=== PATIENT | female | born 1960 | race Caucasian/White ===

== ENCOUNTER 2023-05-11 14:44 | Emergency (ER) | payer OTHER, SELFPAY ==
[2023-05-11] VITALS (10 sets, daily range): BP systolic 111–167; BP diastolic 74–123; PULSE 70–99; RESP 7–26; TEMP 36.6; O2SAT 93–100; BMI 29.2
--- NOTE | 2023-05-11 16:07 | PC.NURSE ---
Pt states she was lifitng heavy boxes at work yesterday when the chest pain started. States she thinks pain is from over exertion and muscular not cardiac related but states that pt's family keep bothering her to go get checked out so she came.
--- NOTE | 2023-05-11 16:10 | ECG_ITS ---
The [facility] Test Date: 2023-05-11 Pat Name: KENY YOUNG Department: Room: - Gender: Female Online Facilitator: : 1960 Requested By: RON QUESADA Order Number: [id number] Reading MD: RON QUESADA Measurements Intervals [place] Rate: 93 P: 73 MD: 134 QRS: 88 QRSD: 100 T: 49 QT: 360 QTc: 411 Interpretive Statements 1100 Sinus rhythm 2440 Incomplete right bundle branch block 4068 Nonspecific Twave abnormality 9130 borderline ECG No previous ECG available for comparison Electronically Signed On 05-12-2023 6:33:05 EDT by RON QUESADA
--- NOTE | 2023-05-11 16:10 | ED_ITS ---
HPI - Chest Pain General Chief Complaint: Chest Pain Stated Complaint: CHEST PAIN Time Seen by Provider: 05/11/23 16:10 Source: patient Mode of arrival: walk-in Limitations: no limitations History of Present Illness HPI narrative: Presents to emergency department complaining of chest pain. Patient states he has pectoris major area. Both on the left than the right. The pain started yesterday after she was lifting some heavy boxes at work. Patient states she is here because she wants her family to shut up. She states that her family started asking her a lot of questions about the pain because one of them is a nurse and finally convinced her to come and be evaluated. Patient denies any palpitations, diaphoresis, near syncope, nausea, vomiting, paresthesias, or abdominal pain. She denies any cough, fever, chills. The patient is a smoker. She has a history of high cholesterol. She called her primary care doctor because she wanted to have an EKG done and was told come to the emergency department. Patient denies any history of coronary artery disease. She states she had a stress test many years ago. She denies any history of thrombotic disease. Related Data Allergies Allergy/AdvReac Type Severity Reaction Status Date / Time morphine Allergy Intermediate Verified 05/11/23 15:09 sulfamethoxazole Allergy Intermediate Verified 05/11/23 15:09 [From Bactrim] trimethoprim [From Bactrim] Allergy Intermediate Verified 05/11/23 15:09 Review of Systems ROS Status of ROS 10 or more systems reviewed and unremarkable except as noted in history and below Exam Narrative Exam Narrative: Nurses notes and vital signs reviewed and patient is not hypoxic. General: Nontoxic, Well-appearing and in no apparent distress. Skin: Warm, dry, no pallor noted. No Rash Head: Normocephalic, atraumatic. Neck: Supple, non-tender. Eye: Pupils are equal, round and EOMI. No scleral icterus. Ears, Nose, Mouth, and Throat: TM clear, no posterior oropharynx erythema or nasal mucosal hypertrophy, uvula is mid-line Oral mucosa is moist Cardiovascular: Regular Rate and Rhythm without murmur, gallop or rub. Respiratory: No accessory muscle use or respiratory distress. Lungs are clear to auscultation, no wheezing, rales or rhonchi Chest Wall: no tenderness Back: No midline thoracic or lumbar vertebral tenderness. No CVA tenderness Musculoskeletal: normal ROM, no calf or popliteal tenderness, no lower extremity edema/swelling GI: Abdomen is soft, non-distended. Normal bowel sounds. No masses appreciated. No tenderness to palpation. No rebound, guarding, or rigidity noted. Neurological: A&O x4. No cranial nerve dysfunction observed. No truncal ataxia. Moves all extremities. Sensation intact. Psychiatric: Cooperative and interactive. Normal mood and affect. Constitutional Vital Signs - 24 hr 05/11/23 15:05 05/11/23 15:07 05/11/23 16:04 Temperature 98 F Pulse Rate 99 H Pulse Rate [Monitor] 96 H Respiratory Rate 18 13 Blood Pressure 111/82 H 150/78 H Blood Pressure [Left Arm] 111/82 H Pulse Oximetry 98 100 05/11/23 16:04 05/11/23 16:10 05/11/23 16:10 Temperature Pulse Rate 92 H 90 96 H Pulse Rate [Monitor] Respiratory Rate 21 20 17 Blood Pressure 167/89 H 167/89 H Blood Pressure [Left Arm] Pulse Oximetry 99 97 98 05/11/23 16:30 05/11/23 17:01 05/11/23 17:01 Temperature Pulse Rate 85 96 H Pulse Rate [Monitor] Respiratory Rate 26 H 7 L Blood Pressure 159/123 H 132/81 H Blood Pressure [Left Arm] Pulse Oximetry 97 93 L 05/11/23 17:01 Temperature Pulse Rate 90 Pulse Rate [Monitor] Respiratory Rate 17 Blood Pressure 132/81 H Blood Pressure [Left Arm] Pulse Oximetry Course Vital Signs Vital signs: Vital Signs Temperature 98 F 05/11/23 15:05 Pulse Rate 96 H 05/11/23 15:05 Respiratory Rate 18 05/11/23 15:05 Blood Pressure 111/82 H 05/11/23 15:05 Pulse Oximetry 98 05/11/23 15:05 Temperature 98 F 05/11/23 15:05 Pulse Rate 90 05/11/23 17:01 Respiratory Rate 17 05/11/23 17:01 Blood Pressure 132/81 H 05/11/23 17:01 Pulse Oximetry 93 L 05/11/23 17:01 MDM - Chest Pain MDM Narrative Medical decision making narrative: EKG was done and does not show any acute ischemic changes. The patient wanted to leave against medical advice and decided to get blood work done for the sake of her family. Labs were unremarkable. Advised the patient would be best for her to lift the 2nd troponin and she agreed. 2nd troponin remains negative. All of the findings were discussed with patient. She is constant discharge. Patient is advised to make sure she follows up with Dr. Sumner in the morning to set up a stress test. The patient is aware that although there are no signs of an acute heart attack with have not ruled out coronary disease and she needs further testing. The patient has remained hemodynamically stable. No additional indication for emergent studies at this time. I answered all questions. Discussed discharge instructions including standard anticipatory guidance and what should prompt a return to the emergency department, including if they get worse are not getting better or develops any new or concerning symptoms. I've given them specific time frame in which to follow-up, and who to follow-up with. The patient demonstrates understanding. Patient is nontoxic and stable for discharge with outpatient follow-up. This note was created with the assistance of a speech recognition program. Although the intention is to generate documents that actually reflects the content of the visit, no guarantees can be provided that every mistake has been identified and corrected by editing. Differential Diagnosis Differential diagnosis: Likely pneumothorax, atypical chest pain, st elevation myocardial infarction, costochondritis and chest pain Lab Data Attestation: I reviewed the patient's lab results. Labs: Lab Results 05/11/23 05/11/23 Range/Units 16:08 17:48 WBC 9.9 (4.0-11.0) 10^3/uL RBC 4.71 (4.20-5.40) 10^6/uL Hgb 15.1 (12.0-16.0) g/dL Hct 43.9 (36.0-48.0) % MCV 93.2 (81.0-99.0) fL MCH 32.1 (26.7-34.0) pg MCHC 34.4 (29.9-35.2) g/dL RDW 12.7 (11.0-15.0) % Plt Count 300 (150-450) 10^3/uL MPV 8.6 L (9.5-13.5) fL Neut % (Auto) 70.9 (43.0-75.0) % Lymph % (Auto) 19.1 L (20.5-60.0) % [place] % (Auto) 8.6 (1.7-12.0) % Eos % (Auto) 0.6 L (0.9-7.0) % Baso % (Auto) 0.4 (0.2-2.0) % Neut # (Auto) 7.0 H (1.4-6.5) 10^3/uL Lymph # (Auto) 1.9 (1.2-3.8) 10^3/uL [place] # (Auto) 0.9 H (0.3-0.8) 10^3/uL Eos # (Auto) 0.1 (0.0-0.7) 10^3/uL Baso # (Auto) 0.0 (0.0-0.1) 10^3/uL Abs Immat Gran (auto) 0.04 H (0.00-0.03) 10^3/uL Imm/Tot Granulo (auto) 0.4 (0.0-0.5) % PT 9.9 (9.0-11.6) sec INR 0.93 APTT 26.2 (22.3-36.2) sec Sodium 137 (136-145) mmol/L Potassium 3.7 (3.5-5.1) mmol/L Chloride 102 (98-107) mmol/L Carbon Dioxide 27.0 (21.0-32.0) mmol/L Anion Gap 11.7 BUN 9.0 (7.0-18.0) mg/dL Creatinine 0.79 (0.55-1.02) mg/dL Est GFR ( Amer) >60 (>=60) Est GFR (Non-Af Amer) >60 (>=60) BUN/Creatinine Ratio 11.4 Glucose 100 (74-106) mg/dL Calcium 9.5 (8.5-10.1) mg/dL Total Bilirubin 0.4 (0.2-1.0) mg/dL AST 17 (15-37) U/L ALT 34 (14-59) U/L Alkaline Phosphatase 88 (46-116) U/L Troponin I High Sens 4.6 <4.0 L (4.0-51.3) pg/mL NT-Pro-B Natriuret Pep 123.0 (<=900.0) pg/mL Total Protein 7.7 (6.4-8.2) g/dL Albumin 3.8 (3.4-5.0) g/dL Globulin 3.9 g/dL Albumin/Globulin Ratio 1.0 ECG Data Attestation: I personally reviewed and interpreted this ECG as follows: Smoking Cessation Time spent discussing smoking cessation with patient: 3 to 10 minutes Discharge Plan Discharge Chief Complaint: Chest Pain Clinical Impression: Chest pain Patient Disposition: Home, Self-Care Time of Disposition Decision: 18:24 Condition: Good Mode of Transportation: Private Vehicle Instructions: Chest Pain (ED) Stand Alone Forms: Portal Instructions Referrals: Eliud Case MD [Primary Care Provider] - 1 week
--- NOTE | 2023-05-11 16:10 | XR_ITS ---
The [address] [address] Patient Name: KENY YOUNG MRN: [id number] date: 1960 Sex: F Assigned Patient Location: ER Current Patient Location: Accession/Order Number: [id number] Exam Date: 05/11/2023 16:30 Report Date: 05/11/2023 16:50 At the request of: JOVANI LOGAN Procedure: XR chest 1V EXAMINATION: XR chest 1V 05/11/2023 1:49 PM PDT HISTORY: cp TECHNIQUE: Single frontal view of the chest acquired. COMPARISONS: None. FINDINGS: Lines/tubes/other: None. Heart and mediastinum: The heart and the mediastinum are within normal limits for technique. Bones: No acute osseous abnormality. Lungs: The lungs are clear. There is no evidence of pneumonia or pulmonary edema. Pleura: There is no significant pleural effusion or pneumothorax. Other: None. IMPRESSION: No acute cardiopulmonary abnormality. Electronically authenticated by: LIZZETH MCKINNON Date: 05/11/2023 16:50
[2023-05-11 16:25] LABS: Basophils Percent Auto 0.4 % (0.2-2.0); Eosinophils Absolute Auto 0.1 10^3/uL (0.0-0.7); Eosinophils Percent Auto 0.6 % (0.9-7.0); Hematocrit 43.9 % (36.0-48.0); Hemoglobin 15.1 g/dL (12.0-16.0); Immature Granulocytes Abs Auto 0.04 10^3/uL (0.00-0.03); Immature Granulocytes Pct Auto 0.4 % (0.0-0.5); Lymphocytes Absolute Auto 1.9 10^3/uL (1.2-3.8); Lymphocytes Percent Auto 19.1 % (20.5-60.0); Mean Corpuscular HGB Conc 34.4 g/dL (29.9-35.2); Mean Corpuscular Hemoglobin 32.1 pg (26.7-34.0); Mean Corpuscular Volume 93.2 fL (81.0-99.0); Mean Platelet Volume 8.6 fL (9.5-13.5); Monocytes Absolute Auto 0.9 10^3/uL (0.3-0.8); Monocytes Percent Auto 8.6 % (1.7-12.0); Neutrophils Percent Auto 70.9 % (43.0-75.0); Platelet Count 300 10^3/uL (150-450); Red Blood Count 4.71 10^6/uL (4.20-5.40); Red Cell Distribution Width 12.7 % (11.0-15.0); White Blood Count 9.9 10^3/uL (4.0-11.0)
[2023-05-11 16:43] LABS: INR 0.93; Partial Thromboplastin Time 26.2 sec (22.3-36.2); Prothrombin Time 9.9 sec (9.0-11.6)
[2023-05-11 16:47] LABS: Alanine Aminotransferase 34 U/L (14-59); Albumin Level 3.8 g/dL (3.4-5.0); Alkaline Phosphatase 88 U/L (46-116); Anion Gap 11.7; Aspartate Amino Transferase 17 U/L (15-37); BUN Creatinine Ratio 11.4; Bilirubin Total 0.4 mg/dL (0.2-1.0); Calcium 9.5 mg/dL (8.5-10.1); Chloride 102 mmol/L (98-107); Estimated GFR (African America >60 (>=60); Estimated GFR (Non-African Ame >60 (>=60); Globulin 3.9 g/dL; Glucose 100 mg/dL (74-106); Potassium 3.7 mmol/L (3.5-5.1); Sodium 137 mmol/L (136-145); Total Protein 7.7 g/dL (6.4-8.2); Troponin I High Sensitivity 4.6 pg/mL (4.0-51.3)
[2023-05-11 18:17] LABS: Troponin I High Sensitivity <4.0 pg/mL (4.0-51.3)
== END 2023-05-11 18:35 | disposition home or self-care (01) ==
PROVIDERS: Emergency Provider Emergency Medicine; PCP Family Medicine
DX: R07.9 Chest pain, unspecified (principal); F17.210 Nicotine dependence, cigarettes, uncomplicated
CPT/HCPCS: 36415; 71045; 80053; 83880; 84484; 85025; 85610; 85730; 93005; 99285

== ENCOUNTER 2023-05-21 11:00 | Outpatient (OUT) | payer OTHER, SELFPAY ==
--- NOTE | 2023-05-21 11:08 | CA_ITS ---
Patient: KENY YOUNG Exam Date: 05/21/2023 : 1960 Gender:F Ordering : DR RON QUESADA . Admission #: [id number] Family : Order #: [id number] CLICK HERE TO VIEW EXAM ECHOCARDIOGRAM REPORT PROCEDURE: CA ECHO DOPPLER COMPLETE INDICATIONS: Chest pain, smoker COMPARISON: None. DESCRIPTION: COMPLETE ECHOCARDIOGRAM Real-time transthoracic echocardiography with 2D, M-mode, spectral and color flow Doppler performed. QUALITY: Technical quality was good. LEFT VENTRICLE: Normal chamber size. Normal left ventricular wall thickness. Normal systolic function. LV EF: Normal left ventricular ejection fraction, (>55%). DIASTOLIC: Normal diastolic function. ATRIAL SEPTUM: Visually appears intact. LEFT ATRIUM: Normal chamber size. RIGHT ATRIUM: Normal chamber size. RIGHT VENTRICLE: Normal chamber size. Normal right ventricular systolic function. TRICUSPID VALVE: Normal mobility and thickness. No stenosis with no regurgitation. MITRAL VALVE: Normal mobility and thickness. No evidence of mitral valve stenosis. There is no mitral annular calcification. No mitral regurgitation. AORTIC VALVE: Normal trileaflet appearance. Thickened aortic valve. Normal leaflet mobility. No evidence of aortic valve stenosis. No aortic regurgitation. AORTIC ROOT: Normal diameter and appearance. PULMONIC VALVE: Normal thickness and mobility. No stenosis. No regurgitation. PERICARDIUM: No evidence of pericardial effusion. IVC: Collapses with inspirations. PLEURA: CONCLUSION: 1. Normal ventricular function. LVEF is 55-60%. 2. No significant valvular dysfunction. 3. No pericardial effusion. Adult Echocardiography Procedure Report Left Ventricle LVEDD (3.7 - 5.6 cm): 4.46 cm LVESD (2.2 - 4.0 cm): 2.75 cm LVIVS thickness (0.6 - 1.2 cm): 0.85 cm LVPW thickness (0.5 - 1.0 cm): 0.85 cm e': 0.10 m/s E - e': 6.74 LVOT Max Gradient: 3.81 mm[Hg] LVOT Area (cm2): 0.98 m/s Peak Velocity (LVOT): 0.98 m/s Mean Velocity (LVOT): 0.67 m/s LVOT Diameter 2.14 cm Left Atrium LA Volume Index (2D A2C): 21.62 ml/m2 Left Atrium Systolic Dimension: 3.13 cm Mitral Valve MV E to A Ratio: 1.08 Mitral Valve A-Wave Peak Velocity: 0.60 m/s Mitral Valve E-Wave Peak Velocity: 0.65 m/s Right Ventricle Aorta AO Root Diam: 3.31 cm Ascending Ao Diam: 2.81 cm Aortic Valve AoV Area (Peak Benito): 2.92 cm2, 2.92 cm2 AoV Area (VTI): 3.03 cm2, 3.03 cm2 Peak Velocity(Antegrade Flow): 1.20 m/s Peak Gradient(Antegrade Flow): 5.78 mm[Hg] Mean Velocity(Antegrade Flow): 0.80 m/s Mean Gradient(Antegrade Flow): 2.95 mm[Hg] Velocity Time Integral: 27.26 cm Tricuspid Valve Pulmonic Valve Peak Velocity: 1.16 m/s Peak Gradient: 5.76 mm[Hg], 5.01 mm[Hg] Right Atrium Right Atrium Systolic Pressure: 35.67 ml, 35.67 ml Dictated by: Gaston Menchaca M.D. on 05/22/2023 at 17:56 Approved by: Gaston Menchaca M.D. on 05/22/2023 at 17:59
== END 2023-05-21 11:01 | disposition home or self-care (01) ==
PROVIDERS: PCP Family Medicine; Visit Provider Family Medicine
DX: R07.9 Chest pain, unspecified (principal)
CPT/HCPCS: 93306

== ENCOUNTER 2023-05-25 07:04 | Outpatient (OUT) | payer OTHER, SELFPAY ==
--- NOTE | 2023-05-25 06:45 | NM_ITS ---
Patient: KENY YOUNG Exam Date: 05/25/2023 : 1960 Gender:F Ordering : DR RON QUESADA . Admission #: [id number] Family : Order #: [id number] CLICK HERE TO VIEW EXAM RADIOLOGY REPORT PROCEDURE: NM CANDY PERF SPECT REST STR COMPARISON: None. INDICATIONS: CHEST PAIN TECHNIQUE: Exam Description: Stress/Rest one day protocol gated SPECT Rest Imagin.0 mCi Tc-99m Cardiolite IV on 05/25/2023 Stress Imaging 30.1 mCi Tc-99m Cardiolite IV on 05/25/2023 Exercise Protocol: [place] Heart Rate (bpm): Rest: 68 Max: 137 PMHR: 87 Blood Pressure: Rest: 137/76 Max: 160/82 Exercise Time: Minutes: 7 Seconds: 15 Stage Reached: Stage: 3 Mets 9.2 Symptoms: Rest and peak stress ECG findings were normal and the exercise portion of the study was normal per attending physician Dr. Ley . For more details please see separate cardiac stress test report. FINDINGS: QUALITY OF STUDY: Excellent. PERFUSION DEFECT: None. LOCATION: N/A SIZE: N/A. SEVERITY: N/A. TYPE: N/A. WALL MOTION: Normal. LV SIZE: Normal. 51 mL. TID / TCD: None; 1.0 LVEF: Normal. Calculated EF 79%. SUMMARY: Myocardial perfusion imaging study is NORMAL. CONCLUSION: 1. Normal myocardial perfusion scan 2. Normal exercise test Dictated by: Lanre Omalley MD on 05/25/2023 at 15:29 Approved by: Lanre Omalley MD on 05/25/2023 at 15:32
--- NOTE | 2023-05-25 15:02 | PM.STRESS ---
Stress Test Stress Test Allergies Allergy/AdvReac Type Severity Reaction Status Date / Time morphine Allergy Intermediate Verified 05/11/23 15:09 sulfamethoxazole Allergy Intermediate Verified 05/11/23 15:09 [From Bactrim] trimethoprim [From Bactrim] Allergy Intermediate Verified 05/11/23 15:09 Requesting physician: Eliud Case Procedure: Exercise Cardiolite stress test General Information: Reason for Stress Test: Chest pain Cardiac History and Risk Factors: Smoker. Grandmother had unspecified cardiovascular disease. Resting 12 - Lead Electrocardiogram: Normal sinus rhythm with rate 68. Normal T-waves & ST-segments. Normal axis. Stress Test: Protocol: [place] protocol was followed, with injection of Cardiolite once target heart rate was achieved. Exercise capacity: Good exercise capacity at a total exercise time of 7 minutes 16 seconds, equivalent to 3.4MPH, 14% grade, & 9.2 METs. Blood pressure: Initial: 136/76, Maximum: 160/82, Recovery: 138/78 Rate & rhythm: Patient remained in sinus rhythm during the exercise and recovery portions of the study.? The maximum heart rate was 137, which was 87% of the maximum predicted heart rate 157. ST-segments & T-waves: There were no T-wave changes and no ST-segment changes when compared to the baseline EKG. Patient response/symptoms: There were no symptoms similar to the chief complaint. Interpretation: Normal Lexiscan stress test. Cardiolite interpretation will be reported separately. Clinical correlation required.
== END 2023-05-25 07:05 | disposition home or self-care (01) ==
LOC: NM 07:07
PROVIDERS: PCP Family Medicine; Visit Provider Family Medicine
DX: R07.9 Chest pain, unspecified (principal)
CPT/HCPCS: 78452; 93017; A9500

== ENCOUNTER 2023-10-19 15:55 | Outpatient (OUT) | payer OTHER, SELFPAY ==
[2023-10-19 16:22] LABS: Basophils Percent Auto 0.4 % (0.2-2.0); Eosinophils Absolute Auto 0.1 10^3/uL (0.0-0.7); Eosinophils Percent Auto 0.9 % (0.9-7.0); Hematocrit 41.1 % (36.0-48.0); Hemoglobin 13.7 g/dL (12.0-16.0); Immature Granulocytes Abs Auto 0.02 10^3/uL (0.00-0.03); Immature Granulocytes Pct Auto 0.3 % (0.0-0.5); Lymphocytes Absolute Auto 1.7 10^3/uL (1.2-3.8); Lymphocytes Percent Auto 23.1 % (20.5-60.0); Mean Corpuscular HGB Conc 33.3 g/dL (29.9-35.2); Mean Corpuscular Hemoglobin 31.9 pg (26.7-34.0); Mean Corpuscular Volume 95.6 fL (81.0-99.0); Mean Platelet Volume 8.5 fL (9.5-13.5); Monocytes Absolute Auto 0.7 10^3/uL (0.3-0.8); Monocytes Percent Auto 9.5 % (1.7-12.0); Neutrophils Absolute Auto 4.9 10^3/uL (1.4-6.5); Neutrophils Percent Auto 65.8 % (43.0-75.0); Platelet Count 283 10^3/uL (150-450); White Blood Count 7.4 10^3/uL (4.0-11.0)
[2023-10-19 16:41] LABS: Anion Gap 9.7; BUN Creatinine Ratio 12.9; Carbon Dioxide 29.3 mmol/L (21.0-32.0); Chloride 105 mmol/L (98-107); Estimated GFR (African America >60 (>=60); Estimated GFR (Non-African Ame >60 (>=60); Glucose 96 mg/dL (74-106); Sodium 140 mmol/L (136-145)
== END 2023-10-19 15:56 | disposition home or self-care (01) ==
PROVIDERS: PCP Family Medicine; Visit Provider Nurse Practitioner Acute Care
DX: Z01.818 Encounter for other preprocedural examination (principal); Z01.812 Encounter for preprocedural laboratory examination
CPT/HCPCS: 36415; 80048; 85025

== ENCOUNTER 2023-12-08 11:26 | Outpatient (OUT) | payer OTHER, SELFPAY ==
--- OUTSIDE RECORDS SUMMARY | 2023-12-08 11:31 | XMS_ITS | CCD ---
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 Name Role Phone Ron Case MD Primary Care Provider [phone] CARTER TORRES Referring Unavailable RON CASE Primary Care Unavailable CARTER TORRES Referring Unavailable RON CASE Primary Care Unavailable AJAY PEREIRA Referring Unavailable RON CASE Primary Care Unavailable CARTER TORRES Admitting Unavailable CARTER TORRES Attending Unavailable RON CASE Primary Care Unavailable DR RON CASE Admitting Unavailable SANGITA, DR VELASQUEZ Attending Unavailable DR RON CASE Primary Care Unavailable DR RON CASE Consulting Unavailable JOHN PAUL, DR CARTER Ayala Consulting Unavailable MARJ ABRAHAM Admitting Unavailable MARJ ABRAHAM Attending Unavailable LORETA GRIMALDO Attending Unavailable HENRIETTA RODRIGUEZ Attending Unavailable MARJ BARAHAM Referring Unavailable Allergies Allergy Classification Reported Allergen(s) Allergy Type Date of Onset Reaction(s) Facility (4 sources) Morphine; Translations: [MORPHINE] Drug Allergy 06-21-20 Hives, Palpitations [facility] (1 source) Morphine Drug Allergy [facility] Repository (1 source) Sulfamethoxazole / Trimethoprim; Translations: [SULFAMETHOXAZOLE-TR IMETHOPRIM] Drug Allergy 09-28-20 [facility] Repository Medications Current Medications Medication Drug Class(es) Dates Sig (Normalized) Sig (Original) calcium chloride 0.0014 meq/ml / potassium chloride 0.004 meq/ml / sodium chloride 0.103 meq/ml / sodium lactate 0.028 meq/ml injectable solution (1 source) Start: 06-27-2022 lactated ringers infusion furosemide 20 mg oral tablet (3 sources) Loop Diuretic furosemide (LASI X) 20 MG tablet Take 20 mg by mouth as needed 0 Active ketorolac tromethamine 10 mg oral tablet (1 source) Nonsteroidal Anti-inflammatory Drug, Cyclooxygenase Inhibitor Start: 06-27-2022 End: 07-02-2022 ketorolac (TORADOL) 10 MG tablet Take 1 tablet by mouth in the morning and 1 tablet at noon and 1 tablet before bedtime. Do all this for 5 days. 1 tab by mouth 3 times daily. 15 tablet 0 06/27/2022 07/02/2022 Active pantoprazole 40 mg delayed release oral tablet (1 source) Proton Pump Inhibitor take 1 tablet by mouth once daily as needed pantoprazole (PROTONIX) 40 MG tablet Take 40 mg by mouth daily as needed 0 Active Completed/Discontinued Medications Medication Drug Class(es) Dates Sig (Normalized) Sig (Original) ceFAZolin 2000 mg injection (1 source) Cephalosporin Antibacterial Start: 06-27-2022 End: 06-27-2022 ceFAZolin (ANCEF) 2000 mg in dextrose 3 % 50 mL IVPB (duplex) ibuprofen 800 mg oral tablet (3 sources) Nonsteroidal Anti-inflammatory Drug Start: 04-30-2020 End: 06-27-2022 take 1 tablet by mouth four times daily for pain ibuprofen (ADVIL;MOTRIN) 800 MG tablet take 1 tablet by mouth four times a day if needed for pain 0 04/30/2020 06/27/2022 Discontinued (Stop Taking at Discharge) levoFLOXacin 750 mg oral tablet (3 sources) Quinolone Antimicrobial Start: 08-10-2020 End: 06-27-2022 take 1 tablet by mouth once daily levoFLOXacin (LEVAQUIN) 750 MG tablet take 1 tablet by mouth once daily 0 08/10/2020 06/27/2022 Discontinued (Therapy completed) Problems Problem Classification Problem Date Documented Date Episodic/Chronic Coronary atherosclerosis and other heart disease (4 sources) Atherosclerotic heart disease of [place] coronary artery without angina pectoris; Translations: [Atherosclerotic heart disease of [place] coronary artery with other forms of angina pectoris] Onset: 10-26-2023 Chronic Joint disorders and dislocations; trauma-related (4 sources) Unspecified internal derangement of right knee; Translations: [UNS INTERNAL DERANGEMENT RIGHT KNEE] Onset: 06-05-2022 Chronic Nonspecific chest pain (2 sources) Other chest pain; Translations: [Other chest pain] Onset: 10-08-2023 Episodic Other lower respiratory disease (2 sources) Shortness of breath; Translations: [Shortness of breath] Onset: 10-08-2023 Episodic Results Test Name Value Interpretation Reference Range Facility Office Visiton 11-11-2023 Follow-up visit [id number] Abi Boswell 1960 Provider Department Center 11/11/2023 HENRIETTA FLOREZ [facility] [place] Family History Problem Relation Age of Onset Hypertension Maternal Grandmother Transient ischemic attack Maternal Grandmother Heart attack Maternal Grandfather Heart failure Maternal Grandfather Family Status - Relation Status Age at Maternal Grandmother Maternal Grandfather Level of Service:68436 SD OFFICE/OUTPATIENT ESTABLISHED MOD MDM 30-39 MIN Reason for Visit and Comments: Chest Pain [266424] Coronary Artery Disease [187] [facility] HPon 10-26-2023 HP H&P reviewed. The patient was examined and there are no changes to the H&P. This is a 63-year-old woman with multiple risk factors for coronary artery disease who has been having symptoms of chest pain suggestive of possible unstable angina consisting of 5 pressure in the center of the chest with left upper extremity radiation. She is currently being treated with aspirin, statin beta-chapin and long-acting nitrates. She continues to have recurrence of the symptoms despite medical therapy. In April she was evaluated in the emergency room and her troponins were negative. At that time she underwent an echocardiogram and a stress test that were nonrevealing. Because of continued chest pain on medical therapy, she is brought today for cardiac catheterization with coronary angiography to determine the coronary anatomy and decide on need for intervention. Normal [facility] NURSNOTEon 10-26-2023 NURSNOTE RN educated pt on d/ c instructions. RN encouraged pt to voice any questions or concerns. Pt verbalizes no questions or concerns at this time. Pt was wheeled off of unit with all of belongings. [facility] Orders Onlyon 10-01-2023 Orders Only [id number] Boswell,Bernice Maxine 1960 Provider Department Center 10/01/2023 SCOT BRADLEY [facility] Family History Problem Relation Age of Onset Hypertension Maternal Grandmother Transient ischemic attack Maternal Grandmother Heart attack Maternal Grandfather Heart failure Maternal Grandfather Family Status - Relation Status Age at Maternal Grandmother Maternal Grandfather Normal [facility] HPon 09-28-2023 Cardiovascular Medicine [facility] SUBJECTIVE No chief complaint on file. HPI Abi Boswell is a 63 y.o. female with past medical history of SLE, restless leg syndrome, hyperlipidemia, and GERD, herefor evaluation of chest pain. She has been experiencing sporadic chest pressure/tightness radiating to left arm and back since March, lasting up to 30 minutes at a time. Pain is unpredictable at times occurs on exertion and at times at rest. She has had a stress test and echo which have been unremarkable. She has been prescribed Imdur and Metoprolol, she is uncertain if these are helping. Ntiro tabs seem to relieve her symptoms. She would like to discuss coronary angiography. She is 1/2 ppd, started smoking at age 15. Mother had a mild stroke at an unknown age. Allergies Allergen Reactions Morphine Hives, Other and Palpitations Sulfamethoxazole-Trim ethoprim Itching There is no problem list on file for this patient. Past Medical History: Diagnosis Date Hyperlipidemia Past Surgical History: Procedure Laterality Date BLADDER REPAIR HYSTERECTOMY KNEE SURGERY SHOULDER SURGERY TONSILLECTOMY Family History Problem Relation Name Age of Onset Hypertension Maternal Grandmother Transient ischemic attack Maternal Grandmother Heart attack Maternal Grandfather Heart failure Maternal Grandfather Social History Tobacco Use Smoking status: Every Day Packs/day: 0.50 Types: Cigarettes Smokeless tobacco: Never Substance Use Topics Alcohol use: Not Currently Review of Systems Cardiovascular: Positive for chest pain, dyspnea on exertion and palpitations. Negative for irregular heartbeat, leg swelling, near-syncope, orthopnea, paroxysmal nocturnal dyspnea and syncope. OBJECTIVE Visit Vitals BP 121/69 (BP Location: Right arm, Patient Position: Sitting) Pulse 73 Ht 1.651 m (5' 5 ) Wt 79.4 kg (175 lb) SpO2 96% BMI 29.12 kg/m??? Smoking Status Every Day BSA 1.91 m??? Medications: Current Outpatient Medications: aspirin 81 mg EC tablet, 1 (one) time each day at the same time., Disp: , Rfl: diclofenac (Voltaren) 75 mg EC tablet, 1 (one) time each day at the same time., Disp: , Rfl: furosemide (Lasix) 20 mg tablet, if needed., Disp: , Rfl: HYDROcodone-acetamino phen (Redding) 5-325 mg tablet, take 1 tablet by mouth every 6 hours if needed for 22, Disp: , Rfl: isosorbide mononitrate ER (Imdur) 30 mg 24 hr tablet, Take 30 mg by mouth 2 times daily., Disp: , Rfl: metoprolol tartrate (Lopressor) 25 mg tablet, Take 25 mg by mouth in the morning and at bedtime., Disp: , Rfl: nitroglycerin (Nitrostat) 0.4 mg SL tablet, , Disp: , Rfl: pantoprazole (ProtoNix) 40 mg EC tablet, 1 (one) time each day at the same time., Disp: , Rfl: potassium chloride CR (Klor-Con M10) 10 mEq ER tablet, if needed., Disp: , Rfl: pramipexole (Mirapex) 0.5 mg tablet, Take 0.5 mg by mouth in the morning., Disp: , Rfl: predniSONE (Deltasone) 10 mg tablet, Take 10 mg by mouth if needed., Disp: , Rfl: pregabalin (Lyrica) 25 mg capsule, 1 capsule 1 (one) time each day at the same time., Disp: , Rfl: simvastatin (Zocor) 20 mg tablet, 1 (one) time each day at the same time., Disp: , Rfl: Physical Exam Constitutional: Appearance: Normal appearance. Cardiovascular: Rate and Rhythm: Normal rate and regular rhythm. Pulses: Normal pulses. Heart sounds: Normal heart sounds. No murmur heard. No friction rub. Pulmonary: Effort: Pulmonary effort is normal. No respiratory distress. Breath sounds: Normal breath sounds. No wheezing or rales. Skin: General: Skin is warm and dry. Neurological: General: No focal deficit present. Mental Status: She is alert. Labs: 05/11/2023 WBC 9.9, hemoglobin 15.1, hematocrit 43.9, platelets 300 Sodium 137, potassium 3.7, chloride 102, CO2 27, BUN 9, serum creatinine 0.79, Estimated GFR greater than 60% High sensitive troponin < 4 NT proBNP 123 (less than 900) Testing/Procedures: Stress test: 05/25/2023 Normal myocardial perfusion scan Normal exercise test Echo: 05/21/2023 Normal ventricular function. LVEF is 55 to 60% No valvular dysfunction No pericardial effusion No echocardiogram results found for the past 14 days No echocardiogram results found for the past 12 months No results found for this or any previous visit (from the past 4464 hour(s)). ASSESSMENT/PLAN: Diagnosis Plan 1. Other chest pain ECG 12 lead 2. Tobacco dependence 3. Mixed hyperlipidemia Chest pain -She is experiencing atypical chest pain occurring at various times of the day. I reviewed her workup including a stress test and echo which were normal. I also reviewed labs obtained during an acute ED presentation which included cardiac enzymes that were negative. I advised I will review the case with interventional cardiology for recommendation on angiography vs CCTA. 2. Tobacco dependence -She is not ready to quit but working slowly t (more content not included)... Normal [facility] Office Visiton 09-28-2023 Follow-up visit [id number] Abi Boswell 1960 F Date Provider Department Center 09/28/2023 [id number] GRIMALDO CARD [facility] Family History Problem Relation Age of Onset Hypertension Maternal Grandmother Transient ischemic attack Maternal Grandmother Heart attack Maternal Grandfather Heart failure Maternal Grandfather Family Status - Relation Status Age at Maternal Grandmother Maternal Grandfather Level of Service:07426 SD OFFICE/OUTPATIENT NEW LOW MDM 30-44 MINUTES Normal [facility] [id number] 06-27-2022 SARS-CoV-2 (COVID-19) RNA CAROLINE+probe Ql (Unsp spec) Not detected Normal [facility] Comment on above: Result Comment: Rapid NAAT: The specimen is NEGATIVE for SARS-CoV-2, the novel coronavirus associated with COVID-19. The ID NOW COVID-19 assay is designed to detect the virus that causes COVID-19 in patients with signs and symptoms of infection who are suspected of COVID-19. An individual without symptoms of COVID-19 and who is not shedding SARS-CoV-2 virus would expect to have a negative (not detected) result in this assay. Negative results should be treated as presumptive and, if inconsistent with clinical signs and symptoms or necessary for patient management, should be tested with an alternative molecular assay. Negative results do not preclude SARS-CoV-2 infection and should not be used as the sole basis for patient management decisions. Fact sheet for Healthcare Providers: https://www.fda.gov/media/442998/download Fact sheet for Patients: https://www.fda.gov/media/830079/download Methodology: Isothermal Nucleic Acid Amplification Performed By: #### C OVRB #### [facility] [address] [place] [address] Site Reliability Engineer: Lanre Santana MD Basic Metabolic Panelon 05-31 Anion gap [Moles/Vol] 8 mmol/L Low 9 - 17 mmol/L [facility] Calcium [Mass/Vol] 9.8 mg/dL 8.6 - 10. 4 mg/dL [facility] Chloride [Moles/Vol] 107 mmol/L 98 - 10 7 mmol/L [facility] CO2 [Moles/Vol] 30 mmol/L 20 - 31 mmol/L [facility] Creatinine [Mass/Vol] 0.73 mg/dL 0.5 - 0.9 mg/dL [facility] GFR >60 60 - PI NF mL/min [facility] GFR Non- >60 60 - PINF mL/min [facility] Glucose [Mass/Vol] 97 mg/dL 70 - 99 mg/dL [facility] Interpretation and review of laboratory results Abnormal [facility] Potassium [Moles/Vol] 4.4 mmol/L 3.7 - 5.3 mmol/L [facility] Sodium [Moles/Vol] 145 mmol/L High 135 - 144 mmol/L [facility] Urea nitrogen (BldV) [Mass/Vol] 12 mg/dL 8 - 23 mg/dL [facility] Urea nitrogen/Creatinine (Bld) [Mass ratio] 16 9 - 20 [facility] Basic Metabolic Profon 06-20 (cont.) Normal [facility] Comment on above: Result Comment: Aver age GFR for 60-69 years old: 85 mL/min/1.73sq m Chronic Kidney Disease: <60 mL/min/1.73sq m Kidney failure: <15 mL/min/1.73sq m eGFR calculated using average adult body mass. Additional eGFR calculator available at: http://www.Metaboli/multiple_crcl_2012.htm Performed By: #### C DP, BMP #### [facility] [address] [place], [place] [id number] Site Reliability Engineer: Lanre Santana MD Anion gap [Moles/Vol] 8 mmol/L Low 9-17 [facility] Comment on above: Performed By: #### C DP, BMP #### [address] [place], [place] [id number] Site Reliability Engineer: Lanre Santana MD BUN/CRE Ratio 16 Normal 9-20 [facility] Comment on above: Performed By: #### C DP, BMP #### [address] [place], [place] [id number] Site Reliability Engineer: Lanre Santana MD Calcium [Mass/Vol] 9.8 mg/dL Normal 8.6-10.4 [facility] Comment on above: Performed By: #### C DP, BMP #### [address] [place], [place] [address]83 Site Reliability Engineer: Lanre Santana MD Chloride [Moles/Vol] 107 mmol/L Normal 98-107 [facility] Comment on above: Performed By: #### C DP, BMP #### [facility] [address] [place], [place] [id number] Site Reliability Engineer: Lanre Santana MD CO2 [Moles/Vol] 30 mmol/L Normal 20-31 [facility] Comment on above: Performed By: #### C DP, BMP #### [facility] [address] [place] [address] [place] [place], [place] [id number] Site Reliability Engineer: Lanre Santana MD Creatinine [Mass/Vol] 0.73 mg/dL Normal 0.50-0.90 [facility] Comment on above: Performed By: #### C DP, BMP #### [facility] [address] [place] [address] Site Reliability Engineer: Lanre Santana MD GFR, Amer >60 Normal >[address] [facility] Comment on above: Performed By: #### C DP, BMP #### [facility] [address] [place], [place] [address] Site Reliability Engineer: Lanre Santana MD GFR,non Amer >60 Normal >60 [facility] Comment on above: Performed By: #### C DP, BMP #### [facility] [address] [place], [place] [address] Site Reliability Engineer: Lanre Santana MD Glucose [Mass/Vol] 97 mg/dL Normal 70-99 [facility] Comment on above: Performed By: #### C DP, BMP #### [facility] [address] [place], [place] [address] Site Reliability Engineer: Lanre Santana MD Potassium [Moles/Vol] 4.4 mmol/L Normal 3.7-5.3 [facility] Comment on above: Performed By: #### C DP, BMP #### [facility] [address] [place] [address] [place], [place] [address] Site Reliability Engineer: Lanre Santana MD Sodium [Moles/Vol] 145 mmol/L High 135-144 [facility] Comment on above: Performed By: #### C DP, BMP #### [facility] [address] [place] [address] Site Reliability Engineer: Lanre Santana MD Staging: Normal [facility] Comment on above: Result Comment: Stag e 1: Some kidney damage normal GFR Stage 2: Mild kidney damage GFR 60-89 Stage 3: Moderate kidney damage GFR 30-59 Stage 4: Severe kidney damage GFR 15-29 Stage 5: Severe kidney damage GFR <15 ESRD - chronic treatment by dialysis or transplant Performed By: #### C DP, BMP #### [facility] [address] [place] [address] Site Reliability Engineer: Lanre Santana MD Urea nitrogen [Mass/Vol] 12 mg/dL Normal 8-23 [facility] Comment on above: Performed By: #### C DP, BMP #### [facility] [address] [place] [address] Site Reliability Engineer: Lanre Santana MD CBC with Auto Differentialon 06-20-2022 Absolute Eos # 0.12 [facility] Absolute Immature Granulocyte 0.03 [facility] Absolute Lymph # 1.85 [facility] Absolute [place] # 0.71 [facility] Basophils (Bld) [#/Vol] 0.03 10*3/uL [facility] Basophils/100 WBC (Bld) 0 % 0 - 2 % [facility] Eosinophils/100 WBC (Bld) 1 % 1 - 4 % [facility] Hematocrit (Bld) [Volume fraction] 42.7 % 36.3 - 47.1 % [facility] Hemoglobin (Bld) [Mass/Vol] 14.3 g/dL 11.9 - 15.1 g/dL [facility] Immature granulocytes/100 WBC (Bld) 0 % 0 [facility] Interpretation and review of laboratory results Abnormal [facility] Lymphocytes/100 WBC (Bld) 22 % Low 24 - 43 % [facility] MCH (RBC) [Entitic mass] 32.6 pg 25.2 - 33.5 pg [facility] MCHC (RBC) [Mass/Vol] 33.5 g/dL 28.4 - 34.8 g/dL [facility] MCV (RBC) [Entitic vol] 97.3 fL 82.6 - 102.9 fL [facility] Monocytes/100 WBC (Bld) 9 % 3 - 12 % [facility] NRBC Automated 0.0 0.0 per 100 WBC [facility] Platelet distribution width (Bld) [Ratio] 13.3 % 11.8 - 14.4 % [facility] Platelet mean volume (Bld) [Entitic vol] 8.4 fL 8.1 - 13.5 fL [facility] Platelets (Bld) [#/Vol] 278 10*3/uL [facility] RBC (Bld) [#/Vol] 4.39 10*6/uL 3.95 - 5.1 1 m/uL [facility] Segmented neutrophils/100 WBC (Bld) 68 % High 36 - 65 % [facility] Segs Absolute 5.62 [facility] WBC (Bld) [#/Vol] 8.4 10*3/uL [facility] CBC with Diffon 06-20-2022 Abs. Basophil 0.03 k/uL Normal 0.00-0.20 [facility] Comment on above: Performed By: #### C DP, BMP #### [facility] [address] [place] [address] [place] [address] Site Reliability Engineer: Lanre Santana MD Abs.Imm.Granulocyte 0.03 k/uL Normal 0.00-0.30 [facility] Comment on above: Performed By: #### C DP, BMP #### [address] [address] Site Reliability Engineer: Lanre Santana MD Abs.Neutrophil (Seg) 5.62 k/uL Normal 1.50-8.10 [facility] Comment on above: Performed By: #### C DP, BMP #### [facility] [address] [place] [address] Dr. [place], [id number] Site Reliability Engineer: Lanre Santana MD Basophils/100 WBC (Bld) 0 % Normal 0-2 [facility] Comment on above: Performed By: #### C DP, BMP #### [facility] [address] [place] [address] Dr. [place], [place] [id number] Site Reliability Engineer: Lanre Santana MD Eosinophils (Bld) [#/Vol] 0.12 10*3/uL Normal 0.00-0.44 [facility] Comment on above: Performed By: #### C DP, BMP #### [address] [place], [place] [id number] Site Reliability Engineer: Lanre Santana MD Eosinophils/100 WBC (Bld) 1 % Normal 1-4 [facility] Comment on above: Performed By: #### C DP, BMP #### [address] [place] [id number] Site Reliability Engineer: Lanre Santana MD Erythrocyte distribution width (RBC) [Ratio] 13.3 % Normal 11.8-14.4 [facility] Comment on above: Performed By: #### C DP, BMP #### [address] [place] [id number] Site Reliability Engineer: Lanre Santana MD Hematocrit (Bld) [Volume fraction] 42.7 % Normal 36.3-47.1 [facility] Comment on above: Performed By: #### C DP, BMP #### [address] [place] [id number] Site Reliability Engineer: Lanre Santana MD Hemoglobin (Bld) [Mass/Vol] 14.3 g/dL Normal 11.9-15.1 [facility] Comment on above: Performed By: #### C DP, BMP #### [address] [place], [id number] Site Reliability Engineer: Lanre Santana MD Immature granulocytes/100 WBC (Bld) 0 % Normal 0 [facility] Comment on above: Performed By: #### C DP, BMP #### [address] [place], [place] 148[address]83 Site Reliability Engineer: Lanre Santana MD Lymphocytes (Bld) [#/Vol] 1.85 10*3/uL Normal 1.10-3.70 [facility] Comment on above: Performed By: #### C DP, BMP #### [facility] [address] [place], [place] [id number] Site Reliability Engineer: Lanre Santana MD Lymphocytes/100 WBC (Bld) 22 % Low 24-43 [facility] Comment on above: Performed By: #### C DP, BMP #### [facility] [address] [place], [facility] Site Reliability Engineer: Lanre Santana MD MCH (RBC) [Entitic mass] 32.6 pg Normal 25.2-33.5 [facility] Comment on above: Performed By: #### C DP, BMP #### [address] [place], [facility] Site Reliability Engineer: Lanre Santana MD MCHC (RBC) [Mass/Vol] 33.5 g/dL Normal 28.4-34.8 [facility] Comment on above: Performed By: #### C DP, BMP #### [address] [place], [id number] Site Reliability Engineer: Lanre Santana MD MCV (RBC) [Entitic vol] 97.3 fL Normal 82.6-102.9 [facility] Comment on above: Performed By: #### C DP, BMP #### [address] [place], [place] [address] Site Reliability Engineer: Lanre Santana MD Monocytes (Bld) [#/Vol] 0.71 10*3/uL Normal 0.10-1.20 [facility] Comment on above: Performed By: #### C DP, BMP #### [address] [place] [address] Site Reliability Engineer: Lanre Santana MD Monocytes/100 WBC (Bld) 9 % Normal 3-12 [facility] Comment on above: Performed By: #### C DP, BMP #### [facility] [address] [place], [place] [id number] Site Reliability Engineer: Lanre Santana MD Neutrophil (Seg) 68 % High 36-[address] [facility] Comment on above: Performed By: #### C DP, BMP #### [facility] [address] [place], [place] [id number] Site Reliability Engineer: Lanre Santana MD NRBC Automated 0.0 per 100 WBC Normal 0.0 [facility] Comment on above: Performed By: #### C DP, BMP #### [address] [place], [place] [id number] Site Reliability Engineer: Lanre Santana MD Platelet mean volume (Bld) [Entitic vol] 8.4 fL Normal 8.1-13.5 [facility] Comment on above: Performed By: #### C DP, BMP #### [address] [place], [place] [id number] Site Reliability Engineer: Lanre Santana MD Platelets (Bld) [#/Vol] 278 10*3/uL Normal 138-453 [facility] Comment on above: Performed By: #### C DP, BMP #### [address] [place], [place] [id number] Site Reliability Engineer: Lanre Santana MD RBC (Bld) [#/Vol] 4.39 10*6/uL Normal 3.95-5.11 [facility] Comment on above: Performed By: #### C DP, BMP #### [facility] [address] [place] [address] Dr[address] [place], [place] [id number] Site Reliability Engineer: Lanre Santana MD WBC (Bld) [#/Vol] 8.4 10*3/uL Normal 3.5-11.3 [facility] Comment on above: Performed By: #### C DP, BMP #### [address] [place], [place] [id number] Site Reliability Engineer: Lanre Santana MD EKG 12 LeadOrdered By: César baezad on 06-20-2022 Atrial Rate 65 BPM [employer] Work Phone: P [place] 65 degrees [employer] Work Phone: P-R Interval 134 ms [employer] Work Phone: Q-T Interval 432 ms [employer] Work Phone: QRS Duration 110 ms [employer] Work Phone: QTc Calculation (Bazett) 449 ms [employer] Work Phone: R [place] 72 degrees [employer] Work Phone: T [place] 43 degrees [employer] Work Phone: Ventricular Rate 65 BPM [employer] Work Phone: [employer] Work Phone: EKG 12 Leadon 06-20-2022 Normal sinus rhythm Incomplete right bundle branch block Cannot rule out Inferior infarct , age undetermined Abnormal ECG No previous ECGs available Confirmed by César Blanco MD ([id number]) on 06/20/2022 10:08:[address] [facility] César Blanco MD - 06/20/2022 Normal sinus rhythm Incomplete right bundle branch block Cannot rule out Inferior infarct , age undetermined Abnormal ECG No previous ECGs available Confirmed by César Blanco MD ([id number]) on 06/20/2022 10:08:07 PM [employer] Work Phone: Laboratory - Chemistry and C hemistry - challengeon 06-20-2022 GFR/1.73 sq M.predicted MDRD (S/P/Bld) [Vol rate/Area] [employer] Comment on above: Average GFR for 60-6 9 years old: 85 mL/min/1.73sq m Chronic Kidney Disease: <60 mL/min/1.73sq m Kidney failure: <15 mL/min/1.73sq m eGFR calculated using average adult body mass. Additional eGFR calculator available at: [email or web address] Stage 1: Some kidney damage normal GFR Stage 2: Mild kidney damage GFR 60-89 Stage 3: Moderate kidney damage GFR 30-59 Stage 4: Severe kidney damage GFR 15-29 Stage 5: Severe kidney damage GFR <15 ESRD - chronic treatment by dialysis or transplant MRI KNEE RT WO CONon 022 MRI KNEE RT WO CON EXAMINATION: MRI KNE E RT WO CON HISTORY: Derangement of right knee ; acute right knee pain, difficulty with weightbearing COMPARISON: No relevant comparison available. TECHNIQUE: A complete multi-planar MRI was performed. FINDINGS: MEDIAL COMPARTMENT MEDIAL MENISCUS: Large undersurface tear involving posterior horn and junction. CARTILAGE: No visible defect. BONES: Edema within the marrow of tibial plateau deep to the attachment of the posterior cruciate ligament. MCL AND MEDIAL CAPSULE: Normal medial collateral ligament and medial capsule. LATERAL COMPARTMENT LATERAL MENISCUS: No visible tear or significant degeneration. CARTILAGE: No visible defect. BONES: No marrow pathology, fracture, or significant arthropathy. LCL/POSTEROLAT COMPLEX: Normal lateral collateral ligament, fascicles, lateral capsule and ligaments. ANTERIOR COMPARTMENT PATELLA: No marrow pathology, fracture, or significant arthropathy. CARTILAGE: No visible defect. TENDONS: Normal. EFFUSION: None. No synovitis or loose bodies. ACL: Normal appearing ligament. PCL: Normal appearing ligament. MENISCOFEMORAL: Normal meniscofemoral ligaments. OTHER: Negative. IMPRESSION: 1. Medial meniscus large undersurface tear involving the posterior horn and junction. 2. Edema within tibia deep to the posterior cruciate ligament attachment, possibly bone bruising. No disruption or appreciable stranding of the posterior cruciate ligament. Electronically authenticated by: CARTER COKER Date: 2022-06-06 15:52 Normal [facility] Vital Signs Date Time Vital Sign Value Performing Clinician Nito patiño 06-27-2022 14:30-0400 Diastolic blood pressure 68 mm[Hg] Carter Torres MD Work Phone: [employer] 06-27-2022 14:30-0400 Heart rate 68 /min Carter Torres MD Work Phone: [employer] 06-27-2022 14:30-0400 Respiratory rate 23 /min Carter Torres MD Work Phone: [employer] 06-27-2022 14:30-0400 SaO2% (BldA) [Mass fraction] 94 % Carter Torres MD Work Phone: [employer] 06-27-2022 14:30-0400 Systolic blood pressure 117 mm[Hg] Carter Torres MD Work Phone: [employer] 06-27-2022 14:00-0400 Body temperature 97 [degF] Carter Torres MD Work Phone: [employer] 06-27-2022 11:16-0400 Body height 162.6 cm Carter Torres MD Work Phone: [employer] 06-27-2022 11:16-0400 Body mass index (BMI) [Ratio] 30.04 kg/m2 Carter Torres MD Work Phone: [employer] 06-27-2022 11:16-0400 Body weight 79.38 kg Carter Torres MD Work Phone: [employer] Encounters Encounter Date Encounter Type Care Provider Facility Start: 11-11-2023 End: 11-11-2023 ambulatory [facility]TA [facility] Start: 10-26-2023 End: 10-26-2023 ambulatory [facility] Start: 09-28-2023 End: 09-28-2023 ambulatory [facility] Start: 06-27-2022 End: 06-27-2022 ambulatory [facility] Start: 06-27-2022 End: 06-27-2022 Subsequent hospital visit by physician Carter Torres MD Work Phone: [facility] Start: 06-20-2022 End: 06-21-2022 ambulatory [facility] Start: 06-20-2022 End: 06-20-2022 Subsequent hospital visit by physician Ron Case MD Work Phone: [facility] Start: 06-05-2022 End: 06-06-[address] RON CASE Facility:H1 Procedures Date Procedure Procedure Detail Performing Clinician Start: 06-20-2022 Ecg routine ecg w/le ast 12 lds w/i&r Carter Torres MD Work Phone: Start: 06-20-2022 Basic metabolic pane l calcium total Carter Torres MD Work Phone: Plan of Treatment Date Care Activity Detail Author Start: 07-31-2022 Influenza vaccination Flu vaccine (# 1) [facility] Start: 06-27-2022 End: 06-27-2022 Arthroscopy knee diagnostic w/wo synovial bx spx KNEE ARTHROSCOPY Acute medial meniscus tear of right knee, initial encounter 06/27/2022 1:07 PM T [facility] Start: 2010 Screening for malign ant neoplasm of breast Breast cancer screen [facility] Start: 2010 Shingles vaccine (1 of 2) Shingles vaccine (1 of 2) [facility] Start: 2005 Screening for malign ant neoplasm of colon [facility] Start: 2000 Lipid panel Lipids [facility] Start: 1979 DTaP/Tdap/Td vaccine (1 - Tdap) DTaP/Tdap/Td vaccine (1 - Tdap) [facility] Start: 1978 Hepatitis C screening Hepatitis C sc reen [facility] Start: 1975 HIV screening HIV screen [facility] Start: 1972 Depression Screen Depression Screen [facility] Start: 1966 Pneumococcal 0-64 ye ars Vaccine (1 - PCV) Pneumococcal 0-64 years Vaccine (1 - PCV) [facility] Start: 1960 COVID-19 Vaccine (#1) COVID-19 Vacci ne (#1) [facility] Oxygen therapy [[facility] Data Set] Initiate Oxygen Therapy Protocol Respiratory Care Routine As Needed until discontinued starting 06/27/2022 [employer] Phone: Comment on above: As Needed until disc ontinued starting 06/27/2022 Payers Date Payer Category Payer Unknown [id number] [id number] 1960 Unknown [id number] 1960 Unknown [id number] [id number] 1960 Unknown [id number] [id number] 1960 Unknown [id number] 1959 Unknown [id number] Social History Date Type Detail Facility Start: 06-21-2020 [facility] [employer] Phone: History of tobacco use Cigarette Smoker [facility] [employer] [facility] Phone: Start: 06-21-2020 Cigarettes smoked current (pack per day) - Reported 0.5 [employer] Phone: Start: 06-21-2020 Tobacco use and exposure Smoke less tobacco non-user [employer] Phone: Start: 12-05-2021 End: 06-27-2022 Alcohol intake Lifetime non-drinker (finding) [employer] Phone: Start: 06-21-2020 History SDOH Alcohol Frequency 1 [employer] Phone: Start: 1960 Sex Assigned At Not on file [facility] [employer] [employer] [facility] Phone: Start: 06-17-2022 End: 06-27-2022 Exposure to SARS-CoV-2 (event) Not sure [facility] Work Phone: Progress note 11-11-2023 Note Date & Type Note Facility 11-11-2023 Note Cardiovascular Medic [facility] SUBJECTIVE Chief Complaint Patient presents with Chest Pain Coronary Artery Disease HPI Abi Boswell is a 63 y.o. female with past medical history of SLE, restless leg syndrome, hyperlipidemia, and GERD, herefor evaluation of chest pain. She has been experiencing sporadic chest pressure/tightness radiating to left arm and back since March, lasting up to 30 minutes at a time. Pain is unpredictable at times occurs on exertion and at times at rest. She has had a stress test and echo which have been unremarkable. She has been prescribed Imdur and Metoprolol, she is uncertain if these are helping. Ntiro tabs seem to relieve her symptoms. She would like to discuss coronary angiography. She is 1/2 ppd, started smoking at age 15. Mother had a mild stroke at an unknown age. 11/11/23 Since last seen her chest pain has improved. She has had a couple of occasions where she developed chest pain either stress induced or possibly due to over exertion. She continues to try to quit smoking. She is trying to eat a heart healthy diet. She c/o fatigue. Allergies Allergen Reactions Morphine Hives, Other and Palpitations Sulfamethoxazole-Trimethoprim Itching Patient Active Problem List Diagnosis Other chest pain Shortness of breath Acute sinusitis Coronary artery disease involving igiugig coronary artery of igiugig heart without angina pectoris Past Medical History: Diagnosis Date Hyperlipidemia Lupus (systemic lupus erythematosus) ([facility]) Past Surgical History: Procedure Laterality Date BLADDER REPAIR CARDIAC CATHETERIZATION HYSTERECTOMY KNEE SURGERY SHOULDER SURGERY TONSILLECTOMY Family History Problem Relation Name Age of Onset Hypertension Maternal Grandmother Transient ischemic attack Maternal Grandmother Heart attack Maternal Grandfather Heart failure Maternal Grandfather Social History Tobacco Use Smoking status: Every Day Packs/day: .25 Types: Cigarettes Smokeless tobacco: Never Substance Use Topics Alcohol use: Not Currently ROS Constitutional: Positive for diaphoresis. Cardiovascular: Positive for chest pain (not as often), dyspnea on exertion, leg swelling and palpitations. Respiratory: Positive for cough. Musculoskeletal: Positive for back pain. Neurological: Positive for light-headedness. All other systems reviewed and are negative. OBJECTIVE Visit Vitals BP 108/68 (BP Location: Left arm, Patient Position: Sitting) Pulse 80 Ht 1.651 m (5' 5 ) Wt 80.3 kg (177 lb) SpO2 96% BMI 29.45 kg/m??? OB Status Postmenopausal Smoking Status Every Day BSA 1.92 m??? Medications: Current Outpatient Medications: aspirin 81 mg EC tablet, 1 (one) time each day at the same time., Disp: , Rfl: diclofenac (Voltaren) 75 mg EC tablet, 1 (one) time each day at the same time., Disp: , Rfl: furosemide (Lasix) 20 mg tablet, if needed., Disp: , Rfl: HYDROcodone-acetaminophen (Redding) 5-325 mg tablet, take 1 tablet by mouth every 6 hours if needed for 22, Disp: , Rfl: isosorbide mononitrate ER (Imdur) 60 mg 24 hr tablet, Take 1 tablet (60 mg) by mouth in the morning., Disp: 90 tablet, Rfl: 3 nitroglycerin (Nitrostat) 0.4 mg SL tablet, , Disp: , Rfl: pantoprazole (ProtoNix) 40 mg EC tablet, 1 (one) time each day at the same time., Disp: , Rfl: potassium chloride CR (Klor-Con M10) 10 mEq ER tablet, if needed., Disp: , Rfl: pramipexole (Mirapex) 0.5 mg tablet, Take 0.5 mg by mouth in the morning., Disp: , Rfl: predniSONE (Deltasone) 10 mg tablet, Take 10 mg by mouth if needed., Disp: , Rfl: pregabalin (Lyrica) 25 mg capsule, 1 capsule 1 (one) time each day at the same time., Disp: , Rfl: simvastatin (Zocor) 20 mg tablet, 1 (one) time each day at the same time., Disp: , Rfl: metoprolol succinate XL (Toprol-XL) 25 mg 24 hr tablet, Take 1 tablet (25 mg) by mouth in the morning. Do not crush or chew., Disp: 30 tablet, Rfl: 11 Physical Exam Vitals reviewed. Constitutional: Appearance: Normal appearance. She is normal weight. HENT: Head: Normocephalic and atraumatic. Right Ear: External ear normal. Left Ear: External ear normal. Eyes: Extraocular Movements: Extraocular movements intact. Conjunctiva/sclera: Conjunctivae normal. Pupils: Pupils are equal, round, and reactive to light. Neck: Vascular: No carotid bruit. Cardiovascular: Rate and Rhythm: Normal rate and regular rhythm. Pulses: Normal pulses. Heart sounds: Normal heart sounds. No murmur heard. No friction rub. Pulmonary: Effort: Pulmonary effort is normal. No respiratory distress. Breath sounds: Normal breath sounds. No wheezing or rales. Abdominal: General: Bowel sounds are normal. Palpations: Abdomen is soft. Musculoskeletal: Cervical back: Neck supple. Right lower leg: No edema. Left lower leg: No edema. Skin: General: Skin is warm and dry. Neurological: General: No focal de (more content not included)... [facility] Progress note 11-11-2023 Note Date & Type Note Facility 11-11-2023 Note [facility]. Isosorbide was increased to 60mg daily. Metoprolol is making her very tired. Chest pain isn't as often she says. SOB remains unchanged. Review of Systems Constitutional: Positive for diaphoresis. Cardiovascular: Positive for chest pain (not as often), dyspnea on exertion, leg swelling and palpitations. Respiratory: Positive for cough. Musculoskeletal: Positive for back pain. Neurological: Positive for light-headedness. All other systems reviewed and are negative. 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 Use of blood products discussed with patient who consented to blood products. Additional Equipment Requests [facility] Progress note 09-28-2023 Note Date & Type Note Facility 09-28-[address] [facility] SUBJECTIVE No chief complaint on file. HPI Abi Boswell is a 63 y.o. female with past medical history of SLE, restless leg syndrome, hyperlipidemia, and GERD, herefor evaluation of chest pain. She has been experiencing sporadic chest pressure/tightness radiating to left arm and back since March, lasting up to 30 minutes at a time. Pain is unpredictable at times occurs on exertion and at times at rest. She has had a stress test and echo which have been unremarkable. She has been prescribed Imdur and Metoprolol, she is uncertain if these are helping. Ntiro tabs seem to relieve her symptoms. She would like to discuss coronary angiography. She is 1/2 ppd, started smoking at age 15. Mother had a mild stroke at an unknown age. Allergies Allergen Reactions Morphine Hives, Other and Palpitations Sulfamethoxazole-Trimethoprim Itching There is no problem list on file for this patient. Past Medical History: Diagnosis Date Hyperlipidemia Past Surgical History: Procedure Laterality Date BLADDER REPAIR HYSTERECTOMY KNEE SURGERY SHOULDER SURGERY TONSILLECTOMY Family History Problem Relation Name Age of Onset Hypertension Maternal Grandmother Transient ischemic attack Maternal Grandmother Heart attack Maternal Grandfather Heart failure Maternal Grandfather Social History Tobacco Use Smoking status: Every Day Packs/day: 0.50 Types: Cigarettes Smokeless tobacco: Never Substance Use Topics Alcohol use: Not Currently Review of Systems Cardiovascular: Positive for chest pain, dyspnea on exertion and palpitations. Negative for irregular heartbeat, leg swelling, near-syncope, orthopnea, paroxysmal nocturnal dyspnea and syncope. OBJECTIVE Visit Vitals BP 121/69 (BP Location: Right arm, Patient Position: Sitting) Pulse 73 Ht 1.651 m (5' 5 ) Wt 79.4 kg (175 lb) SpO2 96% BMI 29.12 kg/m??? Smoking Status Every Day BSA 1.91 m??? Medications: Current Outpatient Medications: aspirin 81 mg EC tablet, 1 (one) time each day at the same time., Disp: , Rfl: diclofenac (Voltaren) 75 mg EC tablet, 1 (one) time each day at the same time., Disp: , Rfl: furosemide (Lasix) 20 mg tablet, if needed., Disp: , Rfl: HYDROcodone-acetaminophen (Redding) 5-325 mg tablet, take 1 tablet by mouth every 6 hours if needed for 22, Disp: , Rfl: isosorbide mononitrate ER (Imdur) 30 mg 24 hr tablet, Take 30 mg by mouth 2 times daily., Disp: , Rfl: metoprolol tartrate (Lopressor) 25 mg tablet, Take 25 mg by mouth in the morning and at bedtime., Disp: , Rfl: nitroglycerin (Nitrostat) 0.4 mg SL tablet, , Disp: , Rfl: pantoprazole (ProtoNix) 40 mg EC tablet, 1 (one) time each day at the same time., Disp: , Rfl: potassium chloride CR (Klor-Con M10) 10 mEq ER tablet, if needed., Disp: , Rfl: pramipexole (Mirapex) 0.5 mg tablet, Take 0.5 mg by mouth in the morning., Disp: , Rfl: predniSONE (Deltasone) 10 mg tablet, Take 10 mg by mouth if needed., Disp: , Rfl: pregabalin (Lyrica) 25 mg capsule, 1 capsule 1 (one) time each day at the same time., Disp: , Rfl: simvastatin (Zocor) 20 mg tablet, 1 (one) time each day at the same time., Disp: , Rfl: Physical Exam Constitutional: Appearance: Normal appearance. Cardiovascular: Rate and Rhythm: Normal rate and regular rhythm. Pulses: Normal pulses. Heart sounds: Normal heart sounds. No murmur heard. No friction rub. Pulmonary: Effort: Pulmonary effort is normal. No respiratory distress. Breath sounds: Normal breath sounds. No wheezing or rales. Skin: General: Skin is warm and dry. Neurological: General: No focal deficit present. Mental Status: She is alert. Labs: 05/11/2023 WBC 9.9, hemoglobin 15.1, hematocrit 43.9, platelets 300 Sodium 137, potassium 3.7, chloride 102, CO2 27, BUN 9, serum creatinine 0.79, Estimated GFR greater than 60% High sensitive troponin < 4 NT proBNP 123 (less than 900) Testing/Procedures: Stress test: 05/25/2023 Normal myocardial perfusion scan Normal exercise test Echo: 05/21/2023 Normal ventricular function. LVEF is 55 to 60% No valvular dysfunction No pericardial effusion No echocardiogram results found for the past 14 days No echocardiogram results found for the past 12 months No results found for this or any previous visit (from the past 4464 hour(s)). ASSESSMENT/PLAN: Diagnosis Plan 1. Other chest pain ECG 12 lead 2. Tobacco dependence 3. Mixed hyperlipidemia Chest pain -She is experiencing atypical chest pain occurring at various times of the day. I reviewed her workup including a stress test and echo which were normal. I also reviewed labs obtained during an acute ED presentation which included cardiac enzymes that were negative. I advised I will review the case with interventional cardiology for recommendation on angiography vs CCTA. 2. Tobacco dependence -She is not ready to quit but working slowly t (more content not included)... [facility] Progress note 09-28-2023 Note Date & Type Note Facility 09-28-2023 Note New patient here to establish care. Ref from Dr. Case for chest pain. Says she's been taking too much nitroglycerin lately for the chest pain. Had normal nuclear stress test in April 2023. Smokes 1/2 PPD and trying to cut back. Says chest pain was so bad last week that it woke her up in the middle of the night. Pain does radiate to her back and sometimes down LUE. She says PCP thinks pain may be from her stomach, but she'd prefer to have a heart cath. Sometimes becomes diaphoretic with episodes. Review of Systems Constitutional: Positive for diaphoresis. Cardiovascular: Positive for chest pain, dyspnea on exertion, leg swelling and palpitations. Respiratory: Positive for cough. Musculoskeletal: Positive for back pain. Neurological: Positive for light-headedness. All other systems reviewed and are negative. [facility] History of Present illness Narrative 06-27-2022 Selene Blake RN - 06/27/2022 3:22 PM Lyndsay Blake RN - 06/25/2022 3:12 PM EDT Note Date & Type Note Facility 06-27-2022 History of Present illness Narrative Discharge Criteria Outpatients must meet criteria 1 through 7. Up to restroom, void sufficient amount. Yes 1. Minimum 30 minutes after last dose of sedative medication, minimum 120 minutes after last dose of reversal agent. Yes 2. Systolic BP stable within 20 mmHg for 30 minutes & systolic BP between 90 & 180 or within 10 mmHg of baseline. Yes 3. Pulse between 60 and 100 or within 10 bpm of baseline. Yes 4. Spontaneous respiratory rate >/= 10 per minute. Yes 5. SaO2 >/= 95 or >/= baseline. Yes 6. Able to cough and swallow or return to baseline function. Yes 7. Alert and oriented or return to baseline mental status. Yes 8. Demonstrates controlled, coordinated movements, ambulates with steady gait, or return to baseline activity function. Yes 9. Minimal or no pain or nausea, or at a level tolerable and acceptable to patient. Yes 10. Takes and retains oral fluids as allowed. Yes 11. Procedural / perioperative site stable. Minimal or no bleeding. Yes 12. If GI endoscopy procedure, minimal or no abdominal distention or passing flatus. Yes 13. Written discharge instructions and emergency telephone number provided. Yes 14. Accompanied by a responsible adult. Yes Adult patient discharged from facility without responsible person meets above criteria plus the following: a) remains awake without stimulus for 30 minutes b) oriented appropriate for age c) all vital signs stable d) no significant risk of losing protective reflexes e) able to maintain pre-procedure mobility without assistance f) no nausea or dizziness g) transportation arrangements that do not require patient to operate motor Vehicle. Yes [facility] Preadmission Testing Name: Abi Boswell : 1960 Patient (home) Procedure: Knee Arthroscopy-Right Date of Procedure: 06/27/2022 Surgeon: Carter Torres MD Ht: 5' 4 (162.6 cm) Wt: 175 lb (79.4 kg) Wt method: Stated Allergies: Allergies Allergen Reactions Morphine Hives and Palpitations There were no vitals filed for this visit. No LMP recorded. Patient has had a hysterectomy. Do you take blood thinners? [] Yes [x] No Instructed to stop blood thinners prior to procedure? [] Yes [] No [x] N/A Do you have sleep apnea? [] Yes [x] No Do you have acid reflux ? [x] Yes [] No Do you have hiatal hernia? [] Yes [x] No Do you ever experience motion sickness? [] Yes [x] No Have you had a respiratory infection or sore throat in last 4 weeks before surgery? [] Yes [x] No Do you have poorly controlled asthma or COPD? Difficulty with intubation in past? [] Yes [x] No [] Yes [x] No Do you have a history of angina in the last month or symptomatic arrhythmia? [] Yes [x] No Do you have significant central nervous system disease? [] Yes [x] No Have you had an EKG, labs, or chest xray in last 12 months? If yes provide copies to anesthesia [x] Yes [] No [x] Lab [x] EKG [] CXR Have you had a stress test? [x] Yes [] No When/where:Unsure where, Years ago Was it normal? [x] Yes [] No Do you or your family have a history of Malignant Hyperthermia? [] Yes [x] No Do you smoke? [x] Yes [] No Please refrain from smoking on the day of surgery. Patient instructed on: [x] NPO Status [x] Meds to Take [x] Ride Home [x]No Jewelry/Contact Lenses/Nail Puerto [place]ican [] Prep/Lax/Clear Liquids [] Chlorhexidene DOS Patient Needs [] HCG [] Blood Sugar [] PT/INR [] T&S COVID Vaccinated? [] Yes [x] No PAT Call/Visit Questions Person Interviewed: [facility] Location Verified: Yes Patient reminded to bring pertinent legal medical documents: Yes NPO Status Reinforced: Yes Ride and Caregiver Arranged: Yes Patient instructed on the pre-operative, intra-operative, and post-operative process? Yes Medication instructions reviewed with patient? Yes documented in this encounter [facility] Phone: Hospital Discharge instructions 06-27-2022 Discharge Instructions Note Date & Type Note Facility 06-27-2022 Hospital Discharg e instructions Carter Torres MD - 06/27/2022 1:03 PM EDT Images from the original note were not included. SAME DAY SURGERY INSTRUCTIONS 1. Do not drive or operate hazardous machinery for 24 hours. 2. Do not make important personal or business decisions for 24 hours. 3. Do not drink alcoholic beverages. 4. Do not smoke tobacco products. 5. Eat light foods initially (i.e., Jell-O, soups, etc) and drink plenty of fluids. 6. If your bandages become soaked with a bright red blood, place another dressing pad over your bandages. (Do not remove original bandage.) Call your surgeon for further instructions. A small amount of bright red blood is to be expected. 7. Limit your activities. Do not engage in heavy work until your surgeon gives you permission. 8. Report the following signs or any questions regarding your physical condition to your surgeon immediately: Excessive swelling of, or around, the wound area Redness Temperature of 100 (degrees F) or above Excessive pain 9. Call your surgeon, , for any questions regarding your surgery. 10. Call for an appointment to see your surgeon in 1 weeks. SPECIAL INSTRUCTIONS AND MEDICATIONS 1. Elevate high. 2. Move toes/ankle to improve circulation. 3. Use prescribed pain pill as directed by the doctor. You may use ibuprofen once Toradol is complete after 5 days. Switch to Tylenol when hydrocodone is no longer needed. This should be after several days. 4. Keep your dressing on an dry unless instructed differently by your physician. 5. Use ice as instructed. 6. Remove operative bandages: 06/29. Then, you may shower if wound is clean and dry. 7. Start knee motion 06/28. 8. Use crutches for at least 3 days 9. Weight bearing status: as tolerated 10. Keep incisions dry. To begin the day after surgery 5-6 times a day for 15-20 minutes QUAD SETS 1. Sit on a firm flat surface with your hands behind you for support 2. Bend your uninvolved leg, keeping the involved leg straight. 3. Straighten out the involved leg as much as possible, tightening the muscle on top of your thigh 4. Hold 15 seconds. Relax 5. Repeat for 2-3 minutes. STRAIGHT LEG RAISE 1. Lie on your back with involved knee straight. Bend the other knee and place foot with firm contact with the floor; 2. Tighten your thigh muscle on the involved side and slowly lift your leg. 3. Lift as high as the other bent knee. Now retighten the thigh muscle. Hold for 2-3 seconds. . 4. Lower the leg back to the floor slowly. Completely relax. 5. Re-tighten the thigh and repeat x 10 HEEL SLIDES 1. Lie on your back with your legs out straight and relaxed. 2. Keep your kneecaps pointed toward the ceiling throughout the exercise. 3. Slide one foot toward your buttocks, bending your knee and hip. Do not bend your hip more than 80 degrees. 4. Slowly return to the starting position. LONG ARC QUAD 1. Sit on a sturdy surface high enough that your feet do not touch the floor, 2. Supervisor Of Communications the sides of the surface for support. 3. Raise one foot until your knee is completely straight 4. Slowly return to the starting position and relax. 5. Repeat 20 times ANKLE PUMPS 1. Bend ankles up and down, alternating foot 2. Repeat 25 times Carter Torres M.D. [phone] @ATTPROV@ 06/27/2022 1:01 PM documented in this encounter [facility] [employer] Work Phone: Summary Purpose Family History No Family History Records FoundNo Family History Records FoundNo Family History Records FoundNo Family History Records Found Advance Directives No Advanced Directives Records FoundLatest Code Status on File Code Status Date Activated Date Inactivated Comments Full Code 06/27/2022 11:07 AM Additional Source Comments Care Teams (unrecognized sec tion and content) Centralized Traffic Control Operator Relationship Specialty Start Date End Date Ron Case MD [address] [place] [address] PCP - General Family Medicine 06/21/20 Centralized Traffic Control Operator Relationship Specialty Start Date End Date Ron Csae MD [address] [place] [address] PCP - General Family Medicine 06/21/20 Centralized Traffic Control Operator Relationship Specialty Start Date End Date Ron Case MD [address] [place] [address] PCP - General Family Medicine 06/21/20 INFORMATION SOURCE (unrecogn ized section and content) DATE CREATED AUTHOR 06/22/2022 [facility] DATE CREATED AUTHOR AUTHOR'S ORGANIZ ATION 07/01/2022 Susan Carranza spialejandra DATE CREATED AUTHOR AUTHOR'S ORGANIZ ATION 09/22/2022 [facility] DATE CREATED AUTHOR AUTHOR'S ORGANIZ ATION 11/15/2023 [facility] Reason for Visit (unrecogniz ed section and content) Specialty Diagnoses / Procedures Referred By Herber t Referred To Contact Diagnoses Acute medial meniscus tear of right knee, initial encounter Acute medial meniscus tear of right knee, initial encounter [S83.241A] Procedures SD KNEE SCOPE,DIAGNOSTIC SD ARTHRS KNE SURG W/MENISCECTOMY MED/LAT W/SHVG KNEE ARTHROSCOPY Carter Torres MD [address] [place] [address] [facility] [address] [place] [address] Referral ID Status Reason Start Date Expiration Date Visits Re quested Visits Authorized [id number] 1 1 Ordered Prescriptions (unrec ognized section and content) Prescription Sig Dispensed Refills Start Date End Da te ketorolac (TORADOL) 10 MG tablet Take 1 tablet by mouth in the morning and 1 tablet at noon and 1 tablet before bedtime. Do all this for 5 days. 1 tab by mouth 3 times daily. 15 tablet 0 06/27/2022 07/02/2022 Scheduled Active and Recently Administ ered Medications (unrecognized section and content) Medication Order 06/25/2022 06/26/2022 06/27/2022 ceFAZolin (ANCEF) 2000 mg in dextrose 3 % 50 mL IVPB (duplex) (COMPLETED) 2,000 mg, IntraVENous, TAG MACHINE OPERATOR TO O.R., 1 dose, On Thu06/27/22 at 1130, Antimicrobial Indications: Surgical Prophylaxis, Administer within 1 hour prior to incision. Recommend to repeat in 3-4 hours after initial dose if still intra-op., Pre-op (day of surgery) 1242 (New Bag - Prov ider: Clay Vasquez RN)1312 (Due: Stopped - Provider: Clay Vasquez RN) Continuous Medication Order 06/25/2022 06/26/2022 06/27/2022 lactated ringers infusion IntraVENous, at 125 mL/hr, CONTINUOUS, Starting on Thu06/27/22 at 1130, Pre-op (day of surgery) 1122 (New Bag - Prov ider: Vanessa Hough RN)1309 (NoRateChange - Provider: Kenn Quick APRN - PIPE SMOKING MACHINE OFFBEARER)1351 (Anesthesia Volume Adjustment - Provider: Kenn Quick APRN - THAO) PRN Medication Order 06/25/2022 06/26/2022 06/27/2022 bupivacaine-EPINEPHrine PF (MARCAINE-w/EPINEPHRINE) 0.5% -[id number] injection (CANCELED) PRN, Starting on Thu06/27/22 at 1348, Until Thu06/27/22 at 1356, Intra-op 1348 (Given - Provid er: Carter Torres MD) sodium chloride 0.9 % 3,000 mL with EPINEPHrine (EPINEPHrine HCL) 1 mg (CANCELED) PRN, Starting on Thu06/27/22 at 1336, Intra-op 1336 (Given - Provid er: Carter Torres MD) FOR RECORDS PERTAINING TO PATIENTS WHO ARE OR HAVE BEEN ENROLLED IN A CHEMICAL DEPENDENCY/SUBSTANCEABUSE PROGRAM, SOME INFORMATION MAY BE OMITTED. This clinical summary was aggregated from multiple sources. Caution should be exercised in using it in the provision of clinical care. This summary normalizes information from multiple sources, and as a consequence, information in this document may materially change the coding, format and clinical context of patient data. In addition, data may be omitted in some cases. CLINICAL DECISIONS SHOULD BE BASED ON THE PRIMARY CLINICAL RECORDS. [employer] [facility]. provides no warranty or guarantee of the accuracy or completeness of information in this document.
[2023-12-08 12:07] LABS: Basophils Percent Auto 0.6 % (0.2-2.0); Eosinophils Absolute Auto 0.1 10^3/uL (0.0-0.7); Eosinophils Percent Auto 2.4 % (0.9-7.0); Hematocrit 43.9 % (36.0-48.0); Hemoglobin 14.5 g/dL (12.0-16.0); Immature Granulocytes Abs Auto 0.01 10^3/uL (0.00-0.03); Immature Granulocytes Pct Auto 0.2 % (0.0-0.5); Lymphocytes Absolute Auto 1.2 10^3/uL (1.2-3.8); Lymphocytes Percent Auto 24.6 % (20.5-60.0); Mean Corpuscular Hemoglobin 31.5 pg (26.7-34.0); Mean Corpuscular Volume 95.2 fL (81.0-99.0); Mean Platelet Volume 8.8 fL (9.5-13.5); Monocytes Absolute Auto 0.5 10^3/uL (0.3-0.8); Monocytes Percent Auto 9.4 % (1.7-12.0); Neutrophils Absolute Auto 3.1 10^3/uL (1.4-6.5); Neutrophils Percent Auto 62.8 % (43.0-75.0); Platelet Count 237 10^3/uL (150-450); Red Blood Count 4.61 10^6/uL (4.20-5.40); Red Cell Distribution Width 12.7 % (11.0-15.0); White Blood Count 4.9 10^3/uL (4.0-11.0)
[2023-12-08 12:22] LABS: Erythrocyte Sedimentation Rate 27 mm/hr (<=30)
[2023-12-08 13:05] LABS: Alanine Aminotransferase 34 U/L (14-59); Albumin Level 3.6 g/dL (3.4-5.0); Alkaline Phosphatase 86 U/L (46-116); Anion Gap 10.9; Aspartate Amino Transferase 20 U/L (15-37); BUN Creatinine Ratio 10.8; Bilirubin Total 0.4 mg/dL (0.2-1.0); Calcium 9.1 mg/dL (8.5-10.1); Carbon Dioxide 28.2 mmol/L (21.0-32.0); Chloride 105 mmol/L (98-107); Cholesterol 191 mg/dL (<=200); Estimated GFR (African America >60 (>=60); Estimated GFR (Non-African Ame >60 (>=60); Globulin 3.6 g/dL; Glucose 90 mg/dL (74-106); Potassium 4.1 mmol/L (3.5-5.1); Sodium 140 mmol/L (136-145); Total Protein 7.2 g/dL (6.4-8.2); Triglycerides 69 mg/dL (<=150); VLDL CHOLESTEROL 13.8 mg/dL
[2023-12-08 13:06] LABS: Chol HDL Ratio 3.2; Free T3 2.37 pg/mL (2.18-3.98); HDL Cholesterol 59 mg/dL (40-60); LDL Cholesterol Calculated 118.2 mg/dL; Thyroid Stimulating Hormone 2.625 uIU/mL (0.358-3.740)
[2023-12-08 13:40] LABS: Estimated Average Glucose 114 mg/dL; Glycohemoglobin A1C 5.6 % (4.5-6.2)
[2023-12-09 12:09] LABS: Anti-DNA (DS) Ab Qn 2 IU/mL (0-9); Antichromatin Antibodies <0.2 AI (0.0-0.9); RNP Antibodies <0.2 AI (0.0-0.9); Rheumatoid Factor (RF) 10.3 IU/mL (<14.0); Sjogren's Anti-SS-A <0.2 AI (0.0-0.9); Sjogren's Anti-SS-B <0.2 AI (0.0-0.9)
== END 2023-12-08 11:27 | disposition home or self-care (01) ==
LOC: LAB 11:29
PROVIDERS: PCP Family Medicine; Visit Provider Family Medicine
DX: M19.90 Unspecified osteoarthritis, unspecified site (principal); L93.0 Discoid lupus erythematosus; E78.5 Hyperlipidemia, unspecified; R73.09 Other abnormal glucose; D64.9 Anemia, unspecified; E55.9 Vitamin D deficiency, unspecified
CPT/HCPCS: 36415; 80053; 80061; 82306; 83036; 83540; 84436; 84443; 84481; 85025; 85652; 86038; 86160; 86225; 86235

== ENCOUNTER 2024-02-29 15:11 | Outpatient (OUT) | payer OTHER, SELFPAY ==
--- NOTE | 2024-02-29 15:17 | US_ITS ---
[facility] [place] [id number] Patient Name: KENY YOUNG MRN: [id number] date: 1960 Sex: F Assigned Patient Location: Current Patient Location: Accession/Order Number: [id number] Exam Date: 02/29/2024 15:45 Report Date: 03/01/2024 06:25 At the request of: RON QUESADA Procedure: US venous doppler LE RT EXAMINATION: US venous doppler LE RT HISTORY: right leg pain M79.604 COMPARISON: No relevant comparison available. FINDINGS: REGION: Right lower extremity THROMBI: None. COMPRESSIBILITY: Normal compressibility. FLOW: Normal waveform and antegrade flow between 5 and 20 cm/s. OTHER: None. US/US venous doppler LE RT IMPRESSION: 1. No deep vein thrombus within the right lower extremity. Electronically authenticated by: FRED COKER Date: 03/01/2024 06:25
--- OUTSIDE RECORDS SUMMARY | 2024-02-29 15:33 | XMS_ITS | CCD ---
Author Organization [facility] Care Team Providers Care Operations Support Analyst Name Role Phone Ron Case MD Primary Care Provider [phone] CARTER TORRES Referring Unavailable RON CASE Primary [...] Attending Unavailable HENRIETTA RODRIGUEZ Attending Unavailable MARJ ABRAHAM Referring Unavailable Allergies Allergy Classification Reported Allergen(s) Allergy Type Date of Onset Reaction(s) Facility (4 sources) Morphine; Translations: [MORPHINE] Drug Allergy 06-21-20 Hives, Palpitations [facility] (1 source) Morphine Drug Allergy [facility]ository (1 source) Sulfamethoxazole / Trimethoprim; Translations: [SULFAMETHOXAZOLE-TR IMETHOPRIM] Drug Allergy 09-28-20 [facility] Repository Medications Current Medications Medication Drug Class(es) [...] disease (4 sources) Atherosclerotic heart disease of [place] coronary artery without angina pectoris; Translations: [Atherosclerotic heart disease of [place] coronary artery with other forms of angina [...] Test Name Value Interpretation Reference Range Facility 36on 12-25-2023 36 Please let her know her labs showed her kidney function, liver function, blood counts and thyroid function were normal. Her LDL or bad cholesterol was elevated at 118. With patients with known heart disease, we recommend lowering the LDL to <70 to help reduce risk of worsening disease and help reduce risk of stroke, [place], etc. Recommend we switch her simvastatin to atrovastatin 40mg daily. Follow-up lipid panel and LFTs in 3 months. Also, her vit D was low, follow-up with Dr. Case on this. Thanks! [facility] Telephoneon 12-25-2023 Telephone [id number] Abi Boswell 1960 Provider Department Center 12/25/2023 HENRIETTA FLOREZ Chica Raheem Family History Problem Relation Age of Onset Hypertension Maternal Grandmother Transient ischemic attack Maternal Grandmother Heart attack Maternal Grandfather Heart failure Maternal Grandfather Family Status - Relation Status Age at Maternal Grandmother Maternal Grandfather [facility] Office Visiton 11-11-2023 Follow-up visit [id number] Abi Boswell 1960 Provider Department Center 11/11/2023 HENRIETTA FLOREZ [facility] Family History Problem Relation Age of Onset Hypertension Maternal Grandmother Transient ischemic attack Maternal Grandmother Heart attack Maternal Grandfather Heart failure Maternal Grandfather Family Status - Relation Status Age at Maternal Grandmother Maternal Grandfather Level of Service:66483 NM OFFICE/OUTPATIENT ESTABLISHED MOD MDM 30-39 MIN Reason for Visit and Comments: Chest Pain [157398] Coronary Artery Disease [187] [facility] HPon 10-26-2023 HP H&P reviewed. The patient [...] anatomy and decide on need for intervention. [facility] NURSNOTEon 10-26-2023 NURSNOTE RN educated pt on d/ c instructions. RN encouraged pt to voice any questions or concerns. Pt verbalizes no questions or concerns at this time. Pt was wheeled off of unit with all of belongings. [facility] Orders Onlyon 10-01-2023 Orders Only [id number] Abi Boswell 1960 F Date Provider Department Center 10/01/2023 Rafael[facility] Family History Problem Relation Age of Onset Hypertension Maternal Grandmother Transient ischemic attack Maternal Grandmother Heart attack Maternal Grandfather Heart failure Maternal Grandfather Family Status - Relation Status Age at Maternal Grandmother Maternal Grandfather [facility] HPon 09-28-2023 Cardiovascular [facility] SUBJECTIVE No chief complaint on file. [...] if needed., Disp: , Rfl: HYDROcodone-acetamino phen ([place]) 5-325 mg tablet, take 1 tablet by [...] slowly t (more content not included)... Normal [facility] Office Visiton 09-28-2023 Follow-up visit [id number] Abi Boswell 1960 F Date Provider Department Center 09/28/2023 [id number] GRIMALDO [facility] Family History Problem Relation Age of Onset Hypertension Maternal Grandmother Transient ischemic attack Maternal Grandmother Heart attack Maternal Grandfather Heart failure Maternal Grandfather Family Status - Relation Status Age at Maternal Grandmother Maternal Grandfather Level of Service:03678 NM OFFICE/OUTPATIENT NEW LOW MDM 30-44 MINUTES Normal [facility] [id number] 06-27-2022 SARS-CoV-2 (COVID-19) RNA CAROLINE+probe Ql (Unsp spec) Not detected Normal NOTDET [facility] Comment on above: Result Comment: Rapid NAAT: [...] management decisions. Fact sheet for Healthcare Providers: https://www.fda.gov/media/107769/download Fact sheet for Patients: https://www.fda.gov/media/546384/download Methodology: Isothermal Nucleic Acid Amplification Performed By: #### C OVRB #### [facility] [address] [place] [address] [employer] Picture Printer: Lanre Santana MD Basic Metabolic Panelon 05-31 Anion gap [Moles/Vol] 8 mmol/L Low 9 - 17 mmol/L [facility] Calcium [Mass/Vol] 9.8 mg/dL 8.6 - 10. 4 mg/dL [facility] Chloride [Moles/Vol] 107 mmol/L 98 - 10 7 mmol/L [facility] CO2 [Moles/Vol] 30 mmol/L 20 - 31 mmol/L [facility] Creatinine [Mass/Vol] 0.73 mg/dL 0.5 - 0.9 mg/dL [facility] GFR >60 60 - PI NF mL/min [facility] GFR Non- >60 60 - PINF mL/min [facility] Glucose [Mass/Vol] 97 mg/dL 70 - 99 mg/dL [facility] Interpretation and review of laboratory results Abnormal [facility] Potassium [Moles/Vol] 4.4 mmol/L 3.7 - 5.3 mmol/L [facility] Sodium [Moles/Vol] 145 mmol/L High 135 - 144 mmol/L [facility] Urea nitrogen (BldV) [Mass/Vol] 12 mg/dL 8 - 23 mg/dL [facility] Urea nitrogen/Creatinine (Bld) [Mass ratio] 16 - [facility] Basic Metabolic Profon 06-20 (cont.) Normal [facility] Comment on above: Result Comment: Aver age GFR for 60-69 years old: 85 mL/min/1.73sq m Chronic Kidney Disease: <60 mL/min/1.73sq m Kidney failure: <15 mL/min/1.73sq m eGFR calculated using average adult body mass. Additional eGFR calculator available at: http://www.[employer].VantageILM/multiple_crcl_2012.htm Performed By: #### C DP, BMP #### [facility] [address] [place] [address] [place] [address] [employer] Picture Printer: Lanre Santana MD Anion gap [Moles/Vol] 8 mmol/L Low - [facility] Comment on above: Performed By: #### C DP, BMP #### [facility] [address] [place] [address] [employer] Picture Printer: Lanre Santana MD BUN/CRE Ratio 16 Normal 08-19 [facility] Comment on above: Performed By: #### C DP, BMP #### [facility] [address] [place] [address] [employer] Picture Printer: Lanre Santana MD Calcium [Mass/Vol] 9.8 mg/dL Normal 8.6-10.4 [facility] Comment on above: Performed By: #### C DP, BMP #### [facility] [address] [place], [place] [phone] [employer] Picture Printer: Lanre Santana MD Chloride [Moles/Vol] 107 mmol/L Normal 98-107 [facility] Comment on above: Performed By: #### C DP, BMP #### [facility] [address] [place], [place] [phone] [employer] Picture Printer: Lanre Santana MD CO2 [Moles/Vol] 30 mmol/L Normal 20-31 [facility] Comment on above: Performed By: #### C DP, BMP #### [facility] [address] [place], [place] [phone] [employer] Printer: Lanre Santana MD Creatinine [Mass/Vol] 0.73 mg/dL Normal 0.50-0.90 [facility] Comment on above: Performed By: #### C DP, BMP #### [facility] [address] [place], [place] [id number] [employer] Picture Printer: Lanre Santana MD GFR, Amer >60 Normal >60 [facility] Comment on above: Performed By: #### C DP, BMP #### [facility] [address] [place], [place] [phone] [employer] Picture Printer: Lanre Santana MD GFR,non Amer >60 Normal >60 [facility] Comment on above: Performed By: #### C DP, BMP #### [facility] [address] [place], [place] [phone] [employer] Picture Printer: Lanre Santana MD Glucose [Mass/Vol] 97 mg/dL Normal 70-99 [facility] Comment on above: Performed By: #### C DP, BMP #### [facility] [address] [place], [place] [phone] [employer] Picture Printer: Lanre Santana MD Potassium [Moles/Vol] 4.4 mmol/L Normal 3.7-5.3 [facility] Comment on above: Performed By: #### C DP, BMP #### [facility] [address] [place], [place] [phone] [employer] Picture Printer: Lanre Santana MD Sodium [Moles/Vol] 145 mmol/L High 135-144 [facility] Comment on above: Performed By: #### C DP, BMP #### [facility] [address] [place] [address] [employer] Picture Printer: Lanre Santana MD Staging: Normal [facility] Comment on above: Result Comment: Stag e 1: Some kidney damage normal GFR Stage 2: Mild kidney damage GFR 60-89 Stage 3: Moderate kidney damage GFR 30-59 Stage 4: Severe kidney damage GFR 15-29 Stage 5: Severe kidney damage GFR <15 ESRD - chronic treatment by dialysis or transplant Performed By: #### C DP, BMP #### [facility] [address] [place] [address] [place] [address] Motion Picture Printer: Lanre Santana MD Urea nitrogen [Mass/Vol] 12 mg/dL Normal 8-23 [facility] Comment on above: Performed By: #### C DP, BMP #### [facility] [address] [place] [address] [place] [address] Motion Picture Printer: Lanre Santana MD CBC with Auto Differentialon 06-20-2022 Absolute Eos # 0.12 [facility] Absolute Immature Granulocyte 0.03 [facility] Absolute Lymph # 1.85 [facility] Absolute [place] # 0.71 [facility] Basophils (Bld) [#/Vol] 0.03 10*3/uL [facility] Basophils/100 WBC (Bld) 0 % 0 - 2 % [facility] Eosinophils/100 WBC (Bld) 1 % 1 - 4 % [facility] Hematocrit (Bld) [Volume fraction] 42.7 % 36.3 - 47.1 % [facility] Hemoglobin (Bld) [Mass/Vol] 14.3 g/dL 11.9 - 15.1 g/dL [facility] Immature granulocytes/100 WBC (Bld) 0 % 0 [facility] Interpretation and review of laboratory results Abnormal [facility] Lymphocytes/100 WBC (Bld) 22 % Low 24 - 43 % [facility] MCH (RBC) [Entitic mass] 32.6 pg 25.2 - 33.5 pg [facility] MCHC (RBC) [Mass/Vol] 33.5 g/dL 28.4 - 34.8 g/dL [facility] MCV (RBC) [Entitic vol] 97.3 fL 82.6 - 102.9 fL [facility] Monocytes/100 WBC (Bld) 9 % 3 - 12 % [facility] NRBC Automated 0.0 0.0 per 100 WBC [facility] Platelet distribution width (Bld) [Ratio] 13.3 % 11.8 - 14.4 % [facility] Platelet mean volume (Bld) [Entitic vol] 8.4 fL 8.1 - 13.5 fL [facility] Platelets (Bld) [#/Vol] 278 10*3/uL [facility] RBC (Bld) [#/Vol] 4.39 10*6/uL 3.95 - 5.1 1 m/uL [facility] Segmented neutrophils/100 WBC (Bld) 68 % High 36 - 65 % [facility] Segs Absolute 5.62 [facility] WBC (Bld) [#/Vol] 8.4 10*3/uL [facility] CBC with Diffon 06-20-2022 Abs. Basophil 0.03 k/uL Normal 0.00-0.20 [facility] Comment on above: Performed By: #### C DP, BMP #### [facility] [address] [place] [address] Motion Picture Printer: Lanre Santana MD Abs.Imm.Granulocyte 0.03 k/uL Normal 0.00-0.30 [facility] Comment on above: Performed By: #### C DP, BMP #### [facility] [address] [place], [place] [address] Motion Picture Printer: Lanre Santana MD Abs.Neutrophil (Seg) 5.62 k/uL Normal 1.50-8.10 [facility] Comment on above: Performed By: #### C DP, BMP #### [address] [place], [place] [address] Motion Picture Printer: Lanre Santana MD Basophils/100 WBC (Bld) 0 % Normal 0-2 [facility] Comment on above: Performed By: #### C DP, BMP #### [address] [place] [address] Motion Picture Printer: Lanre Santana MD Eosinophils (Bld) [#/Vol] 0.12 10*3/uL Normal 0.00-0.44 [facility] Comment on above: Performed By: #### C DP, BMP #### [address] [place], [place] [address] Motion Picture Printer: Lanre Santana MD Eosinophils/100 WBC (Bld) 1 % Normal 1-4 [facility] Comment on above: Performed By: #### C DP, BMP #### [address] [place], [place] [address] Motion Picture Printer: Lanre Santana MD Erythrocyte distribution width (RBC) [Ratio] 13.3 % Normal 11.8-14.4 [facility] Comment on above: Performed By: #### C DP, BMP #### [address] [place] [address] Motion Picture Printer: Lanre Santana MD Hematocrit (Bld) [Volume fraction] 42.7 % Normal 36.3-47.1 [facility] Comment on above: Performed By: #### C DP, BMP #### [address] [place], [place] [phone] Motion Picture Printer: Lanre Santana MD Hemoglobin (Bld) [Mass/Vol] 14.3 g/dL Normal 11.9-15.1 [facility] Comment on above: Performed By: #### C DP, BMP #### [facility] [address] [place], [place] [phone] Motion Picture Printer: Lanre Santana MD Immature granulocytes/100 WBC (Bld) 0 % Normal 0 [facility] Comment on above: Performed By: #### C DP, BMP #### [facility] [address] [place], [place] [phone] Motion Picture Printer: Lanre Santana MD Lymphocytes (Bld) [#/Vol] 1.85 10*3/uL Normal 1.10-3.70 [facility] Comment on above: Performed By: #### C DP, BMP #### [address] [place], [id number] Motion Picture Printer: Lanre Santana MD Lymphocytes/100 WBC (Bld) 22 % Low 24-43 [facility] Comment on above: Performed By: #### C DP, BMP #### [address] [place] [address] Motion Picture Printer: Lanre Santana MD MCH (RBC) [Entitic mass] 32.6 pg Normal 25.2-33.5 [facility] Comment on above: Performed By: #### C DP, BMP #### [facility] [address] [place], [place] [id number] Motion Picture Printer: Lanre Santana MD MCHC (RBC) [Mass/Vol] 33.5 g/dL Normal 28.4-34.8 [facility] Comment on above: Performed By: #### C DP, BMP #### [facility] [address] [place] [address] Motion Picture Printer: Lanre Santana MD MCV (RBC) [Entitic vol] 97.3 fL Normal 82.6-102.9 [facility] Comment on above: Performed By: #### C DP, BMP #### [facility] [address] [place], [place] [phone] Motion Picture Printer: Lanre Santana MD Monocytes (Bld) [#/Vol] 0.71 10*3/uL Normal 0.10-1.20 [facility] Comment on above: Performed By: #### C DP, BMP #### [facility] [address] [place] [address] Motion Picture Printer: Lanre Santana MD Monocytes/100 WBC (Bld) 9 % Normal 3-12 [facility] Comment on above: Performed By: #### C DP, BMP #### [address] [place] [address] Motion Picture Printer: Lanre Santana MD Neutrophil (Seg) 68 % High 36-65 [facility] Comment on above: Performed By: #### C DP, BMP #### [address] [place], [place] [address] Motion Picture Printer: Lanre Santana MD NRBC Automated 0.0 per 100 WBC Normal 0.0 [facility] Comment on above: Performed By: #### C DP, BMP #### [address] [place], [facility] Motion Picture Printer: Lanre Santana MD Platelet mean volume (Bld) [Entitic vol] 8.4 fL Normal 8.1-13.5 [facility] Comment on above: Performed By: #### C DP, BMP #### [address] [place] [address] Motion Picture Printer: Lanre Santana MD Platelets (Bld) [#/Vol] 278 10*3/uL Normal 138-453 [facility] Comment on above: Performed By: #### C DP, BMP #### [facility] [address] [place] [address] Motion Picture Printer: Lanre Santana MD RBC (d) [#/Vol] 4.39 10*6/uL Normal 3.95-5.11 [facility] Comment on above: Performed By: #### C DP, BMP #### [facility] [address] [place] [address] Motion Picture Printer: Lanre Santana MD WBC (Bld) [#/Vol] 8.4 10*3/uL Normal 3.5-11.3 [facility] Comment on above: Performed By: #### C DP, BMP #### [facility] [address] [place] [address] Motion Picture Printer: Lanre Santana MD EKG 12 LeadOrdered By: César mojica on 06-20-2022 Atrial Rate 65 BPM [employer] Phone: P Holbrook 65 degrees [employer] Phone: P-R Interval 134 ms [employer] Phone: Q-T Interval 432 ms [employer] Phone: QRS Duration 110 ms [employer] Phone: QTc Calculation (Bazett) 449 ms [employer] Phone: R Holbrook 72 degrees [employer] Phone: T Holbrook 43 degrees [employer] Phone: Ventricular Rate 65 BPM [facility] [employer] Phone: [employer] Phone: EKG 12 Leadon 06-20-2022 Normal sinus rhythm Incomplete right bundle branch block Cannot rule out Inferior infarct , age undetermined Abnormal ECG No previous ECGs available Confirmed by César Blanco MD ([id number]) on 06/20/2022 10:08:07 PM [facility] César Blanco MD - 06/20/2022 Normal sinus rhythm Incomplete right bundle branch block Cannot rule out Inferior infarct , age undetermined Abnormal ECG No previous ECGs available Confirmed by César Blanco MD ([id number]) on 06/20/2022 10:08:07 PM [facility] [employer] Work Phone: Laboratory - Chemistry and C hemistry - challengeon 06-20-2022 GFR/1.73 sq M.predicted MDRD (S/P/Bld) [Vol rate/Area] [email or web address] Comment on above: Average GFR for 60-6 9 years old: 85 mL/min/1.73sq m Chronic Kidney Disease: <60 mL/min/1.73sq m Kidney failure: <15 mL/min/1.73sq m eGFR calculated using average adult body mass. Additional eGFR calculator available at: http://www.[employer]/multiple_crcl_2011.htm Stage 1: Some kidney damage normal GFR [...] by: CARTER COKER Date: 2022-06-06 15:52 Normal [facility] Vital Signs Date Time Vital Sign Value Performing Clinician Faci lity 06-27-2022 14:30-0400 Diastolic blood pressure 68 mm[Hg] Cartre Torres MD Work Phone: [employer] 06-27-2022 14:30-0400 Heart rate 68 /min Carter Torres MD Work Phone: [employer] 06-27-2022 14:30-0400 Respiratory rate 23 /min Carter Torres MD Work Phone: [employer] 06-27-2022 14:30-0400 SaO2% (BldA) [Mass fraction] 94 % Carter Torres MD Work Phone: [employer] 06-27-2022 14:30-0400 Systolic blood pressure 117 mm[Hg] Carter Torres MD Work Phone: [employer] 06-27-2022 14:00-0400 Body temperature 97 [degF] Carter Torres MD Work Phone: [employer] 06-27-2022 11:16-0400 Body height 162.6 cm Carter Torres MD Work Phone: [employer] 06-27-2022 11:16-0400 Body mass index (BMI) [Ratio] 30.04 kg/m2 Carter Torres MD Work Phone: [employer] 06-27-2022 11:16-0400 Body weight 79.38 kg Carter Torres MD Work Phone: [facility] Encounters Encounter Date Encounter Type Care Provider Facility Start: 11-11-2023 End: 11-11-2023 ambulatory HENRIETTA RODRIGUEZ [facility] Start: 10-26-2023 End: 10-26-2023 ambulatory MARJ THORNEKYREE [facility] Start: 09-28-2023 End: 09-28-2023 ambulatory LORETA GRIMALDO [facility] Start: 06-27-2022 End: 06-27-2022 [facility]ulatory [facility] Start: 06-27-2022 End: 06-27-2022 Subsequent hospital visit by physician Carter Torres MD Work Phone: [facility] Start: 06-20-2022 End: 06-21-2022 ambulatory [facility] Start: 06-20-2022 End: 06-20-2022 Subsequent hospital visit by physician Ron Case MD Work Phone: [facility] Start: 06-05-2022 End: 06-06-[address] RON CASE Facility:H1 Procedures Date Procedure Procedure Detail Performing Clinician Start: 06-20-2022 Ecg routine ecg w/le ast 12 lds w/i&r Carter Torres MD Work Phone: Start: 06-20-2022 Basic metabolic pane l calcium total Carter Torres MD Work Phone: Plan of Treatment Date Care Activity Detail Author Start: 07-31-2022 Influenza vaccination Flu vaccine (# 1) [facility] Start: 06-27-2022 End: 06-27-2022 Arthroscopy knee diagnostic w/wo synovial bx spx KNEE ARTHROSCOPY Acute medial meniscus tear of right knee, initial encounter 06/27/2022 1:07 PM EDT [facility] Start: 2010 Screening for malign ant neoplasm of breast Breast cancer screen [facility] Start: 2010 Shingles vaccine (1 of 2) Shingles vaccine (1 of 2) [facility] Start: 2005 Screening for malign ant neoplasm of colon [facility] [employer] Start: 2000 Lipid panel Lipids [place] [facility] [employer] [facility] Start: 1979 DTaP/Tdap/Td vaccine (1 - Tdap) DTaP/Tdap/Td vaccine (1 - Tdap) [facility] [employer] [facility] Start: 1978 Hepatitis C screening Hepatitis C sc reen [facility] [employer] [facility] Start: 1975 HIV screening HIV screen [facility] [employer] Start: 1972 Depression Screen Depression Screen [facility] [employer] [facility] Start: 1966 Pneumococcal 0-64 ye ars Vaccine (1 - PCV) Pneumococcal 0-64 years Vaccine (1 - PCV) [facility] [employer] [facility] Start: 1960 COVID-19 Vaccine (#1) COVID-19 Vacci ne (#1) [facility] [employer] [employer] Oxygen therapy [[facility] Data Set] Initiate Oxygen Therapy Protocol Respiratory Care Routine As Needed until discontinued starting 06/27/2022 [facility] [employer] Phone: Comment on above: As Needed until disc ontinued starting 06/27/2022 Payers Date Payer Category Payer Unknown [id number] 2.16.8 [id number] 1960 Unknown [id number] 2.16.8 [id number] 1960 Unknown [id number] 2.16.8 [id number] 1960 Unknown [id number] 2.16.8 [id number] 1960 Unknown [id number] 2.16.84 [id number] 1959 Unknown [id number] 1.2.8 [id number] Social History Date Type Detail Facility Start: 06-21-2020 [facility] [employer] Phone: History of tobacco use Cigarette Smoker B [facility] [employer] Phone: Start: 06-21-2020 Cigarettes smoked current (pack per day) - Reported 0.5 [employer] Phone: Start: 06-21-2020 Tobacco use and exposure Smoke less tobacco non-user [employer] Phone: Start: 12-05-2021 End: 06-27-2022 Alcohol intake Lifetime non-drinker (finding) [employer] Phone: Start: 06-21-2020 History SDOH Alcohol Frequency 1 [employer] Phone: Start: 1960 Sex Assigned At Not on file [facility] [employer] Phone: Start: 06-17-2022 End: 06-27-2022 Exposure to SARS-CoV-2 (event) Not sure [employer] Phone: Progress note 11-11-2023 Note Date & Type Note Facility 11-11-2023 Note Cardiovascular [facility] SUBJECTIVE Chief Complaint Patient presents with Chest [...] breath Acute sinusitis Coronary artery disease involving [place] coronary artery of [place] heart without angina pectoris Past Medical History: Diagnosis Date Hyperlipidemia Lupus (systemic lupus erythematosus) (CMS/HCC) Past Surgical History: Procedure Laterality Date BLADDER [...] tablet, if needed., Disp: , Rfl: HYDROcodone-acetaminophen ([place]) 5-325 mg tablet, take 1 tablet by [...] No focal de (more content not included)... [facility] Progress note 11-11-2023 Note Date & Type Note Facility 11-11-2023 Note Patient here for fol low up heart cath. Isosorbide was increased to 60mg [...] All other systems reviewed and are negative. [facility] Clinical Note 10-26-2023 Note Date & Type Note Facility 10-26-2023 Note Patient: Abi adam Procedure Information Date/Time: 10/26/23 0800 Procedure: Coronary angiography (Left) Location: [facility] CLERICAL METHODS ANALYST 2 BIPLANE / [facility] (Cath) Providers: Marj Abraham MD Clinical information reviewed: Allergies Meds OB Status Physical Exam Airway Mallampati: III TM distance: >3 FB Neck ROM: full Cardiovascular Rhythm: regular Rate: normal Dental Pulmonary Abdominal Anesthesia Plan ASA 3 other Anesthetic plan and risks discussed with patient. Use of blood products discussed with patient who consented to blood products. Additional Equipment Requests [facility] Progress note 09-28-2023 Note Date & Type Note Facility 09-28-2023 Note Cardiovascular [facility] SUBJECTIVE No chief complaint on file. [...] tablet, if needed., Disp: , Rfl: HYDROcodone-acetaminophen ([place]) 5-325 mg tablet, take 1 tablet by [...] working slowly t (more content not included)... [facility] Progress note 09-28-2023 Note Date & Type [...] All other systems reviewed and are negative. [facility] History of Present illness Narrative 06-27-2022 Selene [...] require patient to operate motor Vehicle. Yes [facility] Preadmission Testing Name: Abi Boswell : 1960 [...] Take [x] Ride Home [x]No Jewelry/Contact Lenses/Nail Greenlandic [] Prep/Lax/Clear Liquids [] Chlorhexidene DOS Patient [...] with patient? Yes documented in this encounter [facility] [employer] Work Phone: Hospital Discharge instructions 06-27-2022 Discharge Instructions [...] feet do not touch the floor, 2. Lead Customer Service Representative the sides of the surface for support. 3. Raise one foot until your knee is completely straight 4. Slowly return to the starting position and relax. 5. Repeat 20 times ANKLE PUMPS 1. Bend ankles up and down, alternating foot 2. Repeat 25 times Carter Torres M.D. [phone] @ATTPROV@ 06/27/2022 1:01 PM documented in this encounter [facility] [employer] Phone: Summary Purpose Family History No Family History Records FoundNo Family History Records FoundNo Family History Records FoundNo Family History Records Found Advance Directives No Advanced Directives Records FoundLatest Code Status on File Code Status Date Activated Date Inactivated Comments Full Code 06/27/2022 11:07 AM Additional Source Comments Care Teams (unrecognized sec tion and content) Operations Support Analyst Relationship Specialty Start Date End Date Ron Case MD [address] [place] [address] PCP - General Family Medicine 06/21/20 Operations Support Analyst Relationship Specialty Start Date End Date Ron Case MD [address] [place] [address] PCP - General Family Medicine 06/21/20 Operations Support Analyst Relationship Specialty Start Date End Date Ron Case MD [address] [place] [address] PCP - General Family Medicine 06/21/20 INFORMATION SOURCE (unrecogn ized section and content) DATE CREATED AUTHOR 06/22/2022 [facility] DATE CREATED AUTHOR AUTHOR'S ORGANIZ ATION 07/01/2022 [facility] DATE CREATED AUTHOR AUTHOR'S ORGANIZ ATION 09/22/2022 [facility] DATE CREATED AUTHOR AUTHOR'S ORGANIZ ATION 12/26/2023 [facility] Reason for Visit (unrecogniz ed section and content) Specialty Diagnoses / Procedures Referred By Herber t Referred To Contact Diagnoses Acute medial meniscus tear of right knee, initial encounter Acute medial meniscus tear of right knee, initial encounter [S83.241A] Procedures NM KNEE SCOPE,DIAGNOSTIC NM ARTHRS KNE SURG W/MENISCECTOMY MED/LAT W/SHVG KNEE ARTHROSCOPY Carter Torres MD [address] [place] [address] [facility] [address] [place] [address] Referral ID Status Reason Start Date Expiration Date Visits Re quested Visits Authorized [id number] 1 1 Ordered Prescriptions (unrec ognized section [...] mL IVPB (duplex) (COMPLETED) 2,000 mg, IntraVENous, INSPECTOR CLIP ON SUNGLASSES TO O.R., 1 dose, On Thu06/27/22 at [...] (NoRateChange - Provider: Kenn Quick APRN - HEALTH SCIENCE INSTRUCTOR)[id number] (Anesthesia Volume Adjustment - Provider: Kenn Quick APRN - HEALTH SCIENCE INSTRUCTOR) PRN Medication Order 06/25/2022 06/26/2022 06/27/2022 bupivacaine-EPINEPHrine PF (MARCAINE-w/EPINEPHRINE) 0.5% [id number] injection (CANCELED) PRN, Starting on Thu06/27/22 at [...] BE BASED ON THE PRIMARY CLINICAL RECORDS. [facility]. provides no warranty or guarantee of the accuracy or completeness of information in this document.
== END 2024-02-29 15:12 | disposition home or self-care (01) ==
LOC: US 15:12
PROVIDERS: PCP Family Medicine; Visit Provider Family Medicine
DX: M79.604 Pain in right leg (principal)
CPT/HCPCS: 93971

== ENCOUNTER 2024-03-31 22:07 | Emergency (ER) | payer OTHER, SELFPAY ==
[2024-03-31 22:09] VITALS: BP 177/98; PULSE 124; TEMP 36.6; O2SAT 98
--- NOTE | 2024-03-31 22:18 | XR_ITS ---
The [address] [address] Patient Name: KENY YOUNG MRN: [id number] date: 1960 Sex: F Assigned Patient Location: ER Current Patient Location: ED.MAIN Accession/Order Number: [id number] Exam Date: 03/31/2024 22:30 Report Date: 03/31/2024 22:53 At the request of: DUSTY FLOREZ Procedure: XR tibia fibula RT 2V EXAM: XR tibia fibula RT 2V HISTORY: laceration COMPARISON: None. TECHNIQUE: 3 views right tibia/fibula FINDINGS: Soft tissue deformity of the distal anterior tibia and fibula. No acute fracture or aggressive osseous abnormality. Joint spaces and alignment are preserved. XR/XR tibia fibula RT 2V IMPRESSION: No acute osseous abnormality of the right tibia or fibula. Electronically authenticated by: HUNTER KC Date: 03/31/2024 22:53
--- NOTE | 2024-03-31 22:19 | ED_ITS ---
HPI - Wound/Laceration General Chief Complaint: Wound/Laceration Stated Complaint: Lower Extremity Injury Time Seen by Provider: 03/31/24 22:09 Source: patient Mode of arrival: Wheelchair Limitations: no limitations History of Present Illness HPI narrative: 63-year-old female presents to the emergency department for a laceration to her right lower leg and her left forearm. This was sustained just before coming i nto the emergency department when she hit a metal floor fan with her right leg. She does not know when her last tetanus shot was, more than 10 years. She is currently on prednisone and takes aspirin but no other blood thinners. Related Data Home Medications ?Medication ?Instructions ?Recorded ?Confirmed aspirin 81 mg tablet,delayed mg 03/31/24 release diclofenac sodium 75 mg mg PO 03/31/24 tablet,delayed release hydrocodone 5 mg-acetaminophen 325 tab 03/31/24 mg tablet ibuprofen 800 mg tablet mg 03/31/24 isosorbide mononitrate 30 mg mg PO 03/31/24 tablet,extended release 24 hr isosorbide mononitrate 60 mg mg PO 03/31/24 tablet,extended release 24 hr metoprolol succinate 25 mg mg PO 03/31/24 tablet,extended release 24 hr metoprolol tartrate 25 mg tablet mg 03/31/24 simvastatin 20 mg tablet mg 03/31/24 Previous Rx's ?Medication ?Instructions ?Recorded cephalexin 500 mg capsule 500 mg PO TID 10 days #30 caps 03/31/24 Allergies Allergy/AdvReac Type Severity Reaction Status Date / Time morphine Allergy Intermediate Verified 03/31/24 22:13 sulfamethoxazole Allergy Intermediate Verified 03/31/24 22:13 [From Bactrim] trimethoprim [From Bactrim] Allergy Intermediate Verified 03/31/24 22:13 Review of Systems ROS Narrative A ten point review of systems is negative except as noted above. Exam Narrative Exam Narrative: Nurses note and vital signs reviewed and patient is not hypoxic. General: The patient appears well and in no apparent distress. Patient is resting comfortably on cart. Skin: Warm, dry, no pallor noted. There is no rash noted. Head: Normocephalic, atraumatic Eye: Normal conjunctiva, no drainage Ears, Nose, Mouth, and Throat: oral mucosa is moist. Nares patent. Cardiovascular: Regular Rate and Rhythm Respiratory: Patient is in no distress, no accessory muscle use, lungs are clear to auscultation, no wheezing, rales or rhonchi Back: non-tender, no CVA tenderness bilaterally to percussion. GI: Normal bowel sounds, no tenderness to palpation, no masses appreciated. No rebound, guarding, or rigidity noted. Musculoskeletal: Superficial skin tear present on the left distal forearm on the flexor side. There is a V-shaped laceration on her right lower leg. 1 arm of it is 8 cm and the other is 12 cm. The apex points distally. Neurological: A&O, normal speech Psychiatric: Cooperative Constitutional Vital Signs, click to edit/add: Last Vital Signs Temp 97.9 F 03/31/24 22:09 Pulse 124 H 03/31/24 22:09 Resp 18 03/31/24 22:09 BP 177/98 H 03/31/24 22:09 Pulse Ox 98 03/31/24 22:09 Course Vital Signs Vital signs: Vital Signs Temperature 97.9 F 03/31/24 22:09 Pulse Rate 124 H 03/31/24 22:09 Respiratory Rate 18 03/31/24 22:09 Blood Pressure 177/98 H 03/31/24 22:09 Pulse Oximetry 98 03/31/24 22:09 Temperature 97.9 F 03/31/24 22:09 Pulse Rate 124 H 03/31/24 22:09 Respiratory Rate 18 03/31/24 22:09 Blood Pressure 177/98 H 03/31/24 22:09 Pulse Oximetry 98 03/31/24 22:09 MDM - Wound/Laceration MDM Narrative Medical decision making narrative: I have discussed the significance of this wound with the patient thoroughly. She is placed on prophylactic Keflex and tetanus was updated. She will return here to the emergency department for a wound check and dressing change on Thursday, April 02. She will follow-up in the wound care clinic as well. Differential Diagnosis Differential diagnosis: Likely laceration and avulsion of skin Imaging Data Right tibia: Radiologist's impression: ITS Impressions Tibia/Fibula X-Ray 03/31/24 22:18 IMPRESSION: No acute osseous abnormality of the right tibia or fibula. Electronically authenticated by: HUNTER KC Date: 03/31/2024 22:53 Discharge Plan Discharge Stand Alone Forms: Portal Instructions Chief Complaint: Wound/Laceration Clinical Impression: Laceration Patient Disposition: Home, Self-Care Time of Disposition Decision: 23:51 Condition: Good Mode of Transportation: Private Vehicle Prescriptions / Home Meds: New cephalexin 500 mg capsule 500 mg PO TID 10 Days Qty: 30 0RF No Action ibuprofen 800 mg tablet hydrocodone-acetaminophen 5-325 mg tablet isosorbide mononitrate 30 mg tablet extended release 24 hr PO aspirin 81 mg tablet,delayed release (DR/EC) isosorbide mononitrate 60 mg tablet extended release 24 hr PO simvastatin 20 mg tablet diclofenac sodium 75 mg tablet,delayed release (DR/EC) PO metoprolol succinate 25 mg tablet extended release 24 hr PO metoprolol tartrate 25 mg tablet Print Language: Citizen Of [place] Instructions: Care For Your Stitches (ED), Laceration (ED) Additional Instructions: Follow-up with Dr. Pineda in wound care clinic. [phone] ext [phone] Return to emergency department on Thursday for dressing change and wound check. Referrals: Eliud Case MD [Primary Care Provider] - 1 week Fidel Pineda DPM [Physician] - 1 week Procedures ED Procedure Instructions Procedures Procedures: The following procedure was performed by me. Local infiltration was carried out with 1% lidocaine without epinephrine resulting in good skin anesthesia. The wound was prepped with Betadine x 3 and draped sterilely and explored for foreign bodies and none were found. The distal part of the wound could be close d but the more proximal part of the wound has very thin skin and could not physically be closed because of the concern for skin tearing. A total of 6 distal simple 4-0 sutures were placed resulting in good skin reapproximation. Gelfoam dressing was applied as well as Adaptic and the wound was dressed with compression dressing for hemostasis. She tolerated the procedure well, no complications
--- OUTSIDE RECORDS SUMMARY | 2024-03-31 22:19 | XMS_ITS | CCD ---
Author Organization [facility] Care Team Providers Care Rn Night Name Role Phone Ron Case MD Primary Care Provider [phone] CARTER TORRES Referring Unavailable RON CASE Primary [...] Translations: [MORPHINE] Drug Allergy 06-21-20 Hives, Palpitations [facility] (1 source) Morphine Drug Allergy [facility] Repository (1 source) Sulfamethoxazole / Trimethoprim; Translations: [SULFAMETHOXAZOLE-TR IMETHOPRIM] Drug Allergy 09-28-20 [facility] Repository Medications Current Medications Medication Drug Class(es) [...] disease (4 sources) Atherosclerotic heart disease of [place] coronary artery without angina pectoris; Translations: [Atherosclerotic heart disease of [place] coronary artery with other forms of angina [...] disease and help reduce risk of stroke, NM, etc. Recommend we switch her simvastatin to atrovastatin 40mg daily. Follow-up lipid panel and LFTs in 3 months. Also, her vit D was low, follow-up with Dr. Case on this. Thanks! [facility] Telephoneon 12-25-2023 Telephone [id number] Abi Boswell 1960 Provider Department Center 12/25/2023 HENRIETTA FLOREZ Chica Raheem Family History Problem Relation Age of Onset Hypertension Maternal Grandmother Transient ischemic attack Maternal Grandmother Heart attack Maternal Grandfather Heart failure Maternal Grandfather Family Status - Relation Status Age at Maternal Grandmother Maternal Grandfather [facility] Office Visiton 11-11-2023 Follow-up visit [id number] Abi Boswell 1960 Provider Department Center 11/11/2023 HENRIETTA FLOREZ [facility] Family History Problem Relation Age of Onset Hypertension Maternal Grandmother Transient ischemic attack Maternal Grandmother Heart attack Maternal Grandfather Heart failure Maternal Grandfather Family Status - Relation Status Age at Maternal Grandmother Maternal Grandfather Level of Service:46134 [place] OFFICE/OUTPATIENT ESTABLISHED MOD MDM 30-39 MIN Reason for Visit and Comments: Chest Pain [741681] Coronary Artery Disease [187] [facility] HPon 10-26-2023 HP H&P reviewed. The patient [...] anatomy and decide on need for intervention. [facility] NURSNOTEon 10-26-2023 NURSNOTE RN educated pt on d/ c instructions. RN encouraged pt to voice any questions or concerns. Pt verbalizes no questions or concerns at this time. Pt was wheeled off of unit with all of belongings. [facility] Orders Onlyon 10-01-2023 Orders Only [id number] Abi Boswell 1960 F Date Provider Department Center 10/01/2023 Rafael8-SCOT DAWN [facility] Family History Problem Relation Age of Onset Hypertension Maternal Grandmother Transient ischemic attack Maternal Grandmother Heart attack Maternal Grandfather Heart failure Maternal Grandfather Family Status - Relation Status Age at Maternal Grandmother Maternal Grandfather [facility] HPon 09-28-2023 Cardiovascular Medicine [facility] SUBJECTIVE No chief complaint on file. [...] if needed., Disp: , Rfl: HYDROcodone-acetamino phen (Christine) 5-325 mg tablet, take 1 tablet by [...] slowly t (more content not included)... Normal [facility] Office Visiton 09-28-2023 Follow-up visit [id number] Abi Boswell 1960 F Date Provider Department Center 09/28/2023 [id number] GRIMALDO [facility] Family History Problem Relation Age of Onset Hypertension Maternal Grandmother Transient ischemic attack Maternal Grandmother Heart attack Maternal Grandfather Heart failure Maternal Grandfather Family Status - Relation Status Age at Maternal Grandmother Maternal Grandfather Level of Service:88537 [place] OFFICE/OUTPATIENT NEW LOW MDM 30-44 MINUTES Normal [facility] [id number] 06-27-2022 SARS-CoV-2 (COVID-19) RNA CAROLINE+probe Ql (Unsp spec) Not detected Normal NOTDET [facility] Comment on above: Result Comment: Rapid [...] management decisions. Fact sheet for Healthcare Providers: https://www.fda.gov/media/288314/download Fact sheet for Patients: https://www.fda.gov/media/144860/download Methodology: Isothermal Nucleic Acid Amplification Performed By: #### C OVRB #### [facility] [address] [place] [address] Services: Lanre Santana MD Basic Metabolic Panelon 05-31 Anion gap [Moles/Vol] 8 mmol/L Low 9 - 17 mmol/L [facility] Calcium [Mass/Vol] 9.8 mg/dL 8.6 - 10. 4 mg/dL [facility] Chloride [Moles/Vol] 107 mmol/L 98 - 10 7 mmol/L [facility] CO2 [Moles/Vol] 30 mmol/L 20 - 31 mmol/L [facility] Creatinine [Mass/Vol] 0.73 mg/dL 0.5 - 0.9 mg/dL [facility] GFR >60 60 - PI NF mL/min [facility] GFR Non- >60 60 - PINF mL/min [facility] Glucose [Mass/Vol] 97 mg/dL 70 - 99 mg/dL [facility] Interpretation and review of laboratory results Abnormal [facility] Potassium [Moles/Vol] 4.4 mmol/L 3.7 - 5.3 mmol/L [facility] Sodium [Moles/Vol] 145 mmol/L High 135 - 144 mmol/L [facility] Urea nitrogen (BldV) [Mass/Vol] 12 mg/dL 8 - 23 mg/dL [facility] Urea nitrogen/Creatinine (Bld) [Mass ratio] 16 - [facility] Basic Metabolic Profon 06-20 (cont.) Normal [facility] Comment on above: Result Comment: Aver age GFR for 60-69 years old: 85 mL/min/1.73sq m Chronic Kidney Disease: <60 mL/min/1.73sq m Kidney failure: <15 mL/min/1.73sq m eGFR calculated using average adult body mass. Additional eGFR calculator available at: http://www.inMotionNow.[employer] - [employer]/multiple_crcl_2012.htm Performed By: #### C DP, BMP #### [facility] [address] [place] [address] [place] [address]: Lanre Santana MD Anion gap [Moles/Vol] 8 mmol/L Low - [facility] Comment on above: Performed By: #### C DP, BMP #### [facility] [address] [place] [address] Services: Lanre Santana MD BUN/CRE Ratio 16 Normal 08-19 [facility] Comment on above: Performed By: #### C DP, BMP #### [facility] [address] [place] [address] Services: Lanre Santana MD Calcium [Mass/Vol] 9.8 mg/dL Normal 8.6-10.4 [facility] Comment on above: Performed By: #### C DP, BMP #### [facility] [address] [place], [place] [id number] [address] Services: Lanre Santana MD Chloride [Moles/Vol] 107 mmol/L Normal 98-107 [facility] Comment on above: Performed By: #### C DP, BMP #### [facility] [address] [place], [place] [id number] [address] Court Services: Lanre Santana MD CO2 [Moles/Vol] 30 mmol/L Normal 20-31 [facility] Comment on above: Performed By: #### C DP, BMP #### [facility] [address] [place], [place] [phone] [address] Services: Lanre Santana MD Creatinine [Mass/Vol] 0.73 mg/dL Normal 0.50-0.90 [facility] Comment on above: Performed By: #### C DP, BMP #### [facility] [address] [place], [place] [id number] [address] Services: Lanre Santana MD GFR, Amer >60 Normal >60 [facility] Comment on above: Performed By: #### C DP, BMP #### [facility] [address] [place], [place] [phone] Deputy [address] Court Services: Lanre Santana MD GFR,non Amer >60 Normal >60 [facility] Comment on above: Performed By: #### C DP, BMP #### [facility] [address] [place], [place] [phone] [address] Services: Lanre Santana MD Glucose [Mass/Vol] 97 mg/dL Normal 70-99 [facility] Comment on above: Performed By: #### C DP, BMP #### [facility] [address] [place], [place] [phone] [address] Services: Lanre Santana MD Potassium [Moles/Vol] 4.4 mmol/L Normal 3.7-5.3 [facility] Comment on above: Performed By: #### C DP, BMP #### [facility] [address] [place], [place] [phone] [address] Services: Lanre Santana MD Sodium [Moles/Vol] 145 mmol/L High 135-144 [facility] Comment on above: Performed By: #### C DP, BMP #### [facility] [address] [place] [address] [address] Services: Lanre Santana MD Staging: Normal [facility] Comment on above: Result Comment: Stag e 1: Some kidney damage normal GFR Stage 2: Mild kidney damage GFR 60-89 Stage 3: Moderate kidney damage GFR 30-59 Stage 4: Severe kidney damage GFR 15-29 Stage 5: Severe kidney damage GFR <15 ESRD - chronic treatment by dialysis or transplant Performed By: #### C DP, BMP #### [facility] [address] [place] [address] [place] [address] [address]: Lanre Santana MD Urea nitrogen [Mass/Vol] 12 mg/dL Normal 8-23 [facility] Comment on above: Performed By: #### C DP, BMP #### [facility] [address] [place] [address] [place] [address]: Lanre Santana MD CBC with Auto Differentialon 06-20-2022 Absolute Eos # 0.12 [facility] Absolute Immature Granulocyte 0.03 [facility] Absolute Lymph # 1.85 [facility] Absolute [place] # 0.71 [facility] Basophils (Bld) [#/Vol] 0.03 10*3/uL [facility] Basophils/100 WBC (Bld) 0 % 0 - 2 % [facility] Eosinophils/100 WBC (Bld) 1 % 1 - 4 % [facility] Hematocrit (Bld) [Volume fraction] 42.7 % 36.3 - 47.1 % [facility] Hemoglobin (Bld) [Mass/Vol] 14.3 g/dL 11.9 - 15.1 g/dL [facility] Immature granulocytes/100 WBC (Bld) 0 % 0 [facility] Interpretation and review of laboratory results Abnormal [facility] Lymphocytes/100 WBC (Bld) 22 % Low 24 - 43 % [facility] MCH (RBC) [Entitic mass] 32.6 pg 25.2 - 33.5 pg [facility] MCHC (RBC) [Mass/Vol] 33.5 g/dL 28.4 - 34.8 g/dL [facility] MCV (RBC) [Entitic vol] 97.3 fL 82.6 - 102.9 fL [facility] Monocytes/100 WBC (Bld) 9 % 3 - 12 % [facility] NRBC Automated 0.0 0.0 per 100 WBC [facility] Platelet distribution width (Bld) [Ratio] 13.3 % 11.8 - 14.4 % [facility] Platelet mean volume (Bld) [Entitic vol] 8.4 fL 8.1 - 13.5 fL [facility] Platelets (Bld) [#/Vol] 278 10*3/uL [facility] RBC (Bld) [#/Vol] 4.39 10*6/uL 3.95 - 5.1 1 m/uL [facility] Segmented neutrophils/100 WBC (Bld) 68 % High 36 - 65 % [facility] Segs Absolute 5.62 [facility] WBC (Bld) [#/Vol] 8.4 10*3/uL [facility] CBC with Diffon 06-20-2022 Abs. Basophil 0.03 k/uL Normal 0.00-0.20 [facility] Comment on above: Performed By: #### C DP, BMP #### [facility] [address] [place] [address]: Lanre Santana MD Abs.Imm.Granulocyte 0.03 k/uL Normal 0.00-0.30 [facility] Comment on above: Performed By: #### C DP, BMP #### [facility] [address] [place], [place] [address] [address]: Lanre Santana MD Abs.Neutrophil (Seg) 5.62 k/uL Normal 1.50-8.10 [facility] Comment on above: Performed By: #### C DP, BMP #### [address] [place], [place] [address] [address]: Lanre Santana MD Basophils/100 WBC (Bld) 0 % Normal 0-2 [facility] Comment on above: Performed By: #### C DP, BMP #### [address] [place] [address] [address]: Lanre Santana MD Eosinophils (Bld) [#/Vol] 0.12 10*3/uL Normal 0.00-0.44 [facility] Comment on above: Performed By: #### C DP, BMP #### [address] [place], [place] [address] [address]: Lanre Santana MD Eosinophils/100 WBC (Bld) 1 % Normal 1-4 [facility] Comment on above: Performed By: #### C DP, BMP #### [address] [place], [place] [address] [address]: Lanre Santana MD Erythrocyte distribution width (RBC) [Ratio] 13.3 % Normal 11.8-14.4 [facility] Comment on above: Performed By: #### C DP, BMP #### [address] [place] [address] [address]: Lanre Santana MD Hematocrit (Bld) [Volume fraction] 42.7 % Normal 36.3-47.1 [facility] Comment on above: Performed By: #### C DP, BMP #### [address] [place], [place] [id number] [address] Services: Lanre Santana MD Hemoglobin (Bld) [Mass/Vol] 14.3 g/dL Normal 11.9-15.1 [facility] Comment on above: Performed By: #### C DP, BMP #### [facility] [address] [place], [place] [address] [address] Services: Lanre Santana MD Immature granulocytes/100 WBC (Bld) 0 % Normal 0 [facility] Comment on above: Performed By: #### C DP, BMP #### [facility] [address] [place], [place] [phone] [address] Court Services: Lanre Santana MD Lymphocytes (Bld) [#/Vol] 1.85 10*3/uL Normal 1.10-3.70 [facility] Comment on above: Performed By: #### C DP, BMP #### [address] [place], [facility] [address] Services: Lanre Santana MD Lymphocytes/100 WBC (Bld) 22 % Low 24-43 [facility] Comment on above: Performed By: #### C DP, BMP #### [address] [place] [address] [address]: Lanre Santana MD MCH (RBC) [Entitic mass] 32.6 pg Normal 25.2-33.5 [facility] Comment on above: Performed By: #### C DP, BMP #### [facility] [address] [place], [place] [id number] [address] Services: Lanre Santana MD MCHC (RBC) [Mass/Vol] 33.5 g/dL Normal 28.4-34.8 [facility] Comment on above: Performed By: #### C DP, BMP #### [facility] [address] [place] [address] [address]: Lanre Santana MD MCV (RBC) [Entitic vol] 97.3 fL Normal 82.6-102.9 [facility] Comment on above: Performed By: #### C DP, BMP #### [facility] [address] [place], [place] [id number] [address] Services: Lanre Santana MD Monocytes (Bld) [#/Vol] 0.71 10*3/uL Normal 0.10-1.20 [facility] Comment on above: Performed By: #### C DP, BMP #### [facility] [address] [place] [address] [address]: Lanre Santana MD Monocytes/100 WBC (Bld) 9 % Normal 3-12 [facility] Comment on above: Performed By: #### C DP, BMP #### [address] [place] [address] [address]: Lanre Santana MD Neutrophil (Seg) 68 % High 36-65 [facility] Comment on above: Performed By: #### C DP, BMP #### [address] [place], [place] [address] [address]: Lanre Santana MD NRBC Automated 0.0 per 100 WBC Normal 0.0 [facility] Comment on above: Performed By: #### C DP, BMP #### [address] [place], [facility] [address] Services: Lanre Santana MD Platelet mean volume (Bld) [Entitic vol] 8.4 fL Normal 8.1-13.5 [facility] Comment on above: Performed By: #### C DP, BMP #### [address] [place] [address] [address]: Lanre Santana MD Platelets (Bld) [#/Vol] 278 10*3/uL Normal 138-453 [facility] Comment on above: Performed By: #### C DP, BMP #### [facility] [address] [place] [address] [address]: Lanre Santana MD RBC (d) [#/Vol] 4.39 10*6/uL Normal 3.95-5.11 [facility] Comment on above: Performed By: #### C DP, BMP #### [facility] [address] [place] [address]: Lanre Santana MD WBC (Bld) [#/Vol] 8.4 10*3/uL Normal 3.5-11.3 [facility] Comment on above: Performed By: #### C DP, BMP #### [facility] [address] [place] [address]: Lanre Santana MD EKG 12 LeadOrdered By: César mojica on 06-20-2022 Atrial Rate 65 BPM [employer] Phone: P [place] 65 degrees [employer] Phone: P-R Interval 134 ms [employer] Phone: Q-T Interval 432 ms [employer] Phone: QRS Duration 110 ms [employer] Phone: QTc Calculation (Bazett) 449 ms [employer] Phone: R [place] 72 degrees [employer] Phone: T [place] 43 degrees [employer] Phone: Ventricular Rate 65 BPM [facility] [employer] Phone: [employer] Phone: EKG 12 Leadon 06-20-2022 Normal sinus rhythm Incomplete right bundle branch block Cannot rule out Inferior infarct , age undetermined Abnormal ECG No previous ECGs available Confirmed by César Blanco MD ([id number]) on 06/20/2022 10:08:07 PM [facility] RADIOLOG[facility] César Blanco MD - 06/20/2022 Normal sinus rhythm Incomplete right bundle branch block Cannot rule out Inferior infarct , age undetermined Abnormal ECG No previous ECGs available Confirmed by César Blanco MD ([id number]) on 06/20/2022 10:08:07 PM [facility] [employer] Work Phone: Laboratory - Chemistry and C hemistry - challengeon 06-20-2022 GFR/1.73 sq M.predicted MDRD (S/P/Bld) [Vol rate/Area] [facility] Comment on above: Average GFR for 60-6 9 years old: 85 mL/min/1.73sq m Chronic Kidney Disease: <60 mL/min/1.73sq m Kidney failure: <15 mL/min/1.73sq m eGFR calculated using average adult body mass. Additional eGFR calculator available at: http://www.[employer]/multiple_crcl_2011.htm Stage 1: Some kidney damage normal GFR [...] by: CARTER COKER Date: 2022-06-06 15:52 Normal [facility] Vital Signs Date Time Vital Sign Value Performing Clinician Faci lity 06-27-2022 14:30-0400 Diastolic blood pressure 68 mm[Hg] Carter Torres MD Work Phone: [employer] 06-27-2022 14:30-0400 Heart rate 68 /min Carter Torres MD Work Phone: [employer] 06-27-2022 14:30-0400 Respiratory rate 23 /min Carter Torres MD Work Phone: [employer] 06-27-2022 14:30-0400 SaO2% (BldA) [Mass fraction] 94 % Carter Torres MD Work Phone: [employer] 06-27-2022 14:30-0400 Systolic blood pressure 117 mm[Hg] Carter Torres MD Work Phone: [employer] 06-27-2022 14:00-0400 Body temperature 97 [degF] Carter Torres MD Work Phone: [employer] 06-27-2022 11:16-0400 Body height 162.6 cm Carter Torres MD Work Phone: [employer] 06-27-2022 11:16-0400 Body mass index (BMI) [Ratio] 30.04 kg/m2 Carter Torres MD Work Phone: [employer] 06-27-2022 11:16-0400 Body weight 79.38 kg Carter Torres MD Work Phone: [facility] Encounters Encounter Date Encounter Type Care Provider Facility Start: 11-11-2023 End: 11-11-2023 ambulatory HENRIETTA RODRIGUEZ [facility] Start: 10-26-2023 End: 10-26-2023 ambulatory MARJ THORNEKYREE [facility] Start: 09-28-2023 End: 09-28-2023 ambulatory LORETA GRIMALDO [facility] Start: 06-27-2022 End: 06-27-2022 [facility] Start: 06-27-2022 End: 06-27-2022 Subsequent hospital visit by physician Carter Torres MD Work Phone: [facility] Start: 06-20-2022 End: 06-21-2022 ambulatory [facility] Start: 06-20-2022 End: 06-20-2022 Subsequent [...] 07-31-2022 Influenza vaccination Flu vaccine (# 1) [facility] Start: 06-27-2022 End: 06-27-2022 Arthroscopy knee diagnostic w/wo synovial bx spx KNEE ARTHROSCOPY Acute medial meniscus tear of right knee, initial encounter 06/27/2022 1:07 PM EDT [facility] Start: 2010 Screening for malign ant neoplasm of breast Breast cancer screen [facility] Start: 2010 Shingles vaccine (1 of 2) Shingles vaccine (1 of 2) [facility] Start: 2005 Screening for malign ant neoplasm of colon [facility] [employer] Start: 2000 Lipid panel Lipids [place] Rocio [facility] [employer] Start: 1979 DTaP/Tdap/Td vaccine (1 - Tdap) DTaP/Tdap/Td vaccine (1 - Tdap) [facility] [employer] Start: 1978 Hepatitis C screening Hepatitis C sc reen [facility] [employer] Start: 1975 HIV screening HIV screen [facility] [employer] Start: 1972 Depression Screen Depression Screen [facility] [employer] Start: 1966 Pneumococcal 0-64 ye ars Vaccine (1 - PCV) Pneumococcal 0-64 years Vaccine (1 - PCV) [facility] [employer] Start: 1960 COVID-19 Vaccine (#1) COVID-19 Vacci ne (#1) [facility] [employer] Oxygen therapy [[facility] Data Set] Initiate Oxygen Therapy Protocol Respiratory Care Routine As Needed until discontinued starting 06/27/2022 [facility] [email or web address] Phone: Comment on above: As Needed until disc ontinued starting 06/27/2022 Payers Date Payer Category Payer Unknown [id number] [id number] [id number] 1960 Unknown [id number] 2.16.8 [id number] 1960 Unknown [id number] [id number] [id number] 1960 Unknown [id number] 2.16.8 [id number] 1960 Unknown [id number] [id number] [id number] 1959 Unknown [id number] Social History Date Type Detail Facility Start: 06-21-2020 [facility] [email or web address] Phone: History of tobacco use Cigarette Smoker B [employer] Phone: Start: 06-21-2020 Cigarettes smoked current (pack per day) - Reported 0.5 [employer] Phone: Start: 06-21-2020 Tobacco use and exposure Smoke less tobacco non-user [employer] Phone: Start: 12-05-2021 End: 06-27-2022 Alcohol intake Lifetime non-drinker (finding) [employer] Phone: Start: 06-21-2020 History SDOH Alcohol Frequency 1 [employer] Phone: Start: 1960 Sex Assigned At Not on file B ON [employer] Phone: Start: 06-17-2022 End: 06-27-2022 Exposure to SARS-CoV-2 (event) Not sure [employer] Phone: Progress note 11-11-2023 Note Date & Type Note Facility 11-11-2023 Note Cardiovascular Medic [facility] SUBJECTIVE Chief Complaint Patient presents with [...] breath Acute sinusitis Coronary artery disease involving [place] coronary artery of [place] heart without angina pectoris Past Medical History: [...] tablet, if needed., Disp: , Rfl: HYDROcodone-acetaminophen (Christine) 5-325 mg tablet, take 1 tablet by [...] No focal de (more content not included)... [facility] Progress note 11-11-2023 Note Date & Type [...] All other systems reviewed and are negative. 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 Use of blood products discussed with patient who consented to blood products. Additional Equipment Requests [facility] Progress note 09-28-2023 Note Date & Type Note Facility 09-28-2023 Note Cardiovascular Medic [facility] SUBJECTIVE No chief complaint on [...] tablet, if needed., Disp: , Rfl: HYDROcodone-acetaminophen (Christine) 5-325 mg tablet, take 1 tablet by [...] working slowly t (more content not included)... [facility] Progress note 09-28-2023 Note Date & Type [...] All other systems reviewed and are negative. [facility] History of Present illness Narrative 06-27-2022 Selene [...] require patient to operate motor Vehicle. Yes [facility] Preadmission Testing Name: Abi Boswell : [...] Take [x] Ride Home [x]No Jewelry/Contact Lenses/Nail Frisian [] Prep/Lax/Clear Liquids [] Chlorhexidene DOS Patient [...] patient? Yes documented in this encounter [facility] [employer] Work Phone: Hospital Discharge instructions 06-27-2022 Discharge [...] feet do not touch the floor, 2. Heating And Ventilation Engineer the sides of the surface for support. 3. Raise one foot until your knee is completely straight 4. Slowly return to the starting position and relax. 5. Repeat 20 times ANKLE PUMPS 1. Bend ankles up and down, alternating foot 2. Repeat 25 times Carter Torres M.D. [phone] @ATTPROV@ 06/27/2022 1:01 PM documented in this encounter [facility] [employer] Phone: Summary Purpose Family History No Family History Records FoundNo Family History Records FoundNo Family History Records FoundNo Family History Records Found Advance Directives No Advanced Directives Records FoundLatest Code Status on File Code Status Date Activated Date Inactivated Comments Full Code 06/27/2022 11:07 AM Additional Source Comments Care Teams (unrecognized sec tion and content) Rn Night Relationship Specialty Start Date End Date Ron Case MD [address] [place] [address] PCP - General Family Medicine 06/21/20 Rn Night Relationship Specialty Start Date End Date Ron Case MD [address] [place] [address] PCP - General Family Medicine 06/21/20 Rn Night Relationship Specialty Start Date End Date Ron Case MD [address] [place] [address] PCP - General Family Medicine 06/21/20 INFORMATION SOURCE (unrecogn ized section and content) DATE CREATED AUTHOR [facility]/22/2022 [facility] DATE CREATED AUTHOR AUTHOR'S ORGANIZ ATION 07/01/2022 [facility] DATE CREATED AUTHOR AUTHOR'S ORGANIZ ATION 09/22/2022 [facility] DATE CREATED AUTHOR AUTHOR'S ORGANIZ ATION 12/26/2023 [facility] Reason for Visit (unrecogniz ed section and content) Specialty Diagnoses / Procedures Referred By Herber t Referred To Contact Diagnoses Acute medial meniscus tear of right knee, initial encounter Acute medial meniscus tear of right knee, initial encounter [S83.241A] Procedures IA KNEE SCOPE,DIAGNOSTIC IA ARTHRS KNE SURG W/MENISCECTOMY MED/LAT W/SHVG KNEE ARTHROSCOPY Carter Torres MD [address] [place] [address] [facility] [id number] [place] [address] Referral ID Status Reason Start Date Expiration Date Visits Re quested Visits Authorized [id number] 1 1 Ordered Prescriptions (unrec ognized section [...] mL IVPB (duplex) (COMPLETED) 2,000 mg, IntraVENous, FOOD SERVICE AMBASSADOR TO O.R., 1 dose, On Thu06/27/22 at [...] (NoRateChange - Provider: Kenn Quick APRN - BRANCH CONTROLLER)[id number] (Anesthesia Volume Adjustment - Provider: Kenn Quick APRN - BRANCH CONTROLLER) PRN Medication Order 06/25/2022 06/26/2022 06/27/2022 bupivacaine-EPINEPHrine PF (MARCAINE-w/EPINEPHRINE) 0.5% -[id number] injection (CANCELED) PRN, Starting on Thu06/27/22 at [...] BE BASED ON THE PRIMARY CLINICAL RECORDS. [facility] provides no warranty or guarantee of the accuracy or completeness of information in this document.
--- NOTE | 2024-03-31 22:25 | PC.NURSE ---
Pt presents to ER with a laceration to the distal portion of her right abarca after tripping over a fan while walking to bed The wound is V shaped, one arm measuring 8cm, the other 12cm The wound is approximately 4.5cm in width and goes to the bone Oozing blood at this time Pt also has approximately 3cm laceration/skin tear on the left forearm that she had steri stripped on arrival, new steri strips will be applied Pt is unsure on when her last Tetanus shot was Daughter at bedside
[2024-03-31] MEDS: ADACEL DIPH,PERTUSS(ACELL),TET VAC/PF 0.5 ML ADULT SYRINGE IM (23:55)
[2024-04-01] MEDS: LIDOCAINE HCL 1% 100 MG/10 ML MDV INJ ×3 (00:07→00:08)
[2024-04-01] MEDS: SURGIFOAM GEL SPONGE SIZE 100 1 EACH TOPICAL ×2 (00:08→00:09)
== END 2024-04-01 00:13 | disposition home or self-care (01) ==
PROVIDERS: Emergency Provider Emergency Medicine; PCP Family Medicine
DX: S81.811A Laceration without foreign body, right lower leg, initial encounter (principal); W22.8XXA Striking against or struck by other objects, initial encounter; Z23 Encounter for immunization; Z79.82 Long term (current) use of aspirin; Z79.899 Other long term (current) drug therapy
CPT/HCPCS: 12002; 73590; 90471; 90715; 99285

== ENCOUNTER 2024-04-02 10:31 | Emergency (ER) | payer OTHER, SELFPAY ==
--- OUTSIDE RECORDS SUMMARY | 2024-04-02 10:40 | XMS_ITS | CCD ---
Author Organization [facility] Care Team Providers Care Salon Leader Name Role Phone Ron Case MD Primary Care Provider [phone] CARTER TORRES Referring Unavailable RON CASE Primary [...] Translations: [MORPHINE] Drug Allergy 06-21-20 Hives, Palpitations [facility] (1 source) Morphine Drug Allergy [facility] Repository (1 source) Sulfamethoxazole / Trimethoprim; Translations: [SULFAMETHOXAZOLE-TR IMETHOPRIM] Drug Allergy 09-28-20 [facility] Repository Medications Current Medications Medication Drug [...] disease (4 sources) Atherosclerotic heart disease of [place] coronary artery without angina pectoris; Translations: [Atherosclerotic heart disease of [place] coronary artery with other forms of angina [...] disease and help reduce risk of stroke, [place], etc. Recommend we switch her simvastatin to atrovastatin 40mg daily. Follow-up lipid panel and LFTs in 3 months. Also, her vit D was low, follow-up with Dr. Case on this. Thanks! [facility] Telephoneon 12-25-2023 Telephone [id number] Abi Boswell 1960 Provider Department Center 12/25/2023 HENRIETTA FLOREZ Chica Raheem Family History Problem Relation Age of Onset Hypertension Maternal Grandmother Transient ischemic attack Maternal Grandmother Heart attack Maternal Grandfather Heart failure Maternal Grandfather Family Status - Relation Status Age at Maternal Grandmother Maternal Grandfather [facility] Office Visiton 11-11-2023 Follow-up visit [id number] Abi Boswell 1960 Provider Department Center 11/11/2023 HENRIETTA FLOREZ [facility] Family History Problem Relation Age of Onset Hypertension Maternal Grandmother Transient ischemic attack Maternal Grandmother Heart attack Maternal Grandfather Heart failure Maternal Grandfather Family Status - Relation Status Age at Maternal Grandmother Maternal Grandfather Level of Service:05429 [place] OFFICE/OUTPATIENT ESTABLISHED MOD MDM 30-39 MIN Reason for Visit and Comments: Chest Pain [550854] Coronary Artery Disease [187] [facility] HPon 10-26-2023 HP H&P reviewed. The [...] anatomy and decide on need for intervention. [facility] NURSNOTEon 10-26-2023 NURSNOTE RN educated pt on d/ c instructions. RN encouraged pt to voice any questions or concerns. Pt verbalizes no questions or concerns at this time. Pt was wheeled off of unit with all of belongings. [facility] Orders Onlyon 10-01-2023 Orders Only [id number] Abi Boswell 1960 F Date Provider Department Center 10/01/2023 Rafael8-SCOT DAWN [facility] Family History Problem Relation Age of Onset Hypertension Maternal Grandmother Transient ischemic attack Maternal Grandmother Heart attack Maternal Grandfather Heart failure Maternal Grandfather Family Status - Relation Status Age at Maternal Grandmother Maternal Grandfather [facility] HPon 09-28-2023 Cardiovascular Medicine [facility] SUBJECTIVE No chief complaint on file. [...] if needed., Disp: , Rfl: HYDROcodone-acetamino phen (Roebuck) 5-325 mg tablet, take 1 tablet by [...] slowly t (more content not included)... Normal [facility] Office Visiton 09-28-2023 Follow-up visit [id number] Abi Boswell 1960 F Date Provider Department Center 09/28/2023 [id number] GRIMALDO [facility] Family History Problem Relation Age of Onset Hypertension Maternal Grandmother Transient ischemic attack Maternal Grandmother Heart attack Maternal Grandfather Heart failure Maternal Grandfather Family Status - Relation Status Age at Maternal Grandmother Maternal Grandfather Level of Service:48492 [place] OFFICE/OUTPATIENT NEW LOW MDM 30-44 MINUTES Normal [facility] [id number] 06-27-2022 SARS-CoV-2 (COVID-19) RNA CAROLINE+probe Ql (Unsp spec) Not detected Normal NOTDET [facility] Comment on above: Result Comment: Rapid [...] management decisions. Fact sheet for Healthcare Providers: https://www.fda.gov/media/784559/download Fact sheet for Patients: https://www.fda.gov/media/889663/download Methodology: Isothermal Nucleic Acid Amplification Performed By: #### C OVRB #### [facility] [address] [place] [address] [place]: Lanre Santana MD Basic Metabolic Panelon 05-31 Anion gap [Moles/Vol] 8 mmol/L Low 9 - 17 mmol/L [facility] Calcium [Mass/Vol] 9.8 mg/dL 8.6 - 10. 4 mg/dL [facility] Chloride [Moles/Vol] 107 mmol/L 98 - 10 7 mmol/L [facility] CO2 [Moles/Vol] 30 mmol/L 20 - 31 mmol/L [facility] Creatinine [Mass/Vol] 0.73 mg/dL 0.5 - 0.9 mg/dL [facility] GFR >60 60 - PI NF mL/min [facility] GFR Non- >60 60 - PINF mL/min [facility] Glucose [Mass/Vol] 97 mg/dL 70 - 99 mg/dL [facility] Interpretation and review of laboratory results Abnormal [facility] Potassium [Moles/Vol] 4.4 mmol/L 3.7 - 5.3 mmol/L [facility] Sodium [Moles/Vol] 145 mmol/L High 135 - 144 mmol/L [facility] Urea nitrogen (BldV) [Mass/Vol] 12 mg/dL 8 - 23 mg/dL [facility] Urea nitrogen/Creatinine (Bld) [Mass ratio] 16 - [facility] Basic Metabolic Profon 06-20 (cont.) Normal [facility] Comment on above: Result Comment: Aver age GFR for 60-69 years old: 85 mL/min/1.73sq m Chronic Kidney Disease: <60 mL/min/1.73sq m Kidney failure: <15 mL/min/1.73sq m eGFR calculated using average adult body mass. Additional eGFR calculator available at: http://www.EternoGen.IceRocket/multiple_crcl_2012.htm Performed By: #### C DP, BMP #### [facility] [address] [place] [address] [place] [address] [place]: Lanre Santana MD Anion gap [Moles/Vol] 8 mmol/L Low - [facility] Comment on above: Performed By: #### C DP, BMP #### [facility] [address] [place] [address] [place]: Lanre Santana MD BUN/CRE Ratio 16 Normal 08-19 [facility] Comment on above: Performed By: #### C DP, BMP #### [facility] [address] [place] [address] [place]: Lanre Santana MD Calcium [Mass/Vol] 9.8 mg/dL Normal 8.6-10.4 [facility] Comment on above: Performed By: #### C DP, BMP #### [facility] [address] [place], [place] [id number] [place]: Lanre Santana MD Chloride [Moles/Vol] 107 mmol/L Normal 98-107 [facility] Comment on above: Performed By: #### C DP, BMP #### [facility] [address] [place], [place] [id number] [place]: Lanre Santana MD CO2 [Moles/Vol] 30 mmol/L Normal 20-31 [facility] Comment on above: Performed By: #### C DP, BMP #### [facility] [address] [place], [place] [id number] [place]: Lanre Santana MD Creatinine [Mass/Vol] 0.73 mg/dL Normal 0.50-0.90 [facility] Comment on above: Performed By: #### C DP, BMP #### [facility] [address] [place], [place] [id number] [place]: Lanre Santana MD GFR, Amer >60 Normal >60 [facility] Comment on above: Performed By: #### C DP, BMP #### [facility] [address] [place], [place] [id number] [place]: Lanre Santana MD GFR,non Amer >60 Normal >60 [facility] Comment on above: Performed By: #### C DP, BMP #### [facility] [address] [place], [place] [id number] [place]: Lanre Santana MD Glucose [Mass/Vol] 97 mg/dL Normal 70-99 [facility] Comment on above: Performed By: #### C DP, BMP #### [facility] [address] [place], [place] [id number] [place]: Lanre Santana MD Potassium [Moles/Vol] 4.4 mmol/L Normal 3.7-5.3 [facility] Comment on above: Performed By: #### C DP, BMP #### [facility] [address] [place], [place] [id number] [place]: Lanre Santana MD Sodium [Moles/Vol] 145 mmol/L High 135-144 [facility] Comment on above: Performed By: #### C DP, BMP #### [facility] [address] [place] [address] [place]: Lanre Santana MD Staging: Normal [facility] Comment on above: Result Comment: Stag e 1: Some kidney damage normal GFR Stage 2: Mild kidney damage GFR 60-89 Stage 3: Moderate kidney damage GFR 30-59 Stage 4: Severe kidney damage GFR 15-29 Stage 5: Severe kidney damage GFR <15 ESRD - chronic treatment by dialysis or transplant Performed By: #### C DP, BMP #### [facility] [address] [place] [address] [place] [address] [place]: Lanre Santana MD Urea nitrogen [Mass/Vol] 12 mg/dL Normal 8-23 [facility] Comment on above: Performed By: #### C DP, BMP #### [facility] [address] [place] [address] [place] [address] [place]: Lanre Santana MD CBC with Auto Differentialon 06-20-2022 Absolute Eos # 0.12 [facility] Absolute Immature Granulocyte 0.03 [facility] Absolute Lymph # 1.85 [facility] Absolute Clinch # 0.71 [facility] Basophils (Bld) [#/Vol] 0.03 10*3/uL [facility] Basophils/100 WBC (Bld) 0 % 0 - 2 % [facility] Eosinophils/100 WBC (Bld) 1 % 1 - 4 % [facility] Hematocrit (Bld) [Volume fraction] 42.7 % 36.3 - 47.1 % [facility] Hemoglobin (Bld) [Mass/Vol] 14.3 g/dL 11.9 - 15.1 g/dL [facility] Immature granulocytes/100 WBC (Bld) 0 % 0 [facility] Interpretation and review of laboratory results Abnormal [facility] Lymphocytes/100 WBC (Bld) 22 % Low 24 - 43 % [facility] MCH (RBC) [Entitic mass] 32.6 pg 25.2 - 33.5 pg [facility] MCHC (RBC) [Mass/Vol] 33.5 g/dL 28.4 - 34.8 g/dL [facility] MCV (RBC) [Entitic vol] 97.3 fL 82.6 - 102.9 fL [facility] Monocytes/100 WBC (Bld) 9 % 3 - 12 % [facility] NRBC Automated 0.0 0.0 per 100 WBC [facility] Platelet distribution width (Bld) [Ratio] 13.3 % 11.8 - 14.4 % [facility] Platelet mean volume (Bld) [Entitic vol] 8.4 fL 8.1 - 13.5 fL [facility] Platelets (Bld) [#/Vol] 278 10*3/uL [facility] RBC (Bld) [#/Vol] 4.39 10*6/uL 3.95 - 5.1 1 m/uL [facility] Segmented neutrophils/100 WBC (Bld) 68 % High 36 - 65 % [facility] Segs Absolute 5.62 [facility] WBC (Bld) [#/Vol] 8.4 10*3/uL [facility] CBC with Diffon 06-20-2022 Abs. Basophil 0.03 k/uL Normal 0.00-0.20 [facility] Comment on above: Performed By: #### C DP, BMP #### [facility] [address] [place] [address] [place]: Lanre Santana MD Abs.Imm.Granulocyte 0.03 k/uL Normal 0.00-0.30 [facility] Comment on above: Performed By: #### C DP, BMP #### [facility] [address] [place], [place] [address] [place]: Lanre Santana MD Abs.Neutrophil (Seg) 5.62 k/uL Normal 1.50-8.10 [facility] Comment on above: Performed By: #### C DP, BMP #### [address] [place], [place] [address] [place]: Lanre Santana MD Basophils/100 WBC (Bld) 0 % Normal 0-2 [facility] Comment on above: Performed By: #### C DP, BMP #### [address] [place] [address] [place]: Lanre Santana MD Eosinophils (Bld) [#/Vol] 0.12 10*3/uL Normal 0.00-0.44 [facility] Comment on above: Performed By: #### C DP, BMP #### [address] [place], [place] [address] [place]: Lanre Santana MD Eosinophils/100 WBC (Bld) 1 % Normal 1-4 [facility] Comment on above: Performed By: #### C DP, BMP #### [address] [place], [place] [address] [place]: Lanre Santana MD Erythrocyte distribution width (RBC) [Ratio] 13.3 % Normal 11.8-14.4 [facility] Comment on above: Performed By: #### C DP, BMP #### [address] [place] [address] [place]: Lanre Santana MD Hematocrit (Bld) [Volume fraction] 42.7 % Normal 36.3-47.1 [facility] Comment on above: Performed By: #### C DP, BMP #### [address] [place], [place] [id number] [place]: Lanre Santana MD Hemoglobin (Bld) [Mass/Vol] 14.3 g/dL Normal 11.9-15.1 [facility] Comment on above: Performed By: #### C DP, BMP #### [facility] [address] [place], [place] [id number] [place]: Lanre Santana MD Immature granulocytes/100 WBC (Bld) 0 % Normal 0 [facility] Comment on above: Performed By: #### C DP, BMP #### [facility] [address] [place], [place] [id number] [place]: aLnre Santana MD Lymphocytes (Bld) [#/Vol] 1.85 10*3/uL Normal 1.10-3.70 [facility] Comment on above: Performed By: #### C DP, BMP #### [address] [place], [facility]83 [place]: Lanre Santana MD Lymphocytes/100 WBC (Bld) 22 % Low 24-43 [facility] Comment on above: Performed By: #### C DP, BMP #### [address] [place] [address] [place]: Lanre Santana MD MCH (RBC) [Entitic mass] 32.6 pg Normal 25.2-33.5 [facility] Comment on above: Performed By: #### C DP, BMP #### [facility] [address] [place], [place] [id number] [place]: Lanre Santana MD MCHC (RBC) [Mass/Vol] 33.5 g/dL Normal 28.4-34.8 [facility] Comment on above: Performed By: #### C DP, BMP #### [facility] [address] [place] [address] [place]: Lanre Santana MD MCV (RBC) [Entitic vol] 97.3 fL Normal 82.6-102.9 [facility] Comment on above: Performed By: #### C DP, BMP #### [facility] [address] [place], [place] [address] [place]: Lanre Santana MD Monocytes (Bld) [#/Vol] 0.71 10*3/uL Normal 0.10-1.20 [facility] Comment on above: Performed By: #### C DP, BMP #### [facility] [address] [place] [place] [address] [place]: Lanre Santana MD Monocytes/100 WBC (Bld) 9 % Normal 3-12 [facility] Comment on above: Performed By: #### C DP, BMP #### [address] [place] [address] [place]: Lanre Santana MD Neutrophil (Seg) 68 % High 36-65 [facility] Comment on above: Performed By: #### C DP, BMP #### [address] [place], [place] [address] [place]: Lanre Santana MD NRBC Automated 0.0 per 100 WBC Normal 0.0 [facility] Comment on above: Performed By: #### C DP, BMP #### [address] [place], [facility]83 [place]: Lanre Santana MD Platelet mean volume (Bld) [Entitic vol] 8.4 fL Normal 8.1-13.5 [facility] Comment on above: Performed By: #### C DP, BMP #### [address] [place] [address] [place]: Lanre Santana MD Platelets (Bld) [#/Vol] 278 10*3/uL Normal 138-453 [facility] Comment on above: Performed By: #### C DP, BMP #### [facility] [address] [place] [address] [place]: Lanre Santana MD RBC (d) [#/Vol] 4.39 10*6/uL Normal 3.95-5.11 [facility] Comment on above: Performed By: #### C DP, BMP #### [facility] [address] [place] [address] [place]: Lanre Santana MD WBC (Bld) [#/Vol] 8.4 10*3/uL Normal 3.5-11.3 [facility] Comment on above: Performed By: #### C DP, BMP #### [facility] [address] [place] [address] [place]: Lanre Santana MD EKG 12 LeadOrdered By: César mojica on 06-20-2022 Atrial Rate 65 BPM [employer] Phone: P [place] 65 degrees [employer] Phone: P-R Interval 134 ms [employer] Phone: Q-T Interval 432 ms [employer] Phone: QRS Duration 110 ms [employer] Phone: QTc Calculation (Bazett) 449 ms [employer] Phone: R [place] 72 degrees [employer] Phone: T [place] 43 degrees [employer] Phone: Ventricular Rate 65 BPM [facility] [employer] Phone: [employer] Phone: EKG 12 Leadon 06-20-2022 Normal sinus rhythm Incomplete right bundle branch block Cannot rule out Inferior infarct , age undetermined Abnormal ECG No previous ECGs available Confirmed by César Blanco MD ([id number]) on 06/20/2022 10:08:07 PM [facility] RADIOLOGY César Blanco MD - 06/20/2022 Normal sinus rhythm Incomplete right bundle branch block Cannot rule out Inferior infarct , age undetermined Abnormal ECG No previous ECGs available Confirmed by César Blanco MD ([id number]) on 06/20/2022 10:08:07 PM [facility] [employer] Work Phone: Laboratory - Chemistry and C hemistry - challengeon 06-20-2022 GFR/1.73 sq M.predicted MDRD (S/P/Bld) [Vol rate/Area] [facility] Comment on above: Average GFR for 60-6 9 years old: 85 mL/min/1.73sq m Chronic Kidney Disease: <60 mL/min/1.73sq m Kidney failure: <15 mL/min/1.73sq m eGFR calculated using average adult body mass. Additional eGFR calculator available at: http://www.iexerci.se/multiple_crcl_2011.htm Stage 1: Some kidney damage normal GFR [...] by: CARTER COKER Date: 2022-06-06 15:52 Normal [facility] Vital Signs Date Time Vital Sign Value Performing Clinician Faci lity 06-27-2022 14:30-0400 Diastolic blood pressure 68 mm[Hg] Carter Torres MD Work Phone: [employer] 06-27-2022 14:30-0400 Heart rate 68 /min Carter Torres MD Work Phone: [employer] 06-27-2022 14:30-0400 Respiratory rate 23 /min Carter Torres MD Work Phone: [employer] 06-27-2022 14:30-0400 SaO2% (BldA) [Mass fraction] 94 % Carter Torres MD Work Phone: [employer] 06-27-2022 14:30-0400 Systolic blood pressure 117 mm[Hg] Carter Torres MD Work Phone: [employer] 06-27-2022 14:00-0400 Body temperature 97 [degF] Carter Torres MD Work Phone: [employer] 06-27-2022 11:16-0400 Body height 162.6 cm Carter Torres MD Work Phone: [employer] 06-27-2022 11:16-0400 Body mass index (BMI) [Ratio] 30.04 kg/m2 Carter Torres MD Work Phone: [employer] 06-27-2022 11:16-0400 Body weight 79.38 kg Carter Torres MD Work Phone: [facility] Encounters Encounter Date Encounter Type Care Provider Facility Start: 11-11-2023 End: 11-11-2023 ambulatory HENRIETTA RODRIGUEZ [facility] Start: 10-26-2023 End: 10-26-2023 ambulatory MARJ THORNEKYREE [facility] Start: 09-28-2023 End: 09-28-2023 ambulatory LORETA GRIMALDO [facility] Start: 06-27-2022 End: 06-27-2022 [facility] Start: 06-27-2022 End: 06-27-2022 Subsequent hospital visit by physician Carter Torres MD Work Phone: [facility] Start: 06-20-2022 End: 06-21-2022 ambulatory [facility] Start: 06-20-2022 End: 06-20-2022 Subsequent [...] 07-31-2022 Influenza vaccination Flu vaccine (# 1) [facility] Start: 06-27-2022 End: 06-27-2022 Arthroscopy knee diagnostic w/wo synovial bx spx KNEE ARTHROSCOPY Acute medial meniscus tear of right knee, initial encounter 06/27/2022 1:07 PM EDT [facility] Start: 2010 Screening for malign ant neoplasm of breast Breast cancer screen [facility] Start: 2010 Shingles vaccine (1 of 2) Shingles vaccine (1 of 2) [facility] Start: 2005 Screening for malign ant neoplasm of colon [facility] [employer] Start: 2000 Lipid panel Lipids SPENCER Rocio [facility] [employer] Start: 1979 DTaP/Tdap/Td vaccine (1 - Tdap) DTaP/Tdap/Td vaccine (1 - Tdap) [facility] [employer] Start: 1978 Hepatitis C screening Hepatitis C sc reen [facility] [employer] Start: 1975 HIV screening HIV screen [facility] [employer] Start: 1972 Depression Screen Depression Screen [facility] [employer] Start: 1966 Pneumococcal 0-64 ye ars Vaccine (1 - PCV) Pneumococcal 0-64 years Vaccine (1 - PCV) [facility] [employer] Start: 1960 COVID-19 Vaccine (#1) COVID-19 Vacci ne (#1) [facility] [employer] Oxygen therapy [[facility] Data Set] Initiate Oxygen Therapy Protocol Respiratory Care Routine As Needed until discontinued starting 06/27/2022 [facility] [employer] Phone: Comment on above: As Needed until disc ontinued starting 06/27/2022 Payers Date Payer Category Payer Unknown [id number] [id number] [id number] 1960 Unknown [id number] [id number] [id number] 1960 Unknown [id number] 2.16.8 [id number] 1960 Unknown [id number] 2.16.8 [id number] 1960 Unknown [id number] 2.16.84 [id number] 1959 Unknown [id number] [id number] [id number] Social History Date Type Detail Facility Start: 06-21-2020 [facility] [employer] Phone: History of tobacco use Cigarette Smoker B ON [employer] Phone: Start: 06-21-2020 Cigarettes smoked current (pack per day) - Reported 0.5 [employer] Phone: Start: 06-21-2020 Tobacco use and exposure Smoke less tobacco non-user [employer] Phone: Start: 12-05-2021 End: 06-27-2022 Alcohol intake Lifetime non-drinker (finding) [employer] Phone: Start: 06-21-2020 History SDOH Alcohol Frequency 1 [facility] Phone: Start: 1960 Sex Assigned At Not on file B ON [employer] Phone: Start: 06-17-2022 End: 06-27-2022 Exposure to SARS-CoV-2 (event) Not sure [employer] Phone: Progress note 11-11-2023 Note Date & Type Note Facility 11-11-2023 Note Cardiovascular Medic [facility] SUBJECTIVE Chief Complaint Patient presents [...] breath Acute sinusitis Coronary artery disease involving [place] coronary artery of [place] heart without angina pectoris Past Medical History: [...] tablet, if needed., Disp: , Rfl: HYDROcodone-acetaminophen (Ro[place]uck) 5-325 mg tablet, take 1 tablet by [...] No focal de (more content not included)... [facility] Progress note 11-11-2023 Note Date & [...] All other systems reviewed and are negative. [facility] Clinical Note 10-26-2023 Note Date & Type Note Facility 10-26-2023 Note Patient: Abi adam Procedure Information Date/Time: 10/26/23 0800 Procedure: Coronary angiography (Left) Location: [facility] CNC OPERATOR 2 BIPLANE / [facility] (Cath) Providers: Marj Abraham MD Clinical information reviewed: Allergies Meds OB Status Physical Exam Airway Mallampati: III TM distance: >3 FB Neck ROM: full Cardiovascular Rhythm: regular Rate: normal Dental Pulmonary Abdominal Anesthesia Plan ASA 3 other Anesthetic plan and risks discussed with patient. Use of blood products discussed with patient who consented to blood products. Additional Equipment Requests [facility] Progress note 09-28-2023 Note Date & Type Note Facility 09-28-2023 Note Cardiovascular Medic [facility] SUBJECTIVE No chief complaint on [...] tablet, if needed., Disp: , Rfl: HYDROcodone-acetaminophen (Ro[place]) 5-325 mg tablet, take 1 tablet by [...] working slowly t (more content not included)... [facility] Progress note 09-28-2023 Note Date & [...] All other systems reviewed and are negative. [facility] History of Present illness Narrative 06-27-2022 [...] require patient to operate motor Vehicle. Yes [facility] Preadmission Testing Name: Abi Boswell : [...] Take [x] Ride Home [x]No Jewelry/Contact Lenses/Nail Setswana [] Prep/Lax/Clear Liquids [] Chlorhexidene DOS Patient [...] patient? Yes documented in this encounter [facility] [employer] Work Phone: Hospital Discharge instructions 06-27-2022 Discharge [...] feet do not touch the floor, 2. Physics Technician the sides of the surface for support. 3. Raise one foot until your knee is completely straight 4. Slowly return to the starting position and relax. 5. Repeat 20 times ANKLE PUMPS 1. Bend ankles up and down, alternating foot 2. Repeat 25 times Carter Torres M.D. [phone] @ATTPROV@ 06/27/2022 1:01 PM documented in this encounter [facility] Phone: Summary Purpose Family History No Family History Records FoundNo Family History Records FoundNo Family History Records FoundNo Family History Records Found Advance Directives No Advanced Directives Records FoundLatest Code Status on File Code Status Date Activated Date Inactivated Comments Full Code 06/27/2022 11:07 AM Additional Source Comments Care Teams (unrecognized sec tion and content) Salon Leader Relationship Specialty Start Date End Date Ron Case MD [address] [place] [address] PCP - General Family Medicine 06/21/20 Salon Leader Relationship Specialty Start Date End Date Ron Case MD [address] [place] [address] PCP - General Family Medicine 06/21/20 Salon Leader Relationship Specialty Start Date End Date Ron Case MD [address] [place] [address] PCP - General Family Medicine 06/21/20 INFORMATION SOURCE (unrecogn ized section and content) DATE CREATED AUTHOR 06/22/2022 [facility] DATE CREATED AUTHOR AUTHOR'S ORGANIZ ATION 07/01/2022 [facility] DATE CREATED AUTHOR AUTHOR'S ORGANIZ ATION 09/22/2022 [facility] DATE CREATED AUTHOR AUTHOR'S ORGANIZ ATION 12/26/2023 [facility] Reason for Visit (unrecogniz ed section and content) Specialty Diagnoses / Procedures Referred By Herber t Referred To Contact Diagnoses Acute medial meniscus tear of right knee, initial encounter Acute medial meniscus tear of right knee, initial encounter [S83.241A] Procedures TN KNEE SCOPE,DIAGNOSTIC TN ARTHRS KNE SURG W/MENISCECTOMY MED/LAT W/SHVG KNEE ARTHROSCOPY Carter Torres MD [address] [place] [address] [facility] [address] [place] [address] Referral ID Status Reason Start Date Expiration Date Visits Re quested Visits Authorized [id number] 1 1 Ordered Prescriptions (unrec ognized section [...] mL IVPB (duplex) (COMPLETED) 2,000 mg, IntraVENous, RIGHT OF WAY MAN TO O.R., 1 dose, On Thu06/27/22 at [...] (NoRateChange - Provider: Kenn Quick APRN - BULK LOADER)[id number] (Anesthesia Volume Adjustment - Provider: Kenn Quick APRN - BULK LOADER) PRN Medication Order 06/25/2022 06/26/2022 06/27/2022 bupivacaine-EPINEPHrine PF (MARCAINE-w/EPINEPHRINE) 0.5% -[id number] injection (CANCELED) PRN, Starting on Thu06/27/22 at [...] BE BASED ON THE PRIMARY CLINICAL RECORDS. [facility] provides no warranty or guarantee of the accuracy or completeness of information in this document.
[2024-04-02 10:52] VITALS: BP 123/77; PULSE 68; TEMP 36.7; O2SAT 98; BMI 28.3
--- NOTE | 2024-04-02 11:06 | PC.NURSE ---
Dressing to left lower leg soaked in NS prior to dressing removal. Dressing easily removed after soaked. Wound to left lower leg has sutures in place, skin intact with bruising and blood clots and contusion present.
--- NOTE | 2024-04-02 13:18 | ED.GENADUL1 ---
HPI HPI - General Adult General Chief complaint: Wound/Laceration Stated complaint: DRESSING CHANGE Time Seen by Provider: 04/02/24 10:39 Source: patient Mode of arrival: walk-in Limitations: no limitations History of Present Illness HPI narrative: 63-year-old female to the emergency department for wound dressing change. Patient reports she was told by Dr. Wasserman to return the emergency Department for dressing change before her podiatry visit. She has no concerns at this time. Related Data Home Medications ?Medication ?Instructions ?Recorded ?Confirmed aspirin 81 mg tablet,delayed 81 mg PO DAILY 03/31/24 04/02/24 release diclofenac sodium 75 mg 75 mg PO Q12H 03/31/24 04/02/24 tablet,delayed release hydrocodone 5 mg-acetaminophen 325 1 tab PO Q8H PRN pain 03/31/24 04/02/24 mg tablet ibuprofen 800 mg tablet 800 mg PO Q8H PRN pain 03/31/24 04/02/24 isosorbide mononitrate 30 mg 30 mg PO DAILY 03/31/24 04/02/24 tablet,extended release 24 hr isosorbide mononitrate 60 mg 60 mg PO DAILY 03/31/24 04/02/24 tablet,extended release 24 hr metoprolol succinate 25 mg 25 mg PO DAILY 03/31/24 04/02/24 tablet,extended release 24 hr metoprolol tartrate 25 mg tablet 25 mg PO Q12H 03/31/24 04/02/24 simvastatin 20 mg tablet 20 mg PO DAILY 03/31/24 04/02/24 Previous Rx's ?Medication ?Instructions ?Recorded cephalexin 500 mg capsule 500 mg PO TID 10 days #30 caps 03/31/24 Allergies Allergy/AdvReac Type Severity Reaction Status Date / Time morphine Allergy Intermediate Verified 04/02/24 10:45 sulfamethoxazole Allergy Intermediate Verified 04/02/24 10:45 [From Bactrim] trimethoprim [From Bactrim] Allergy Intermediate Verified 04/02/24 10:45 Opioid HPI Opioid Management Most Recent Opioid Data: Last Pain Scale 5 05/11/23 16:06 Review of Systems ROS Status of ROS 10 or more systems reviewed and unremarkable except as noted in history and below Exam Narrative Exam Narrative: VITALS: I have reviewed the triage vital signs. GENERAL: Well developed, well appearing adult in no acute distress. NEURO: Alert and oriented. Moves all extremities. Face is symmetric and expressive. EYES: PERRL. No scleral icterus or conjunctival injection. No discharge. HENT: Normocephalic, atraumatic. Hearing is grossly intact. Nares grossly patent and without discharge. Mucous membranes moist. RLE: Similar color and temperature to the contralateral extremity. No erythema or warmth. Wound without any evidence of infection. Sutures remain in place. SKIN: Warm and dry. Normal turgor. No rash or lesions appreciated. PSYCH: Mood, affect, and interaction is appropriate to the setting. Constitutional Vital Signs, click to edit/add: Last Vital Signs Temp 98.0 F 04/02/24 10:52 Pulse 68 04/02/24 10:52 Resp 16 04/02/24 10:52 BP 123/77 04/02/24 10:52 Pulse Ox 98 04/02/24 10:52 O2 Del Method Room Air 04/02/24 10:52 Course Vital Signs Vital signs: Vital Signs Temperature 98.0 F 04/02/24 10:52 Pulse Rate 68 04/02/24 10:52 Respiratory Rate 16 04/02/24 10:52 Blood Pressure 123/77 04/02/24 10:52 Pulse Oximetry 98 04/02/24 10:52 Oxygen Delivery Method Room Air 04/02/24 10:52 Temperature 98.0 F 04/02/24 10:52 Pulse Rate 68 04/02/24 10:52 Respiratory Rate 16 04/02/24 10:52 Blood Pressure 123/77 04/02/24 10:52 Pulse Oximetry 98 04/02/24 10:52 Oxygen Delivery Method Room Air 04/02/24 10:52 Medical Decision Making [facility] Narrative Medical decision making narrative: 63-year-old female to the emergency department to complain of Routine wound care the right lower extremity. Vital stable, the patient is afebrile. Wound wrap was replaced by nursing staff. She declined to let me look at it is the wrap was placed. No evidence of surrounding infection. Limb is neurovascularly intacct. She is given to follow. Patient was discharged home. Discharge Plan Discharge Stand Alone Forms: Portal Instructions Chief Complaint: Wound/Laceration Clinical Impression: Visit for wound care Patient Disposition: Home, Self-Care Time of Disposition Decision: 11:45 Condition: Good Mode of Transportation: Private Vehicle Prescriptions / Home Meds: No Action ibuprofen 800 mg tablet 800 mg PO Q8H PRN (Reason: pain) hydrocodone-acetaminophen 5-325 mg tablet 1 tab PO Q8H PRN (Reason: pain) isosorbide mononitrate 30 mg tablet extended release 24 hr 30 mg PO DAILY aspirin 81 mg tablet,delayed release (DR/EC) 81 mg PO DAILY isosorbide mononitrate 60 mg tablet extended release 24 hr 60 mg PO DAILY simvastatin 20 mg tablet 20 mg PO DAILY diclofenac sodium 75 mg tablet,delayed release (DR/EC) 75 mg PO Q12H metoprolol succinate 25 mg tablet extended release 24 hr 25 mg PO DAILY metoprolol tartrate 25 mg tablet 25 mg PO Q12H cephalexin 500 mg capsule 500 mg PO TID 10 Days Qty: 30 0RF Print Language: Maltese Referrals: Eliud Case MD [Primary Care Provider] - 1 week Fidel Pineda DPM [Physician] - 1 week Discharge Date/Time: 04/02/24 12:10
== END 2024-04-02 12:10 | disposition home or self-care (01) ==
PROVIDERS: Emergency Provider Student in an Organized Health Care Education/Training Program; PCP Family Medicine
DX: Z48.00 Encounter for change or removal of nonsurgical wound dressing (principal); Z79.82 Long term (current) use of aspirin; Z79.899 Other long term (current) drug therapy
CPT/HCPCS: 99282

== ENCOUNTER 2024-04-04 14:44 | Outpatient (OUT) | payer OTHER, SELFPAY | END 2024-04-04 14:45 | disposition home or self-care (01) | LOC: WC 14:44 | PROVIDERS: PCP Family Medicine; Visit Provider Physician Assistant | DX: S81.811A Laceration without foreign body, right lower leg, initial encounter (principal) | CPT/HCPCS: G0463 ==

== ENCOUNTER 2024-04-12 12:52 | Outpatient (OUT) | payer OTHER, SELFPAY | END 2024-04-12 12:53 | disposition home or self-care (01) | LOC: WC 12:53 | PROVIDERS: PCP Family Medicine; Visit Provider Podiatrist Foot & Ankle Surgery | DX: S81.811A Laceration without foreign body, right lower leg, initial encounter (principal) | CPT/HCPCS: G0463 ==

== ENCOUNTER 2024-04-14 13:34 | Outpatient (OUT) | payer OTHER, SELFPAY ==
[2024-04-14 14:45] LABS: Anion Gap 11.7; BUN Creatinine Ratio 14.3; Calcium 8.9 mg/dL (8.5-10.1); Carbon Dioxide 27.7 mmol/L (21.0-32.0); Chloride 104 mmol/L (98-107); Estimated GFR (African America >60 (>=60); Estimated GFR (Non-African Ame >60 (>=60); Glucose 111 mg/dL (74-106); Potassium 3.4 mmol/L (3.5-5.1); Sodium 140 mmol/L (136-145)
[2024-04-14 14:56] LABS: INR 0.98; Partial Thromboplastin Time 28.8 sec (22.3-36.2); Prothrombin Time 10.4 sec (9.0-11.6)
[2024-04-14 15:17] LABS: Basophils Percent Auto 0.3 % (0.2-2.0); Eosinophils Absolute Auto 0.1 10^3/uL (0.0-0.7); Eosinophils Percent Auto 0.8 % (0.9-7.0); Hematocrit 36.4 % (36.0-48.0); Hemoglobin 12.1 g/dL (12.0-16.0); Immature Granulocytes Abs Auto 0.09 10^3/uL (0.00-0.03); Immature Granulocytes Pct Auto 0.8 % (0.0-0.5); Lymphocytes Absolute Auto 1.8 10^3/uL (1.2-3.8); Lymphocytes Percent Auto 14.7 % (20.5-60.0); Mean Corpuscular HGB Conc 33.2 g/dL (29.9-35.2); Mean Corpuscular Hemoglobin 31.6 pg (26.7-34.0); Mean Platelet Volume 8.8 fL (9.5-13.5); Monocytes Percent Auto 8.2 % (1.7-12.0); Neutrophils Absolute Auto 8.9 10^3/uL (1.4-6.5); Neutrophils Percent Auto 75.2 % (43.0-75.0); Platelet Count 346 10^3/uL (150-450); Red Blood Count 3.83 10^6/uL (4.20-5.40); Red Cell Distribution Width 13.5 % (11.0-15.0); White Blood Count 11.9 10^3/uL (4.0-11.0)
[2024-04-14 15:26] LABS: SARS-CoV-2 Ag NEGATIVE (NEGATIVE)
== END 2024-04-14 13:35 | disposition home or self-care (01) ==
LOC: PST 13:35
PROVIDERS: PCP Family Medicine; Visit Provider Podiatrist Foot & Ankle Surgery
DX: Z01.812 Encounter for preprocedural laboratory examination (principal); Z20.822 Contact with and (suspected) exposure to COVID-19; S81.811A Laceration without foreign body, right lower leg, initial encounter; S86.921A Laceration of unspecified muscle(s) and tendon(s) at lower leg level, right leg, initial encounter
CPT/HCPCS: 80048; 85025; 85610; 85730; 87811

== ENCOUNTER 2024-04-15 10:08 | Outpatient (OUT) | payer OTHER, SELFPAY ==
--- NOTE | 2024-04-15 10:14 | XR_ITS ---
The [address] [address] Patient Name: KENY YOUNG MRN: [id number] date: 1960 Sex: F Assigned Patient Location: [facility] Current Patient Location: RAD Accession/Order Number: [id number] Exam Date: 04/15/2024 10:20 Report Date: 04/15/2024 12:13 At the request of: SEBAS SALVADOR Procedure: XR chest 2V EXAMINATION: XR chest 2V HISTORY: Chronic Obstructive Pulmonary Disease COMPARISON: 05/11/2023 TECHNIQUE: PA and lateral FINDINGS: LUNGS: The right lung is clear. Lingular infiltrate partially obscuring the left hemidiaphragm VASCULATURE: No increased pulmonary vasculature. PLEURA: No pneumothorax, effusion, or pleural thickening. CARDIAC: No cardiomegaly or cardiac silhouette abnormality. MEDIASTINUM: No visible mass or adenopathy. Aortic atherosclerosis BONES: No fracture or visible bone lesion. OTHER: Call results initiated through operations. XR/XR chest 2V IMPRESSION: Lingular infiltrate, consider pneumonia Electronically authenticated by: KAVYA LEWIS Date: 04/15/2024 12:13
--- OUTSIDE RECORDS SUMMARY | 2024-04-15 10:35 | XMS_ITS | CCD ---
Author Organization [facility] Care Team Providers Care Compensation Adjuster Name Role Phone Ron Case MD Primary Care Provider [phone] CARTER TORRES Referring Unavailable RON CASE Primary [...] Translations: [MORPHINE] Drug Allergy 06-21-20 Hives, Palpitations [facility] (1 source) Morphine Drug Allergy [facility] (1 source) Sulfamethoxazole / Trimethoprim; Translations: [SULFAMETHOXAZOLE-TR IMETHOPRIM] Drug Allergy 09-28-20 [facility] Repository Medications Current Medications Medication Drug [...] disease (4 sources) Atherosclerotic heart disease of [place] coronary artery without angina pectoris; Translations: [Atherosclerotic heart disease of [place] coronary artery with other forms of angina [...] disease and help reduce risk of stroke, HI, etc. Recommend we switch her simvastatin to atrovastatin 40mg daily. Follow-up lipid panel and LFTs in 3 months. Also, her vit D was low, follow-up with Dr. Case on this. Thanks! [facility] Telephoneon 12-25-2023 Telephone [id number] Abi Boswell 1960 Provider Department Center 12/25/2023 HENRIETTA FLOREZ Chica Raheem Family History Problem Relation Age of Onset Hypertension Maternal Grandmother Transient ischemic attack Maternal Grandmother Heart attack Maternal Grandfather Heart failure Maternal Grandfather Family Status - Relation Status Age at Maternal Grandmother Maternal Grandfather [facility] Office Visiton 11-11-2023 Follow-up visit [id number] Abi Boswell 1960 Provider Department Center 11/11/2023 HENRIETTA FLOREZ [facility] Family History Problem Relation Age of Onset Hypertension Maternal Grandmother Transient ischemic attack Maternal Grandmother Heart attack Maternal Grandfather Heart failure Maternal Grandfather Family Status - Relation Status Age at Maternal Grandmother Maternal Grandfather Level of Service:04704 NM OFFICE/OUTPATIENT ESTABLISHED MOD MDM 30-39 MIN Reason for Visit and Comments: Chest Pain [486005] Coronary Artery Disease [187] [facility] HPon 10-26-2023 HP H&P reviewed. [...] anatomy and decide on need for intervention. [facility] NURSNOTEon 10-26-2023 NURSNOTE RN educated pt on d/ c instructions. RN encouraged pt to voice any questions or concerns. Pt verbalizes no questions or concerns at this time. Pt was wheeled off of unit with all of belongings. [facility] Orders Onlyon 10-01-2023 Orders Only [id number] Abi Boswell 1960 F Date Provider Department Center 10/01/2023 [id number]-[id number] DAWN [facility] Family History Problem Relation Age of Onset Hypertension Maternal Grandmother Transient ischemic attack Maternal Grandmother Heart attack Maternal Grandfather Heart failure Maternal Grandfather Family Status - Relation Status Age at Maternal Grandmother Maternal Grandfather [facility] HPon 09-28-2023 Cardiovascular [facility] SUBJECTIVE No chief complaint on file. [...] if needed., Disp: , Rfl: HYDROcodone-acetamino phen (Ida) 5-325 mg tablet, take 1 tablet by [...] slowly t (more content not included)... Normal [facility] Office Visiton 09-28-2023 Follow-up visit [id number] Abi Boswell 1960 F Date Provider Department Center 09/28/2023 [id number] GRIMALDO [facility] Family History Problem Relation Age of Onset Hypertension Maternal Grandmother Transient ischemic attack Maternal Grandmother Heart attack Maternal Grandfather Heart failure Maternal Grandfather Family Status - Relation Status Age at Maternal Grandmother Maternal Grandfather Level of Service:57384 NM OFFICE/OUTPATIENT NEW LOW MDM 30-44 MINUTES Normal [facility] [id number]-[id number] 06-27-2022 SARS-CoV-2 (COVID-19) RNA CAROLINE+probe Ql (Unsp spec) Not detected Normal NOTDET [facility] Comment on above: Result Comment: Rapid NAAT: [...] management decisions. Fact sheet for Healthcare Providers: https://www.fda.gov/media/681802/download Fact sheet for Patients: https://www.fda.gov/media/376470/download Methodology: Isothermal Nucleic Acid Amplification Performed By: #### C OVRB #### [facility] [address] [place] [address] Test Engineering Manager: Lanre Santana MD Basic Metabolic Panelon 05-31 Anion gap [Moles/Vol] 8 mmol/L Low 9 - 17 mmol/L [facility] Calcium [Mass/Vol] 9.8 mg/dL 8.6 - 10. 4 mg/dL [facility] Chloride [Moles/Vol] 107 mmol/L 98 - 10 7 mmol/L [facility] CO2 [Moles/Vol] 30 mmol/L 20 - 31 mmol/L [facility] Creatinine [Mass/Vol] 0.73 mg/dL 0.5 - 0.9 mg/dL [facility] GFR >60 60 - PI NF mL/min [facility] GFR Non- >60 60 - PINF mL/min [facility] Glucose [Mass/Vol] 97 mg/dL 70 - 99 mg/dL [facility] Interpretation and review of laboratory results Abnormal [facility] Potassium [Moles/Vol] 4.4 mmol/L 3.7 - 5.3 mmol/L [facility] Sodium [Moles/Vol] 145 mmol/L High 135 - 144 mmol/L [facility] Urea nitrogen (BldV) [Mass/Vol] 12 mg/dL 8 - 23 mg/dL [facility] Urea nitrogen/Creatinine (Bld) [Mass ratio] 16 - [facility] Basic Metabolic Profon 06-20 (cont.) Normal [facility] Comment on above: Result Comment: Aver age GFR for 60-69 years old: 85 mL/min/1.73sq m Chronic Kidney Disease: <60 mL/min/1.73sq m Kidney failure: <15 mL/min/1.73sq m eGFR calculated using average adult body mass. Additional eGFR calculator available at: http://www.[employer]/multiple_crcl_2012.htm Performed By: #### C DP, BMP #### [facility] [address] [place] [address] [place] [address] Test Engineering Manager: Lanre Santana MD Anion gap [Moles/Vol] 8 mmol/L Low - [facility] Comment on above: Performed By: #### C DP, BMP #### [facility] [address] [place] [address] Test Engineering Manager: Lanre Santana MD BUN/CRE Ratio 16 Normal 08-19 [facility] Comment on above: Performed By: #### C DP, BMP #### [facility] [address] [place] [address] Test Engineering Manager: Lanre Santana MD Calcium [Mass/Vol] 9.8 mg/dL Normal 8.6-10.4 [facility] Comment on above: Performed By: #### C DP, BMP #### [facility] [address] [place], [place] [id number] Test Engineering Manager: Lanre Santana MD Chloride [Moles/Vol] 107 mmol/L Normal 98-107 [facility] Comment on above: Performed By: #### C DP, BMP #### [facility] [address] [place], [place] [address] Test Engineering Manager: Lanre Santana MD CO2 [Moles/Vol] 30 mmol/L Normal 20-31 [facility] Comment on above: Performed By: #### C DP, BMP #### [facility] [address] [place], [place] [id number] Test Engineering Manager: Lanre Santana MD Creatinine [Mass/Vol] 0.73 mg/dL Normal 0.50-0.90 [facility] Comment on above: Performed By: #### C DP, BMP #### [facility] [address] [place], [place] [address] Test Engineering Manager: Lanre Santana MD GFR, Amer >60 Normal >60 [facility] Comment on above: Performed By: #### C DP, BMP #### [facility] [address] [place], [place] [id number] Test Engineering Manager: Lanre Santana MD GFR,non Amer >60 Normal >60 [facility] Comment on above: Performed By: #### C DP, BMP #### [facility] [address] [place], [place] [phone] Test Engineering Manager: Lanre Santana MD Glucose [Mass/Vol] 97 mg/dL Normal 70-99 [facility] Comment on above: Performed By: #### C DP, BMP #### [facility] [address] [place], [place] [id number] Test Engineering Manager: Lanre Santana MD Potassium [Moles/Vol] 4.4 mmol/L Normal 3.7-5.3 [facility] Comment on above: Performed By: #### C DP, BMP #### [facility] [address] [place], [place] [phone] Test Engineering Manager: Lanre Santana MD Sodium [Moles/Vol] 145 mmol/L High 135-144 [facility] Comment on above: Performed By: #### C DP, BMP #### [facility] [address] [place] [address] Test Engineering Manager: Lanre Santana MD Staging: Normal [facility] Comment on above: Result Comment: Stag e 1: Some kidney damage normal GFR Stage 2: Mild kidney damage GFR 60-89 Stage 3: Moderate kidney damage GFR 30-59 Stage 4: Severe kidney damage GFR 15-29 Stage 5: Severe kidney damage GFR <15 ESRD - chronic treatment by dialysis or transplant Performed By: #### C DP, BMP #### [facility] [address] [place] [address] [place] [address] Test Engineering Manager: Lanre Santana MD Urea nitrogen [Mass/Vol] 12 mg/dL Normal 8-23 [facility] Comment on above: Performed By: #### C DP, BMP #### [facility] [address] [place] [address] [place] [address] Test Engineering Manager: Lanre Santana MD CBC with Auto Differentialon 06-20-2022 Absolute Eos # 0.12 [facility] Absolute Immature Granulocyte 0.[address] [facility] Absolute Lymph # 1.85 [facility] Absolute Kerr # 0.71 [facility] Basophils (Bld) [#/Vol] 0.03 10*3/uL [facility] Basophils/100 WBC (Bld) 0 % 0 - 2 % [facility] Eosinophils/100 WBC (Bld) 1 % 1 - 4 % [facility] Hematocrit (Bld) [Volume fraction] 42.7 % 36.3 - 47.1 % [facility] Hemoglobin (Bld) [Mass/Vol] 14.3 g/dL 11.9 - 15.1 g/dL [facility] Immature granulocytes/100 WBC (Bld) 0 % [address] [facility] Interpretation and review of laboratory results Abnormal [facility] Lymphocytes/100 WBC (Bld) 22 % Low 24 - 43 % [facility] MCH (RBC) [Entitic mass] 32.6 pg 25.2 - 33.[address] [facility] MCHC (RBC) [Mass/Vol] 33.5 g/dL 28.4 - 34.8 g/dL [facility] MCV (RBC) [Entitic vol] 97.3 fL 82.6 - 102.[address] [facility] Monocytes/100 WBC (Bld) 9 % 3 - 12 % [facility] NRBC Automated 0.0 0.0 per [address] [facility] Platelet distribution width (Bld) [Ratio] 13.3 % 11.8 - 14.4 % [facility] Platelet mean volume (Bld) [Entitic vol] 8.4 fL 8.1 - 13.[address] [facility] Platelets (Bld) [#/Vol] 278 10*3/uL [facility] RBC (Bld) [#/Vol] 4.39 10*6/uL 3.95 - 5.1 1 m/uL [facility] Segmented neutrophils/100 WBC (Bld) 68 % High 36 - 65 % [facility] Segs Absolute 5.[address] [facility] WBC (Bld) [#/Vol] 8.4 10*3/uL [facility] CBC with Diffon 06-20-2022 Abs. Basophil 0.03 k/uL Normal 0.00-0.20 [facility] Comment on above: Performed By: #### C DP, BMP #### [facility] [address] [place] [address] Test Engineering Manager: Lanre Santana MD Abs.Imm.Granulocyte 0.03 k/uL Normal 0.00-0.30 [facility] Comment on above: Performed By: #### C DP, BMP #### [facility] [address] [place], [place] [address] Test Engineering Manager: Lanre Santana MD Abs.Neutrophil (Seg) 5.62 k/uL Normal 1.50-8.10 [facility] Comment on above: Performed By: #### C DP, BMP #### [address] [place], [place] [address] Test Engineering Manager: Lanre Santana MD Basophils/100 WBC (Bld) 0 % Normal 0-2 [facility] Comment on above: Performed By: #### C DP, BMP #### [address] [place] [address] Test Engineering Manager: Lanre Santana MD Eosinophils (Bld) [#/Vol] 0.12 10*3/uL Normal 0.00-0.44 [facility] Comment on above: Performed By: #### C DP, BMP #### [address] [place], [place] [address] Test Engineering Manager: Lanre Santana MD Eosinophils/100 WBC (Bld) 1 % Normal 1-4 [facility] Comment on above: Performed By: #### C DP, BMP #### [address] [place], [place] [address] Test Engineering Manager: Lanre Santana MD Erythrocyte distribution width (RBC) [Ratio] 13.3 % Normal 11.8-14.4 [facility] Comment on above: Performed By: #### C DP, BMP #### [address] [place] [address] Test Engineering Manager: Lanre Santana MD Hematocrit (Bld) [Volume fraction] 42.7 % Normal 36.3-47.1 [facility] Comment on above: Performed By: #### C DP, BMP #### [address] [place], [place] [phone] Test Engineering Manager: Lanre Santana MD Hemoglobin (Bld) [Mass/Vol] 14.3 g/dL Normal 11.9-15.1 [facility] Comment on above: Performed By: #### C DP, BMP #### [facility] [address] [place], [place] [phone] Test Engineering Manager: Lanre Santana MD Immature granulocytes/100 WBC (Bld) 0 % Normal 0 [facility] Comment on above: Performed By: #### C DP, BMP #### [facility] [address] [place], [place] [address] Test Engineering Manager: Lanre Santana MD Lymphocytes (Bld) [#/Vol] 1.85 10*3/uL Normal 1.10-3.70 [facility] Comment on above: Performed By: #### C DP, BMP #### [address] [place], [facility] Test Engineering Manager: Lanre Santana MD Lymphocytes/100 WBC (Bld) 22 % Low 24-43 [facility] Comment on above: Performed By: #### C DP, BMP #### [address] [place] [address] Test Engineering Manager: Lanre Santana MD MCH (RBC) [Entitic mass] 32.6 pg Normal 25.2-33.5 [facility] Comment on above: Performed By: #### C DP, BMP #### [facility] [address] [place], [place] [address] Test Engineering Manager: Lanre Santana MD MCHC (RBC) [Mass/Vol] 33.5 g/dL Normal 28.4-34.8 [facility] Comment on above: Performed By: #### C DP, BMP #### [facility] [address] [place] [address] Test Engineering Manager: Lanre Santana MD MCV (RBC) [Entitic vol] 97.3 fL Normal 82.6-102.9 [facility] Comment on above: Performed By: #### C DP, BMP #### [facility] [address] [place], [place] [address] Test Engineering Manager: Lanre Santana MD Monocytes (Bld) [#/Vol] 0.71 10*3/uL Normal 0.10-1.20 [facility] Comment on above: Performed By: #### C DP, BMP #### [facility] [address] [address] Test Engineering Manager: Lanre Santana MD Monocytes/100 WBC (Bld) 9 % Normal 3-12 [facility] Comment on above: Performed By: #### C DP, BMP #### [address] [place] [address] Test Engineering Manager: Lanre Snatana MD Neutrophil (Seg) 68 % High 36-65 [facility] Comment on above: Performed By: #### C DP, BMP #### [address] [place], [place] [address] Test Engineering Manager: Lanre Santana MD NRBC Automated 0.0 per 100 WBC Normal 0.0 [facility] Comment on above: Performed By: #### C DP, BMP #### [address] [place], [facility] Test Engineering Manager: Lanre Santana MD Platelet mean volume (Bld) [Entitic vol] 8.4 fL Normal 8.1-13.5 [facility] Comment on above: Performed By: #### C DP, BMP #### [address] [place] [address] Test Engineering Manager: Lanre Santana MD Platelets (Bld) [#/Vol] 278 10*3/uL Normal 138-453 [facility] Comment on above: Performed By: #### C DP, BMP #### [facility] [address] [place] [address] Test Engineering Manager: Lanre Santana MD RBC (d) [#/Vol] 4.39 10*6/uL Normal 3.95-5.11 [facility] Comment on above: Performed By: #### C DP, BMP #### [facility] [address] [place] [address] Test Engineering Manager: Lanre Santana MD WBC (Bld) [#/Vol] 8.4 10*3/uL Normal 3.5-11.3 [facility] Comment on above: Performed By: #### C DP, BMP #### [facility] [address] [place] [address] Test Engineering Manager: Lanre Santana MD EKG 12 LeadOrdered By: César mojica on 06-20-2022 Atrial Rate 65 BPM [employer] Phone: P Thornton 65 degrees Rayn Phone: P-R Interval 134 ms Rayn Phone: Q-T Interval 432 ms Rayn Phone: QRS Duration 110 ms Rayn Phone: QTc Calculation (Bazett) 449 ms Rayn Phone: R Thornton 72 degrees Rayn Phone: T Thornton 43 degrees Rayn Phone: Ventricular Rate 65 BPM BON [employer]edj Phone: Rayn Phone: EKG 12 Leadon 06-20-2022 Normal sinus rhythm Incomplete right bundle branch block Cannot rule out Inferior infarct , age undetermined Abnormal ECG No previous ECGs available Confirmed by César Blanco MD ([id number]) on 06/20/2022 10:08:07 PM [facility] RADIOLOGY César Blanco MD - 06/20/2022 Normal sinus rhythm Incomplete right bundle branch block Cannot rule out Inferior infarct , age undetermined Abnormal ECG No previous ECGs available Confirmed by César Blanco MD ([id number]) on 06/20/2022 10:08:07 PM [facility] [employer] Work Phone: Laboratory - Chemistry and C hemistry - challengeon 06-20-2022 GFR/1.73 sq M.predicted MDRD (S/P/Bld) [Vol rate/Area] [facility] Comment on above: Average GFR for 60-6 9 years old: 85 mL/min/1.73sq m Chronic Kidney Disease: <60 mL/min/1.73sq m Kidney failure: <15 mL/min/1.73sq m eGFR calculated using average adult body mass. Additional eGFR calculator available at: http://www.[employer]./multiple_crcl_2011.htm Stage 1: Some kidney damage normal GFR [...] by: CARTER COKER Date: 2022-06-06 15:52 Normal [facility] Vital Signs Date Time Vital Sign Value Performing Clinician Faci lity 06-27-2022 14:30-0400 Diastolic blood pressure 68 mm[Hg] Carter Torres MD Work Phone: [employer] 06-27-2022 14:30-0400 Heart rate 68 /min Carter Torres MD Work Phone: [employer] 06-27-2022 14:30-0400 Respiratory rate 23 /min aCrter Torres MD Work Phone: [employer] 06-27-2022 14:30-0400 SaO2% (BldA) [Mass fraction] 94 % Carter Torres MD Work Phone: [employer] 06-27-2022 14:30-0400 Systolic blood pressure 117 mm[Hg] Carter Torres MD Work Phone: [employer] 06-27-2022 14:00-0400 Body temperature 97 [degF] Carter Torres MD Work Phone: [employer] 06-27-2022 11:16-0400 Body height 162.6 cm Carter Torres MD Work Phone: [employer] 06-27-2022 11:16-0400 Body mass index (BMI) [Ratio] 30.04 kg/m2 Carter Torres MD Work Phone: [employer] 06-27-2022 11:16-0400 Body weight 79.38 kg Carter Torres MD Work Phone: [facility] Encounters Encounter Date Encounter Type Care Provider Facility Start: 11-11-2023 End: 11-11-2023 ambulatory HENRIETTA RODRIGUEZ [facility] Start: 10-26-2023 End: 10-26-2023 ambulatory MARJ THORNEKYREE [facility] Start: 09-28-2023 End: 09-28-2023 ambulatory LORETA GRIMALDO [facility] Start: 06-27-2022 End: 06-27-2022 ambulatory [facility] Start: 06-27-2022 End: 06-27-2022 Subsequent hospital visit by physician Carter Torres MD Work Phone: [facility] Start: 06-20-2022 End: 06-21-2022 ambulatory [facility]TER [facility] Start: 06-20-2022 End: 06-20-2022 Subsequent [...] 07-31-2022 Influenza vaccination Flu vaccine (# 1) [facility] Start: 06-27-2022 End: 06-27-2022 Arthroscopy knee diagnostic w/wo synovial bx spx KNEE ARTHROSCOPY Acute medial meniscus tear of right knee, initial encounter 06/27/2022 1:07 PM EDT [facility] Start: 2010 Screening for malign ant neoplasm of breast Breast cancer screen [facility] Start: 2010 Shingles vaccine (1 of 2) Shingles vaccine (1 of 2) [facility] Start: 2005 Screening for malign ant neoplasm of colon [facility] [employer] Start: 2000 Lipid panel Lipids [place] [facility] [employer] Start: 1979 DTaP/Tdap/Td vaccine (1 - Tdap) DTaP/Tdap/Td vaccine (1 - Tdap) [facility] [employer] Start: 1978 Hepatitis C screening Hepatitis C sc reen [facility] [employer] Start: 1975 HIV screening HIV screen [facility] [employer] Start: 1972 Depression Screen Depression Screen [facility] [employer] Start: 1966 Pneumococcal 0-64 ye ars Vaccine (1 - PCV) Pneumococcal 0-64 years Vaccine (1 - PCV) [facility] [employer] Start: 1960 COVID-19 Vaccine (#1) COVID-19 Vacci ne (#1) [facility] [employer] Oxygen therapy [[facility] Data Set] Initiate Oxygen Therapy Protocol Respiratory Care Routine As Needed until discontinued starting 06/27/2022 [facility] [employer] Phone: Comment on above: As Needed until disc ontinued starting 06/27/2022 Payers Date Payer Category Payer Unknown [id number] 2.16.8 [id number] 1960 Unknown [id number] 2.16.8 [id number] 1960 Unknown [id number] 2.16.8 [id number] 1960 Unknown [id number] 2.16.8 [id number] 1960 Unknown [id number] 2.16.84 [id number] 1959 Unknown [id number] 1.2.8 [id number] Social History Date Type Detail Facility Start: [facility]21-[facility] [employer] Phone: History of tobacco use Cigarette Smoker B ON [employer] Phone: Start: 06-21-2020 Cigarettes smoked current (pack per day) - Reported 0.5 [employer] Phone: Start: 06-21-2020 Tobacco use and exposure Smoke less tobacco non-user [employer] Phone: Start: 12-05-2021 End: 06-27-2022 Alcohol intake Lifetime non-drinker (finding) [employer] Phone: Start: 06-21-2020 History SDOH Alcohol Frequency 1 [employer] Phone: Start: 1960 Sex Assigned At Not on file B ON [employer] Phone: Start: 06-17-2022 End: 06-27-2022 Exposure to SARS-CoV-2 (event) Not sure [employer] Phone: Progress note 11-11-2023 Note Date & Type Note Facility 11-11-2023 Note Cardiovascular Medic [facility] SUBJECTIVE Chief Complaint Patient presents with [...] breath Acute sinusitis Coronary artery disease involving [place] coronary artery of [place] heart without angina pectoris Past Medical History: [...] tablet, if needed., Disp: , Rfl: HYDROcodone-acetaminophen (Ida) 5-325 mg tablet, take 1 tablet by [...] No focal de (more content not included)... [facility] Progress note 11-11-2023 Note Date & [...] All other systems reviewed and are negative. [facility] Clinical Note 10-26-2023 Note Date & Type Note Facility 10-26-2023 Note Patient: Abi adam Procedure Information Date/Time: 10/26/23 0800 Procedure: Coronary angiography (Left) Location: [facility] [employer] TECHNICIAN 2 BIPLANE / [facility] (Cath) Providers: Marj Abraham MD Clinical information reviewed: Allergies Meds OB Status Physical Exam Airway Mallampati: III TM distance: >3 FB Neck ROM: full Cardiovascular Rhythm: regular Rate: normal Dental Pulmonary Abdominal Anesthesia Plan ASA 3 other Anesthetic plan and risks discussed with patient. Use of blood products discussed with patient who consented to blood products. Additional Equipment Requests [facility] Progress note 09-28-2023 Note Date & Type Note Facility 09-28-2023 Note Cardiovascular Medic [facility] SUBJECTIVE No chief complaint on file. [...] tablet, if needed., Disp: , Rfl: HYDROcodone-acetaminophen (Ida) 5-325 mg tablet, take 1 tablet by [...] working slowly t (more content not included)... [facility] Progress note 09-28-2023 Note Date & [...] All other systems reviewed and are negative. [facility] History of Present illness Narrative 06-27-2022 [...] require patient to operate motor Vehicle. Yes [facility] Preadmission Testing Name: Abi Boswell : 1960 [...] Take [x] Ride Home [x]No Jewelry/Contact Lenses/Nail Vietnamese [] Prep/Lax/Clear Liquids [] Chlorhexidene DOS Patient [...] patient? Yes documented in this encounter [employer] Work Phone: Hospital Discharge instructions 06-27-2022 Discharge [...] feet do not touch the floor, 2. Dairy Machine Operator Farmworker the sides of the surface for support. 3. Raise one foot until your knee is completely straight 4. Slowly return to the starting position and relax. 5. Repeat 20 times ANKLE PUMPS 1. Bend ankles up and down, alternating foot 2. Repeat 25 times Carter Torres M.D. [phone] @ATTPROV@ 06/27/2022 1:01 PM documented in this encounter [employer] Phone: Summary Purpose Family History No Family History Records FoundNo Family History Records FoundNo Family History Records FoundNo Family History Records Found Advance Directives No Advanced Directives Records FoundLatest Code Status on File Code Status Date Activated Date Inactivated Comments Full Code 06/27/2022 11:07 AM Additional Source Comments Care Teams (unrecognized sec tion and content) Compensation Adjuster Relationship Specialty Start Date End Date Ron Case MD [address] [place] [address] PCP - General Family Medicine 06/21/20 Compensation Adjuster Relationship Specialty Start Date End Date Ron Case MD [address] [place] [address] PCP - General Family Medicine 06/21/20 Compensation Adjuster Relationship Specialty Start Date End Date Ron Case MD [address] [place] [address] PCP - General Family Medicine 06/21/20 INFORMATION SOURCE (unrecogn ized section and content) DATE CREATED AUTHOR 06/22/2022 [facility] DATE CREATED AUTHOR AUTHOR'S ORGANIZ ATION 07/01/2022 [facility] DATE CREATED AUTHOR AUTHOR'S ORGANIZ ATION 09/22/2022 [facility] DATE CREATED AUTHOR AUTHOR'S ORGANIZ ATION 12/26/2023 [facility] Reason for Visit (unrecogniz ed section and content) Specialty Diagnoses / Procedures Referred By Herber t Referred To Contact Diagnoses Acute medial meniscus tear of right knee, initial encounter Acute medial meniscus tear of right knee, initial encounter [S83.241A] Procedures NM KNEE SCOPE,DIAGNOSTIC NM ARTHRS KNE SURG W/MENISCECTOMY MED/LAT W/SHVG KNEE ARTHROSCOPY Carter Torres MD [address] [place] [address] [facility] [address] [place] [address] Referral ID Status Reason Start Date Expiration Date Visits Re quested Visits Authorized [id number] 1 1 Ordered Prescriptions (unrec ognized section [...] mL IVPB (duplex) (COMPLETED) 2,000 mg, IntraVENous, CORPORATE TRAVEL COUNSELOR TO O.R., 1 dose, On Thu06/27/22 at [...] (NoRateChange - Provider: Kenn Quick APRN - ECHOCARDIOGRAPH TECHNICIAN)[id number] (Anesthesia Volume Adjustment - Provider: Kenn Quick APRN - ECHOCARDIOGRAPH TECHNICIAN) PRN Medication Order 06/25/2022 06/26/2022 06/27/2022 bupivacaine-EPINEPHrine PF (MARCAINE-w/EPINEPHRINE) 0.5% -[id number] injection (CANCELED) PRN, Starting on Thu06/27/22 at [...] BE BASED ON THE PRIMARY CLINICAL RECORDS. [facility] provides no warranty or guarantee of the accuracy or completeness of information in this document.
== END 2024-04-15 10:09 | disposition home or self-care (01) ==
LOC: RAD 10:08
PROVIDERS: PCP Family Medicine; Visit Provider Podiatrist Foot & Ankle Surgery
DX: Z01.810 Encounter for preprocedural cardiovascular examination (principal); S81.811A Laceration without foreign body, right lower leg, initial encounter; S86.921A Laceration of unspecified muscle(s) and tendon(s) at lower leg level, right leg, initial encounter
CPT/HCPCS: 71046

== ENCOUNTER 2024-04-22 10:30 | Outpatient (OUT) | payer OTHER, SELFPAY | END 2024-04-22 10:31 | disposition home or self-care (01) | LOC: WC 04-27 09:05 | PROVIDERS: PCP Family Medicine; Visit Provider Podiatrist Foot & Ankle Surgery | DX: S81.811A Laceration without foreign body, right lower leg, initial encounter (principal) | CPT/HCPCS: G0463 ==

== ENCOUNTER 2024-04-26 13:22 | Outpatient (OUT) | payer OTHER, SELFPAY ==
--- NOTE | 2024-04-26 13:37 | CT_ITS ---
[address] [address] Patient Name: KENY YOUNG MRN: [id number] date: 1960 Sex: F Assigned Patient Location: CT Current Patient Location: Accession/Order Number: [id number] Exam Date: 04/26/2024 13:32 Report Date: 04/27/2024 06:38 At the request of: RON QUESADA Procedure: CT chest wo con EXAMINATION: CT chest wo con HISTORY: Pneumonia J18.9 ; left pulmonary infiltrates on preoperative chest x-ray COMPARISON: XR chest 04/15/2024 TECHNIQUE: Multi-planar CT images were obtained without and/or with IV contrast as indicated by examination type. Axial, Coronal, and Sagittal images. Dose reduction techniques were achieved by using automated exposure control and/or adjustment of mA and/or kV according to patient size and/or use of iterative reconstruction technique. FINDINGS: LUNGS: Small 12 mm patchy opacity within medial posterior right costophrenic angle. Trace amount of atelectasis or infiltrates within lingula. PLEURA: No mass, effusion, or pneumothorax. VASCULATURE: No abnormality. JOVAN: No mass or adenopathy. MEDIASTINUM: No mass or adenopathy. CARDIAC: No enlargement, pericardial thickening, or significant calcification. Coronary artery calcifications: Absent. AORTA: No aneurysm or dissection. CHEST WALL: No mass or axillary adenopathy. BONES: No bone lesion or fracture. LIMITED ABDOMEN: No suspicious findings Limited images of the upper abdomen. OTHER: Negative. CT/CT chest wo con IMPRESSION: 1. Trace amount of right basilar and lingular infiltrates versus atelectasis. Electronically authenticated by: FRED COKER Date: 04/27/2024 06:38
== END 2024-04-26 13:23 | disposition home or self-care (01) ==
LOC: CT 13:22
PROVIDERS: PCP Family Medicine; Visit Provider Family Medicine
DX: J18.9 Pneumonia, unspecified organism (principal)
CPT/HCPCS: 71250

== ENCOUNTER 2024-05-03 07:07 | Outpatient (OUT) | payer OTHER, SELFPAY ==
--- OUTSIDE RECORDS SUMMARY | 2024-05-03 07:10 | XMS_ITS | CCD ---
Author Organization [facility] ion [facility] Care Team Providers Care Bdr Name Role Phone Ron Case MD Primary Care Provider [phone] CARTER TORRES Referring Unavailable RON CASE Primary Care Unavailable CARTER TORRES Referring Unavailable RON CASE Primary Care Unavailable AJAY PEREIRA Referring Unavailable RON CASE Primary Care Unavailable CARTER TORRES Admitting Unavailable CARTER TORRES Attending Unavailable RON CASE Primary Care Unavailable DR RON CASE Admitting Unavailable SANGITA, DR VELASQUEZ Attending Unavailable DR RON CASE Primary Care Unavailable DR RON CASE Consulting Unavailable DR CARTER COKER Consulting Unavailable HENRIETTA RODRIGUEZ Attending Unavailable LORETA GRIMALDO Attending Unavailable MARJ ABRAHAM Admitting Unavailable MARJ ABRAHAM Attending Unavailable MARJ ABRAHAM Referring Unavailable HENRIETTA RODRIGUEZ Attending Unavailable Allergies Allergy Classification Reported Allergen(s) Allergy Type Date of Onset Reaction(s) Facility (4 sources) Morphine; Translations: [MORPHINE] Drug Allergy 06-21-20 Hives, Palpitations [facility] (1 source) Morphine Drug Allergy [facility] Repository (1 source) Sulfamethoxazole / Trimethoprim; Translations: [SULFAMETHOXAZOLE-TR IMETHOPRIM] Drug Allergy 09-28-20 [facility] Repository Medications Current Medications Medication Drug [...] 0 08/10/2020 06/27/2022 Discontinued (Therapy completed) Problems Active Problems Problem Classification Problem Date Documented Date Episodic/Chronic Cardiac dysrhythmias (2 sources) Palpitations; Translations: [Palpitations] Onset: 04-14-2024 Episodic Coronary atherosclerosis and other heart disease (4 sources) Atherosclerotic heart disease of lumbee coronary artery without angina pectoris; Translations: [Atherosclerotic heart disease of lumbee coronary artery with other forms of angina pectoris] Onset: 10-26-2023 Chronic Joint disorders and dislocations; trauma-related (4 sources) Unspecified internal derangement of right knee; Translations: [UNS INTERNAL DERANGEMENT RIGHT KNEE] Onset: 06-05-2022 Chronic Past or Other Problems Problem Classification Problem Date Documented Da te Episodic/Chronic Nonspecific chest pain (2 sources) Other chest pain; Translations: [Other chest pain] Onset: 10-08-2023 Episodic Other lower respiratory disease (2 sources) Shortness of breath; Translations: [Shortness of breath] Onset: 10-08-2023 Episodic Results Test Name Value Interpretation Reference Range Facility Office Visiton 04-14-2024 Follow-up visit [id number] Abi Boswell 1960 F Date Provider Department Center 04/14/2024 HENRIETTA FLOREZ Family History Problem Relation Age of Onset Hypertension Maternal Grandmother Transient ischemic attack Maternal Grandmother Heart attack Maternal Grandfather Heart failure Maternal Grandfather Family Status - Relation Status Age at Maternal Grandmother Maternal Grandfather Level of Service:97209 [place] OFFICE/OUTPATIENT ESTABLISHED MOD MDM 30 MIN Reason for Visit and Comments: Pre-op Exam [726908] Hypertension [219660] Chest Pain [824657] [facility] 36on 12-25-2023 36 Please let her know her labs showed her kidney function, liver function, blood counts and thyroid function were normal. Her LDL or bad cholesterol was elevated at 118. With patients with known heart disease, we recommend lowering the LDL to <70 to help reduce risk of worsening disease and help reduce risk of stroke, [place], etc. Recommend we switch her simvastatin to atrovastatin 40mg daily. Follow-up lipid panel and LFTs in 3 months. Also, her vit D was low, follow-up with Dr. Case on this. Thanks! Normal [facility] Telephoneon 12-25-2023 Telephone [id number] Boswell,Bernice F 1960 F Date Provider Department Center 12/25/2023 HENRIETTA FLOREZ Family History Problem Relation Age of Onset Hypertension Maternal Grandmother Transient ischemic attack Maternal Grandmother Heart attack Maternal Grandfather Heart failure Maternal Grandfather Family Status - Relation Status Age at Maternal Grandmother Maternal Grandfather Normal [facility] Office Visiton 11-11-2023 Follow-up visit [id number] Abi Boswell 1960 F Date Provider Department Center 11/11/2023 HENRIETTA FLOREZ [facility] Family History Problem Relation Age of Onset Hypertension Maternal Grandmother Transient ischemic attack Maternal Grandmother Heart attack Maternal Grandfather Heart failure Maternal Grandfather Family Status - Relation Status Age at Maternal Grandmother Maternal Grandfather Level of Service:50774 [place] OFFICE/OUTPATIENT ESTABLISHED MOD MDM 30-39 MIN Reason for Visit and Comments: Chest Pain [186178] Coronary Artery Disease [187] [facility]. The patient was examined and [...] anatomy and decide on need for intervention. [facility] NURSNOTEon 10-26-2023 NURSNOTE RN educated pt on d/ c instructions. RN encouraged pt to voice any questions or concerns. Pt verbalizes no questions or concerns at this time. Pt was wheeled off of unit with all of belongings. [facility] Orders Onlyon 10-01-2023 Orders Only [id number] Abi Boswell 1960 Provider Department Center 10/01/2023 [facility] Family History Problem Relation Age of Onset Hypertension Maternal Grandmother Transient ischemic attack Maternal Grandmother Heart attack Maternal Grandfather Heart failure Maternal Grandfather Family Status - Relation Status Age at Maternal Grandmother Maternal Grandfather [facility] HPon 09-28-2023 [facility] SUBJECTIVE No chief complaint on file. [...] if needed., Disp: , Rfl: HYDROcodone-acetamino phen (Johnson) 5-325 mg tablet, take 1 tablet by [...] slowly t (more content not included)... Normal [facility] Office Visiton 09-28-2023 Follow-up visit [id number] Abi Boswell 1960 F Date Provider Department Center 09/28/2023 [id number] GRIMALDO [facility] Family History Problem Relation Age of Onset Hypertension Maternal Grandmother Transient ischemic attack Maternal Grandmother Heart attack Maternal Grandfather Heart failure Maternal Grandfather Family Status - Relation Status Age at Maternal Grandmother Maternal Grandfather Level of Service:20073 [place] OFFICE/OUTPATIENT NEW LOW MDM 30-44 MINUTES Normal [facility] [id number] 06-27-2022 SARS-CoV-2 (COVID-19) RNA CAROLINE+probe Ql (Unsp spec) Not detected Normal [facility] Comment on above: Result Comment: [...] management decisions. Fact sheet for Healthcare Providers: https://www.fda.gov/media/449751/download Fact sheet for Patients: https://www.fda.gov/media/930774/download Methodology: Isothermal Nucleic Acid Amplification Performed By: #### C OVRB #### [facility] [address] [place] [address] Creative Guru: Lanre Santana MD Basic Metabolic Panelon 05-31 Anion gap [Moles/Vol] 8 mmol/L Low 9 - 17 mmol/L [facility] Calcium [Mass/Vol] 9.8 mg/dL 8.6 - 10. 4 mg/dL [facility] Chloride [Moles/Vol] 107 mmol/L 98 - 10 7 mmol/L [facility] CO2 [Moles/Vol] 30 mmol/L 20 - 31 mmol/L [facility] Creatinine [Mass/Vol] 0.73 mg/dL 0.5 - 0.9 mg/dL [facility] GFR >60 60 - PI NF mL/min [facility] GFR Non- >60 60 - PINF mL/min [facility] Glucose [Mass/Vol] 97 mg/dL 70 - 99 mg/dL [facility] Interpretation and review of laboratory results Abnormal [facility] Potassium [Moles/Vol] 4.4 mmol/L 3.7 - 5.3 mmol/L [facility] Sodium [Moles/Vol] 145 mmol/L High 135 - 144 mmol/L [facility] Urea nitrogen (BldV) [Mass/Vol] 12 mg/dL 8 - 23 mg/dL [facility] Urea nitrogen/Creatinine (Bld) [Mass ratio] 16 9 - 20 [facility] Basic Metabolic Profon 06-20 (cont.) Normal [facility] Comment on above: Result Comment: Aver age GFR for 60-69 years old: 85 mL/min/1.73sq m Chronic Kidney Disease: <60 mL/min/1.73sq m Kidney failure: <15 mL/min/1.73sq m eGFR calculated using average adult body mass. Additional eGFR calculator available at: http://www.[employer]/multiple_crcl_2011.htm Performed By: #### C DP, BMP #### [facility] [address] [place], [place] [id number] Creative Guru: Lanre Santana MD Anion gap [Moles/Vol] 8 mmol/L Low 9-17 [facility] Comment on above: Performed By: #### C DP, BMP #### [facility] [address] [place], [place] [id number] Creative Guru: Lanre Santana MD BUN/CRE Ratio 16 Normal 9-20 [facility] Comment on above: Performed By: #### C DP, BMP #### [facility] [address] [place], [place] [id number] Creative Guru: Lanre Santana MD Calcium [Mass/Vol] 9.8 mg/dL Normal 8.6-10.4 [facility] Comment on above: Performed By: #### C DP, BMP #### [facility] [address] [place] [address] [place] [place], [place] [id number] Creative Guru: Lanre Satnana MD Chloride [Moles/Vol] 107 mmol/L Normal 98-107 [facility] Comment on above: Performed By: #### C DP, BMP #### [facility] [address] [place] [address] [place], [place] [phone] Creative Guru: Lanre Santana MD CO2 [Moles/Vol] 30 mmol/L Normal 20-31 [facility] Comment on above: Performed By: #### C DP, BMP #### [facility] [address] [place], [place] [phone] Creative Guru: Lanre Santana MD Creatinine [Mass/Vol] 0.73 mg/dL Normal 0.50-0.90 [facility] Comment on above: Performed By: #### C DP, BMP #### [facility] [address] [place], [place] [phone] Creative Guru: Lanre Santana MD GFR, Amer >60 Normal >60 [facility] Comment on above: Performed By: #### C DP, BMP #### [facility] [address] [place], [place] [id number] Creative Guru: Lanre Santana MD GFR,non Amer >60 Normal >60 [facility] Comment on above: Performed By: #### C DP, BMP #### [facility] [address] [place], [place] [phone] Creative Guru: Lanre Santana MD Glucose [Mass/Vol] 97 mg/dL Normal 70-99 [facility] Comment on above: Performed By: #### C DP, BMP #### [facility] [address] [place], [place] [phone] Creative Guru: Lanre Santana MD Potassium [Moles/Vol] 4.4 mmol/L Normal 3.7-5.3 [facility] Comment on above: Performed By: #### C DP, BMP #### [address] [place], [place] [phone] Creative Guru: Lanre Santana MD Sodium [Moles/Vol] 145 mmol/L High 135-144 [facility] Comment on above: Performed By: #### C DP, BMP #### [facility] [address] [place] [address] [place] [place], [place] [phone] Creative Guru: Lanre Santana MD Staging: Normal [facility] Comment on above: Result Comment: Stag e 1: Some kidney damage normal GFR Stage 2: Mild kidney damage GFR 60-89 Stage 3: Moderate kidney damage GFR 30-59 Stage 4: Severe kidney damage GFR 15-29 Stage 5: Severe kidney damage GFR <15 ESRD - chronic treatment by dialysis or transplant Performed By: #### C DP, BMP #### [facility] [address] [place], [place] [id number] Creative Guru: Lanre Santana MD Urea nitrogen [Mass/Vol] 12 mg/dL Normal 8-23 [facility] Comment on above: Performed By: #### C DP, BMP #### [facility] [address] [place] [address] Creative Guru: Lanre Santana MD CBC with Auto Differentialon 06-20-2022 Absolute Eos # 0.12 [facility] Absolute Immature Granulocyte 0.03 [facility] Absolute Lymph # 1.85 [facility] Absolute Roberts # 0.71 [facility] Basophils (Bld) [#/Vol] 0.03 10*3/uL [facility] Basophils/100 WBC (Bld) 0 % 0 - 2 % [facility] Eosinophils/100 WBC (Bld) 1 % 1 - 4 % [facility] Hematocrit (Bld) [Volume fraction] 42.7 % 36.3 - 47.1 % [facility] Hemoglobin (Bld) [Mass/Vol] 14.3 g/dL 11.9 - 15.1 g/dL [facility] Immature granulocytes/100 WBC (Bld) 0 % 0 [facility] Interpretation and review of laboratory results Abnormal [facility] Lymphocytes/100 WBC (Bld) 22 % Low 24 - 43 % [facility] MCH (RBC) [Entitic mass] 32.6 pg 25.2 - 33.5 pg [facility] MCHC (RBC) [Mass/Vol] 33.5 g/dL 28.4 - 34.8 g/dL [facility] MCV (RBC) [Entitic vol] 97.3 fL 82.6 - 102.9 fL [facility] Monocytes/100 WBC (Bld) 9 % 3 - 12 % [facility] NRBC Automated 0.0 0.0 per 100 WBC [facility] Platelet distribution width (Bld) [Ratio] 13.3 % 11.8 - 14.4 % [facility] Platelet mean volume (Bld) [Entitic vol] 8.4 fL 8.1 - 13.5 fL [facility] Platelets (Bld) [#/Vol] 278 10*3/uL [facility] RBC (Bld) [#/Vol] 4.39 10*6/uL 3.95 - 5.1 1 m/uL [facility] Segmented neutrophils/100 WBC (Bld) 68 % High 36 - 65 % [facility] Segs Absolute 5.62 [facility] WBC (Bld) [#/Vol] 8.4 10*3/uL [facility] CBC with Diffon 06-20-2022 Abs. Basophil 0.03 k/uL Normal 0.00-0.20 [facility] Comment on above: Performed By: #### C DP, BMP #### [facility] [address] [place] [address] [place] [address] Creative Guru: Lanre Santana MD Abs.Imm.Granulocyte 0.03 k/uL Normal 0.00-0.30 [facility] Comment on above: Performed By: #### C DP, BMP #### [facility] [address] [place] [address] [place], [place] [phone] Creative Guru: Lanre Santana MD Abs.Neutrophil (Seg) 5.62 k/uL Normal 1.50-8.10 [facility] Comment on above: Performed By: #### C DP, BMP #### [address] [place], [place] [id number] Creative Guru: Lanre Santana MD Basophils/100 WBC (Bld) 0 % Normal 0-2 [facility] Comment on above: Performed By: #### C DP, BMP #### [facility] [address] [place] [address] [place] [address] Creative Guru: Lanre Santana MD Eosinophils (Bld) [#/Vol] 0.12 10*3/uL Normal 0.00-0.44 [facility] Comment on above: Performed By: #### C DP, BMP #### [facility] [address] [place] [address] [place] [address] Creative Guru: Lanre Santana MD Eosinophils/100 WBC (Bld) 1 % Normal 1-4 [facility] Comment on above: Performed By: #### C DP, BMP #### [facility] [address] [place], [place] [phone] Creative Guru: Lanre Santana MD Erythrocyte distribution width (RBC) [Ratio] 13.3 % Normal 11.8-14.4 [facility] Comment on above: Performed By: #### C DP, BMP #### [facility] [address] [place] [address] Creative Guru: Lanre Santana MD Hematocrit (Bld) [Volume fraction] 42.7 % Normal 36.3-47.1 [facility] Comment on above: Performed By: #### C DP, BMP #### [address] [place], [place] [address] Creative Guru: Lanre Santana MD Hemoglobin (Bld) [Mass/Vol] 14.3 g/dL Normal 11.9-15.1 [facility] Comment on above: Performed By: #### C DP, BMP #### [address] [place] [address] Creative Guru: Lanre Santana MD Immature granulocytes/100 WBC (Bld) 0 % Normal 0 [facility] Comment on above: Performed By: #### C DP, BMP #### [facility] [address] [place] [address] Dr. [place], [facility] Creative Guru: Lanre Santana MD Lymphocytes (Bld) [#/Vol] 1.85 10*3/uL Normal 1.10-3.70 [facility] Comment on above: Performed By: #### C DP, BMP #### [address] [place], [place] [phone] Creative Guru: Lanre Santana MD Lymphocytes/100 WBC (Bld) 22 % Low 24-43 [facility] Comment on above: Performed By: #### C DP, BMP #### [facility] [address] [place], [place] [phone] Creative Guru: Lanre Santana MD MCH (RBC) [Entitic mass] 32.6 pg Normal 25.2-33.5 [facility] Comment on above: Performed By: #### C DP, BMP #### [facility] [address] [place], [facility] Creative Guru: Lanre Santana MD MCHC (RBC) [Mass/Vol] 33.5 g/dL Normal 28.4-34.8 [facility] Comment on above: Performed By: #### C DP, BMP #### [facility] [address] [place], [place] [address]83 Creative Guru: Lanre Santana MD MCV (RBC) [Entitic vol] 97.3 fL Normal 82.6-102.9 [facility] Comment on above: Performed By: #### C DP, BMP #### [facility] [address] [place], [place] [address] Creative Guru: Lanre Santana MD Monocytes (Bld) [#/Vol] 0.71 10*3/uL Normal 0.10-1.20 [facility] Comment on above: Performed By: #### C DP, BMP #### [facility] [address] [place], [place] 139[address]83 Creative Guru: Lanre Santana MD Monocytes/100 WBC (Bld) 9 % Normal 3-12 [facility] Comment on above: Performed By: #### C DP, BMP #### [facility] [address] [place] [address] Creative Guru: Lanre Santana MD Neutrophil (Seg) 68 % High 36-65 [facility] Comment on above: Performed By: #### C DP, BMP #### [facility] [address] [place], [place] [phone] Creative Guru: Lanre Santana MD NRBC Automated 0.0 per 100 WBC Normal 0.0 [facility] Comment on above: Performed By: #### C DP, BMP #### [facility] [address] [place], [place] [phone] Creative Guru: Lanre Santana MD Platelet mean volume (Bld) [Entitic vol] 8.4 fL Normal 8.1-13.5 [facility] Comment on above: Performed By: #### C DP, BMP #### [facility] [address] [place], [place] [phone] Creative Guru: Lanre Santana MD Platelets (Bld) [#/Vol] 278 10*3/uL Normal 138-453 [facility] Comment on above: Performed By: #### C DP, BMP #### [facility] [address] [place], [facility] Creative Guru: Lanre Santana MD RBC (Bld) [#/Vol] 4.39 10*6/uL Normal 3.95-5.11 [facility] Comment on above: Performed By: #### C DP, BMP #### [address] [place], [place] [phone] Creative Guru: Lanre Santana MD WBC (Bld) [#/Vol] 8.4 10*3/uL Normal 3.5-11.3 [facility] Comment on above: Performed By: #### C DP, BMP #### [facility] [address] [place] [address] Creative Guru: Lanre Santana MD EKG 12 LeadOrdered By: César mojica on 06-20-2022 Atrial Rate 65 BPM [employer] [facility] [employer] Work Phone: P [place] 65 degrees [employer] [facility] Work Phone: P-R Interval [address] [facility] Work Phone: Q-T Interval 432 ms [facility] [employer] Work Phone: QRS Duration 110 ms [facility] AD[facility] [employer] Work Phone: QTc Calculation (Bazett) 449 ms [employer]ong Work Phone: R [place] 72 degrees [employer] ADAME [employer] Work Phone: T [place] 43 degrees VAN PaiceDIAN [employer] Work Phone: Ventricular Rate 65 BPM [facility]AN MCMULLEN [employer] Work Phone: [facility] PaiceDIAN [employer] Work Phone: EKG 12 Leadon 06-20-2022 Normal sinus rhythm Incomplete right bundle branch block Cannot rule out Inferior infarct , age undetermined Abnormal ECG No previous ECGs available Confirmed by César Blanco MD ([id number]) on 06/20/2022 10:08:07 PM [facility] RAD[facility] César Balnco MD - 06/20/2022 Normal sinus rhythm Incomplete right bundle branch block Cannot rule out Inferior infarct , age undetermined Abnormal ECG No previous ECGs available Confirmed by César Blanco MD ([id number]) on 06/20/2022 10:08:07 PM [facility] [employer] Work Phone: Laboratory - Chemistry and C hemistry - challengeon 06-20-2022 GFR/1.73 sq M.predicted MDRD (S/P/Bld) [Vol rate/Area] [employer] Comment on above: Average GFR for 60-6 9 years old: 85 mL/min/1.73sq m Chronic Kidney Disease: <60 mL/min/1.73sq m Kidney failure: <15 mL/min/1.73sq m eGFR calculated using average adult body mass. Additional eGFR calculator available at: http://www.[employer]/multiple_crcl_2012.htm Stage 1: Some kidney damage normal GFR [...] by: CARTER COKER Date: 2022-06-06 15:52 Normal [facility] Vital Signs Date Time Vital Sign Value Performing Clinician Faci lity 06-27-2022 14:30-0400 Diastolic blood pressure 68 mm[Hg] Carter Torres MD Work Phone: [employer] 06-27-2022 14:30-0400 Heart rate 68 /min Carter Torres MD Work Phone: [employer] 06-27-2022 14:30-0400 Respiratory rate 23 /min Carter Torres MD Work Phone: [employer] 06-27-2022 14:30-0400 SaO2% (BldA) [Mass fraction] 94 % Carter Torres MD Work Phone: [employer] 06-27-2022 14:30-0400 Systolic blood pressure 117 mm[Hg] Carter Torres MD Work Phone: [employer] 06-27-2022 14:00-0400 Body temperature 97 [degF] Carter Torres MD Work Phone: [employer] 06-27-2022 11:16-0400 Body height 162.6 cm Carter Torres MD Work Phone: [employer] 06-27-2022 11:16-0400 Body mass index (BMI) [Ratio] 30.04 kg/m2 Carter Torres MD Work Phone: [facility] 06-27-2022 11:16-0400 Body weight 79.38 kg Carter Torres MD Work Phone: [employer] Encounters Encounter Date Encounter Type Care Provider Facility Start: 04-14-2024 End: 04-14-2024 ambulatory [facility] Start: 11-11-2023 End: 11-11-2023 ambulatory [facility] Start: 10-26-2023 End: 10-26-2023 ambulatory [facility] Start: 09-28-2023 End: 09-28-2023 ambulatory [facility] Start: 06-27-2022 End: 06-27-2022 ambulatory [facility] Start: 06-27-2022 End: 06-27-2022 Subsequent hospital visit by physician Carter Torres MD Work Phone: [facility] Start: 06-20-2022 End: 06-21-2022 ambulatory [facility] Start: 06-20-2022 End: 06-20-2022 Subsequent hospital visit by physician Ron Case MD Work Phone: [facility] EKG Start: 06-05-2022 End: 06-06-[address] RON CASE Facility:H1 Procedures Date Procedure Procedure Detail Performing Clinician Start: 06-20-2022 Ecg routine ecg w/le ast 12 lds w/i&r Carter Torres MD Work Phone: Start: 06-20-2022 Basic metabolic pane l calcium total Carter Torres MD Work Phone: Plan of Treatment Date Care Activity Detail Author Start: 07-31-2022 Influenza vaccination Flu vaccine (# 1) [facility] Start: 06-27-2022 End: 06-27-2022 Arthroscopy knee diagnostic w/wo synovial bx spx KNEE ARTHROSCOPY Acute medial meniscus tear of right knee, initial encounter 06/27/2022 1:07 PM EDT [facility] Start: 2010 Screening for malign ant neoplasm of breast Breast cancer screen [facility] Start: 2010 Shingles vaccine (1 of 2) Shingles vaccine (1 of 2) [facility] Start: 2005 Screening for malign ant neoplasm of colon [facility] Start: 2000 Lipid panel Lipids [facility] Start: 1979 DTaP/Tdap/Td vaccine (1 - Tdap) DTaP/Tdap/Td vaccine (1 - Tdap) [facility] Start: 1978 Hepatitis C screening Hepatitis C sc reen [facility] Start: 1975 HIV screening HIV screen [facility] Start: 1972 Depression Screen Depression Screen [facility] Start: 1966 Pneumococcal 0-64 ye ars Vaccine (1 - PCV) Pneumococcal 0-64 years Vaccine (1 - PCV) [facility] Start: 1960 COVID-19 Vaccine (#1) COVID-19 Vacci ne (#1) [facility] Oxygen therapy [[facility]] Initiate Oxygen Therapy Protocol Respiratory Care Routine As Needed until discontinued starting 06/27/2022 [facility] Work Phone: Comment on above: As Needed until disc ontinued starting 06/27/2022 Payers Date Payer Category Payer Unknown [id number] 2.16.8 [id number] 1960 Unknown [id number] 2.16.8 [id number] 1960 Unknown [id number] 2.16.8 [id number] 1960 Unknown [id number] 2.16.8 [id number] 1960 Unknown [id number] 2.16.84 [id number] 1959 Unknown [id number] 1.2.8 [id number] Social History Date Type Detail Facility Start: 06-21-2020 Tobacco smoking stat [facility] Smokes tobacco daily [employer] Phone: History of tobacco use Cigarette Smoker B [employer] Phone: Start: 06-21-2020 Cigarettes smoked current (pack per day) - Reported 0.5 [employer] Phone: Start: 06-21-2020 Tobacco use and exposure Smoke less tobacco non-user [employer] Phone: Start: 12-05-2021 End: 06-27-2022 Alcohol intake Lifetime non-drinker (finding) [employer] Phone: Start: 06-21-2020 History SDOH Alcohol Frequency 1 [employer] Phone: Start: 1960 Sex Assigned At Not on file B ON [employer] Phone: Start: 06-17-2022 End: 06-27-2022 Exposure to SARS-CoV-2 (event) Not sure [employer] Phone: Progress note 04-14-2024 Note Date & Type Note Facility 04-14-2024 Note Patient here for 6 m o follow up CAD, chest pain, and fatigue. She had routine labs with lipid panel in Nov 2023. She is scheduled for ankle reconstruction with Dr. Pineda on 04/21/2024. Forgot to take her metoprolol last night. She takes lasix and potassium as needed, and hasn't taken them in awhile. Review of Systems Constitutional: Positive for diaphoresis. Cardiovascular: Positive for chest pain (not as often) and leg swelling. Respiratory: Positive for cough. Skin: Positive for poor wound healing. Musculoskeletal: Positive for back pain. Neurological: Positive for light-headedness. All other systems reviewed and are negative. [facility] Progress note 04-14-2024 Note Date & Type Note Facility 04-14-2024 Note Cardiovascular Medic [facility] SUBJECTIVE Chief Complaint Patient presents with Pre-op Exam Hypertension Chest Pain HPI Abi Boswell is a 63 y.o. female with past medical history of SLE, restless leg syndrome, hyperlipidemia, and GERD. She was referred to cardiology for c/o chest pain - underwent cardiac cath 09/2023 which showed mild CAD She has been experiencing sporadic chest pressure/tightness [...] a heart healthy diet. She c/o fatigue. 04/14/2024 Since last seen she suffered a fall and she is pending ankle reconstruction surgery. She is tachycardic today, she reports she forgot to take her metoprolol last night. She reports having palpitations, CP and SOB while at work or in a lot of pain. Since she has not been working, she hasn't had CP or SOB. Her palpitations only occur when she is in pain. She is battling a URI. Denies orthopnea, PND, LE edema, palpitations. Allergies Allergen Reactions Morphine Hives, Other and Palpitations Sulfamethoxazole-Trimethoprim Itching Patient Active Problem List Diagnosis Other chest pain Shortness of breath Acute sinusitis Coronary artery disease involving lumbee coronary artery of lumbee heart without angina pectoris Past Medical History: Diagnosis Date Hyperlipidemia Lupus (systemic lupus erythematosus) ([facility]) Past Surgical History: Procedure Laterality Date [...] Cardiovascular: Positive for chest pain (not as often) and leg swelling. Respiratory: Positive for cough. Skin: Positive for poor wound healing. Musculoskeletal: Positive for back pain. Neurological: Positive for light-headedness. All other systems reviewed and are negative. OBJECTIVE Visit Vitals BP 98/60 (BP Location: Left arm, Patient Position: Sitting) Pulse (!) 116 Ht 1.651 m (5' 5 ) Wt 81.2 kg (179 lb) SpO2 96% BMI 29.79 kg/m??? OB Status Postmenopausal Smoking Status Every Day BSA 1.93 m??? Medications: Current Outpatient Medications: aspirin 81 mg EC tablet, 1 (one) time each day at the same time., Disp: , Rfl: diclofenac (Voltaren) 75 mg EC tablet, 1 (one) time each day at the same time., Disp: , Rfl: HYDROcodone-acetaminophen (Johnson) 5-325 mg tablet, take 1 tablet by mouth every 6 hours if needed for 22, Disp: , Rfl: isosorbide mononitrate ER (Imdur) 60 mg 24 hr tablet, Take 1 tablet (60 mg) by mouth in the morning., Disp: 90 tablet, Rfl: 3 metoprolol succinate XL (Toprol-XL) 25 mg 24 hr tablet, Take 1 tablet (25 mg) by mouth in the morning. Do not crush or chew., Disp: 30 tablet, Rfl: 11 nitroglycerin (Nitrostat) 0.4 mg SL tablet, , Disp: , Rfl: pantoprazole (ProtoNix) 40 mg EC tablet, 1 (one) time each day at the same time., Disp: , Rfl: pramipexole (Mirapex) 0.5 mg tablet, Take 0.5 mg by mouth in the morning., Disp: , Rfl: pregabalin (Lyrica) 25 mg capsule, 1 capsule 1 (one) time each day at the same time., Disp: , Rfl: simvastatin (Zocor) 20 mg tablet, 1 (one) time each day at the same time., Disp: , Rfl: furosemide (Lasix) 20 mg tablet, if needed., Disp: , Rfl: potassium chloride CR (Klor-Con M10) 10 mEq ER tablet, if needed., Disp: , Rfl: predniSONE (Deltasone) 10 mg tablet, Take 10 mg by mouth if needed., Disp: , Rfl: Physical Exam Vitals reviewed. Constitutional: Appearance: Normal appearance. She is normal weight. HENT: Head: Normocephalic and atraumatic. Right Ear: External ear normal. Left Ear: External ear normal. Eyes: Extraocular Movements: Extraocular movements intact. Conjunctiva/sclera: Conjunctivae normal. Pupils: Pupils are equal, round, and reactive to light. Neck: Vascular: No carotid bruit. Cardiovascular: Rate and R (more content not included)... [facility] Progress note 11-11-2023 Note Date & Type Note Facility 11-11-2023 Note Patient here for [facility] low up heart cath. Isosorbide was increased [...] All other systems reviewed and are negative. 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 [facility] Clinical Note 10-26-2023 Note Date & Type Note Facility 10-26-2023 Note Patient: Abi adam Procedure Information Date/Time: 10/26/23 0800 Procedure: Coronary angiography (Left) Location: [facility] [address] / [facility] (Cath) Providers: Marj Abraham MD Clinical information reviewed: Allergies Meds OB Status Physical Exam Airway Mallampati: III TM distance: >3 FB Neck ROM: full Cardiovascular Rhythm: regular Rate: normal Dental Pulmonary Abdominal Anesthesia Plan ASA 3 other Anesthetic plan and risks discussed with patient. Use of blood products discussed with patient who consented to blood products. Additional Equipment Requests [facility] Progress note 09-28-2023 Note Date & [...] All other systems reviewed and are negative. [facility] Progress note 09-28-2023 Note Date & Type Note Facility 09-28-2023 Note Cardiovascular Medic [facility] SUBJECTIVE No chief complaint [...] tablet, if needed., Disp: , Rfl: HYDROcodone-acetaminophen (Johnson) 5-325 mg tablet, take 1 tablet by [...] working slowly t (more content not included)... [facility] History of Present illness Narrative 06-27-2022 [...] require patient to operate motor Vehicle. Yes [facility] Preadmission Testing Name: Abi Boswell : [...] Take [x] Ride Home [x]No Jewelry/Contact Lenses/Nail Micronesian [] Prep/Lax/Clear Liquids [] Chlorhexidene DOS Patient [...] with patient? Yes documented in this encounter [employer] Phone: Hospital Discharge instructions 06-27-2022 Discharge Instructions [...] feet do not touch the floor, 2. Topographic Computator the sides of the surface for support. 3. Raise one foot until your knee is completely straight 4. Slowly return to the starting position and relax. 5. Repeat 20 times ANKLE PUMPS 1. Bend ankles up and down, alternating foot 2. Repeat 25 times Carter Torres M.D. [phone] @ATTPROV@ 06/27/2022 1:01 PM documented in this encounter [facility] [employer] Phone: Summary Purpose Family History No Family History Records FoundNo Family History Records FoundNo Family History Records FoundNo Family History Records Found Advance Directives No Advanced Directives Records FoundLatest Code Status on File Code Status Date Activated Date Inactivated Comments Full Code 06/27/2022 11:07 AM Additional Source Comments Care Teams (unrecognized sec tion and content) Bdr Relationship Specialty Start Date End Date Ron Case MD [address] [phone] PCP - General Family Medicine 06/21/20 Bdr Relationship Specialty Start Date End Date Ron Case MD [address] [place], [place] [phone] PCP - General Family Medicine 06/21/20 Bdr Relationship Specialty Start Date End Date Ron Case MD [address] [place] [address] PCP - General Family Medicine 06/21/20 INFORMATION SOURCE (unrecogn ized section and content) DATE CREATED AUTHOR 06/22/2022 [facility] DATE CREATED AUTHOR AUTHOR'S ORGANIZ ATION 07/01/2022 [facility] DATE CREATED AUTHOR AUTHOR'S ORGANIZ ATION 09/22/2022 [facility] DATE CREATED AUTHOR AUTHOR'S ORGANIZ ATION 04/17/2024 [facility] Reason for Visit (unrecogniz ed section and content) Specialty Diagnoses / Procedures Referred By Herber t Referred To Contact Diagnoses Acute medial meniscus tear of right knee, initial encounter Acute medial meniscus tear of right knee, initial encounter [S83.241A] Procedures W[place] KNEE SCOPE,DIAGNOSTIC W[place] ARTHRS KNE SURG W/MENISCECTOMY MED/LAT W/SHVG KNEE ARTHROSCOPY Carter Torres MD [address] [place] [address] [facility] [id number] [place] [address] Referral ID Status Reason Start Date Expiration Date Visits Re quested Visits Authorized [id number] 1 1 Ordered Prescriptions (unrec ognized section [...] mL IVPB (duplex) (COMPLETED) 2,000 mg, IntraVENous, POULTRY PINNER TO O.R., 1 dose, On Thu06/27/22 at [...] ider: Vanessa Hough RN)[id number] (NoRateChange - Provider: KARINE Luna CRNA)[id number] (Anesthesia Volume Adjustment - Provider: KARINE Luna CRNA) PRN Medication Order 06/25/2022 06/26/2022 06/27/2022 bupivacaine-EPINEPHrine PF (MARCAINE-w/EPINEPHRINE) 0.5% -[id number] injection (CANCELED) PRN, Starting on Thu06/27/22 at [...] BE BASED ON THE PRIMARY CLINICAL RECORDS. [employer] [facility]. provides no warranty or guarantee of the accuracy or completeness of information in this document.
== END 2024-05-03 07:08 | disposition home or self-care (01) ==
LOC: PST 07:07
PROVIDERS: PCP Family Medicine; Visit Provider Podiatrist Foot & Ankle Surgery
DX: Z01.818 Encounter for other preprocedural examination (principal); S81.811A Laceration without foreign body, right lower leg, initial encounter; S86.921A Laceration of unspecified muscle(s) and tendon(s) at lower leg level, right leg, initial encounter

== ENCOUNTER 2024-05-09 06:44 | Day surgery (SDC) | payer OTHER, SELFPAY ==
[2024-04-14 14:23] VITALS: BP 112/72; PULSE 114; TEMP 36.5; O2SAT 96; BMI 30.7
[2024-05-09] VITALS (11 sets, daily range): BP systolic 104–129; BP diastolic 64–84; PULSE 68–90; TEMP 36.3–36.5; O2SAT 93–96; BMI 30.2
--- OUTSIDE RECORDS SUMMARY | 2024-05-09 06:50 | XMS_ITS ---
Patient Summarization (C-CDA 2.1 CCD) Created on: May 09, 2024 HANANH ABI Goodman : 1960 Sex: Female Author Organization Sample organization Care Team Providers Care Php Mysql Web Developer Name Role Phone Ron Case MD Primary Care Provider [phone] CARTER TORRES Referring Unavailable RON CASE Primary Care Unavailable CARTER TORRES Referring Unavailable RON CASE Primary Care Unavailable AJAY PEREIRA Referring Unavailable RON CASE Primary Care Unavailable CARTER TORRES Admitting Unavailable CARTER TORRES Attending Unavailable RON CASE Primary Care Unavailable SANGITA, DR VELASQUEZ Admitting Unavailable SANGITA, DR VELASQUEZ Attending Unavailable SANGITA, DR VELASQUEZ Primary Care Unavailable DR RON CASE Consulting Unavailable JOHN PAUL, DR CARTER Ayala Consulting Unavailable HENRIETTA RODRIGUEZ Attending Unavailable LORETA GRIMALDO Attending Unavailable MARJ ABRAHAM Admitting Unavailable MARJ ABRAHAM Attending Unavailable MARJ ABRAHAM Referring Unavailable HENRIETTA RODRIGUEZ Attending Unavailable Allergies Allergy Classification Reported Allergen(s) Allergy Type Date of Onset Reaction(s) Facility (4 sources) Morphine; Translations: [MORPHINE] Drug Allergy 06-21-20 Hives, Palpitations [facility] (1 source) Morphine Drug Allergy [facility] Repository (1 source) Sulfamethoxazole / Trimethoprim; Translations: [SULFAMETHOXAZOLE-TR IMETHOPRIM] Drug Allergy 09-28-20 [facility] Repository Encounters Encounter Date Encounter Type Care Provider Facility Start: 04-14-2024 End: 04-14-2024 [facility] Start: 11-11-2023 End: 11-11-2023 ambulatory [facility] Start: 10-26-2023 End: 11-27-2023 [facility] Start: 09-28-2023 End: 09-28-2023 ambulatory LORETA GRIMALDO [facility] Start: 06-27-2022 End: 06-27-2022 ambulatory [facility] Start: 06-27-2022 End: 06-27-2022 Subsequent hospital visit by physician Carter Torres MD Work Phone: [facility] Start: 06-20-2022 End: 06-21-2022 ambulatory [facility] Start: 06-20-2022 End: 06-20-2022 Subsequent hospital visit by physician Ron Case MD Work Phone: [facility] EKG Start: 06-05-2022 End: 06-06-[address] RON CASE Facility:H1 Medications Current Medications Medication Drug Class(es) Dates [...] daily 0 08/10/2020 06/27/2022 Discontinued (Therapy completed) Payers Date Payer Category Payer Unknown [id number] [id number] 1960 Unknown [id number] [id number] 1960 Unknown [id number] [id number] [id number] 1960 Unknown [id number] [id number] [id number] 1960 Unknown [id number] 2.16.84 [id number] 1959 Unknown [id number] [id number] [id number] Plan of Treatment Date Care Activity Detail Author Start: 07-31-2022 Influenza vaccination Flu vaccine (# 1) [facility] Start: 06-27-2022 End: 06-27-2022 Arthroscopy knee diagnostic w/wo synovial bx spx KNEE ARTHROSCOPY Acute medial meniscus tear of right knee, initial encounter 06/27/2022 1:07 PM EDT [facility] Start: 2010 Screening for malign ant neoplasm of breast Breast cancer screen [facility] Start: 2010 Shingles vaccine (1 of 2) Shingles vaccine (1 of 2) [facility] Start: 2005 Screening for malign ant neoplasm of colon [facility] Start: 2000 Lipid panel Lipids [facility] Start: 1979 DTaP/Tdap/Td vaccine (1 - Tdap) DTaP/Tdap/Td vaccine (1 - Tdap) [facility] Start: 1978 Hepatitis C screening Hepatitis C sc reen [facility] Start: 1975 HIV screening HIV screen [facility] Start: 1972 Depression Screen Depression Screen [facility] Start: 1966 Pneumococcal 0-64 ye ars Vaccine (1 - PCV) Pneumococcal 0-64 years Vaccine (1 - PCV) [facility] Start: 1960 COVID-19 Vaccine (#1) COVID-19 Vacci ne (#1) [facility] Oxygen therapy [Mini [facility] Data Set] Initiate Oxygen Therapy Protocol Respiratory Care Routine As Needed until discontinued starting 06/27/2022 [facility] Work Phone: Comment on above: As Needed until disc ontinued starting 06/27/2022 Problems Active Problems Problem Classification Problem Date Documented Date Episodic/Chronic Cardiac dysrhythmias (2 sources) Palpitations; Translations: [Palpitations] Onset: 04-14-2024 Episodic Coronary atherosclerosis and other heart disease (4 sources) Atherosclerotic heart disease of [place] coronary artery without angina pectoris; Translations: [Atherosclerotic heart disease of [place] coronary artery with other forms of angina [...] Translations: [Shortness of breath] Onset: 10-08-2023 Episodic Procedures Date Procedure Procedure Detail Performing Clinician Start: 06-20-2022 Ecg routine ecg w/le ast 12 lds w/i&r Carter Torres MD Work Phone: Start: 06-20-2022 Basic metabolic pane l calcium total Carter Torres MD Work Phone: Results Test Name Value Interpretation Reference Range Facility Office Visiton 04-14-2024 Follow-up visit [id number] BoswellAbi lynn 1960 Date Provider Department Center 04/14/2024 HENRIETTA FLOREZ Family History Problem Relation Age of Onset Hypertension Maternal Grandmother Transient ischemic attack Maternal Grandmother Heart attack Maternal Grandfather Heart failure Maternal Grandfather Family Status - Relation Status Age at Maternal Grandmother Maternal Grandfather Level of Service:66146 HI OFFICE/OUTPATIENT ESTABLISHED MOD MDM 30 MIN Reason for Visit and Comments: Pre-op Exam [[id number]] Hypertension [576401] Chest Pain [707877] [facility] 36on 12-25-2023 36 Please let her know her labs showed her kidney function, liver function, blood counts and thyroid function were normal. Her LDL or bad cholesterol was elevated at 118. With patients with known heart disease, we recommend lowering the LDL to <70 to help reduce risk of worsening disease and help reduce risk of stroke, RI, etc. Recommend we switch her simvastatin to atrovastatin 40mg daily. Follow-up lipid panel and LFTs in 3 months. Also, her vit D was low, follow-up with Dr. Case on this. Thanks! Normal [facility] Telephoneon 12-25-2023 Telephone [id number] Boswell,Bernice F 1960 Provider Department Center 12/25/2023 HENRIETTA FLOREZ Family History Problem Relation Age of Onset Hypertension Maternal Grandmother Transient ischemic attack Maternal Grandmother Heart attack Maternal Grandfather Heart failure Maternal Grandfather Family Status - Relation Status Age at Maternal Grandmother Maternal Grandfather [facility] Office Visiton 11-11-2023 Follow-up visit [id number] Boswell,Bernice F 1960 Date Provider Department Center 11/11/2023 HENRIETTA FLOREZ [facility] Family History Problem Relation Age of Onset Hypertension Maternal Grandmother Transient ischemic attack Maternal Grandmother Heart attack Maternal Grandfather Heart failure Maternal Grandfather Family Status - Relation Status Age at Maternal Grandmother Maternal Grandfather Level of Service:72694 HI OFFICE/OUTPATIENT ESTABLISHED MOD MDM 30-39 MIN Reason for Visit and Comments: Chest Pain [290350] Coronary Artery Disease [187] [facility] HPon 10-26-2023 H&P reviewed. The patient was examined [...] anatomy and decide on need for intervention. [facility] NURSNOTEon 10-26-2023 NURSNOTE RN educated pt on d/ c instructions. RN encouraged pt to voice any questions or concerns. Pt verbalizes no questions or concerns at this time. Pt was wheeled off of unit with all of belongings. [facility] Orders Onlyon 10-01-2023 Orders Only [id number] Abi Boswell 1960 F Date Provider Department Center 10/01/2023 [id number] BILL [facility] Family History Problem Relation Age of Onset Hypertension Maternal Grandmother Transient ischemic attack Maternal Grandmother Heart attack Maternal Grandfather Heart failure Maternal Grandfather Family Status - Relation Status Age at Maternal Grandmother Maternal Grandfather [facility] HPon 09-28-2023 Cardiovascular Medicine [facility] SUBJECTIVE No chief complaint on file. [...] if needed., Disp: , Rfl: HYDROcodone-acetamino phen ([place]) 5-325 mg tablet, take 1 tablet by [...] slowly t (more content not included)... Normal [facility] Office Visiton 09-28-2023 Follow-up visit [id number] Abi Boswell F 1960 F Date Provider Department Center 09/28/2023 [id number] GRIMALDO [facility]ILL [facility] Family History Problem Relation Age of Onset Hypertension Maternal Grandmother Transient ischemic attack Maternal Grandmother Heart attack Maternal Grandfather Heart failure Maternal Grandfather Family Status - Relation Status Age at Maternal Grandmother Maternal Grandfather Level of Service:84170 HI OFFICE/OUTPATIENT NEW LOW MDM 30-44 MINUTES Normal [facility] [id number] 06-27-2022 SARS-CoV-2 (COVID-19) RNA CAROLINE+probe Ql (Unsp [...] management decisions. Fact sheet for Healthcare Providers: https://www.fda.gov/media/039868/download Fact sheet for Patients: https://www.fda.gov/media/039151/download Methodology: Isothermal Nucleic Acid Amplification Performed By: #### C OVRB #### [facility] [address] [place] [address] Machine Milker: Lanre Santana MD Basic Metabolic Panelon 05-31 Anion gap [Moles/Vol] 8 mmol/L Low 9 - 17 mmol/L [facility] Calcium [Mass/Vol] 9.8 mg/dL 8.6 - 10. 4 mg/dL [facility] Chloride [Moles/Vol] 107 mmol/L 98 - 10 7 mmol/L [facility] CO2 [Moles/Vol] 30 mmol/L 20 - 31 mmol/L [facility] Creatinine [Mass/Vol] 0.73 mg/dL 0.5 - 0.9 mg/dL [facility] GFR >60 60 - PI NF mL/min [facility] GFR Non- >60 60 - PINF mL/min [facility] Glucose [Mass/Vol] 97 mg/dL 70 - 99 mg/dL [facility] Potassium [Moles/Vol] 4.4 mmol/L 3.7 - 5.3 mmol/L [facility] Sodium [Moles/Vol] 145 mmol/L High 135 - 144 mmol/L [facility] Urea nitrogen (BldV) [Mass/Vol] 12 mg/dL 8 - 23 mg/dL [facility] Urea nitrogen/Creatinine (Bld) [Mass ratio] 16 9 - 20 [facility] Basic Metabolic Profon 06-20 (cont.) Normal [facility] Comment on above: Result Comment: Aver age GFR for 60-69 years old: 85 mL/min/1.73sq m Chronic Kidney Disease: <60 mL/min/1.73sq m Kidney failure: <15 mL/min/1.73sq m eGFR calculated using average adult body mass. Additional eGFR calculator available at: http://www.Your Style Unzipped.Simparel/multiple_crcl_2011.htm Performed By: #### C DP, BMP #### [facility] [address] [place] [address] Machine Milker: Lanre Santana MD Anion gap [Moles/Vol] 8 mmol/L Low 9-17 [facility] Comment on above: Performed By: #### C DP, BMP #### [facility] [address] [place] [address] Machine Milker: Lanre Santana MD BUN/CRE Ratio 16 Normal 9-20 [facility] Comment on above: Performed By: #### C DP, BMP #### [facility] [address] [place] [address] Machine Milker: Lanre Santana MD Calcium [Mass/Vol] 9.8 mg/dL Normal 8.6-10.4 [facility] Comment on above: Performed By: #### C DP, BMP #### [facility] [address] [place] [address] Machine Milker: Lanre Santana MD Chloride [Moles/Vol] 107 mmol/L Normal 98-107 [facility] Comment on above: Performed By: #### C DP, BMP #### [facility] [address] [place], [place] [id number] Machine Milker: Lanre Santana MD CO2 [Moles/Vol] 30 mmol/L Normal 20-31 [facility] Comment on above: Performed By: #### C DP, BMP #### [facility] [address] [place] [address] Machine Milker: Lanre Santana MD Creatinine [Mass/Vol] 0.73 mg/dL Normal 0.50-0.90 [facility] Comment on above: Performed By: #### C DP, BMP #### [facility] [address] [place] [address] Machine Milker: Lanre Santana MD GFR, Amer >60 Normal >60 [facility] Comment on above: Performed By: #### C DP, BMP #### [facility] [address] [place], [place] [id number] Machine Milker: Lanre Santana MD GFR,non Amer >60 Normal >60 [facility] Comment on above: Performed By: #### C DP, BMP #### [facility] [address] [place], [place] [id number] Machine Milker: Lanre Santana MD Glucose [Mass/Vol] 97 mg/dL Normal 70-99 [facility] Comment on above: Performed By: #### C DP, BMP #### [facility] [address] [place], [place] [id number] Machine Milker: Lanre Santana MD Potassium [Moles/Vol] 4.4 mmol/L Normal 3.7-5.3 [facility] Comment on above: Performed By: #### C DP, BMP #### [address] [place], [place] [id number] Machine Milker: Lanre Santana MD Sodium [Moles/Vol] 145 mmol/L High 135-144 [facility] Comment on above: Performed By: #### C DP, BMP #### [address] [place], [place] [id number] Machine Milker: Lanre Santana MD Staging: Normal [facility] Comment on above: Result Comment: Stag e 1: Some kidney damage normal GFR Stage 2: Mild kidney damage GFR 60-89 Stage 3: Moderate kidney damage GFR 30-59 Stage 4: Severe kidney damage GFR 15-29 Stage 5: Severe kidney damage GFR <15 ESRD - chronic treatment by dialysis or transplant Performed By: #### C DP, BMP #### [facility] [address] [place] [address] [place] [address] Machine Milker: Lanre Santana MD Urea nitrogen [Mass/Vol] 12 mg/dL Normal 8-23 [facility] Comment on above: Performed By: #### C DP, BMP #### [facility] [address] [place] [address] Machine Milker: Lanre Santana MD CBC with Auto Differentialon 06-20-2022 Absolute Eos # 0.12 [facility] Absolute Immature Granulocyte 0.03 [facility] Absolute Lymph # 1.85 [facility] Absolute Blaine # 0.71 [facility] Basophils (Bld) [#/Vol] 0.03 10*3/uL [facility] Basophils/100 WBC (Bld) 0 % 0 - 2 % [facility] Eosinophils/100 WBC (Bld) 1 % 1 - 4 % [facility] Hematocrit (Bld) [Volume fraction] 42.7 % 36.3 - 47.1 % [facility] Hemoglobin (Bld) [Mass/Vol] 14.3 g/dL 11.9 - 15.1 g/dL [facility] Immature granulocytes/100 WBC (Bld) 0 % 0 [facility] Lymphocytes/100 WBC (Bld) 22 % Low 24 - 43 % [facility] MCH (RBC) [Entitic mass] 32.6 pg 25.2 - 33.5 pg [facility] MCHC (RBC) [Mass/Vol] 33.5 g/dL 28.4 - 34.8 g/dL [facility] MCV (RBC) [Entitic vol] 97.3 fL 82.6 - 102.9 fL [facility] Monocytes/100 WBC (Bld) 9 % 3 - 12 % [facility] NRBC Automated 0.0 0.0 per 100 WBC [facility] Platelet distribution width (Bld) [Ratio] 13.3 % 11.8 - 14.4 % [facility] Platelet mean volume (Bld) [Entitic vol] 8.4 fL 8.1 - 13.5 fL [facility] Platelets (Bld) [#/Vol] 278 10*3/uL [facility] RBC (Bld) [#/Vol] 4.39 10*6/uL 3.95 - 5.1 1 m/uL [facility] Segmented neutrophils/100 WBC (Bld) 68 % High 36 - 65 % [facility] Segs Absolute 5.62 [facility] WBC (Bld) [#/Vol] 8.4 10*3/uL [facility] CBC with Diffon 06-20-2022 Abs. Basophil 0.03 k/uL Normal 0.00-0.20 [facility] Comment on above: Performed By: #### C DP, BMP #### [facility] [address] [place] [address] Dr[place], [place] [address] Machine Milker: Lanre Santana MD Abs.Imm.Granulocyte 0.03 k/uL Normal 0.00-0.30 [facility] Comment on above: Performed By: #### C DP, BMP #### [address] [address] Machine Milker: Lanre Santana MD Abs.Neutrophil (Seg) 5.62 k/uL Normal 1.50-8.10 [facility] Comment on above: Performed By: #### C DP, BMP #### [address] [place], [place] [address] Machine Milker: Lanre Santana MD Basophils/100 WBC (Bld) 0 % Normal 0-2 [facility] Comment on above: Performed By: #### C DP, BMP #### [address] [place], [place] [id number] Machine Milker: Lanre Santana MD Eosinophils (Bld) [#/Vol] 0.12 10*3/uL Normal 0.00-0.44 [facility] Comment on above: Performed By: #### C DP, BMP #### [facility] [address] [place] [address] [place] [id number] Machine Milker: Lanre Santana MD Eosinophils/100 WBC (Bld) 1 % Normal 1-4 [facility] Comment on above: Performed By: #### C DP, BMP #### [address] [place] [address] Machine Milker: Lanre Santana MD Erythrocyte distribution width (RBC) [Ratio] 13.3 % Normal 11.8-14.4 [facility] Comment on above: Performed By: #### C DP, BMP #### [address] [place], [facility]83 Machine Milker: Lanre Santana MD Hematocrit (Bld) [Volume fraction] 42.7 % Normal 36.3-47.1 [facility] Comment on above: Performed By: #### C DP, BMP #### [address] [place] [id number] Machine Milker: Lanre Santana MD Hemoglobin (Bld) [Mass/Vol] 14.3 g/dL Normal 11.9-15.1 [facility] Comment on above: Performed By: #### C DP, BMP #### [address] [place], [place] [address] Machine Milker: Lanre Santana MD Immature granulocytes/100 WBC (Bld) 0 % Normal 0 [facility] Comment on above: Performed By: #### C DP, BMP #### [address] [place], [facility]83 Machine Milker: Lanre Santana MD Lymphocytes (Bld) [#/Vol] 1.85 10*3/uL Normal 1.10-3.70 [facility] Comment on above: Performed By: #### C DP, BMP #### [facility] [address] [place] [address] Dr[place], [facility]83 Machine Milker: Lanre Santana MD Lymphocytes/100 WBC (Bld) 22 % Low 24-43 [facility] Comment on above: Performed By: #### C DP, BMP #### [facility] [address] [place] [id number] Machine Milker: Lanre Santana MD MCH (RBC) [Entitic mass] 32.6 pg Normal 25.2-33.5 [facility] Comment on above: Performed By: #### C DP, BMP #### [facility] [address] [place], [place] [id number] Machine Milker: Lanre Santana MD MCHC (RBC) [Mass/Vol] 33.5 g/dL Normal 28.4-34.8 [facility] Comment on above: Performed By: #### C DP, BMP #### [facility] [address] [place], [place] [id number] Machine Milker: Lanre Santana MD MCV (RBC) [Entitic vol] 97.3 fL Normal 82.6-102.9 [facility] Comment on above: Performed By: #### C DP, BMP #### [address] [place] [address] Machine Milker: Lanre Santana MD Monocytes (Bld) [#/Vol] 0.71 10*3/uL Normal 0.10-1.20 [facility] Comment on above: Performed By: #### C DP, BMP #### [address] [place], [place] [id number] Machine Milker: Lanre Santana MD Monocytes/100 WBC (Bld) 9 % Normal 3-12 [facility] Comment on above: Performed By: #### C DP, BMP #### [facility] [address] [place], [place] [id number] Machine Milker: Lanre Santana MD Neutrophil (Seg) 68 % High 36-65 [facility] Comment on above: Performed By: #### C DP, BMP #### [facility] [address] [place] [address] Machine Milker: Lanre Santana MD NRBC Automated 0.0 per 100 WBC Normal 0.0 [facility] Comment on above: Performed By: #### C DP, BMP #### [facility] [address] [place], [place] [address] Machine Milker: Lanre Santana MD Platelet mean volume (Bld) [Entitic vol] 8.4 fL Normal 8.1-13.5 [facility] Comment on above: Performed By: #### C DP, BMP #### [facility] [address] [place], [place] [phone] Machine Milker: Lanre Santana MD Platelets (Bld) [#/Vol] 278 10*3/uL Normal 138-453 [facility] Comment on above: Performed By: #### C DP, BMP #### [facility] [address] [place] [address] Machine Milker: Lanre Santana MD RBC (Bld) [#/Vol] 4.39 10*6/uL Normal 3.95-5.11 [facility] Comment on above: Performed By: #### C DP, BMP #### [facility] [address] [place] [address] Machine Milker: Lanre Santana MD WBC (Bld) [#/Vol] 8.4 10*3/uL Normal 3.5-11.3 [facility] Comment on above: Performed By: #### C DP, BMP #### [facility] [address] [place] [address] Machine Milker: Lanre Santana MD EKG 12 LeadOrdered By: César mojica on 06-20-2022 Atrial Rate 65 BPM [employer] [facility] Phone: P Farson 65 degrees ANDalyze [facility] [employer] Phone: P-R Interval 134 ms [facility] [employer] Phone: Q-T Interval 432 ms [facility] [employer] Phone: QRS Duration 110 ms [facility] [employer] [facility] [employer] Phone: QTc Calculation (Bazett) 449 ms [employer] Work Phone: R Farson 72 degrees [employer] Work Phone: T Farson 43 degrees [employer] Work Phone: Ventricular Rate 65 BPM [facility] [facility] [employer] Work Phone: [employer] Work Phone: EKG 12 Leadon 06-20-2022 Normal sinus rhythm Incomplete right bundle branch block Cannot rule out Inferior infarct , age undetermined Abnormal ECG No previous ECGs available Confirmed by César Blanco MD ([id number]) on 06/20/2022 10:08:07 PM [facility] César Blanco MD - 06/20/2022 Normal sinus rhythm Incomplete right bundle branch block Cannot rule out Inferior infarct , age undetermined Abnormal ECG No previous ECGs available Confirmed by César Blanco MD ([id number]) on 06/20/2022 10:08:07 PM [employer] Work Phone: Laboratory - Chemistry and C hemistry - challengeon 06-20-2022 GFR/1.73 sq M.predicted MDRD (S/P/Bld) [Vol rate/Area] [facility] [employer] Comment on above: Average GFR for 60-6 9 years old: 85 mL/min/1.73sq m Chronic Kidney Disease: <60 mL/min/1.73sq m Kidney failure: <15 mL/min/1.73sq m eGFR calculated using average adult body mass. Additional eGFR calculator available at: http://www.Your Style Unz[employer].Simparel/multiple_crcl_2012.htm Stage 1: Some kidney damage normal GFR Stage 2: Mild kidney damage GFR 60-89 Stage 3: Moderate kidney damage GFR 30-59 Stage 4: Severe kidney damage GFR 15-29 Stage 5: Severe kidney damage GFR <15 ESRD - chronic treatment by dialysis or transplant No Panel Informationon 06-20 Interpretation and review of laboratory results Abnormal [facility] [employer] [facility] [employer] MRI KNEE RT WO CONon 022 MRI [...] by: CARTER COKER Date: 2022-06-06 15:52 Normal [facility] Social History Date Type Detail Facility Start: 06-17-2022 End: 06-27-2022 Exposure to SARS-CoV-2 (event) Not sure [employer] Phone: Start: 12-05-2021 End: 06-27-2022 Alcohol intake Lifetime non-drinker (finding) [employer] Phone: Start: 06-21-2020 Tobacco smoking stat [facility] Smokes tobacco daily [employer] Phone: Start: 06-21-2020 Cigarettes smoked current (pack per day) - Reported 0.5 [employer] Phone: Start: 06-21-2020 Tobacco use and exposure Smoke less tobacco non-user [employer] Phone: Start: 06-21-2020 History SDOH Alcohol Frequency 1 [employer] Work Phone: Start: 1960 Sex Assigned At Not on file [employer] Work Phone: History of tobacco use Cigarette Smoker [employer] Work Phone: Vital Signs Date Time Vital Sign Value Performing Clinician Faci lity 06-27-2022 14:30-0400 Diastolic blood pressure 68 mm[Hg] Carter Torres MD Work Phone: [employer] 06-27-2022 14:30-0400 Heart rate 68 /min Carter Torres MD Work Phone: [employer] 06-27-2022 14:30-0400 Respiratory rate 23 /min Carter Torres MD Work Phone: [employer] 06-27-2022 14:30-0400 SaO2% (BldA) [Mass fraction] 94 % Carter Torres MD Work Phone: [employer] 06-27-2022 14:30-0400 Systolic blood pressure 117 mm[Hg] Carter Torres MD Work Phone: [employer] 06-27-2022 14:00-0400 Body temperature 97 [degF] Carter Torres MD Work Phone: [employer] 06-27-2022 11:16-0400 Body height 162.6 cm Carter Torres MD Work Phone: [employer] 06-27-2022 11:16-0400 Body mass index (BMI) [Ratio] 30.04 kg/m2 Carter Torres MD Work Phone: [employer] 06-27-2022 11:16-0400 Body weight 79.38 kg Carter Torres MD Work Phone: [employer] Progress note 04-14-2024 Note Date & Type [...] All other systems reviewed and are negative. [facility] Progress note 04-14-2024 Note Date & Type Note Facility 04-14-2024 Note Cardiovascular Medic [facility] SUBJECTIVE Chief Complaint Patient presents with [...] breath Acute sinusitis Coronary artery disease involving [place] coronary artery of [place] heart without angina pectoris Past Medical History: Diagnosis Date Hyperlipidemia Lupus (systemic lupus erythematosus) ([facility]) Past Surgical History: Procedure Laterality Date BLADDER [...] the same time., Disp: , Rfl: HYDROcodone-acetaminophen ([place]) 5-325 mg tablet, take 1 tablet by [...] Rate and R (more content not included)... [facility] Progress note 11-11-2023 Note Date & Type Note Facility 11-11-2023 Note Patient here for [facility] low up heart cath. Isosorbide was increased [...] All other systems reviewed and are negative. [facility] Progress note 11-11-2023 Note Date & Type Note Facility 11-11-2023 Note Cardiovascular Medic [facility] SUBJECTIVE Chief Complaint Patient presents with [...] breath Acute sinusitis Coronary artery disease involving [place] coronary artery of [place] heart without angina pectoris Past Medical History: Diagnosis Date Hyperlipidemia Lupus (systemic lupus erythematosus) ([facility]) Past Surgical History: Procedure Laterality Date BLADDER [...] tablet, if needed., Disp: , Rfl: HYDROcodone-acetaminophen ([place]) 5-325 mg tablet, take 1 tablet by [...] No focal de (more content not included)... [facility] Clinical Note 10-26-2023 Note Date & Type Note Facility 10-26-2023 Note Patient: Abi adam Procedure Information Date/Time: 10/26/23 0800 Procedure: Coronary angiography (Left) Location: [facility] PASSENGER LOCOMOTIVE ENGINEER 2 BIPLANE / [facility] (Cath) Providers: Marj Abraham MD Clinical information reviewed: Allergies Meds OB Status Physical Exam Airway Mallampati: III TM distance: >3 FB Neck ROM: full Cardiovascular Rhythm: regular Rate: normal Dental Pulmonary Abdominal Anesthesia Plan ASA 3 other Anesthetic plan and risks discussed with patient. Use of blood products discussed with patient who consented to blood products. Additional Equipment Requests [facility] Progress note 09-28-2023 Note Date & Type [...] All other systems reviewed and are negative. [facility] Progress note 09-28-2023 Note Date & Type Note Facility 09-28-2023 Note Cardiovascular Medic [facility] SUBJECTIVE No chief complaint on file. [...] tablet, if needed., Disp: , Rfl: HYDROcodone-acetaminophen ([place]) 5-325 mg tablet, take 1 tablet by [...] working slowly t (more content not included)... [facility] History of Present illness Narrative 06-27-2022 Selene [...] require patient to operate motor Vehicle. Yes [facility] Preadmission Testing Name: Abi Boswell : 1960 [...] Take [x] Ride Home [x]No Jewelry/Contact Lenses/Nail Nauruan [] Prep/Lax/Clear Liquids [] Chlorhexidene DOS Patient [...] patient? Yes documented in this encounter [email or web address] Phone: Hospital Discharge instructions 06-27-2022 Discharge Instructions [...] feet do not touch the floor, 2. Infection Prevention Specialist the sides of the surface for support. 3. Raise one foot until your knee is completely straight 4. Slowly return to the starting position and relax. 5. Repeat 20 times ANKLE PUMPS 1. Bend ankles up and down, alternating foot 2. Repeat 25 times Carter Torres M.D. [phone] @ATTPROV@ 06/27/2022 1:01 PM documented in this encounter [employer] Work Phone: Summary Purpose Family History No Family History Records FoundNo Family History Records FoundNo Family History Records FoundNo Family History Records Found Advance Directives No Advanced Directives Records FoundLatest Code Status on File Code Status Date Activated Date Inactivated Comments Full Code 06/27/2022 11:07 AM Additional Source Comments Care Teams (unrecognized sec tion and content) [employer] Relationship Specialty Start Date End Date Ron Case MD [address] [place] [address] PCP - General Family Medicine 06/21/20 [employer] Developer Relationship Specialty Start Date End Date Ron Case MD [address] [place] [address] PCP - General Family Medicine 06/21/20 [employer] Web Developer Relationship Specialty Start Date End Date Ron Case MD [address] [place] [address] PCP - General Family Medicine 06/21/20 INFORMATION SOURCE (unrecogn ized section and content) DATE CREATED AUTHOR 06/22/2022 [facility] DATE CREATED AUTHOR AUTHOR'S ORGANIZ ATION 07/01/2022 [facility] DATE CREATED AUTHOR AUTHOR'S ORGANIZ ATION 09/22/2022 [facility] DATE CREATED AUTHOR AUTHOR'S ORGANIZ ATION 04/17/2024 [facility] Reason for Visit (unrecogniz ed section and content) Specialty Diagnoses / Procedures Referred By Contac t Referred To Contact Diagnoses Acute medial meniscus tear of right knee, initial encounter Acute medial meniscus tear of right knee, initial encounter [S83.241A] Procedures HI KNEE SCOPE,DIAGNOSTIC HI ARTHRS KNE SURG W/MENISCECTOMY MED/LAT W/SHVG KNEE ARTHROSCOPY Carter Torres MD [address] [place] [address] [facility] [id number] [place] [address] Referral ID Status Reason Start Date Expiration Date Visits Re quested Visits Authorized [id number] 1 1 Ordered Prescriptions (unrec ognized section [...] mL IVPB (duplex) (COMPLETED) 2,000 mg, IntraVENous, 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 [employer] provides no warranty or guarantee of the accuracy or completeness of information in this document.
[2024-05-09 06:54] LABS: Basophils Percent Auto 0.4 % (0.2-2.0); Eosinophils Absolute Auto 0.2 10^3/uL (0.0-0.7); Eosinophils Percent Auto 2.2 % (0.9-7.0); Hematocrit 39.3 % (36.0-48.0); Hemoglobin 13.1 g/dL (12.0-16.0); Immature Granulocytes Abs Auto 0.02 10^3/uL (0.00-0.03); Immature Granulocytes Pct Auto 0.3 % (0.0-0.5); Lymphocytes Absolute Auto 1.5 10^3/uL (1.2-3.8); Lymphocytes Percent Auto 21.4 % (20.5-60.0); Mean Corpuscular HGB Conc 33.3 g/dL (29.9-35.2); Mean Corpuscular Hemoglobin 31.7 pg (26.7-34.0); Mean Corpuscular Volume 95.2 fL (81.0-99.0); Mean Platelet Volume 8.5 fL (9.5-13.5); Monocytes Absolute Auto 0.7 10^3/uL (0.3-0.8); Monocytes Percent Auto 9.9 % (1.7-12.0); Neutrophils Absolute Auto 4.6 10^3/uL (1.4-6.5); Neutrophils Percent Auto 65.8 % (43.0-75.0); Platelet Count 257 10^3/uL (150-450); Red Blood Count 4.13 10^6/uL (4.20-5.40); Red Cell Distribution Width 13.6 % (11.0-15.0)
[2024-05-09 07:20] LABS: Glucometer 102 mg/dL (74-106)
[2024-05-09] MEDS: LACTATED RINGER'S SOLUTION 1,000 ML 50 ML IV ×2 (08:13→09:20)
[2024-05-09] MEDS: CEFAZOLIN SODIUM/DEXTROSE,ISO 2 GM/50 ML PIGGYBACK IV (08:13)
[2024-05-09] MEDS: LIDOCAINE HCL 1% 100 MG/10 ML MDV INJ (08:58)
[2024-05-09] MEDS: BUPIVACAINE HCL 0.5% PF 50 MG/10 ML VIAL INJ (09:20)
--- NOTE | 2024-05-09 09:33 | PM.ORONB ---
Brief Operative Note Date of procedure: 05/09/24 Pre-op diagnosis general: Right leg wound down to and including muscle without necrosis Post-op diagnosis: same as pre-op Procedure: Procedure performed: Excisional debridement down to and including muscle with application of allogenic skin substitute, right leg Indications for procedure: Patient is a 63-year-old female with lupus, chronic steroid use and active smoker sustained an injury to her right anterior lateral leg on 04/01/2024. After the injury occurred she presented to the emergency department and was referred to my care. At the time of examination is obvious that she now only had a large full-thickness wound but also development of a hematoma. Due to the size of the wound and her poor healing capabilities we discussed the risks and benefits of local wound care versus operative debridement and skin substitute. Patient had elected to undergo surgical intervention and she was educated on potential risks and benefits. Intraoperative findings: Preoperative debridement measurements: 11.5 x 5.8 cm After removing all devitalized tissue and residual hematoma the wound communicated to the anterior compartment muscles. There is no signs of infection. No bone exposure. Wound did bleed appropriately. Procedure in detail: Patient was identified in pre op and consent was reviewed. Correct side and site were identified and marked. Pre-op antibiotics were started. Patient was brought to OR suite and place on table in a supine position. General anesthesia was administered. Operative extremity was prepped and draped in usual sterile fashion. Formal time-out was performed. With attention to the right anterior lateral leg hematoma in the central aspect of the wound was curetted noting a fibrogranular base and stable eschar. The eschar was excised sharply with a scalpel and forceps. Then further excisional debridement including the wound margins were debrided with the Versajet until the wound base was 100% granular and healthy. Wound did bleed appropriately and a temporary compression dressing and elevation were used to maintaining hemostasis. Then the allogenic skin substitute was placed onto the wound base and secured using a stapler. The wound was then dressed with Adaptic, 4 x 4's, ABDs, Kerlix and Juvenal wrap's. Patient tolerated the procedure and anesthesia well was transferred to the recovery room with vital signs stable and brisk capillary refill to the right toes. Postoperative plan: Discharge home under family's care. Weightbearing as tolerated but patient should rest, apply ice to the area and elevate as much as possible. Patient will follow-up in 3 to 4 days for her first dressing change but is to call the office with any concerns or issues. Prescriptions were sent to her pharmacy by Dr. Silverio Implants: TheraGen[employer] allogenic skin substitute Anesthesia: General-LMA Surgeon: Fidel Pineda Crisis Intervention Counselor: Lowell Juarez Estimated blood loss (mL): 25 Tourniquet time (min): 0 Condition: stable Disposition: PACU
[2024-05-09 09:36] LABS: Glucometer 89 mg/dL (74-106)
[2024-05-09] MEDS: OXYCODONE HCL/ACETAMINOPHEN 5MG/325MG 1 TAB PO (10:31)
== END 2024-05-09 10:44 | disposition home or self-care (01) ==
PROVIDERS: Anesthesiology; PCP Family Medicine; Visit Provider Podiatrist Foot & Ankle Surgery
PROC: (CPT 400; principal; 2024-05-09 08:05)
DX: S86.921A Laceration of unspecified muscle(s) and tendon(s) at lower leg level, right leg, initial encounter (principal); S80.11XA Contusion of right lower leg, initial encounter; F17.210 Nicotine dependence, cigarettes, uncomplicated; G25.81 Restless legs syndrome; E78.5 Hyperlipidemia, unspecified; K21.9 Gastro-esophageal reflux disease without esophagitis; I25.10 Atherosclerotic heart disease of native coronary artery without angina pectoris; Z90.710 Acquired absence of both cervix and uterus; I10 Essential (primary) hypertension; J44.9 Chronic obstructive pulmonary disease, unspecified; R06.00 Dyspnea, unspecified
CPT/HCPCS: 15002; 15271; 36415; 82948; 85025; J0131; J0665; J0690; J1110; J1885; J2250; J2371; J2405; J2704; J3010; Q4121

== ENCOUNTER 2024-05-13 11:38 | Outpatient (OUT) | payer OTHER, SELFPAY ==
--- OUTSIDE RECORDS SUMMARY | 2024-05-13 11:43 | XMS_ITS | CCD ---
Author Organization [facility] ion Partnership 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 Repository (1 source) Sulfamethoxazole / Trimethoprim; Translations: [SULFAMETHOXAZOLE-TR IMETHOPRIM] Drug Allergy 09-28-20 [facility] Repository Medications Current Medications Medication Drug [...] disease (4 sources) Atherosclerotic heart disease of [place] coronary artery without angina pectoris; Translations: [Atherosclerotic heart disease of [place] coronary artery with other forms of angina [...] Range Facility Office Visiton 04-14-2024 Follow-up visit [id number] Abi Boswell 1960 F Date Provider Department Center 04/14/2024 HENRIETTA FLOREZ Family History Problem Relation Age of Onset Hypertension Maternal Grandmother Transient ischemic attack Maternal Grandmother Heart attack Maternal Grandfather Heart failure Maternal Grandfather Family Status - Relation Status Age at Maternal Grandmother Maternal Grandfather Level of Service:[id number] MD OFFICE/OUTPATIENT ESTABLISHED MOD MDM 30 MIN Reason for Visit and Comments: Pre-op Exam [299148] Hypertension [539748] Chest Pain [864080] [facility] 36on 12-25-2023 36 Please let her know her labs showed her kidney function, liver function, blood counts and thyroid function were normal. Her LDL or bad cholesterol was elevated at 118. With patients with known heart disease, we recommend lowering the LDL to <70 to help reduce risk of worsening disease and help reduce risk of stroke, [place], etc. Recommend we switch her simvastatin to atrovastatin 40mg daily. Follow-up lipid panel and LFTs in 3 months. Also, her vit D was low, follow-up with Dr. Case on this. Thanks! Normal [facility] Telephoneon 12-25-2023 Telephone [id number] Boswell,Bernice F 1960 F Date Provider Department Center 12/25/2023 HENRIETTA FLOREZ Family History Problem Relation Age of Onset Hypertension Maternal Grandmother Transient ischemic attack Maternal Grandmother Heart attack Maternal Grandfather Heart failure Maternal Grandfather Family Status - Relation Status Age at Maternal Grandmother Maternal Grandfather Normal [facility] Office Visiton 11-11-2023 Follow-up visit [id number] Abi Boswell 1960 F Date Provider Department Center 11/11/2023 HENRIETTA FLOREZ BILL [facility] Family History Problem Relation Age of Onset Hypertension Maternal Grandmother Transient ischemic attack Maternal Grandmother Heart attack Maternal Grandfather Heart failure Maternal Grandfather Family Status - Relation Status Age at Maternal Grandmother Maternal Grandfather Level of Service:[id number] MD OFFICE/OUTPATIENT ESTABLISHED MOD MDM 30-39 MIN Reason for Visit and Comments: Chest Pain [269713] [facility]ary Ar[facility] [187[facility]. The patient was examined [...] is currently being treated with aspirin, statin beta-hcapin and long-acting nitrates. She continues to have [...] anatomy and decide on need for intervention. [facility] NURSNOTEon 10-26-2023 NURSNOTE RN educated pt on d/ c instructions. RN encouraged pt to voice any questions or concerns. Pt verbalizes no questions or concerns at this time. Pt was wheeled off of unit with all of belongings. [facility] Orders Onlyon 10-01-2023 Orders Only [id number] Abi Boswell 1960 Provider Department Center 10/01/2023 SCOT [facility] BILL [facility] Family History Problem Relation Age of Onset Hypertension Maternal Grandmother Transient ischemic attack Maternal Grandmother Heart attack Maternal Grandfather Heart failure Maternal Grandfather Family Status - Relation Status Age at Maternal Grandmother Maternal Grandfather [facility] HPon 09-28-2023 Cardiovascular Medicine [facility] SUBJECTIVE No chief complaint on file. [...] if needed., Disp: , Rfl: HYDROcodone-acetamino phen ([place]) 5-325 mg tablet, take 1 tablet by [...] slowly t (more content not included)... Normal [facility] Office Visiton 09-28-2023 Follow-up visit [id number] Abi Boswell 1960 F Date Provider Department Center 09/28/2023 [id number] GRIMALDO [facility]ILL [facility] Family History Problem Relation Age of Onset Hypertension Maternal Grandmother Transient ischemic attack Maternal Grandmother Heart attack Maternal Grandfather Heart failure Maternal Grandfather Family Status - Relation Status Age at Maternal Grandmother Maternal Grandfather Level of Service:[id number] MD OFFICE/OUTPATIENT NEW LOW MDM 30-44 MINUTES Normal [facility] [id number] 06-27-2022 SARS-CoV-2 (COVID-19) RNA CAROLINE+probe Ql (Unsp spec) Not detected Normal [facility] Comment on above: Result Comment: Rapid [...] management decisions. Fact sheet for Healthcare Providers: https://www.fda.gov/media/226743/download Fact sheet for Patients: https://www.fda.gov/media/164254/download Methodology: Isothermal Nucleic Acid Amplification Performed By: #### C OVRB #### [facility] [address] [place] [address] Hand Mica Plate Layer: Lanre Santana MD Basic Metabolic Panelon 05-31 Anion gap [Moles/Vol] 8 mmol/L Low 9 - 17 mmol/L [facility] Calcium [Mass/Vol] 9.8 mg/dL 8.6 - 10. 4 mg/dL [facility] Chloride [Moles/Vol] 107 mmol/L 98 - 10 7 mmol/L [facility] CO2 [Moles/Vol] 30 mmol/L 20 - 31 mmol/L [facility] Creatinine [Mass/Vol] 0.73 mg/dL 0.5 - 0.9 mg/dL [facility] GFR >60 60 - PI NF mL/min [facility] GFR Non- >60 60 - PINF mL/min [facility] Glucose [Mass/Vol] 97 mg/dL 70 - 99 mg/dL [facility] Interpretation and review of laboratory results Abnormal [facility] Potassium [Moles/Vol] 4.4 mmol/L 3.7 - 5.3 mmol/L [facility] Sodium [Moles/Vol] 145 mmol/L High 135 - 144 mmol/L [facility] Urea nitrogen (BldV) [Mass/Vol] 12 mg/dL 8 - 23 mg/dL [facility] Urea nitrogen/Creatinine (Bld) [Mass ratio] 16 9 - 20 [facility] Basic Metabolic Profon 06-20 (cont.) Normal [facility] Comment on above: Result Comment: Aver age GFR for 60-69 years old: 85 mL/min/1.73sq m Chronic Kidney Disease: <60 mL/min/1.73sq m Kidney failure: <15 mL/min/1.73sq m eGFR calculated using average adult body mass. Additional eGFR calculator available at: http://www.YYoga/multiple_crcl_2011.htm Performed By: #### C DP, BMP #### [facility] [address] [place], [place] [id number] Hand Mica Plate Layer: Lanre Santana MD Anion gap [Moles/Vol] 8 mmol/L Low 9-17 [facility] Comment on above: Performed By: #### C DP, BMP #### [facility] [address] [place], [place] [phone] Hand Mica Plate Layer: Lanre Santana MD BUN/CRE Ratio 16 Normal 9-20 [facility] Comment on above: Performed By: #### C DP, BMP #### [facility] [address] [place], [place] [id number] Hand Mica Plate Layer: Lanre Santana MD Calcium [Mass/Vol] 9.8 mg/dL Normal 8.6-10.4 [facility] Comment on above: Performed By: #### C DP, BMP #### [facility] [address] [place] [address] [place] [place], [place] [phone] Hand Mica Plate Layer: Lanre Santana MD Chloride [Moles/Vol] 107 mmol/L Normal 98-107 [facility] Comment on above: Performed By: #### C DP, BMP #### [facility] [address] [place] [address] [place] [place], [place] [phone] Hand Mica Plate Layer: Lanre Santana MD CO2 [Moles/Vol] 30 mmol/L Normal 20-31 [facility] Comment on above: Performed By: #### C DP, BMP #### [facility] [address] [place], [place] [id number] Hand Mica Plate Layer: Lanre Santana MD Creatinine [Mass/Vol] 0.73 mg/dL Normal 0.50-0.90 [facility] Comment on above: Performed By: #### C DP, BMP #### [facility] [address] [place], [place] [phone] Hand Mica Plate Layer: Lanre Santana MD GFR, Amer >60 Normal >60 [facility] Comment on above: Performed By: #### C DP, BMP #### [facility] [address] [place], [place] [phone] Hand Mica Plate Layer: Lanre Santana MD GFR,non Amer >60 Normal >60 [facility] Comment on above: Performed By: #### C DP, BMP #### [facility] [address] [place], [place] [phone] Hand Mica Plate Layer: Lanre Santana MD Glucose [Mass/Vol] 97 mg/dL Normal 70-99 [facility] Comment on above: Performed By: #### C DP, BMP #### [facility] [address] [place], [place] [phone] Hand Mica Plate Layer: Lanre Santana MD Potassium [Moles/Vol] 4.4 mmol/L Normal 3.7-5.3 [facility] Comment on above: Performed By: #### C DP, BMP #### [address] [place], [place] [phone] Hand Mica Plate Layer: Lanre Santana MD Sodium [Moles/Vol] 145 mmol/L High 135-144 [facility] Comment on above: Performed By: #### C DP, BMP #### [facility] [address] [place] [address] [place], [place] [phone] Hand Mica Plate Layer: Lanre Santana MD Staging: Normal [facility] Comment on above: Result Comment: Stag e 1: Some kidney damage normal GFR Stage 2: Mild kidney damage GFR 60-89 Stage 3: Moderate kidney damage GFR 30-59 Stage 4: Severe kidney damage GFR 15-29 Stage 5: Severe kidney damage GFR <15 ESRD - chronic treatment by dialysis or transplant Performed By: #### C DP, BMP #### [facility] [address] [place], [place] [phone] Hand Mica Plate Layer: Lanre Santana MD Urea nitrogen [Mass/Vol] 12 mg/dL Normal 8-23 [facility] Comment on above: Performed By: #### C DP, BMP #### [facility] [address] [place] [address] Hand Mica Plate Layer: Lanre Santana MD CBC with Auto Differentialon 06-20-2022 Absolute Eos # 0.12 [facility] Absolute Immature Granulocyte 0.03 [facility] Absolute Lymph # 1.85 [facility] Absolute [place] # 0.71 [facility] Basophils (Bld) [#/Vol] 0.03 10*3/uL [facility] Basophils/100 WBC (Bld) 0 % 0 - 2 % [facility] Eosinophils/100 WBC (Bld) 1 % 1 - 4 % [facility] Hematocrit (Bld) [Volume fraction] 42.7 % 36.3 - 47.1 % [facility] Hemoglobin (Bld) [Mass/Vol] 14.3 g/dL 11.9 - 15.1 g/dL [facility] Immature granulocytes/100 WBC (Bld) 0 % 0 [facility] Interpretation and review of laboratory results Abnormal [facility] Lymphocytes/100 WBC (Bld) 22 % Low 24 - 43 % [facility] MCH (RBC) [Entitic mass] 32.6 pg 25.2 - 33.5 pg [facility] MCHC (RBC) [Mass/Vol] 33.5 g/dL 28.4 - 34.8 g/dL [facility] MCV (RBC) [Entitic vol] 97.3 fL 82.6 - 102.9 fL [facility] Monocytes/100 WBC (Bld) 9 % 3 - 12 % [facility] NRBC Automated 0.0 0.0 per 100 WBC [facility] Platelet distribution width (Bld) [Ratio] 13.3 % 11.8 - 14.4 % [facility] Platelet mean volume (Bld) [Entitic vol] 8.4 fL 8.1 - 13.5 fL [facility] Platelets (Bld) [#/Vol] 278 10*3/uL [facility] RBC (Bld) [#/Vol] 4.39 10*6/uL 3.95 - 5.1 1 m/uL [facility] Segmented neutrophils/100 WBC (Bld) 68 % High 36 - 65 % [facility] Segs Absolute 5.62 [facility] WBC (Bld) [#/Vol] 8.4 10*3/uL [facility] CBC with Diffon 06-20-2022 Abs. Basophil 0.03 k/uL Normal 0.00-0.20 [facility] Comment on above: Performed By: #### C DP, BMP #### [facility] [address] [place] [address] [place] [address] Hand Mica Plate Layer: Lanre Santana MD Abs.Imm.Granulocyte 0.03 k/uL Normal 0.00-0.30 [facility] Comment on above: Performed By: #### C DP, BMP #### [facility] [address] [place] [address] [place], [place] [phone] Hand Mica Plate Layer: Lanre Santana MD Abs.Neutrophil (Seg) 5.62 k/uL Normal 1.50-8.10 [facility] Comment on above: Performed By: #### C DP, BMP #### [address] [place], [place] [phone] Hand Mica Plate Layer: Lanre Santana MD Basophils/100 WBC (Bld) 0 % Normal 0-2 [facility] Comment on above: Performed By: #### C DP, BMP #### [facility] [address] [place] [address] [place] [address] Hand Mica Plate Layer: Lanre Santana MD Eosinophils (Bld) [#/Vol] 0.12 10*3/uL Normal 0.00-0.44 [facility] Comment on above: Performed By: #### C DP, BMP #### [facility] [address] [place] [address] [place] [address] Hand Mica Plate Layer: Lanre Santana MD Eosinophils/100 WBC (Bld) 1 % Normal 1-4 [facility] Comment on above: Performed By: #### C DP, BMP #### [facility] [address] [place], [place] [phone] Hand Mica Plate Layer: Lanre Santana MD Erythrocyte distribution width (RBC) [Ratio] 13.3 % Normal 11.8-14.4 [facility] Comment on above: Performed By: #### C DP, BMP #### [facility] [address] [place] [address] Hand Mica Plate Layer: Lanre Santana MD Hematocrit (Bld) [Volume fraction] 42.7 % Normal 36.3-47.1 [facility] Comment on above: Performed By: #### C DP, BMP #### [address] [place], [place] [address] Hand Mica Plate Layer: Laner Santana MD Hemoglobin (Bld) [Mass/Vol] 14.3 g/dL Normal 11.9-15.1 [facility] Comment on above: Performed By: #### C DP, BMP #### [address] [place] [address] Hand Mica Plate Layer: Lanre Santana MD Immature granulocytes/100 WBC (Bld) 0 % Normal 0 [facility] Comment on above: Performed By: #### C DP, BMP #### [facility] [address] [place] [address] Dr. [place], [facility] Hand Mica Plate Layer: Lanre Santana MD Lymphocytes (Bld) [#/Vol] 1.85 10*3/uL Normal 1.10-3.70 [facility] Comment on above: Performed By: #### C DP, BMP #### [address] [place], [place] [phone] Hand Mica Plate Layer: Lanre Santana MD Lymphocytes/100 WBC (Bld) 22 % Low 24-43 [facility] Comment on above: Performed By: #### C DP, BMP #### [facility] [address] [place], [place] [phone] Hand Mica Plate Layer: Lanre Santana MD MCH (RBC) [Entitic mass] 32.6 pg Normal 25.2-33.5 [facility] Comment on above: Performed By: #### C DP, BMP #### [facility] [address] [place], [facility]83 Hand Mica Plate Layer: Lanre Santana MD MCHC (RBC) [Mass/Vol] 33.5 g/dL Normal 28.4-34.8 [facility] Comment on above: Performed By: #### C DP, BMP #### [facility] [address] [place], [place] [phone] Hand Mica Plate Layer: Lanre Santana MD MCV (RBC) [Entitic vol] 97.3 fL Normal 82.6-102.9 [facility] Comment on above: Performed By: #### C DP, BMP #### [facility] [address] [place], [place] [phone] Hand Mica Plate Layer: Lanre Santana MD Monocytes (Bld) [#/Vol] 0.71 10*3/uL Normal 0.10-1.20 [facility] Comment on above: Performed By: #### C DP, BMP #### [facility] [address] [place], [place] [phone] Hand Mica Plate Layer: Lanre Santana MD Monocytes/100 WBC (Bld) 9 % Normal 3-12 [facility] Comment on above: Performed By: #### C DP, BMP #### [facility] [address] [place] [address] Hand Mica Plate Layer: Lanre Santana MD Neutrophil (Seg) 68 % High 36-65 [facility] Comment on above: Performed By: #### C DP, BMP #### [facility] [address] [place], [place] [phone] Hand Mica Plate Layer: Lanre Santana MD NRBC Automated 0.0 per 100 WBC Normal 0.0 [facility] Comment on above: Performed By: #### C DP, BMP #### [facility] [address] [place], [place] [phone] Hand Mica Plate Layer: Lanre Santana MD Platelet mean volume (Bld) [Entitic vol] 8.4 fL Normal 8.1-13.5 [facility] Comment on above: Performed By: #### C DP, BMP #### [facility] [address] [place], [place] [phone] Hand Mica Plate Layer: Lanre Santana MD Platelets (Bld) [#/Vol] 278 10*3/uL Normal 138-453 [facility] Comment on above: Performed By: #### C DP, BMP #### [facility] [address] [place], [facility]83 Hand Mica Plate Layer: Lanre Santana MD RBC (Bld) [#/Vol] 4.39 10*6/uL Normal 3.95-5.11 [facility] Comment on above: Performed By: #### C DP, BMP #### [address] [place], [place] [phone] Hand Mica Plate Layer: Lanre Santana MD WBC (Bld) [#/Vol] 8.4 10*3/uL Normal 3.5-11.3 [facility] Comment on above: Performed By: #### C DP, BMP #### [facility] [address] [place] [address] Hand Mica Plate Layer: Lanre Santana MD EKG 12 LeadOrdered By: César mojica on 06-20-2022 Atrial Rate 65 BPM [employer] [facility] [employer] Work Phone: P [place] 65 degrees [employer] [facility] Work Phone: P-R Interval 134 ms [facility] Work Phone: Q-T Interval 432 ms [employer] Work Phone: QRS Duration 110 ms [employer] Work Phone: QTc Calculation (Bazett) 449 ms [employer] Work Phone: R [place] 72 degrees [employer] Work Phone: T [place] 43 degrees [employer] Work Phone: Ventricular Rate 65 BPM [employer] Work Phone: [employer] Work Phone: EKG 12 Leadon 06-20-2022 Normal sinus rhythm Incomplete right bundle branch block Cannot rule out Inferior infarct , age undetermined Abnormal ECG No previous ECGs available Confirmed by César Blanco MD ([id number]) on 06/20/2022 10:08:07 PM [facility] RADIOLOGY César Blanco MD - 06/20/2022 Normal sinus rhythm Incomplete right bundle branch block Cannot rule out Inferior infarct , age undetermined Abnormal ECG No previous ECGs available Confirmed by César Blanco MD ([id number]) on 06/20/2022 10:08:07 PM [employer] Work Phone: Laboratory - Chemistry and C hemistry - challengeon 06-20-2022 GFR/1.73 sq M.predicted MDRD (S/P/Bld) [Vol rate/Area] [employer] Comment on above: Average GFR for 60-6 9 years old: 85 mL/min/1.73sq m Chronic Kidney Disease: <60 mL/min/1.73sq m Kidney failure: <15 mL/min/1.73sq m eGFR calculated using average adult body mass. Additional eGFR calculator available at: http://www.YYoga/multiple_crcl_2012.htm Stage 1: Some kidney damage normal GFR [...] by: CARTER COKER Date: 2022-06-06 15:52 Normal [facility] Vital Signs Date Time Vital Sign Value Performing Clinician Faci lity 06-27-2022 14:30-0400 Diastolic blood pressure 68 mm[Hg] Carter Torres MD Work Phone: [employer] 06-27-2022 14:30-0400 Heart rate 68 /min Carter Torres MD Work Phone: [employer] 06-27-2022 14:30-0400 Respiratory rate 23 /min Carter Torres MD Work Phone: [employer] 06-27-2022 14:30-0400 SaO2% (BldA) [Mass fraction] 94 % Carter Torres MD Work Phone: [employer] 06-27-2022 14:30-0400 Systolic blood pressure 117 mm[Hg] Carter Torres MD Work Phone: [employer] 06-27-2022 14:00-0400 Body temperature 97 [degF] Carter Torres MD Work Phone: [employer] 06-27-2022 11:16-0400 Body height 162.6 cm Carter Torres MD Work Phone: [employer] 06-27-2022 11:16-0400 Body mass index (BMI) [Ratio] 30.04 kg/m2 Carter Torres MD Work Phone: [employer] 06-27-2022 11:16-0400 Body weight 79.38 kg Carter Torres MD Work Phone: [employer] Encounters Encounter Date Encounter Type Care Provider Facility Start: 04-14-2024 End: 04-14-2024 ambulatory [facility] Start: 11-11-2023 End: 11-11-2023 ambulatory [facility] Start: 10-26-2023 End: 10-26-2023 ambulatory [facility] Start: 09-28-2023 End: 09-28-2023 ambulatory [facility] Start: 06-27-2022 End: 06-27-2022 ambulatory [facility] Start: 06-27-2022 End: 06-27-2022 Subsequent hospital visit by physician Carter Torres MD Work Phone: [facility] Start: 06-20-2022 End: 06-21-2022 ambulatory [facility] Start: 06-20-2022 End: 06-20-2022 Subsequent hospital visit by physician Ron Case MD Work Phone: [facility] EKG Start: 06-05-2022 End: 06-06-[address] RON CASE Facility:H1 Procedures Date Procedure Procedure Detail Performing Clinician Start: 06-20-2022 Ecg routine ecg w/le ast 12 lds w/i&r Carter Torres MD Work Phone: Start: 06-20-2022 Basic metabolic pane l calcium total Carter Torres MD Work Phone: Plan of Treatment Date Care Activity Detail Author Start: 07-31-2022 Influenza vaccination Flu vaccine (# 1) [facility] Start: 06-27-2022 End: 06-27-2022 Arthroscopy knee diagnostic w/wo synovial bx spx KNEE ARTHROSCOPY Acute medial meniscus tear of right knee, initial encounter 06/27/2022 1:07 PM EDT [facility] Start: 2010 Screening for malign ant neoplasm of breast Breast cancer screen [facility] Start: 2010 Shingles vaccine (1 of 2) Shingles vaccine (1 of 2) [facility] Start: 2005 Screening for malign ant neoplasm of colon [facility] Start: 2000 Lipid panel Lipids [facility] Start: 1979 DTaP/Tdap/Td vaccine (1 - Tdap) DTaP/Tdap/Td vaccine (1 - Tdap) [facility] Start: 1978 Hepatitis C screening Hepatitis C sc reen [facility] Start: 1975 HIV screening HIV screen [facility] Start: 1972 Depression Screen Depression Screen [facility] Start: 1966 Pneumococcal 0-64 ye ars Vaccine (1 - PCV) Pneumococcal 0-64 years Vaccine (1 - PCV) [facility] Start: 1960 COVID-19 Vaccine (#1) COVID-19 Vacci ne (#1) [facility] Oxygen therapy [[facility]ini [facility] Data Set] Initiate Oxygen Therapy Protocol Respiratory Care Routine As Needed until discontinued starting 06/27/2022 [facility] Work Phone: Comment on above: As Needed until disc ontinued starting 06/27/2022 Payers Date Payer Category Payer Unknown [id number] 2.16.8 [id number] 1960 Unknown [id number] 2.16.8 [id number] 1960 Unknown [id number] 2.16.8 [id number] 1960 Unknown [id number] 2.16.8 [id number] 1960 Unknown [id number] 2.16.84 [id number] 1959 Unknown [id number] [id number] Social History Date Type Detail Facility Start: 06-21-2020 Tobacco smoking stat [facility] Smokes tobacco daily [employer] Phone: History of tobacco use Cigarette Smoker B ON [employer] Phone: Start: 06-21-2020 Cigarettes smoked current (pack per day) - Reported 0.5 [employer] Phone: Start: 06-21-2020 Tobacco use and exposure Smoke less tobacco non-user [employer] Phone: Start: 12-05-2021 End: 06-27-2022 Alcohol intake Lifetime non-drinker (finding) [employer] Phone: Start: 06-21-2020 History SDOH Alcohol Frequency 1 [employer] Phone: Start: 1960 Sex Assigned At Not on file B ON [employer] Phone: Start: 06-17-2022 End: 06-27-2022 Exposure to SARS-CoV-2 (event) Not sure [employer] Phone: Progress note 04-14-2024 Note Date & [...] All other systems reviewed and are negative. [facility] Progress note 04-14-2024 Note Date & Type Note Facility 04-14-[address] [facility] SUBJECTIVE Chief Complaint Patient presents [...] breath Acute sinusitis Coronary artery disease involving [place] coronary artery of [place] heart without angina pectoris Past Medical History: Diagnosis Date Hyperlipidemia Lupus (systemic lupus erythematosus) ([facility] Past Surgical History: Procedure Laterality Date BLADDER [...] the same time., Disp: , Rfl: HYDROcodone-acetaminophen ([place]) 5-325 mg tablet, take 1 tablet by [...] Rate and R (more content not included)... [facility] Progress note 11-11-2023 Note Date & Type Note Facility 11-11-2023 Note Patient here for [facility] low up heart cath. Isosorbide was increased [...] All other systems reviewed and are negative. [facility] Progress note 11-11-2023 Note Date & Type Note Facility 11-11-2023 Note Cardiovascular Medic [facility] SUBJECTIVE Chief Complaint Patient presents with [...] breath Acute sinusitis Coronary artery disease involving [place] coronary artery of [place] heart without angina pectoris Past Medical History: Diagnosis Date Hyperlipidemia Lupus (systemic lupus erythematosus) ([facility]) Past Surgical History: Procedure Laterality Date BLADDER [...] tablet, if needed., Disp: , Rfl: HYDROcodone-acetaminophen ([place]) 5-325 mg tablet, take 1 tablet by [...] No focal de (more content not included)... [facility] Clinical Note 10-26-2023 Note Date & Type Note Facility 10-26-2023 Note Patient: Abi adam Procedure Information Date/Time: 10/26/23 0800 Procedure: Coronary angiography (Left) Location: [facility]LE[facility] TEACHER 2 BIPLANE / [facility] (Cath) Providers: Marj Abraham MD Clinical information reviewed: Allergies Meds OB Status Physical Exam Airway Mallampati: III TM distance: >3 FB Neck ROM: full Cardiovascular Rhythm: regular Rate: normal Dental Pulmonary Abdominal Anesthesia Plan ASA 3 other Anesthetic plan and risks discussed with patient. Use of blood products discussed with patient who consented to blood products. Additional Equipment Requests [facility] Progress note 09-28-2023 Note Date & [...] All other systems reviewed and are negative. [facility] Progress note 09-28-2023 Note Date & [...] tablet, if needed., Disp: , Rfl: HYDROcodone-acetaminophen ([place]) 5-325 mg tablet, take 1 tablet by [...] working slowly t (more content not included)... [facility] History of Present illness Narrative 06-27-2022 [...] require patient to operate motor Vehicle. Yes [facility] Preadmission Testing Name: Abi Boswell : 1960 [...] Take [x] Ride Home [x]No Jewelry/Contact Lenses/Nail Estonian [] Prep/Lax/Clear Liquids [] Chlorhexidene DOS Patient [...] with patient? Yes documented in this encounter [employer] Phone: Hospital Discharge instructions 06-27-2022 Discharge Instructions [...] feet do not touch the floor, 2. Data Processing Auditor the sides of the surface for support. 3. Raise one foot until your knee is completely straight 4. Slowly return to the starting position and relax. 5. Repeat 20 times ANKLE PUMPS 1. Bend ankles up and down, alternating foot 2. Repeat 25 times Carter Torres M.D. 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 Relationship Specialty Start Date End Date Ron Case MD [address] [phone] PCP - General Family Medicine 06/21/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 Relationship Specialty Start Date End Date Ron Case MD [address], [place] [phone] PCP - General Family Medicine 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/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 Structures Relationship Specialty Start Date End Date Ron Case MD [address] [place] [phone] PCP - General Family Medicine 06/21/20 INFORMATION SOURCE (unrecogn ized section and content) DATE CREATED AUTHOR 06/22/2022 [facility] DATE CREATED AUTHOR AUTHOR'S ORGANIZ ATION 07/01/2022 [facility] DATE CREATED AUTHOR AUTHOR'S ORGANIZ ATION 09/22/2022 [facility] DATE CREATED AUTHOR AUTHOR'S ORGANIZ ATION 04/17/2024 [facility] Reason for Visit (unrecogniz ed section and content) Specialty Diagnoses / Procedures Referred By Herber t Referred To Contact Diagnoses Acute medial meniscus tear of right knee, initial encounter Acute medial meniscus tear of right knee, initial encounter [S83.241A] Procedures MD KNEE SCOPE,DIAGNOSTIC MD ARTHRS KNE SURG W/MENISCECTOMY MED/LAT W/SHVG KNEE ARTHROSCOPY Carter Torres MD [address] [place] [address] [facility] [id number] [place] [address] Referral ID Status Reason Start Date Expiration Date Visits Re quested Visits Authorized [id number] 1 1 Ordered Prescriptions (unrec ognized section [...] mL IVPB (duplex) (COMPLETED) 2,000 mg, 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 [employer] [facility]. provides no warranty or guarantee of the accuracy or completeness of information in this document.
== END 2024-05-13 11:39 | disposition home or self-care (01) ==
LOC: WC 11:38
PROVIDERS: PCP Family Medicine; Visit Provider Podiatrist Foot & Ankle Surgery
DX: T81.89XA Other complications of procedures, not elsewhere classified, initial encounter (principal)
CPT/HCPCS: G0463

== ENCOUNTER 2024-05-27 11:00 | Outpatient (OUT) | payer OTHER, SELFPAY | END 2024-05-27 11:01 | disposition home or self-care (01) | LOC: WC 11:00 | PROVIDERS: PCP Family Medicine; Visit Provider Podiatrist Foot & Ankle Surgery | DX: T81.89XA Other complications of procedures, not elsewhere classified, initial encounter (principal) | CPT/HCPCS: G0463 ==

== ENCOUNTER 2024-05-30 09:57 | Outpatient (OUT) | payer OTHER, SELFPAY ==
--- OUTSIDE RECORDS SUMMARY | 2024-05-27 08:54 | XMS_ITS ---
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 Name Role Phone Ron Case MD Primary Care Provider [phone] CARTER TORRES Referring Unavailable RON CASE Primary [...] Translations: [MORPHINE] Drug Allergy 06-21-20 Hives, Palpitations [facility] (1 source) Morphine Drug Allergy [facility] Repository (1 source) Sulfamethoxazole / Trimethoprim; Translations: [SULFAMETHOXAZOLE-TR IMETHOPRIM] Drug Allergy 09-28-20 [facility] Repository Encounters Encounter Date Encounter Type Care Provider Facility Start: 04-14-2024 End: 04-14-2024 [facility] Start: 11-11-2023 End: 11-11-2023 ambulatory [facility] Start: 10-26-2023 End: 10-26-2023 ambulatory MARJ ABRAHAM [facility] Start: 09-28-2023 End: 09-28-2023 ambulatory LORETA GRIMALDO [facility] Start: 06-27-2022 End: 06-27-2022 ambulatory CARTER [facility] Start: 06-27-2022 End: 06-27-2022 Subsequent hospital visit by physician Carter Torres MD Work Phone: [facility] Start: 06-20-2022 End: 06-21-2022 ambulatory [facility] Start: 06-20-2022 End: 06-20-2022 Subsequent [...] completed) Payers Date Payer Category Payer Unknown [id number] [id number] [id number] 1960 Unknown [id number] [id number] 1960 Unknown [id number] 2.16.8 [id number] 1960 Unknown [id number] 2.16.8 [id number] 1960 Unknown [id number] 2.16.84 [id number] 1959 Unknown [id number] [id number] [id number] Plan of Treatment Date Care Activity Detail Author Start: 07-31-2022 Influenza vaccination Flu vaccine (# 1) [facility] Start: 06-27-2022 End: 06-27-2022 Arthroscopy knee diagnostic w/wo synovial bx spx KNEE ARTHROSCOPY Acute medial meniscus tear of right knee, initial encounter 06/27/2022 1:07 PM EDT [facility] Start: 2010 Screening for malign ant neoplasm of breast Breast cancer screen [facility] Start: 2010 Shingles vaccine (1 of 2) Shingles vaccine (1 of 2) [facility] Start: 2005 Screening for malign ant neoplasm of colon [facility] Start: 2000 Lipid panel Lipids [facility] Start: 1979 DTaP/Tdap/Td vaccine (1 - Tdap) DTaP/Tdap/Td vaccine (1 - Tdap) [facility] Start: 1978 Hepatitis C screening Hepatitis C sc reen [facility] Start: 1975 HIV screening HIV screen [facility] Start: 1972 Depression Screen Depression Screen [facility] Start: 1966 Pneumococcal 0-64 ye ars Vaccine (1 - PCV) Pneumococcal 0-64 years Vaccine (1 - PCV) [facility] Start: 1960 COVID-19 Vaccine (#1) COVID-19 Vacci ne (#1) [facility] Oxygen therapy [[facility] Data Set] Initiate Oxygen Therapy Protocol Respiratory Care Routine As Needed until discontinued starting 06/27/2022 [facility] Work Phone: Comment on above: As Needed until disc ontinued starting 06/27/2022 Problems Active Problems Problem Classification Problem Date Documented Date Episodic/Chronic Cardiac dysrhythmias (2 sources) Palpitations; Translations: [Palpitations] Onset: 04-14-2024 Episodic Coronary atherosclerosis and other heart disease (4 sources) Atherosclerotic heart disease of [place] coronary artery without angina pectoris; Translations: [Atherosclerotic heart disease of [place] coronary artery with other forms of angina [...] Range Facility Office Visiton 04-14-2024 Follow-up visit [id number] Abi Boswell 1960 Provider Department Center 04/14/2024 HENRIETTA FLOREZ Family History Problem Relation Age of Onset Hypertension Maternal Grandmother Transient ischemic attack Maternal Grandmother Heart attack Maternal Grandfather Heart failure Maternal Grandfather Family Status - Relation Status Age at Maternal Grandmother Maternal Grandfather Level of Service:49438 [place] OFFICE/OUTPATIENT ESTABLISHED MOD MDM 30 MIN Reason for Visit and Comments: Pre-op Exam [140925] Hypertension [875112] Chest Pain [168957] Normal [facility] 36on 12-25-2023 36 Please let her know her labs showed her kidney function, liver function, blood counts and thyroid function were normal. Her LDL or bad cholesterol was elevated at 118. With patients with known heart disease, we recommend lowering the LDL to <70 to help reduce risk of worsening disease and help reduce risk of stroke, MD, etc. Recommend we switch her simvastatin to atrovastatin 40mg daily. Follow-up lipid panel and LFTs in 3 months. Also, her vit D was low, follow-up with Dr. Case on this. Thanks! Normal [facility] Telephoneon 12-25-2023 Telephone [id number] BoswellAbi lynn 1960 Provider Department Center 12/25/2023 HENRIETTA FLOREZ Raheem Family History Problem Relation Age of Onset Hypertension Maternal Grandmother Transient ischemic attack Maternal Grandmother Heart attack Maternal Grandfather Heart failure Maternal Grandfather Family Status - Relation Status Age at Maternal Grandmother Maternal Grandfather Normal [facility] Office Visiton 11-11-2023 Follow-up visit [id number] Boswell,Bernice F 1960 Date Provider Department Center 11/11/2023 HENRIETTA FLOREZ BILL [facility] Family History Problem Relation Age of Onset Hypertension Maternal Grandmother Transient ischemic attack Maternal Grandmother Heart attack Maternal Grandfather Heart failure Maternal Grandfather Family Status - Relation Status Age at Maternal Grandmother Maternal Grandfather Level of Service:98207 [place] OFFICE/OUTPATIENT ESTABLISHED MOD MDM 30-39 MIN Reason for Visit and Comments: Chest Pain [407880] Coronary Artery Disease [187] [facility]. The patient [...] anatomy and decide on need for intervention. [facility] NURSNOTEon 10-26-2023 NURSNOTE RN educated pt on d/ c instructions. RN encouraged pt to voice any questions or concerns. Pt verbalizes no questions or concerns at this time. Pt was wheeled off of unit with all of belongings. [facility] Orders Onlyon 10-01-2023 Orders Only [id number] Abi Boswell 1960 F Date Provider Department Center 10/01/2023 Rafael[facility] BILL [facility] Family History Problem Relation Age of Onset Hypertension Maternal Grandmother Transient ischemic attack Maternal Grandmother Heart attack Maternal Grandfather Heart failure Maternal Grandfather Family Status - Relation Status Age at Maternal Grandmother Maternal Grandfather [facility] HPon 09-28-2023 Cardiovascular Medicine [facility] SUBJECTIVE No chief complaint on file. [...] if needed., Disp: , Rfl: HYDROcodone-acetamino phen (Taylor) 5-325 mg tablet, take 1 tablet by [...] slowly t (more content not included)... Normal [facility] Office Visiton 09-28-2023 Follow-up visit [id number] Abi Boswell F 1960 F Date Provider Department Center 09/28/2023 [id number] GRIMALDO BILL [facility] Family History Problem Relation Age of Onset Hypertension Maternal Grandmother Transient ischemic attack Maternal Grandmother Heart attack Maternal Grandfather Heart failure Maternal Grandfather Family Status - Relation Status Age at Maternal Grandmother Maternal Grandfather Level of Service:71498 [place] OFFICE/OUTPATIENT NEW LOW MDM 30-44 MINUTES Normal [facility] [id number] 06-27-2022 SARS-CoV-2 (COVID-19) RNA CAROLINE+probe Ql (Unsp spec) Not detected Normal [facility] Comment on above: Result Comment: Rapid [...] management decisions. Fact sheet for Healthcare Providers: https://www.fda.gov/media/000599/download Fact sheet for Patients: https://www.fda.gov/media/539441/download Methodology: Isothermal Nucleic Acid Amplification Performed By: #### C OVRB #### [facility] [address] [place] [address] Airline Attendant: Lanre Santana MD Basic Metabolic Panelon 05-31 Anion gap [Moles/Vol] 8 mmol/L Low 9 - 17 mmol/L [facility] Calcium [Mass/Vol] 9.8 mg/dL 8.6 - 10. 4 mg/dL [facility] Chloride [Moles/Vol] 107 mmol/L 98 - 10 7 mmol/L [facility] CO2 [Moles/Vol] 30 mmol/L 20 - 31 mmol/L [facility] Creatinine [Mass/Vol] 0.73 mg/dL 0.5 - 0.9 mg/dL [facility] GFR >60 60 - PI NF mL/min [facility] GFR Non- >60 60 - PINF mL/min [facility] Glucose [Mass/Vol] 97 mg/dL 70 - 99 mg/dL [facility] Potassium [Moles/Vol] 4.4 mmol/L 3.7 - 5.3 mmol/L [facility] Sodium [Moles/Vol] 145 mmol/L High 135 - 144 mmol/L [facility] Urea nitrogen (BldV) [Mass/Vol] 12 mg/dL 8 - 23 mg/dL [facility] Urea nitrogen/Creatinine (Bld) [Mass ratio] 16 9 - 20 [facility] Basic Metabolic Profon 06-20 (cont.) Normal [facility] Comment on above: Result Comment: Aver age GFR for 60-69 years old: 85 mL/min/1.73sq m Chronic Kidney Disease: <60 mL/min/1.73sq m Kidney failure: <15 mL/min/1.73sq m eGFR calculated using average adult body mass. Additional eGFR calculator available at: http://www.[employer]/multiple_crcl_2011.htm Performed By: #### C DP, BMP #### [facility] [address] [place] [address] Airline Attendant: Lanre Santana MD Anion gap [Moles/Vol] 8 mmol/L Low 9-17 [facility] Comment on above: Performed By: #### C DP, BMP #### [facility] [address] [place], [place] [id number] Airline Attendant: Lanre Santana MD BUN/CRE Ratio 16 Normal 9-20 [facility] Comment on above: Performed By: #### C DP, BMP #### [facility] [address] [place] [address] Airline Attendant: Lanre Santana MD Calcium [Mass/Vol] 9.8 mg/dL Normal 8.6-10.4 [facility] Comment on above: Performed By: #### C DP, BMP #### [facility] [address] [place], [place] [id number] Airline Attendant: Lanre Santana MD Chloride [Moles/Vol] 107 mmol/L Normal 98-107 [facility] Comment on above: Performed By: #### C DP, BMP #### [facility] [address] [place], [place] [id number] Airline Attendant: Lanre Santana MD CO2 [Moles/Vol] 30 mmol/L Normal 20-31 [facility] Comment on above: Performed By: #### C DP, BMP #### [facility] [address] [place], [place] [id number] Airline Attendant: Lanre Santana MD Creatinine [Mass/Vol] 0.73 mg/dL Normal 0.50-0.90 [facility] Comment on above: Performed By: #### C DP, BMP #### [facility] [address] [place] [address] Airline Attendant: Lanre Satnana MD GFR, Amer >60 Normal >60 [facility] Comment on above: Performed By: #### C DP, BMP #### [facility] [address] [place], [place] [id number] Airline Attendant: Lanre Santana MD GFR,non Amer >60 Normal >60 [facility] Comment on above: Performed By: #### C DP, BMP #### [facility] [address] [place], [place] [address] Airline Attendant: Lanre Santana MD Glucose [Mass/Vol] 97 mg/dL Normal 70-99 [facility] Comment on above: Performed By: #### C DP, BMP #### [facility] [address] [place], [place] [id number] Airline Attendant: Lanre Santana MD Potassium [Moles/Vol] 4.4 mmol/L Normal 3.7-5.3 [facility] Comment on above: Performed By: #### C DP, BMP #### [address] [place], [place] [id number] Airline Attendant: Lanre Santana MD Sodium [Moles/Vol] 145 mmol/L High 135-144 [facility] Comment on above: Performed By: #### C DP, BMP #### [address] [place], [place] [id number] Airline Attendant: Lanre Santana MD Staging: Normal [facility] Comment on above: Result Comment: Stag e 1: Some kidney damage normal GFR Stage 2: Mild kidney damage GFR 60-89 Stage 3: Moderate kidney damage GFR 30-59 Stage 4: Severe kidney damage GFR 15-29 Stage 5: Severe kidney damage GFR <15 ESRD - chronic treatment by dialysis or transplant Performed By: #### C DP, BMP #### [facility] [address] [place], [place] [id number] Airline Attendant: Lanre Santana MD Urea nitrogen [Mass/Vol] 12 mg/dL Normal 8-23 [facility] Comment on above: Performed By: #### C DP, BMP #### [address] [place] [address] Airline Attendant: Lanre Santana MD CBC with Auto Differentialon 06-20-2022 Absolute Eos # 0.12 [facility] Absolute Immature Granulocyte 0.03 [facility] Absolute Lymph # 1.85 [facility] Absolute Stanley # 0.71 [facility] Basophils (Bld) [#/Vol] 0.03 10*3/uL [facility] Basophils/100 WBC (Bld) 0 % 0 - 2 % [facility] Eosinophils/100 WBC (Bld) 1 % 1 - 4 % [facility] Hematocrit (Bld) [Volume fraction] 42.7 % 36.3 - 47.1 % [facility] Hemoglobin (Bld) [Mass/Vol] 14.3 g/dL 11.9 - 15.1 g/dL [facility] Immature granulocytes/100 WBC (Bld) 0 % 0 [facility] Lymphocytes/100 WBC (Bld) 22 % Low 24 - 43 % [facility] MCH (RBC) [Entitic mass] 32.6 pg 25.2 - 33.5 pg [facility] MCHC (RBC) [Mass/Vol] 33.5 g/dL 28.4 - 34.8 g/dL [facility] MCV (RBC) [Entitic vol] 97.3 fL 82.6 - 102.9 fL [facility] Monocytes/100 WBC (Bld) 9 % 3 - 12 % [facility] NRBC Automated 0.0 0.0 per 100 WBC [facility] Platelet distribution width (Bld) [Ratio] 13.3 % 11.8 - 14.4 % [facility] Platelet mean volume (Bld) [Entitic vol] 8.4 fL 8.1 - 13.5 fL [facility] Platelets (Bld) [#/Vol] 278 10*3/uL [facility] RBC (Bld) [#/Vol] 4.39 10*6/uL 3.95 - 5.1 1 m/uL [facility] Segmented neutrophils/100 WBC (Bld) 68 % High 36 - 65 % [facility] Segs Absolute 5.62 [facility] WBC (Bld) [#/Vol] 8.4 10*3/uL [facility] CBC with Diffon 06-20-2022 Abs. Basophil 0.03 k/uL Normal 0.00-0.20 [facility] Comment on above: Performed By: #### C DP, BMP #### [facility] [address] [place] [address] Dr[place], [place] [address] Airline Attendant: Lanre Santana MD Abs.Imm.Granulocyte 0.03 k/uL Normal 0.00-0.30 [facility] Comment on above: Performed By: #### C DP, BMP #### [address] [place] [address] Airline Attendant: Lanre Santana MD Abs.Neutrophil (Seg) 5.62 k/uL Normal 1.50-8.10 [facility] Comment on above: Performed By: #### C DP, BMP #### [address] [place] [address] Airline Attendant: Lanre Santana MD Basophils/100 WBC (Bld) 0 % Normal 0-2 [facility] Comment on above: Performed By: #### C DP, BMP #### [address] [place] [id number] Airline Attendant: Lanre Santana MD Eosinophils (Bld) [#/Vol] 0.12 10*3/uL Normal 0.00-0.44 [facility] Comment on above: Performed By: #### C DP, BMP #### [facility] [address] [place] [address] [place] [address] Airline Attendant: Lanre Santana MD Eosinophils/100 WBC (Bld) 1 % Normal 1-4 [facility] Comment on above: Performed By: #### C DP, BMP #### [address] [place] [address] Airline Attendant: Lanre Santana MD Erythrocyte distribution width (RBC) [Ratio] 13.3 % Normal 11.8-14.4 [facility] Comment on above: Performed By: #### C DP, BMP #### [address] [place], [facility] Airline Attendant: Lanre Santana MD Hematocrit (Bld) [Volume fraction] 42.7 % Normal 36.3-47.1 [facility] Comment on above: Performed By: #### C DP, BMP #### [address] [place] [id number] Airline Attendant: Lanre Santana MD Hemoglobin (Bld) [Mass/Vol] 14.3 g/dL Normal 11.9-15.1 [facility] Comment on above: Performed By: #### C DP, BMP #### [address] [place], [facility] Airline Attendant: Lanre Santana MD Immature granulocytes/100 WBC (Bld) 0 % Normal 0 [facility] Comment on above: Performed By: #### C DP, BMP #### [address] [place], [facility] Airline Attendant: Lanre Santana MD Lymphocytes (Bld) [#/Vol] 1.85 10*3/uL Normal 1.10-3.70 [facility] Comment on above: Performed By: #### C DP, BMP #### [facility] [address] [place] [address] Dr[place], [facility] Airline Attendant: Lanre Santana MD Lymphocytes/100 WBC (Bld) 22 % Low 24-43 [facility] Comment on above: Performed By: #### C DP, BMP #### [address] [place], [facility] Airline Attendant: Lanre Santana MD MCH (RBC) [Entitic mass] 32.6 pg Normal 25.2-33.5 [facility] Comment on above: Performed By: #### C DP, BMP #### [facility] [address] [place], [place] [address] Airline Attendant: Lanre Santana MD MCHC (RBC) [Mass/Vol] 33.5 g/dL Normal 28.4-34.8 [facility] Comment on above: Performed By: #### C DP, BMP #### [facility] [address] [place], [place] [address] Airline Attendant: Lanre Santana MD MCV (RBC) [Entitic vol] 97.3 fL Normal 82.6-102.9 [facility] Comment on above: Performed By: #### C DP, BMP #### [address] [place] [address] Airline Attendant: Lanre Santana MD Monocytes (Bld) [#/Vol] 0.71 10*3/uL Normal 0.10-1.20 [facility] Comment on above: Performed By: #### C DP, BMP #### [facility] [address] [place], [place] [address] Airline Attendant: Lanre Santana MD Monocytes/100 WBC (Bld) 9 % Normal 3-12 [facility] Comment on above: Performed By: #### C DP, BMP #### [facility] [address] [place], [place] [address] Airline Attendant: Lanre Santana MD Neutrophil (Seg) 68 % High 36-65 [facility] Comment on above: Performed By: #### C DP, BMP #### [facility] [address] [place] [address] Airline Attendant: Lanre Santana MD NRBC Automated 0.0 per 100 WBC Normal 0.0 [facility] Comment on above: Performed By: #### C DP, BMP #### [facility] [address] [place] [address] Airline Attendant: Lanre Santana MD Platelet mean volume (Bld) [Entitic vol] 8.4 fL Normal 8.1-13.5 [facility] Comment on above: Performed By: #### C DP, BMP #### [facility] [address] [place] [address] Airline Attendant: Lanre Santana MD Platelets (Bld) [#/Vol] 278 10*3/uL Normal 138-453 [facility] Comment on above: Performed By: #### C DP, BMP #### [facility] [address] [place] [address] Airline Attendant: Lanre Santana MD RBC (Bld) [#/Vol] 4.39 10*6/uL Normal 3.95-5.11 [facility] Comment on above: Performed By: #### C DP, BMP #### [facility] [address] [place] [address] Airline Attendant: Lanre Santana MD WBC (Bld) [#/Vol] 8.4 10*3/uL Normal 3.5-11.3 [facility] Comment on above: Performed By: #### C DP, BMP #### [facility] [address] [place] [address] Airline Attendant: Lanre Santana MD EKG 12 LeadOrdered By: César mojica on 06-20-2022 Atrial Rate 65 BPM [employer] [facility] Phone: P [place] 65 degrees [employer] [facility] [employer] Phone: P-R Interval 134 ms [employer] [facility] Phone: Q-T Interval 432 ms [employer] [facility]ITAL[facility] Work Phone: QRS Duration 110 ms [employer] [facility] Phone: QTc Calculation (Bazett) 449 ms [employer] Work Phone: R [place] 72 degrees [employer] Work Phone: T [place] 43 degrees [employer] Work Phone: Ventricular Rate 65 BPM [employer] [facility] Work Phone: [employer] Work Phone: EKG 12 Leadon 06-20-2022 Normal sinus rhythm Incomplete right bundle branch block Cannot rule out Inferior infarct , age undetermined Abnormal ECG No previous ECGs available Confirmed by César Blanco MD ([id number]) on 06/20/2022 10:08:07 PM [facility] César Blanco MD - 06/20/2022 Normal sinus rhythm Incomplete right bundle branch block Cannot rule out Inferior infarct , age undetermined Abnormal ECG No previous ECGs available Confirmed by César Blanco MD ([id number]) on 06/20/2022 10:08:07 PM [facility] [employer] Work Phone: Laboratory - Chemistry and C hemistry - challengeon 06-20-2022 GFR/1.73 sq M.predicted MDRD (S/P/Bld) [Vol rate/Area] [facility] [employer] Comment on above: Average GFR for 60-6 9 years old: 85 mL/min/1.73sq m Chronic Kidney Disease: <60 mL/min/1.73sq m Kidney failure: <15 mL/min/1.73sq m eGFR calculated using average adult body mass. Additional eGFR calculator available at: http://www.[employer].Kolorific/multiple_crcl_2012.htm Stage 1: Some kidney damage normal GFR Stage 2: Mild kidney damage GFR 60-89 Stage 3: Moderate kidney damage GFR 30-59 Stage 4: Severe kidney damage GFR 15-29 Stage 5: Severe kidney damage GFR <15 ESRD - chronic treatment by dialysis or transplant No Panel Informationon 06-20 Interpretation and review of laboratory results Abnormal [facility] [employer] MRI KNEE RT WO CONon 022 MRI [...] by: CARTER COKER Date: 2022-06-06 15:52 Normal [facility] Social History Date Type Detail Facility Start: 06-17-2022 End: 06-27-2022 Exposure to SARS-CoV-2 (event) Not sure [employer] Phone: Start: 12-05-2021 End: 06-27-2022 Alcohol intake Lifetime non-drinker (finding) [employer] Phone: Start: 06-21-2020 Tobacco smoking stat [facility] Smokes tobacco daily [employer] Phone: Start: 06-21-2020 Cigarettes smoked current (pack per day) - Reported 0.5 [employer] Phone: Start: 06-21-2020 Tobacco use and exposure Smoke less tobacco non-user [employer] Phone: Start: 06-21-2020 History SDOH Alcohol Frequency 1 BON [employer] Work Phone: Start: 1960 Sex Assigned At Not on file B ON [employer] Work Phone: History of tobacco use Cigarette Smoker B ON [employer] Work Phone: Vital Signs Date Time Vital Sign Value Performing Clinician Faci lity 06-27-2022 14:30-0400 Diastolic blood pressure 68 mm[Hg] Carter Torres MD Work Phone: [employer] 06-27-2022 14:30-0400 Heart rate 68 /min Carter Torres MD Work Phone: [employer] 06-27-2022 14:30-0400 Respiratory rate 23 /min Carter Torres MD Work Phone: [employer] 06-27-2022 14:30-0400 SaO2% (BldA) [Mass fraction] 94 % Carter Torres MD Work Phone: [employer] 06-27-2022 14:30-0400 Systolic blood pressure 117 mm[Hg] Carter Torres MD Work Phone: [employer] 06-27-2022 14:00-0400 Body temperature 97 [degF] Carter Torres MD Work Phone: [employer] 06-27-2022 11:16-0400 Body height 162.6 cm Carter Torres MD Work Phone: [employer] 06-27-2022 11:16-0400 Body mass index (BMI) [Ratio] 30.04 kg/m2 Carter Torres MD Work Phone: [employer] 06-27-2022 11:16-0400 Body weight 79.38 kg Carter Torres MD Work Phone: [employer] Progress note 04-14-2024 Note Date & Type [...] All other systems reviewed and are negative. [facility] Progress note 04-14-2024 Note Date & Type Note Facility 04-14-2024 Note Cardiovascular Medic [facility] SUBJECTIVE Chief Complaint Patient presents [...] breath Acute sinusitis Coronary artery disease involving [place] coronary artery of [place] heart without angina pectoris Past Medical History: Diagnosis Date Hyperlipidemia Lupus (systemic lupus erythematosus) ([facility]) Past Surgical History: Procedure Laterality Date BLADDER [...] the same time., Disp: , Rfl: HYDROcodone-acetaminophen (Taylor) 5-325 mg tablet, take 1 tablet by [...] Rate and R (more content not included)... [facility] Progress note 11-11-2023 Note Date & Type Note Facility 11-11-2023 Note Patient here for [facility] low up heart cath. Isosorbide was [...] All other systems reviewed and are negative. [facility] Progress note 11-11-2023 Note Date & Type Note Facility 12-13-2023 Note Cardiovascular Medic ine [facility] SUBJECTIVE Chief Complaint Patient presents with [...] breath Acute sinusitis Coronary artery disease involving [place] coronary artery of [place] heart without angina pectoris Past Medical History: Diagnosis Date Hyperlipidemia Lupus (systemic lupus erythematosus) ([facility]) Past Surgical History: Procedure Laterality Date BLADDER [...] tablet, if needed., Disp: , Rfl: HYDROcodone-acetaminophen (Taylor) 5-325 mg tablet, take 1 tablet by [...] No focal de (more content not included)... [facility] Clinical Note 10-26-2023 Note Date & Type Note Facility 10-26-2023 Note Patient: Abi adam Procedure Information Date/Time: 10/26/23 0800 Procedure: Coronary angiography (Left) Location: [facility] / [facility] (Cath) Providers: Marj Abraham MD Clinical information reviewed: Allergies Meds OB Status Physical Exam Airway Mallampati: III TM distance: >3 FB Neck ROM: full Cardiovascular Rhythm: regular Rate: normal Dental Pulmonary Abdominal Anesthesia Plan ASA 3 other Anesthetic plan and risks discussed with patient. Use of blood products discussed with patient who consented to blood products. Additional Equipment Requests [facility] Progress note 09-28-2023 Note Date [...] All other systems reviewed and are negative. [facility] Progress note 09-28-2023 Note Date & Type Note Facility 09-28-2023 Note Cardiovascular Medic [facility] SUBJECTIVE No chief complaint on [...] tablet, if needed., Disp: , Rfl: HYDROcodone-acetaminophen (Taylor) 5-325 mg tablet, take 1 tablet by [...] working slowly t (more content not included)... [facility] History of Present illness Narrative [...] patient to operate motor Vehicle. Yes [facility] Preadmission Testing Name: Abi Boswell : 1960 [...] Take [x] Ride Home [x]No Jewelry/Contact Lenses/Nail Argentine [] Prep/Lax/Clear Liquids [] Chlorhexidene DOS Patient [...] patient? Yes documented in this encounter [facility] [employer] Phone: Hospital Discharge instructions 06-27-2022 Discharge Instructions [...] feet do not touch the floor, 2. Machine Finisher the sides of the surface for support. 3. Raise one foot until your knee is completely straight 4. Slowly return to the starting position and relax. 5. Repeat 20 times ANKLE PUMPS 1. Bend ankles up and down, alternating foot 2. Repeat 25 times Carter Torres M.D. 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 Start Date End Date Ron Case MD [address] [place] [address] PCP - General Family Medicine 06/21/20 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 Start Date End Date Ron Case MD [address] [place] [address] PCP - General Family Medicine 06/21/20 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 Start Date End Date Ron Case MD [address] [place] [address] PCP - General Family Medicine 06/21/20 INFORMATION SOURCE (unrecogn ized section and content) DATE CREATED AUTHOR 06/22/2022 [facility] DATE CREATED AUTHOR AUTHOR'S ORGANIZ ATION 07/01/2022 [facility] DATE CREATED AUTHOR AUTHOR'S ORGANIZ ATION 09/22/2022 [facility] DATE CREATED AUTHOR AUTHOR'S ORGANIZ ATION 04/17/2024 [facility] Reason for Visit (unrecogniz ed section and content) Specialty Diagnoses / Procedures Referred By Contac t Referred To Contact Diagnoses Acute medial meniscus tear of right knee, initial encounter Acute medial meniscus tear of right knee, initial encounter [S83.241A] Procedures GA KNEE SCOPE,DIAGNOSTIC GA ARTHRS KNE SURG W/MENISCECTOMY MED/LAT W/SHVG KNEE ARTHROSCOPY Carter Torres MD [address] [place] [address] [employer] [address] [place] [address] Referral ID Status Reason Start Date Expiration Date Visits Re quested Visits Authorized [id number] 1 1 Ordered Prescriptions (unrec ognized section [...] mL IVPB (duplex) (COMPLETED) 2,000 mg, IntraVENous, SPOON MAKER TO O.R., 1 dose, On Thu06/27/22 at [...] 06/25/2022 06/26/2022 06/27/2022 bupivacaine-EPINEPHrine PF (MARCAINE-w/EPINEPHRINE) 0.5% -[id number] injection (CANCELED) PRN, Starting on Thu06/27/22 at [...] BE BASED ON THE PRIMARY CLINICAL RECORDS. [employer] provides no warranty or guarantee of the accuracy or completeness of information in this document.
--- NOTE | 2024-05-30 10:16 | CT_ITS ---
The [address] [address] Patient Name: KENY YOUNG MRN: [id number] date: 1960 Sex: F Assigned Patient Location: CT Current Patient Location: CT Accession/Order Number: [id number] Exam Date: 05/30/2024 10:09 Report Date: 05/30/2024 12:03 At the request of: RON QUESADA Procedure: CT chest wo con EXAMINATION: CT chest wo con HISTORY: Nonspecific Abnormal Finding Lung Field ; follow-up right basilar opacities and lingular opacities COMPARISON: CT chest 04/26/2024 TECHNIQUE: Axial, Coronal, and Sagittal images were created without the administration of IV contrast material. Dose reduction techniques were achieved by using automated exposure control and/or adjustment of mA and/or kV according to patient size and/or use of iterative reconstruction technique. FINDINGS: LUNGS: Minimal opacity within inferior lateral aspect of lingula; decreased in size compared to prior study. Clearing of previously seen right basilar infiltrates. No new or suspicious findings. PLEURA: No mass, effusion, or pneumothorax. VASCULATURE: No abnormality. JOVAN: No mass or pathologic adenopathy. MEDIASTINUM: No mass or pathologic adenopathy. CARDIAC: No enlargement, pericardial thickening, or pericardial effusion. Coronary Artery calcifications: AORTA: No aneurysm or dissection. CHEST WALL: No mass or axillary adenopathy BONES: No bone lesion or fracture. LIMITED ABDOMEN: No suspicious findings. Limited images of the upper abdomen. OTHER: Negative. CT/CT chest wo con IMPRESSION: 1. Minimal residual lingular atelectasis versus infiltrates versus scarring; improved. 2. Clearing of previously seen right basilar infiltrates. 3. No new findings. Electronically authenticated by: FRED COKER Date: 05/30/2024 12:03
--- OUTSIDE RECORDS SUMMARY | 2024-05-30 10:17 | XMS_ITS | CCD ---
Author Organization [facility] Care Team Providers Care Reception Interviewer Name Role Phone Ron Case MD Primary Care Provider [phone] CARTER TORRES Referring Unavailable RON CASE [...] [MORPHINE] Drug Allergy 06-21-20 Hives, Palpitations [facility] (1 source) Morphine Drug Allergy [facility] Repository (1 source) Sulfamethoxazole / Trimethoprim; Translations: [SULFAMETHOXAZOLE-TR IMETHOPRIM] Drug Allergy 09-28-20 [facility] Repository Medications Current Medications Medication [...] disease (4 sources) Atherosclerotic heart disease of [place] coronary artery without angina pectoris; Translations: [Atherosclerotic heart disease of [place] coronary artery with other forms of angina [...] Range Facility Office Visiton 04-14-2024 Follow-up visit [id number] Abi Boswell 1960 F Date Provider Department Center 04/14/2024 HENRIETTA FLOREZ Family History Problem Relation Age of Onset Hypertension Maternal Grandmother Transient ischemic attack Maternal Grandmother Heart attack Maternal Grandfather Heart failure Maternal Grandfather Family Status - Relation Status Age at Maternal Grandmother Maternal Grandfather Level of Service:01467 [place] OFFICE/OUTPATIENT ESTABLISHED MOD MDM 30 MIN Reason for Visit and Comments: Pre-op Exam [237544] Hypertension [233588] Chest Pain [516824] [facility] 36on 12-25-2023 36 Please let her know her labs showed her kidney function, liver function, blood counts and thyroid function were normal. Her LDL or bad cholesterol was elevated at 118. With patients with known heart disease, we recommend lowering the LDL to <70 to help reduce risk of worsening disease and help reduce risk of stroke, [place], etc. Recommend we switch her simvastatin to atrovastatin 40mg daily. Follow-up lipid panel and LFTs in 3 months. Also, her vit D was low, follow-up with Dr. Case on this. Thanks! Normal [facility] Telephoneon 12-25-2023 Telephone [id number] Boswell,Bernice F 1960 F Date Provider Department Center 12/25/2023 HENRIETTA FLOREZ Family History Problem Relation Age of Onset Hypertension Maternal Grandmother Transient ischemic attack Maternal Grandmother Heart attack Maternal Grandfather Heart failure Maternal Grandfather Family Status - Relation Status Age at Maternal Grandmother Maternal Grandfather Normal [facility] Office Visiton 12-13-2023 Follow-up visit [id number] Abi Boswell 1960 F Date Provider Department Center 11/11/2023 HENRIETTA FLOREZ BILL [facility] Family History Problem Relation Age of Onset Hypertension Maternal Grandmother Transient ischemic attack Maternal Grandmother Heart attack Maternal Grandfather Heart failure Maternal Grandfather Family Status - Relation Status Age at Maternal Grandmother Maternal Grandfather Level of Service:67786 [place] OFFICE/OUTPATIENT ESTABLISHED MOD [facility] 30-39 MIN Reason for Visit and Comments: Chest Pain [336610] Coronary Artery Disease [187] [facility]. The patient was [...] anatomy and decide on need for intervention. [facility] NURSNOTEon 10-26-2023 NURSNOTE RN educated pt on d/ c instructions. RN encouraged pt to voice any questions or concerns. Pt verbalizes no questions or concerns at this time. Pt was wheeled off of unit with all of belongings. [facility] Orders Onlyon 10-01-2023 Orders Only [id number] Abi Boswell 1960 F Date Provider Department Center 10/01/2023 Rei-SCOT DAWN BILL [facility] Family History Problem Relation Age of Onset Hypertension Maternal Grandmother Transient ischemic attack Maternal Grandmother Heart attack Maternal Grandfather Heart failure Maternal Grandfather Family Status - Relation Status Age at Maternal Grandmother Maternal Grandfather [facility] HPon 09-28-2023 HP Cardiovascular Medicine [facility] SUBJECTIVE No chief complaint on file. [...] if needed., Disp: , Rfl: HYDROcodone-acetamino phen ([place]) 5-325 mg tablet, take 1 tablet by [...] slowly t (more content not included)... Normal [facility] Office Visiton 09-28-2023 Follow-up visit [id number] Abi Boswell 1960 F Date Provider Department Center 09/28/2023 [id number] GRIMALDO CARD Valerie Hos Family History Problem Relation Age of Onset Hypertension Maternal Grandmother Transient ischemic attack Maternal Grandmother Heart attack Maternal Grandfather Heart failure Maternal Grandfather Family Status - Relation Status Age at Maternal Grandmother Maternal Grandfather Level of Service:40510 [place] OFFICE/OUTPATIENT NEW LOW [facility] 30-44 MINUTES Normal [facility] [id number] 06-27-2022 SARS-CoV-2 (COVID-19) RNA CAROLINE+probe Ql (Unsp spec) Not detected Normal [facility] Comment on above: Result Comment: Rapid [...] management decisions. Fact sheet for Healthcare Providers: https://www.fda.gov/media/782822/download Fact sheet for Patients: https://www.fda.gov/media/739637/download Methodology: Isothermal Nucleic Acid Amplification Performed By: #### C OVRB #### [facility] [address] [place] [address] [employer]er: Lanre Santana MD Basic Metabolic Panelon 05-31 Anion gap [Moles/Vol] 8 mmol/L Low 9 - 17 mmol/L [facility] Calcium [Mass/Vol] 9.8 mg/dL 8.6 - 10. 4 mg/dL [facility] Chloride [Moles/Vol] 107 mmol/L 98 - 10 7 mmol/L [facility] CO2 [Moles/Vol] 30 mmol/L 20 - 31 mmol/L [facility] Creatinine [Mass/Vol] 0.73 mg/dL 0.5 - 0.9 mg/dL [facility] GFR >60 60 - PI NF mL/min [facility] GFR Non- >60 60 - PINF mL/min [facility] Glucose [Mass/Vol] 97 mg/dL 70 - 99 mg/dL [facility] Interpretation and review of laboratory results Abnormal [facility] Potassium [Moles/Vol] 4.4 mmol/L 3.7 - 5.3 mmol/L [facility] Sodium [Moles/Vol] 145 mmol/L High 135 - 144 mmol/L [facility] Urea nitrogen (BldV) [Mass/Vol] 12 mg/dL 8 - 23 mg/dL [facility] Urea nitrogen/Creatinine (Bld) [Mass ratio] 16 9 - 20 [facility] Basic Metabolic Profon 06-20 (cont.) Normal [facility] Comment on above: Result Comment: Aver age GFR for 60-69 years old: 85 mL/min/1.73sq m Chronic Kidney Disease: <60 mL/min/1.73sq m Kidney failure: <15 mL/min/1.73sq m eGFR calculated using average adult body mass. Additional eGFR calculator available at: http://www.Workube/multiple_crcl_2011.htm Performed By: #### C DP, BMP #### [facility] [address] [place], [place] [id number] [employer]er: Lanre Santana MD Anion gap [Moles/Vol] 8 mmol/L Low 9-17 [facility] Comment on above: Performed By: #### C DP, BMP #### [facility] [address] [place], [place] [id number] [employer]er: Lanre Santana MD BUN/CRE Ratio 16 Normal 9-20 [facility] Comment on above: Performed By: #### C DP, BMP #### [facility] [address] [place], [place] [id number] [employer]er: Lanre Santana MD Calcium [Mass/Vol] 9.8 mg/dL Normal 8.6-10.4 [facility] Comment on above: Performed By: #### C DP, BMP #### [facility] [address] [place], [place] [id number] [employer]er: Lanre Santana MD Chloride [Moles/Vol] 107 mmol/L Normal 98-107 [facility] Comment on above: Performed By: #### C DP, BMP #### [facility] [address] [place] [address] [place] [place], [place] [id number] [employer]er: Lanre Santana MD CO2 [Moles/Vol] 30 mmol/L Normal 20-31 [facility] Comment on above: Performed By: #### C DP, BMP #### [facility] [address] [place], [place] [id number] [employer]er: Lanre Santana MD Creatinine [Mass/Vol] 0.73 mg/dL Normal 0.50-0.90 [facility] Comment on above: Performed By: #### C DP, BMP #### [facility] [address] [place], [place] [phone] [employer]er: Lanre Santana MD GFR, Amer >60 Normal >60 [facility] Comment on above: Performed By: #### C DP, BMP #### [facility] [address] [place], [place] [id number] [employer]er: Lanre Santana MD GFR,non Amer >60 Normal >60 [facility] Comment on above: Performed By: #### C DP, BMP #### [facility] [address] [place], [place] [id number] [employer]er: Lanre Santana MD Glucose [Mass/Vol] 97 mg/dL Normal 70-99 [facility] Comment on above: Performed By: #### C DP, BMP #### [facility] [address] [place], [place] [id number] [employer]er: Lanre Santana MD Potassium [Moles/Vol] 4.4 mmol/L Normal 3.7-5.3 [facility] Comment on above: Performed By: #### C DP, BMP #### [address] [place], [place] [id number] [employer]er: Lanre Santana MD Sodium [Moles/Vol] 145 mmol/L High 135-144 [facility] Comment on above: Performed By: #### C DP, BMP #### [facility] [address] [place], [place] [phone] [employer]er: Lanre Santana MD Staging: Normal [facility] Comment on above: Result Comment: Stag e 1: Some kidney damage normal GFR Stage 2: Mild kidney damage GFR 60-89 Stage 3: Moderate kidney damage GFR 30-59 Stage 4: Severe kidney damage GFR 15-29 Stage 5: Severe kidney damage GFR <15 ESRD - chronic treatment by dialysis or transplant Performed By: #### C DP, BMP #### [facility] [address] [place], [place] [phone] [employer]er: Lanre Santana MD Urea nitrogen [Mass/Vol] 12 mg/dL Normal 8-23 [facility] Comment on above: Performed By: #### C DP, BMP #### [facility] [address] [place] [address] [employer]er: Lanre Santana MD CBC with Auto Differentialon 06-20-2022 Absolute Eos # 0.12 [facility] Absolute Immature Granulocyte 0.03 [facility] Absolute Lymph # 1.85 [facility] Absolute [place] # 0.71 [facility] Basophils (Bld) [#/Vol] 0.03 10*3/uL [facility] Basophils/100 WBC (Bld) 0 % 0 - 2 % [facility] Eosinophils/100 WBC (Bld) 1 % 1 - 4 % [facility] Hematocrit (Bld) [Volume fraction] 42.7 % 36.3 - 47.1 % [facility] Hemoglobin (Bld) [Mass/Vol] 14.3 g/dL 11.9 - 15.1 g/dL [facility] Immature granulocytes/100 WBC (Bld) 0 % 0 [facility] Interpretation and review of laboratory results Abnormal [facility] Lymphocytes/100 WBC (Bld) 22 % Low 24 - 43 % [facility] MCH (RBC) [Entitic mass] 32.6 pg 25.2 - 33.5 pg [facility] MCHC (RBC) [Mass/Vol] 33.5 g/dL 28.4 - 34.8 g/dL [facility] MCV (RBC) [Entitic vol] 97.3 fL 82.6 - 102.9 fL [facility] Monocytes/100 WBC (Bld) 9 % 3 - 12 % [facility] NRBC Automated 0.0 0.0 per 100 WBC [facility] Platelet distribution width (Bld) [Ratio] 13.3 % 11.8 - 14.4 % [facility] Platelet mean volume (Bld) [Entitic vol] 8.4 fL 8.1 - 13.5 fL [facility] Platelets (Bld) [#/Vol] 278 10*3/uL [facility] RBC (Bld) [#/Vol] 4.39 10*6/uL 3.95 - 5.1 1 m/uL [facility] Segmented neutrophils/100 WBC (Bld) 68 % High 36 - 65 % [facility] Segs Absolute 5.62 [facility] WBC (Bld) [#/Vol] 8.4 10*3/uL [facility] CBC with Diffon 06-20-2022 Abs. Basophil 0.03 k/uL Normal 0.00-0.20 [facility] Comment on above: Performed By: #### C DP, BMP #### [facility] [address] [place] [address] [place] [id number] [employer]er: Lanre Santana MD Abs.Imm.Granulocyte 0.03 k/uL Normal 0.00-0.30 [facility] Comment on above: Performed By: #### C DP, BMP #### [facility] [address] [place] [address] Dr. [place], [facility]83 [employer]er: Lanre Santana MD Abs.Neutrophil (Seg) 5.62 k/uL Normal 1.50-8.10 [facility] Comment on above: Performed By: #### C DP, BMP #### [address] [place] [address] [employer]sembler: Lanre Santana MD Basophils/100 WBC (Bld) 0 % Normal 0-2 [facility] Comment on above: Performed By: #### C DP, BMP #### [facility] [address] [place] [address] [place] [address] [employer]sembler: Lanre Santana MD Eosinophils (Bld) [#/Vol] 0.12 10*3/uL Normal 0.00-0.44 [facility] Comment on above: Performed By: #### C DP, BMP #### [facility] [address] [place] [address] [place] [address] [employer]sembler: Lanre Santana MD Eosinophils/100 WBC (Bld) 1 % Normal 1-4 [facility] Comment on above: Performed By: #### C DP, BMP #### [facility] [address] [place], [place] [phone] [employer]er: Lanre Santana MD Erythrocyte distribution width (RBC) [Ratio] 13.3 % Normal 11.8-14.4 [facility] Comment on above: Performed By: #### C DP, BMP #### [facility] [address] [place], [place] [phone] [employer]er: Lanre Santana MD Hematocrit (Bld) [Volume fraction] 42.7 % Normal 36.3-47.1 [facility] Comment on above: Performed By: #### C DP, BMP #### [address] [place], [facility]83 [employer]er: Lanre Santana MD Hemoglobin (Bld) [Mass/Vol] 14.3 g/dL Normal 11.9-15.1 [facility] Comment on above: Performed By: #### C DP, BMP #### [address] [place], [place] [id number] [employer]er: Lanre Santana MD Immature granulocytes/100 WBC (Bld) 0 % Normal 0 [facility] Comment on above: Performed By: #### C DP, BMP #### [facility] [address] [place] [address] [employer] Assembler: Lanre Santana MD Lymphocytes (Bld) [#/Vol] 1.85 10*3/uL Normal 1.10-3.70 [facility] Comment on above: Performed By: #### C DP, BMP #### [facility] [address] [place], [place] [phone] [employer]er: Lanre Santana MD Lymphocytes/100 WBC (Bld) 22 % Low 24-43 [facility] Comment on above: Performed By: #### C DP, BMP #### [facility] [address] [place] [address] [employer] Assembler: Lanre Santana MD MCH (RBC) [Entitic mass] 32.6 pg Normal 25.2-33.5 [facility] Comment on above: Performed By: #### C DP, BMP #### [facility] [address] [place], [facility]83 [employer]er: Lanre Santana MD MCHC (RBC) [Mass/Vol] 33.5 g/dL Normal 28.4-34.8 [facility] Comment on above: Performed By: #### C DP, BMP #### [facility] [address] [place] [address] [employer]sembler: Lanre Santana MD MCV (RBC) [Entitic vol] 97.3 fL Normal 82.6-102.9 [facility] Comment on above: Performed By: #### C DP, BMP #### [facility] [address] [place], [place] [phone] [employer]sembler: Lanre Santana MD Monocytes (Bld) [#/Vol] 0.71 10*3/uL Normal 0.10-1.20 [facility] Comment on above: Performed By: #### C DP, BMP #### [facility] [address] [place], [place] [phone] [employer] Assembler: Lanre Santana MD Monocytes/100 WBC (Bld) 9 % Normal 3-12 [facility] Comment on above: Performed By: #### C DP, BMP #### [facility] [address] [place] [address] [employer] Assembler: Lanre Santana MD Neutrophil (Seg) 68 % High 36-65 [facility] Comment on above: Performed By: #### C DP, BMP #### [facility] [address] [place] [id number] [employer] Assembler: Lanre Santana MD NRBC Automated 0.0 per 100 WBC Normal 0.0 [facility] Comment on above: Performed By: #### C DP, BMP #### [facility] [address] [place] [address] [employer]sembler: Lanre Santana MD Platelet mean volume (Bld) [Entitic vol] 8.4 fL Normal 8.1-13.5 [facility] Comment on above: Performed By: #### C DP, BMP #### [facility] [address] [place] [address] [employer] As[employer]er: Lanre Santana MD Platelets (Bld) [#/Vol] 278 10*3/uL Normal 138-453 [facility] Comment on above: Performed By: #### C DP, BMP #### [facility] [address] [place] [address] [employer]er: Lanre Santana MD RBC (Bld) [#/Vol] 4.39 10*6/uL Normal 3.95-5.11 [facility] Comment on above: Performed By: #### C DP, BMP #### [facility] [address] [place] [address] [employer]sembler: Lanre Santana MD WBC (Bld) [#/Vol] 8.4 10*3/uL Normal 3.5-11.3 [facility] Comment on above: Performed By: #### C DP, BMP #### [facility] [address] [place] [address] [employer] Assembler: Lanre Santana MD EKG 12 LeadOrdered By: César mojica on 06-20-2022 Atrial Rate 65 BPM [employer] [email or web address] Work Phone: P [place] 65 degrees [employer] [facility] Work Phone: P-R Interval 134 ms [facility] Work Phone: Q-T Interval 432 ms [facility] Work Phone: QRS Duration 110 ms [facility] [employer] Work Phone: QTc Calculation (Bazett) 449 ms [facility] Work Phone: R [place] 72 degrees [facility] Work Phone: T [place] 43 degrees [facility] Work Phone: Ventricular Rate 65 BPM [facility] [place] [employer] Work Phone: [facility] Work Phone: EKG 12 Leadon 06-20-2022 Normal sinus rhythm Incomplete right bundle branch block Cannot rule out Inferior infarct , age undetermined Abnormal ECG No previous ECGs available Confirmed by César Blanco MD ([id number]) on 06/20/2022 10:08:07 PM [facility] César Blanco MD - 06/20/2022 Normal sinus rhythm Incomplete right bundle branch block Cannot rule out Inferior infarct , age undetermined Abnormal ECG No previous ECGs available Confirmed by César Blanco MD ([id number]) on 06/20/2022 10:08:07 PM [employer] Work Phone: Laboratory - Chemistry and C hemistry - challengeon 06-20-2022 GFR/1.73 sq M.predicted MDRD (S/P/Bld) [Vol rate/Area] [employer] Comment on above: Average GFR for 60-6 9 years old: 85 mL/min/1.73sq m Chronic Kidney Disease: <60 mL/min/1.73sq m Kidney failure: <15 mL/min/1.73sq m eGFR calculated using average adult body mass. Additional eGFR calculator available at: http://www.Workube/multiple_crcl_2012.htm Stage 1: Some kidney damage normal GFR [...] by: CARTER COKER Date: 2022-06-06 15:52 Normal [facility] Vital Signs Date Time Vital Sign Value Performing Clinician Nicholasi haroon 06-27-2022 14:30-0400 Diastolic blood pressure 68 mm[Hg] Carter Torres MD Work Phone: [employer] 06-27-2022 14:30-0400 Heart rate 68 /min Carter Torres MD Work Phone: [employer] 06-27-2022 14:30-0400 Respiratory rate 23 /min Carter Torres MD Work Phone: [email or web address] 06-27-2022 14:30-0400 SaO2% (BldA) [Mass fraction] 94 % Carter Torres MD Work Phone: [employer] 06-27-2022 14:30-0400 Systolic blood pressure 117 mm[Hg] Carter Torres MD Work Phone: [employer] 06-27-2022 14:00-0400 Body temperature 97 [degF] Carter Torres MD Work Phone: [facility] 06-27-2022 11:16-0400 Body height 162.6 cm Carter Torres MD Work Phone: [employer] 06-27-2022 11:16-0400 Body mass index (BMI) [Ratio] 30.04 kg/m2 Carter Torres MD Work Phone: [facility] 06-27-2022 11:16-0400 Body weight 79.38 kg Carter Torres MD Work Phone: [employer] Encounters Encounter Date Encounter Type Care Provider Facility Start: 04-14-2024 End: 04-14-2024 ambulatory [facility] Start: 11-11-2023 End: 11-11-2023 ambulatory [facility] Start: 10-26-2023 End: 10-26-2023 ambulatory [facility] Start: 09-28-2023 End: 09-28-2023 ambulatory [facility] Start: 06-27-2022 End: 06-27-2022 ambulatory [facility] Start: 06-27-2022 End: 06-27-2022 Subsequent hospital visit by physician Carter Torres MD Work Phone: [facility] Start: 06-20-2022 End: 06-21-2022 ambulatory [facility] Start: 06-20-2022 End: 06-20-2022 Subsequent hospital visit by physician Ron Case MD Work Phone: [facility] EKG Start: 06-05-2022 End: 06-06-[address] RON CASE Facility:H1 Procedures Date Procedure Procedure Detail Performing Clinician Start: 06-20-2022 Ecg routine ecg w/le ast 12 lds w/i&r Carter Torres MD Work Phone: Start: 06-20-2022 Basic metabolic pane l calcium total Carter Torres MD Work Phone: Plan of Treatment Date Care Activity Detail Author Start: 07-31-2022 Influenza vaccination Flu vaccine (# 1) [facility] Start: 06-27-2022 End: 06-27-2022 Arthroscopy knee diagnostic w/wo synovial bx spx KNEE ARTHROSCOPY Acute medial meniscus tear of right knee, initial encounter 06/27/2022 1:07 PM EDT [facility] Start: 2010 Screening for malign ant neoplasm of breast Breast cancer screen [facility] Start: 2010 Shingles vaccine (1 of 2) Shingles vaccine (1 of 2) [facility] Start: 2005 Screening for malign ant neoplasm of colon [facility] Start: 2000 Lipid panel Lipids [facility] Start: 1979 DTaP/Tdap/Td vaccine (1 - Tdap) DTaP/Tdap/Td vaccine (1 - Tdap) [facility] Start: 1978 Hepatitis C screening Hepatitis C sc reen [facility] Start: 1975 HIV screening HIV screen [facility] Start: 1972 Depression Screen Depression Screen [facility] Start: 1966 Pneumococcal 0-64 ye ars Vaccine (1 - PCV) Pneumococcal 0-64 years Vaccine (1 - PCV) [facility] Start: 1960 COVID-19 Vaccine (#1) COVID-19 Vacci ne (#1) [facility] Oxygen therapy [[facility]ini [facility] Data Set] Initiate Oxygen Therapy Protocol Respiratory Care Routine As Needed until discontinued starting 06/27/2022 [facility] Work Phone: Comment on above: As Needed until disc ontinued starting 06/27/2022 Payers Date Payer Category Payer Unknown [id number] 2.16.8 [id number] 1960 Unknown [id number] 2.16.8 [id number] 1960 Unknown [id number] 2.16.8 [id number] 1960 Unknown [id number] 2.16.8 [id number] 1960 Unknown [id number] 2.16.84 [id number] 1959 Unknown [id number] 1.2.8 [id number] Social History Date Type Detail Facility Start: 06-21-2020 Tobacco smoking stat [facility] Smokes tobacco daily [employer] Phone: History of tobacco use Cigarette Smoker [employer] Phone: Start: 06-21-2020 Cigarettes smoked current (pack per day) - Reported 0.5 [employer] Phone: Start: 06-21-2020 Tobacco use and exposure Smoke less tobacco non-user [employer] Phone: Start: 12-05-2021 End: 06-27-2022 Alcohol intake Lifetime non-drinker (finding) [employer] Phone: Start: 06-21-2020 History SDOH Alcohol Frequency 1 [employer] Phone: Start: 1960 Sex Assigned At Not on file [employer] Phone: Start: 06-17-2022 End: 06-27-2022 Exposure to SARS-CoV-2 (event) Not sure [employer] Phone: Progress note 04-14-2024 Note Date & [...] All other systems reviewed and are negative. 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 [facility] Progress note 11-11-2023 Note Date & Type Note Facility 11-11-2023 Note Patient here for [facility] low up heart cath. Isosorbide [...] All other systems reviewed and are negative. 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 [facility] Clinical Note 10-26-2023 Note Date & Type Note Facility 10-26-2023 Note Patient: Abi adam Procedure Information Date/Time: 10/26/23 0800 Procedure: Coronary angiography (Left) Location: [facility] / [facility] (Cath) Providers: Marj Abraham MD Clinical information reviewed: Allergies Meds OB Status Physical Exam Airway Mallampati: III TM distance: >3 FB Neck ROM: full Cardiovascular Rhythm: regular Rate: normal Dental Pulmonary Abdominal Anesthesia Plan ASA 3 other Anesthetic plan and risks discussed with patient. Use of blood products discussed with patient who consented to blood products. Additional Equipment Requests [facility] Progress note 09-28-2023 Note Date [...] All other systems reviewed and are negative. [facility] Progress note 09-28-2023 Note Date & Type Note Facility 09-28-2023 Note Cardiovascular Medic [facility] SUBJECTIVE No chief complaint [...] tablet, if needed., Disp: , Rfl: HYDROcodone-acetaminophen ([place]) 5-325 mg tablet, take 1 tablet by [...] working slowly t (more content not included)... [facility] History of Present illness Narrative [...] require patient to operate motor Vehicle. Yes [facility] Preadmission Testing Name: Abi Boswell : 1960 [...] Take [x] Ride Home [x]No Jewelry/Contact Lenses/Nail Welsh [] Prep/Lax/Clear Liquids [] Chlorhexidene DOS Patient [...] with patient? Yes documented in this encounter [employer] Phone: Hospital Discharge instructions 06-27-2022 Discharge Instructions [...] feet do not touch the floor, 2. Flash Ranging Crewmember the sides of the surface for support. 3. Raise one foot until your knee is completely straight 4. Slowly return to the starting position and relax. 5. Repeat 20 times ANKLE PUMPS 1. Bend ankles up and down, alternating foot 2. Repeat 25 times Carter Torres M.D. [phone] @ATTPROV@ 06/27/2022 1:01 PM documented in this encounter [facility] [email or web address] Work Phone: Summary Purpose Family History No Family History Records FoundNo Family History Records FoundNo Family History Records FoundNo Family History Records Found Advance Directives No Advanced Directives Records FoundLatest Code Status on File Code Status Date Activated Date Inactivated Comments Full Code 06/27/2022 11:07 AM Additional Source Comments Care Teams (unrecognized sec tion and content) Reception Interviewer Relationship Specialty Start Date End Date Ron Case MD [address] [id number] PCP - General Family Medicine 06/21/20 Reception Interviewer Relationship Specialty Start Date End Date Ron Case MD [address] [place] [address] PCP - General Family Medicine 06/21/20 Reception Interviewer Relationship Specialty Start Date End Date Ron Case MD [address] [place] [address] PCP - General Family Medicine 06/21/20 INFORMATION SOURCE (unrecogn ized section and content) DATE CREATED AUTHOR 06/22/2022 [facility] DATE CREATED AUTHOR AUTHOR'S ORGANIZ ATION 07/01/2022 [facility] DATE CREATED AUTHOR AUTHOR'S ORGANIZ ATION 09/22/2022 [facility] DATE CREATED AUTHOR AUTHOR'S ORGANIZ ATION 04/17/[address] [facility] Reason for Visit (unrecogniz ed section and content) Specialty Diagnoses / Procedures Referred By Herber t Referred To Contact Diagnoses Acute medial meniscus tear of right knee, initial encounter Acute medial meniscus tear of right knee, initial encounter [S83.241A] Procedures TX KNEE SCOPE,DIAGNOSTIC TX ARTHRS KNE SURG W/MENISCECTOMY MED/LAT W/SHVG KNEE ARTHROSCOPY Carter Torres MD [address] [place] [address] [facility] [id number] [place] [address] Referral ID Status Reason Start Date Expiration Date Visits Re quested Visits Authorized [id number] 1 1 Ordered Prescriptions (unrec ognized section [...] mL IVPB (duplex) (COMPLETED) 2,000 mg, IntraVENous, SAT MATH TUTOR TO O.R., 1 dose, On Thu06/27/22 at [...] 06/25/2022 06/26/2022 06/27/2022 bupivacaine-EPINEPHrine PF (MARCAINE-w/EPINEPHRINE) 0.5% -[id number] injection (CANCELED) PRN, Starting on Thu06/27/22 at [...] BE BASED ON THE PRIMARY CLINICAL RECORDS. [employer] provides no warranty or guarantee of the accuracy or completeness of information in this document.
== END 2024-05-30 09:58 | disposition home or self-care (01) ==
LOC: CT 09:57
PROVIDERS: PCP Family Medicine; Visit Provider Family Medicine
DX: R91.8 Other nonspecific abnormal finding of lung field (principal)
CPT/HCPCS: 71250

== ENCOUNTER 2024-06-10 11:32 | Outpatient (OUT) | payer OTHER, SELFPAY | END 2024-06-10 11:33 | disposition home or self-care (01) | LOC: WC 11:32 | PROVIDERS: PCP Family Medicine; Visit Provider Podiatrist Foot & Ankle Surgery | DX: T81.89XA Other complications of procedures, not elsewhere classified, initial encounter (principal) | CPT/HCPCS: G0463 ==

== ENCOUNTER 2024-07-04 15:42 | Outpatient (OUT) | payer OTHER, SELFPAY ==
--- OUTSIDE RECORDS SUMMARY | 2024-07-04 15:48 | XMS_ITS | CCD ---
Author Organization [facility] Care Team Providers Care Glass Technician Name Role Phone Ron Case MD Primary Care Provider [phone] CARTER TORRES Referring Unavailable RON CASE [...] CASE Consulting Unavailable JOHN PAUL, DR CARTER yAala Consulting Unavailable HENRIETTA RODRIGUEZ Attending Unavailable LORETA GRIMALDO Attending Unavailable MARJ ABRAHAM Admitting Unavailable MARJ ABRAHAM Attending Unavailable MARJ ABRAHAM Referring Unavailable EHNRIETTA RODRIGUEZ Attending Unavailable Allergies Allergy Classification Reported Allergen(s) Allergy Type Date of Onset Reaction(s) Facility (4 sources) Morphine; Translations: [MORPHINE] Drug Allergy 06-21-20 Hives, Palpitations [facility] (1 source) Morphine Drug Allergy [facility] Repository (1 source) Sulfamethoxazole / Trimethoprim; Translations: [SULFAMETHOXAZOLE-TR IMETHOPRIM] Drug Allergy 09-28-20 [facility] Repository Medications Current Medications Medication [...] disease (4 sources) Atherosclerotic heart disease of [place] coronary artery without angina pectoris; Translations: [Atherosclerotic heart disease of [place] coronary artery with other forms of angina [...] Range Facility Office Visiton 04-14-2024 Follow-up visit [id number] Abi Boswell 1960 F Date Provider Department Center 04/14/2024 HENRIETTA FLOREZ Family History Problem Relation Age of Onset Hypertension Maternal Grandmother Transient ischemic attack Maternal Grandmother Heart attack Maternal Grandfather Heart failure Maternal Grandfather Family Status - Relation Status Age at Maternal Grandmother Maternal Grandfather Level of Service:14497 [place] OFFICE/OUTPATIENT ESTABLISHED MOD MDM 30 MIN Reason for Visit and Comments: Pre-op Exam [563980] Hypertension [927191] Chest Pain [705445] [facility] 36on 12-25-2023 36 Please let her know her labs showed her kidney function, liver function, blood counts and thyroid function were normal. Her LDL or bad cholesterol was elevated at 118. With patients with known heart disease, we recommend lowering the LDL to <70 to help reduce risk of worsening disease and help reduce risk of stroke, PR, etc. Recommend we switch her simvastatin to atrovastatin 40mg daily. Follow-up lipid panel and LFTs in 3 months. Also, her vit D was low, follow-up with Dr. Case on this. Thanks! Normal [facility] Telephoneon 12-25-2023 Telephone [id number] Boswell,Bernice F 1960 F Date Provider Department Center 12/25/2023 HENRIETTA FLOREZ Family History Problem Relation Age of Onset Hypertension Maternal Grandmother Transient ischemic attack Maternal Grandmother Heart attack Maternal Grandfather Heart failure Maternal Grandfather Family Status - Relation Status Age at Maternal Grandmother Maternal Grandfather Normal [facility] Office Visiton 12-13-2023 Follow-up visit [id number] Abi Boswell 1960 F Date Provider Department Center 11/11/2023 HENRIETTA FLOREZ BILL [facility] Family History Problem Relation Age of Onset Hypertension Maternal Grandmother Transient ischemic attack Maternal Grandmother Heart attack Maternal Grandfather Heart failure Maternal Grandfather Family Status - Relation Status Age at Maternal Grandmother Maternal Grandfather Level of Service:19816 [place] OFFICE/OUTPATIENT ESTABLISHED MOD [facility] 30-39 MIN Reason for Visit and Comments: Chest Pain [289974] Coronary Artery Disease [187] [facility] reviewed. The patient was [...] anatomy and decide on need for intervention. [facility] NURSNOTEon 10-26-2023 NURSNOTE RN educated pt on d/ c instructions. RN encouraged pt to voice any questions or concerns. Pt verbalizes no questions or concerns at this time. Pt was wheeled off of unit with all of belongings. [facility] Orders Onlyon 10-01-2023 Orders Only [id number] Abi Boswell 1960 F Date Provider Department Center 10/01/2023 Rei-SCOT DAWN BILL [facility] Family History Problem Relation Age of Onset Hypertension Maternal Grandmother Transient ischemic attack Maternal Grandmother Heart attack Maternal Grandfather Heart failure Maternal Grandfather Family Status - Relation Status Age at Maternal Grandmother Maternal Grandfather [facility] HPon 09-28-2023 HP Cardiovascular Medicine [facility] SUBJECTIVE No chief complaint on file. [...] if needed., Disp: , Rfl: HYDROcodone-acetamino phen ([place]den) 5-325 mg tablet, take 1 tablet by [...] slowly t (more content not included)... Normal [facility] Office Visiton 09-28-2023 Follow-up visit [id number] Abi Boswell 1960 F Date Provider Department Center 09/28/2023 [id number] GRIMALDO CARD Valerie [facility] Family History Problem Relation Age of Onset Hypertension Maternal Grandmother Transient ischemic attack Maternal Grandmother Heart attack Maternal Grandfather Heart failure Maternal Grandfather Family Status - Relation Status Age at Maternal Grandmother Maternal Grandfather Level of Service:25455 [place] OFFICE/OUTPATIENT NEW LOW [facility] 30-44 MINUTES Normal [facility] [id number] 06-27-2022 SARS-CoV-2 (COVID-19) RNA CAROLINE+probe Ql (Unsp spec) Not detected Normal [facility] Comment on above: Result Comment: Rapid [...] management decisions. Fact sheet for Healthcare Providers: https://www.fda.gov/media/988306/download Fact sheet for Patients: https://www.fda.gov/media/321444/download Methodology: Isothermal Nucleic Acid Amplification Performed By: #### C OVRB #### [facility] [address] [place] [address] Head Up Operator: Lanre Santana MD Basic Metabolic Panelon 05-31 Anion gap [Moles/Vol] 8 mmol/L Low 9 - 17 mmol/L [facility] Calcium [Mass/Vol] 9.8 mg/dL 8.6 - 10. 4 mg/dL [facility] Chloride [Moles/Vol] 107 mmol/L 98 - 10 7 mmol/L [facility] CO2 [Moles/Vol] 30 mmol/L 20 - 31 mmol/L [facility] Creatinine [Mass/Vol] 0.73 mg/dL 0.5 - 0.9 mg/dL [facility] GFR >60 60 - PI NF mL/min [facility] GFR Non- >60 60 - PINF mL/min [facility] Glucose [Mass/Vol] 97 mg/dL 70 - 99 mg/dL [facility] Interpretation and review of laboratory results Abnormal [facility] Potassium [Moles/Vol] 4.4 mmol/L 3.7 - 5.3 mmol/L [facility] Sodium [Moles/Vol] 145 mmol/L High 135 - 144 mmol/L [facility] Urea nitrogen (BldV) [Mass/Vol] 12 mg/dL 8 - 23 mg/dL [facility] Urea nitrogen/Creatinine (Bld) [Mass ratio] 16 9 - 20 [facility] Basic Metabolic Profon 06-20 (cont.) Normal [facility] Comment on above: Result Comment: Aver age GFR for 60-69 years old: 85 mL/min/1.73sq m Chronic Kidney Disease: <60 mL/min/1.73sq m Kidney failure: <15 mL/min/1.73sq m eGFR calculated using average adult body mass. Additional eGFR calculator available at: http://www.[employer]/multiple_crcl_2011.htm Performed By: #### C DP, BMP #### [facility] [address] [place], [place] [id number] Head Up Operator: Lanre Santana MD Anion gap [Moles/Vol] 8 mmol/L Low 9-17 [facility] Comment on above: Performed By: #### C DP, BMP #### [facility] [address] [place], [place] [id number] Head Up Operator: Lanre Santana MD BUN/CRE Ratio 16 Normal 9-20 [facility] Comment on above: Performed By: #### C DP, BMP #### [facility] [address] [place], [place] [id number] Head Up Operator: Lanre Santana MD Calcium [Mass/Vol] 9.8 mg/dL Normal 8.6-10.4 [facility] Comment on above: Performed By: #### C DP, BMP #### [facility] [address] [place], [place] [id number] Head Up Operator: Lanre Santana MD Chloride [Moles/Vol] 107 mmol/L Normal 98-107 [facility] Comment on above: Performed By: #### C DP, BMP #### [facility] [address] [place] [address] [place], [place] [id number] Head Up Operator: Lanre Santana MD CO2 [Moles/Vol] 30 mmol/L Normal 20-31 [facility] Comment on above: Performed By: #### C DP, BMP #### [facility] [address] [place], [place] [address]83 Head Up Operator: Lanre Santana MD Creatinine [Mass/Vol] 0.73 mg/dL Normal 0.50-0.90 [facility] Comment on above: Performed By: #### C DP, BMP #### [facility] [address] [place], [place] [id number] Head Up Operator: Lanre Santana MD GFR, Amer >60 Normal >60 [facility] Comment on above: Performed By: #### C DP, BMP #### [facility] [address] [place], [place] [id number] Head Up Operator: Lanre Santana MD GFR,non Amer >60 Normal >60 [facility] Comment on above: Performed By: #### C DP, BMP #### [facility] [address] [place], [place] [id number] Head Up Operator: Lanre Santana MD Glucose [Mass/Vol] 97 mg/dL Normal 70-99 [facility] Comment on above: Performed By: #### C DP, BMP #### [facility] [address] [place], [place] 1496683 Head Up Operator: Lanre Santana MD Potassium [Moles/Vol] 4.4 mmol/L Normal 3.7-5.3 [facility] Comment on above: Performed By: #### C DP, BMP #### [address] [place], [place] [address]83 Head Up Operator: Lanre Santana MD Sodium [Moles/Vol] 145 mmol/L High 135-144 [facility] Comment on above: Performed By: #### C DP, BMP #### [facility] [address] [place], [place] [address]83 Head Up Operator: Lanre Santana MD Staging: Normal [facility] Comment on above: Result Comment: Stag e 1: Some kidney damage normal GFR Stage 2: Mild kidney damage GFR 60-89 Stage 3: Moderate kidney damage GFR 30-59 Stage 4: Severe kidney damage GFR 15-29 Stage 5: Severe kidney damage GFR <15 ESRD - chronic treatment by dialysis or transplant Performed By: #### C DP, BMP #### [facility] [address] [place], [place] [id number] Head Up Operator: Lanre Santana MD Urea nitrogen [Mass/Vol] 12 mg/dL Normal 8-23 [facility] Comment on above: Performed By: #### C DP, BMP #### [facility] [address] [place] [address] Head Up Operator: Lanre Santana MD CBC with Auto Differentialon 06-20-2022 Absolute Eos # 0.12 [facility] Absolute Immature Granulocyte 0.03 [facility] Absolute Lymph # 1.85 [facility] Absolute [place]iance # 0.71 [facility] Basophils (Bld) [#/Vol] 0.03 10*3/uL [facility] Basophils/100 WBC (Bld) 0 % 0 - 2 % [facility] Eosinophils/100 WBC (Bld) 1 % 1 - 4 % [facility] Hematocrit (Bld) [Volume fraction] 42.7 % 36.3 - 47.1 % [facility] Hemoglobin (Bld) [Mass/Vol] 14.3 g/dL 11.9 - 15.1 g/dL [facility] Immature granulocytes/100 WBC (Bld) 0 % 0 [facility] Interpretation and review of laboratory results Abnormal [facility] Lymphocytes/100 WBC (Bld) 22 % Low 24 - 43 % [facility] MCH (RBC) [Entitic mass] 32.6 pg 25.2 - 33.5 pg [facility] MCHC (RBC) [Mass/Vol] 33.5 g/dL 28.4 - 34.8 g/dL [facility] MCV (RBC) [Entitic vol] 97.3 fL 82.6 - 102.9 fL [facility] Monocytes/100 WBC (Bld) 9 % 3 - 12 % [facility] NRBC Automated 0.0 0.0 per 100 WBC [facility] Platelet distribution width (Bld) [Ratio] 13.3 % 11.8 - 14.4 % [facility] Platelet mean volume (Bld) [Entitic vol] 8.4 fL 8.1 - 13.5 fL [facility] Platelets (Bld) [#/Vol] 278 10*3/uL [facility] RBC (Bld) [#/Vol] 4.39 10*6/uL 3.95 - 5.1 1 m/uL [facility] Segmented neutrophils/100 WBC (Bld) 68 % High 36 - 65 % [facility] Segs Absolute 5.62 [facility] WBC (Bld) [#/Vol] 8.4 10*3/uL [facility] CBC with Diffon 06-20-2022 Abs. Basophil 0.03 k/uL Normal 0.00-0.20 [facility] Comment on above: Performed By: #### C DP, BMP #### [facility] [address] [place] [address] [place] [id number] Head Up Operator: Lanre Santana MD Abs.Imm.Granulocyte 0.03 k/uL Normal 0.00-0.30 [facility] Comment on above: Performed By: #### C DP, BMP #### [facility] [address] [place] [address] Dr. [place], [facility]83 Head Up Operator: Lanre Santana MD Abs.Neutrophil (Seg) 5.62 k/uL Normal 1.50-8.10 [facility] Comment on above: Performed By: #### C DP, BMP #### [address] [place] [address] Head Up Operator: Lanre Santana MD Basophils/100 WBC (Bld) 0 % Normal 0-2 [facility] Comment on above: Performed By: #### C DP, BMP #### [facility] [address] [place] [address] [place] [address] Head Up Operator: Lanre Santana MD Eosinophils (Bld) [#/Vol] 0.12 10*3/uL Normal 0.00-0.44 [facility] Comment on above: Performed By: #### C DP, BMP #### [facility] [address] [place] [address] [place] [address] Head Up Operator: Lanre Santana MD Eosinophils/100 WBC (Bld) 1 % Normal 1-4 [facility] Comment on above: Performed By: #### C DP, BMP #### [facility] [address] [place], [place] [phone] Head Up Operator: Lanre Santana MD Erythrocyte distribution width (RBC) [Ratio] 13.3 % Normal 11.8-14.4 [facility] Comment on above: Performed By: #### C DP, BMP #### [facility] [address] [place], [place] [phone] Head Up Operator: Lanre Santana MD Hematocrit (Bld) [Volume fraction] 42.7 % Normal 36.3-47.1 [facility] Comment on above: Performed By: #### C DP, BMP #### [address] [place], [facility]83 Head Up Operator: Lanre Santana MD Hemoglobin (Bld) [Mass/Vol] 14.3 g/dL Normal 11.9-15.1 [facility] Comment on above: Performed By: #### C DP, BMP #### [address] [place], [place] [address]83 Head Up Operator: Lanre Santana MD Immature granulocytes/100 WBC (Bld) 0 % Normal 0 [facility] Comment on above: Performed By: #### C DP, BMP #### [facility] [address] [place] [address] Head Up Operator: Lanre Santana MD Lymphocytes (Bld) [#/Vol] 1.85 10*3/uL Normal 1.10-3.70 [facility] Comment on above: Performed By: #### C DP, BMP #### [facility] [address] [place], [place] [address]60383 Head Up Operator: Lanre Santana MD Lymphocytes/100 WBC (Bld) 22 % Low 24-43 [facility] Comment on above: Performed By: #### C DP, BMP #### [facility] [address] [place] [address] Head Up Operator: Lanre Santana MD MCH (RBC) [Entitic mass] 32.6 pg Normal 25.2-33.5 [facility] Comment on above: Performed By: #### C DP, BMP #### [facility] [address] [place], [facility]83 Head Up Operator: Lanre Santana MD MCHC (RBC) [Mass/Vol] 33.5 g/dL Normal 28.4-34.8 [facility] Comment on above: Performed By: #### C DP, BMP #### [facility] [address] [place] [address] Head Up Operator: Lanre Santana MD MCV (RBC) [Entitic vol] 97.3 fL Normal 82.6-102.9 [facility] Comment on above: Performed By: #### C DP, BMP #### [facility] [address] [place], [place] 6757[address] Head Up Operator: Lanre Santana MD Monocytes (Bld) [#/Vol] 0.71 10*3/uL Normal 0.10-1.20 [facility] Comment on above: Performed By: #### C DP, BMP #### [facility] [address] [place], [place] [phone] Head Up Operator: Lanre Santana MD Monocytes/100 WBC (Bld) 9 % Normal 3-12 [facility] Comment on above: Performed By: #### C DP, BMP #### [facility] [address] [place] [address] Head Up Operator: Lanre Santana MD Neutrophil (Seg) 68 % High 36-65 [facility] Comment on above: Performed By: #### C DP, BMP #### [facility] [address] [place] [id number] Head Up Operator: Lanre Santana MD NRBC Automated 0.0 per 100 WBC Normal 0.0 [facility] Comment on above: Performed By: #### C DP, BMP #### [facility] [address] [place] [address] Head Up Operator: Lanre Santana MD Platelet mean volume (Bld) [Entitic vol] 8.4 fL Normal 8.1-13.5 [facility] Comment on above: Performed By: #### C DP, BMP #### [facility] [address] [place] [address] Head Up Operator: Lanre Santana MD Platelets (Bld) [#/Vol] 278 10*3/uL Normal 138-453 [facility] Comment on above: Performed By: #### C DP, BMP #### [facility] [address] [place] [address] Head Up Operator: Lanre Santana MD RBC (Bld) [#/Vol] 4.39 10*6/uL Normal 3.95-5.11 [facility] Comment on above: Performed By: #### C DP, BMP #### [facility] [address] [place] [address] Head Up Operator: Lanre Santana MD WBC (Bld) [#/Vol] 8.4 10*3/uL Normal 3.5-11.3 [facility] Comment on above: Performed By: #### C DP, BMP #### [facility] [address] [place] [address] Head Up Operator: Lanre Santana MD EKG 12 LeadOrdered By: César mojica on 06-20-2022 Atrial Rate 65 BPM [employer] [facility] [employer] Work Phone: P Kindred 65 degrees [employer] [facility] Work Phone: P-R Interval 134 ms [facility]AN [facility] Work Phone: Q-T Interval 432 ms [employer] Work Phone: QRS Duration 110 ms [employer] Work Phone: QTc Calculation (Bazett) 449 ms [employer] Work Phone: R Kindred 72 degrees [employer] Work Phone: T Kindred 43 degrees [employer] Work Phone: Ventricular Rate 65 BPM [employer] Work Phone: [employer] Work Phone: EKG 12 Leadon 06-20-2022 Normal sinus rhythm Incomplete right bundle branch block Cannot rule out Inferior infarct , age undetermined Abnormal ECG No previous ECGs available Confirmed by César Blanco MD ([id number]) on 06/20/2022 10:08:07 PM [facility] César Blanco MD - 06/20/2022 Normal sinus rhythm Incomplete right bundle branch block Cannot rule out Inferior infarct , age undetermined Abnormal ECG No previous ECGs available Confirmed by César Blanco MD ([id number]) on 06/20/2022 10:08:07 PM [employer] Work Phone: Laboratory - Chemistry and C hemistry - challengeon 06-20-2022 GFR/1.73 sq M.predicted MDRD (S/P/Bld) [Vol rate/Area] [employer] Comment on above: Average GFR for 60-6 9 years old: 85 mL/min/1.73sq m Chronic Kidney Disease: <60 mL/min/1.73sq m Kidney failure: <15 mL/min/1.73sq m eGFR calculated using average adult body mass. Additional eGFR calculator available at: http://www.[employer]/multiple_crcl_2012.htm Stage 1: Some kidney damage normal GFR [...] by: CARTER COKER Date: 2022-06-06 15:52 Normal [facility] Vital Signs Date Time Vital Sign Value Performing Clinician Nicholasi haroon 06-27-2022 14:30-0400 Diastolic blood pressure 68 mm[Hg] Carter Torres MD Work Phone: [employer] 06-27-2022 14:30-0400 Heart rate 68 /min Carter Torres MD Work Phone: [employer] 06-27-2022 14:30-0400 Respiratory rate 23 /min Carter Torres MD Work Phone: [employer] 06-27-2022 14:30-0400 SaO2% (BldA) [Mass fraction] 94 % Carter Torres MD Work Phone: [employer] 06-27-2022 14:30-0400 Systolic blood pressure 117 mm[Hg] Carter Torres MD Work Phone: [employer] 06-27-2022 14:00-0400 Body temperature 97 [degF] Carter Torres MD Work Phone: [facility] [employer] 06-27-2022 11:16-0400 Body height 162.6 cm Carter Torres MD Work Phone: [employer] 06-27-2022 11:16-0400 Body mass index (BMI) [Ratio] 30.04 kg/m2 Carter Torres MD Work Phone: [facility] [employer] 06-27-2022 11:16-0400 Body weight 79.38 kg Carter Torres MD Work Phone: [employer] Encounters Encounter Date Encounter Type Care Provider Facility Start: 04-14-2024 End: 04-14-2024 ambulatory [facility] Start: 11-11-2023 End: 11-11-2023 ambulatory [facility] Start: 10-26-2023 End: 10-26-2023 ambulatory [facility] Start: 09-28-2023 End: 09-28-2023 ambulatory [facility] Start: 06-27-2022 End: 06-27-2022 ambulatory [facility] Start: 06-27-2022 End: 06-27-2022 Subsequent hospital visit by physician Carter Torres MD Work Phone: [facility] Start: 06-20-2022 End: 06-21-2022 ambulatory [facility] Start: 06-20-2022 End: 06-20-2022 Subsequent hospital visit by physician Ron Case MD Work Phone: [facility] EKG Start: 06-05-2022 End: 06-06-[address] RON CASE Facility:H1 Procedures Date Procedure Procedure Detail Performing Clinician Start: 06-20-2022 Ecg routine ecg w/le ast 12 lds w/i&r Carter Torres MD Work Phone: Start: 06-20-2022 Basic metabolic pane l calcium total Carter Torres MD Work Phone: Plan of Treatment Date Care Activity Detail Author Start: 07-31-2022 Influenza vaccination Flu vaccine (# 1) [facility] Start: 06-27-2022 End: 06-27-2022 Arthroscopy knee diagnostic w/wo synovial bx spx KNEE ARTHROSCOPY Acute medial meniscus tear of right knee, initial encounter 06/27/2022 1:07 PM EDT [facility] Start: 2010 Screening for malign ant neoplasm of breast Breast cancer screen [facility] Start: 2010 Shingles vaccine (1 of 2) Shingles vaccine (1 of 2) [facility] Start: 2005 Screening for malign ant neoplasm of colon [facility] Start: 2000 Lipid panel Lipids [facility] Start: 1979 DTaP/Tdap/Td vaccine (1 - Tdap) DTaP/Tdap/Td vaccine (1 - Tdap) [facility] Start: 1978 Hepatitis C screening Hepatitis C sc reen [facility] Start: 1975 HIV screening HIV screen [facility] Start: 1972 Depression Screen Depression Screen [facility] Start: 1966 Pneumococcal 0-64 ye ars Vaccine (1 - PCV) Pneumococcal 0-64 years Vaccine (1 - PCV) [facility] Start: 1960 COVID-19 Vaccine (#1) COVID-19 Vacci ne (#1) [facility] Oxygen therapy [[facility] Data Set] Initiate Oxygen Therapy Protocol Respiratory Care Routine As Needed until discontinued starting 06/27/2022 [facility] Work Phone: Comment on above: As Needed until disc ontinued starting 06/27/2022 Payers Date Payer Category Payer Unknown [id number] [id number] [id number] 1960 Unknown [id number] [id number] [id number] 1960 Unknown [id number] 2.16.8 [id number] 1960 Unknown [id number] 2.16.8 [id number] 1960 Unknown [id number] [id number] [id number] 1959 Unknown [id number] 1.2.8 [id number] Social History Date Type Detail Facility Start: 06-21-2020 Tobacco smoking stat [facility] Smokes tobacco daily [employer] Phone: History of tobacco use Cigarette Smoker B ON [employer] Phone: Start: 06-21-2020 Cigarettes smoked current (pack per day) - Reported 0.5 [employer] Phone: Start: 06-21-2020 Tobacco use and exposure Smoke less tobacco non-user [employer] Phone: Start: 12-05-2021 End: 06-27-2022 Alcohol intake Lifetime non-drinker (finding) [employer] Phone: Start: 06-21-2020 History SDOH Alcohol Frequency 1 [employer] Phone: Start: 1960 Sex Assigned At Not on file B ON [employer] Phone: Start: 06-17-2022 End: 06-27-2022 Exposure to SARS-CoV-2 (event) Not sure [employer] Phone: Progress note 04-14-2024 Note Date & [...] All other systems reviewed and are negative. [facility] Progress note 04-14-2024 Note Date & Type Note Facility 04-14-2024 Note Cardiovascular Medic [facility] SUBJECTIVE Chief Complaint Patient presents with [...] breath Acute sinusitis Coronary artery disease involving p[place] coronary artery of [place] heart without angina pectoris Past Medical History: Diagnosis Date Hyperlipidemia Lupus (systemic lupus erythematosus) ([facility]) Past Surgical History: Procedure Laterality [...] the same time., Disp: , Rfl: HYDROcodone-acetaminophen (Belden) 5-325 mg tablet, take 1 tablet by [...] Rate and R (more content not included)... [facility] Progress note 11-11-2023 Note Date & Type Note Facility 11-11-2023 Note Patient here for [facility] low up heart cath. Isosorbide was increased [...] All other systems reviewed and are negative. [facility] Progress note 11-11-2023 Note Date & Type Note Facility 11-11-2023 Note Cardiovascular Medic [facility] SUBJECTIVE Chief Complaint Patient presents with Chest [...] breath Acute sinusitis Coronary artery disease involving [place] coronary artery of [place] heart without angina pectoris Past Medical History: Diagnosis Date Hyperlipidemia Lupus (systemic lupus erythematosus) ([facility]) Past Surgical History: Procedure Laterality [...] tablet, if needed., Disp: , Rfl: HYDROcodone-acetaminophen (Belden) 5-325 mg tablet, take 1 tablet by [...] No focal de (more content not included)... [facility] Clinical Note 10-26-2023 Note Date & Type Note Facility 10-26-2023 Note Patient: Abi adam Procedure Information Date/Time: 10/26/23 0800 Procedure: Coronary angiography (Left) Location: [facility] ANAESTHETIC TECHNICIAN 2 [address] / [facility] (Cath) Providers: Marj Abraham MD Clinical information reviewed: Allergies Meds OB Status Physical Exam Airway Mallampati: III TM distance: >3 FB Neck ROM: full Cardiovascular Rhythm: regular Rate: normal Dental Pulmonary Abdominal Anesthesia Plan ASA 3 other Anesthetic plan and risks discussed with patient. Use of blood products discussed with patient who consented to blood products. Additional Equipment Requests [facility] Progress note 09-28-2023 Note Date [...] All other systems reviewed and are negative. [facility] Progress note 09-28-2023 Note Date & Type Note Facility 09-28-2023 Note Cardiovascular Medic [facility] SUBJECTIVE No chief complaint on file. [...] tablet, if needed., Disp: , Rfl: HYDROcodone-acetaminophen (Belden) 5-325 mg tablet, take 1 tablet by [...] working slowly t (more content not included)... [facility] History of Present illness Narrative [...] require patient to operate motor Vehicle. Yes [facility] Preadmission Testing Name: Abi Boswell : 1960 Patient (home) Procedure: Knee Arthroscopy-Right Date of Procedure: 06/27/2022 Surgeon: aCrter Torres MD Ht: 5' 4 (162.6 cm) [...] Take [x] Ride Home [x]No Jewelry/Contact Lenses/Nail Malian [] Prep/Lax/Clear Liquids [] Chlorhexidene DOS Patient [...] with patient? Yes documented in this encounter [employer] Phone: Hospital Discharge instructions 06-27-2022 Discharge Instructions [...] feet do not touch the floor, 2. Wrecker Driver the sides of the surface for support. 3. Raise one foot until your knee is completely straight 4. Slowly return to the starting position and relax. 5. Repeat 20 times ANKLE PUMPS 1. Bend ankles up and down, alternating foot 2. Repeat 25 times Carter Torres M.D. [phone] @ATTPROV@ 06/27/2022 1:01 PM documented in this encounter [facility] [employer] Phone: Summary Purpose Family History No Family History Records FoundNo Family History Records FoundNo Family History Records FoundNo Family History Records Found Advance Directives No Advanced Directives Records FoundLatest Code Status on File Code Status Date Activated Date Inactivated Comments Full Code 06/27/2022 11:07 AM Additional Source Comments Care Teams (unrecognized sec tion and content) Glass Technician Relationship Specialty Start Date End Date Ron Case MD [address] [phone] PCP - General Family Medicine 06/21/20 Glass Technician Relationship Specialty Start Date End Date Ron Case MD [address] [place] [address] PCP - General Family Medicine 06/21/20 Glass Technician Relationship Specialty Start Date End Date Ron Case MD [address] [place] [address] PCP - General Family Medicine 06/21/20 INFORMATION SOURCE (unrecogn ized section and content) DATE CREATED AUTHOR 06/22/2022 [facility] DATE CREATED AUTHOR AUTHOR'S ORGANIZ ATION 07/01/2022 [facility] DATE CREATED AUTHOR AUTHOR'S ORGANIZ ATION 09/22/2022 [facility] DATE CREATED AUTHOR AUTHOR'S ORGANIZ ATION 04/17/2024 [facility] Reason for Visit (unrecogniz ed section and content) Specialty Diagnoses / Procedures Referred By Herber t Referred To Contact Diagnoses Acute medial meniscus tear of right knee, initial encounter Acute medial meniscus tear of right knee, initial encounter [S83.241A] Procedures W[place] KNEE SCOPE,DIAGNOSTIC W[place] ARTHRS KNE SURG W/MENISCECTOMY MED/LAT W/SHVG KNEE ARTHROSCOPY Carter Torres MD [address] [place] [address] [facility] [address] [place] [address] Referral ID Status Reason Start Date Expiration Date Visits Re quested Visits Authorized [id number] 1 1 Ordered Prescriptions (unrec ognized section [...] mL IVPB (duplex) (COMPLETED) 2,000 mg, IntraVENous, HSE COORDINATOR TO O.R., 1 dose, On Thu06/27/22 at [...] 06/25/2022 06/26/2022 06/27/2022 bupivacaine-EPINEPHrine PF (MARCAINE-w/EPINEPHRINE) 0.5% -[id number] injection (CANCELED) PRN, Starting on Thu06/27/22 at [...] BE BASED ON THE PRIMARY CLINICAL RECORDS. [employer] provides no warranty or guarantee of the accuracy or completeness of information in this document.
== END 2024-07-04 15:43 | disposition home or self-care (01) ==
LOC: WC 15:42
PROVIDERS: PCP Family Medicine; Visit Provider Physician Assistant
DX: T81.89XA Other complications of procedures, not elsewhere classified, initial encounter (principal)
CPT/HCPCS: 11042

== ENCOUNTER 2024-07-29 11:57 | Outpatient (OUT) | payer OTHER, SELFPAY | END 2024-07-29 11:58 | disposition home or self-care (01) | LOC: WC 11:57 | PROVIDERS: PCP Family Medicine; Visit Provider Physician Assistant | DX: T81.89XA Other complications of procedures, not elsewhere classified, initial encounter (principal); S94.8X1A Injury of other nerves at ankle and foot level, right leg, initial encounter | CPT/HCPCS: G0463 ==

== ENCOUNTER 2024-08-04 10:24 | Outpatient (RCR) | payer OTHER, SELFPAY | END 2024-10-20 07:40 | disposition home or self-care (01) | LOC: PT 10:24 | PROVIDERS: PCP Family Medicine; Visit Provider Podiatrist Foot & Ankle Surgery | DX: M25.571 Pain in right ankle and joints of right foot (principal); S84.91XD Injury of unspecified nerve at lower leg level, right leg, subsequent encounter; R53.1 Weakness | CPT/HCPCS: 97010; 97014; 97035; 97110; 97112; 97140; 97162 ==

== ENCOUNTER 2024-10-18 11:07 | Outpatient (OUT) | payer OTHER, SELFPAY ==
--- NOTE | 2024-10-18 11:10 | XR_ITS ---
The [address] [address] Patient Name: KENY YOUNG MRN: [id number] date: 1960 Sex: F Assigned Patient Location: [facility] Current Patient Location: Accession/Order Number: [id number] Exam Date: 10/18/2024 11:10 Report Date: 10/20/2024 06:22 At the request of: SEBAS SALVADOR Procedure: XR ankle RT min 3V PROCEDURE: XR ankle RT min 3V HISTORY: Right Ankle Pain COMPARISON: XR tibia-fibula right 03/31/2024 FINDINGS: BONES:No fracture, acute abnormality, or significant arthropathy. SOFT TISSUES:No visible soft tissue swelling. EFFUSION:None visible. OTHER: Negative. XR/XR ankle RT min 3V IMPRESSION: 1. Normal examination. Electronically authenticated by: FRED COKER Date: 10/20/2024 06:22
--- OUTSIDE RECORDS SUMMARY | 2024-10-18 11:27 | XMS_ITS | CCD ---
Author Organization [facility] Care Team Providers Care Senior Service Aide Name Role Phone Ron Case MD Primary Care Provider [phone] CARTER TORRES Referring Unavailable RON CASE [...] Attending Unavailable LORETA GRIMALDO Attending Unavailable MARJ ABRAHMA Admitting Unavailable MARJ ABRAHAM Attending Unavailable MARJ ABRAHAM Referring Unavailable HENRIETTA RODRIGUEZ Attending Unavailable Allergies Allergy Classification Reported Allergen(s) Allergy Type Date of Onset Reaction(s) Facility (4 sources) Morphine; Translations: [MORPHINE] Drug Allergy 06-21-20 Hives, Palpitations [facility] (1 source) Morphine Drug Allergy [facility] Repository (1 source) Sulfamethoxazole / Trimethoprim; Translations: [SULFAMETHOXAZOLE-TR IMETHOPRIM] Drug Allergy 09-28-20 [facility] Repository Medications Current Medications Medication Drug [...] disease (4 sources) Atherosclerotic heart disease of [place] coronary artery without angina pectoris; Translations: [Atherosclerotic heart disease of [place] coronary artery with other forms of angina [...] Range Facility Office Visiton 04-14-2024 Follow-up visit [id number] Abi Boswell 1960 F Date Provider Department Center 04/14/2024 HENRIETTA FLOREZ Family History Problem Relation Age of Onset Hypertension Maternal Grandmother Transient ischemic attack Maternal Grandmother Heart attack Maternal Grandfather Heart failure Maternal Grandfather Family Status - Relation Status Age at Maternal Grandmother Maternal Grandfather Level of Service:30272 [place] OFFICE/OUTPATIENT ESTABLISHED MOD MDM 30 MIN Reason for Visit and Comments: Pre-op Exam [201308] Hypertension [376168] Chest Pain [441463] [facility] 36on 12-25-2023 36 Please let her know her labs showed her kidney function, liver function, blood counts and thyroid function were normal. Her LDL or bad cholesterol was elevated at 118. With patients with known heart disease, we recommend lowering the LDL to <70 to help reduce risk of worsening disease and help reduce risk of stroke, MO, etc. Recommend we switch her simvastatin to atrovastatin 40mg daily. Follow-up lipid panel and LFTs in 3 months. Also, her vit D was low, follow-up with Dr. Case on this. Thanks! Normal [facility] Telephoneon 12-25-2023 Telephone [id number] Boswell,Bernice F 1960 F Date Provider Department Center 12/25/2023 HENRIETTA FLOREZ Family History Problem Relation Age of Onset Hypertension Maternal Grandmother Transient ischemic attack Maternal Grandmother Heart attack Maternal Grandfather Heart failure Maternal Grandfather Family Status - Relation Status Age at Maternal Grandmother Maternal Grandfather Normal [facility] Office Visiton 12-13-2023 Follow-up visit [id number] Abi Boswell 1960 F Date Provider Department Center 11/11/2023 HENRIETTA FLOREZ BILL [facility] Family History Problem Relation Age of Onset Hypertension Maternal Grandmother Transient ischemic attack Maternal Grandmother Heart attack Maternal Grandfather Heart failure Maternal Grandfather Family Status - Relation Status Age at Maternal Grandmother Maternal Grandfather Level of Service:58946 [place] OFFICE/OUTPATIENT ESTABLISHED MOD [facility] 30-39 MIN Reason for Visit and Comments: Chest Pain [841911] Coronary Artery Disease [187] [facility]. The patient [...] anatomy and decide on need for intervention. [facility] NURSNOTEon 10-26-2023 NURSNOTE RN educated pt on d/ c instructions. RN encouraged pt to voice any questions or concerns. Pt verbalizes no questions or concerns at this time. Pt was wheeled off of unit with all of belongings. [facility] Orders Onlyon 10-01-2023 Orders Only [id number] Abi Boswell 1960 F Date Provider Department Center 10/01/2023 [facility] DA[facility] BILL [place] Family History Problem Relation Age of Onset Hypertension Maternal Grandmother Transient ischemic attack Maternal Grandmother Heart attack Maternal Grandfather Heart failure Maternal Grandfather Family Status - Relation Status Age at Maternal Grandmother Maternal Grandfather [facility] HPon 09-28-2023 [facility] SUBJECTIVE No chief complaint on file. [...] if needed., Disp: , Rfl: HYDROcodone-acetamino phen ([place]) 5-325 mg tablet, take 1 tablet by [...] slowly t (more content not included)... Normal [facility] Office Visiton 09-28-2023 Follow-up visit [id number] Abi Boswell 1960 F Date Provider Department Center 09/28/2023 [id number] GRIMALDO CARD [facility] Family History Problem Relation Age of Onset Hypertension Maternal Grandmother Transient ischemic attack Maternal Grandmother Heart attack Maternal Grandfather Heart failure Maternal Grandfather Family Status - Relation Status Age at Maternal Grandmother Maternal Grandfather Level of Service:83830 [place] OFFICE/OUTPATIENT NEW LOW [facility] 30-44 MINUTES Normal [facility] [id number] 06-27-2022 SARS-CoV-2 (COVID-19) RNA CAROLINE+probe Ql (Unsp spec) Not detected Normal [facility] Comment on above: Result Comment: Rapid [...] management decisions. Fact sheet for Healthcare Providers: https://www.fda.gov/media/229589/download Fact sheet for Patients: https://www.fda.gov/media/679685/download Methodology: Isothermal Nucleic Acid Amplification Performed By: #### C OVRB #### [facility] [address] [place] [address] Scalping Machine Operator: Lanre Santana MD Basic Metabolic Panelon 05-31 Anion gap [Moles/Vol] 8 mmol/L Low 9 - 17 mmol/L [facility] Calcium [Mass/Vol] 9.8 mg/dL 8.6 - 10. 4 mg/dL [facility] Chloride [Moles/Vol] 107 mmol/L 98 - 10 7 mmol/L [facility] CO2 [Moles/Vol] 30 mmol/L 20 - 31 mmol/L [facility] Creatinine [Mass/Vol] 0.73 mg/dL 0.5 - 0.9 mg/dL [facility] GFR >60 60 - PI NF mL/min [facility] GFR Non- >60 60 - PINF mL/min [facility] Glucose [Mass/Vol] 97 mg/dL 70 - 99 mg/dL [facility] Interpretation and review of laboratory results Abnormal [facility] Potassium [Moles/Vol] 4.4 mmol/L 3.7 - 5.3 mmol/L [facility] Sodium [Moles/Vol] 145 mmol/L High 135 - 144 mmol/L [facility] Urea nitrogen (BldV) [Mass/Vol] 12 mg/dL 8 - 23 mg/dL [facility] Urea nitrogen/Creatinine (Bld) [Mass ratio] 16 9 - 20 [facility] Basic Metabolic Profon 06-20 (cont.) Normal [facility] Comment on above: Result Comment: Aver age GFR for 60-69 years old: 85 mL/min/1.73sq m Chronic Kidney Disease: <60 mL/min/1.73sq m Kidney failure: <15 mL/min/1.73sq m eGFR calculated using average adult body mass. Additional eGFR calculator available at: http://www.RELEASEIF/multiple_crcl_2011.htm Performed By: #### C DP, BMP #### [facility] [address] [place], [place] [id number] Scal[employer] Machine Operator: Lanre Santana MD Anion gap [Moles/Vol] 8 mmol/L Low 9-17 [facility] Comment on above: Performed By: #### C DP, BMP #### [facility] [address] [place], [place] [id number] Scalping Machine Operator: Lanre Santana MD BUN/CRE Ratio 16 Normal 9-20 [facility] Comment on above: Performed By: #### C DP, BMP #### [facility] [address] [place], [place] [id number] Scal[employer] Machine Operator: Lanre Santana MD Calcium [Mass/Vol] 9.8 mg/dL Normal 8.6-10.4 [facility] Comment on above: Performed By: #### C DP, BMP #### [facility] [address] [place], [place] [address] Scalping Machine Operator: Lanre Santana MD Chloride [Moles/Vol] 107 mmol/L Normal 98-107 [facility] Comment on above: Performed By: #### C DP, BMP #### [facility] [address] [place] [address] [place], [place] [address] Scalping Machine Operator: Lanre Santana MD CO2 [Moles/Vol] 30 mmol/L Normal 20-31 [facility] Comment on above: Performed By: #### C DP, BMP #### [facility] [address] [place], [place] [address] Scalping Machine Operator: Lanre Santana MD Creatinine [Mass/Vol] 0.73 mg/dL Normal 0.50-0.90 [facility] Comment on above: Performed By: #### C DP, BMP #### [facility] [address] [place], [place] [address] Scalping Machine Operator: Lanre Santana MD GFR, Amer >60 Normal >60 [facility] Comment on above: Performed By: #### C DP, BMP #### [facility] [address] [place], [place] [address] Scalping Machine Operator: Lanre Santana MD GFR,non Amer >60 Normal >60 [facility] Comment on above: Performed By: #### C DP, BMP #### [facility] [address] [place], [place] [address] Scalping Machine Operator: Lanre Satnana MD Glucose [Mass/Vol] 97 mg/dL Normal 70-99 [facility] Comment on above: Performed By: #### C DP, BMP #### [facility] [address] [place], [place] 8[address] Scalping Machine Operator: Lanre Santana MD Potassium [Moles/Vol] 4.4 mmol/L Normal 3.7-5.3 [facility] Comment on above: Performed By: #### C DP, BMP #### [address] [place], [place] [id number] Scalping Machine Operator: Lanre Santana MD Sodium [Moles/Vol] 145 mmol/L High 135-144 [facility] Comment on above: Performed By: #### C DP, BMP #### [facility] [address] [place], [place] [address] Scalping Machine Operator: Lanre Santana MD Staging: Normal [facility] Comment on above: Result Comment: Stag e 1: Some kidney damage normal GFR Stage 2: Mild kidney damage GFR 60-89 Stage 3: Moderate kidney damage GFR 30-59 Stage 4: Severe kidney damage GFR 15-29 Stage 5: Severe kidney damage GFR <15 ESRD - chronic treatment by dialysis or transplant Performed By: #### C DP, BMP #### [facility] [address] [place], [place] [address] Scalping Machine Operator: Lanre Santana MD Urea nitrogen [Mass/Vol] 12 mg/dL Normal 8-23 [facility] Comment on above: Performed By: #### C DP, BMP #### [facility] [address] [place] [address] Scalping Machine Operator: Lanre Santana MD CBC with Auto Differentialon 06-20-2022 Absolute Eos # 0.12 [facility] Absolute Immature Granulocyte 0.03 [facility] Absolute Lymph # 1.85 [facility] Absolute Maverick # 0.71 [facility] Basophils (Bld) [#/Vol] 0.03 10*3/uL [facility] Basophils/100 WBC (Bld) 0 % 0 - 2 % [facility] Eosinophils/100 WBC (Bld) 1 % 1 - 4 % [facility] Hematocrit (Bld) [Volume fraction] 42.7 % 36.3 - 47.1 % [facility] Hemoglobin (Bld) [Mass/Vol] 14.3 g/dL 11.9 - 15.1 g/dL [facility] Immature granulocytes/100 WBC (Bld) 0 % 0 [facility] Interpretation and review of laboratory results Abnormal [facility] Lymphocytes/100 WBC (Bld) 22 % Low 24 - 43 % [facility] MCH (RBC) [Entitic mass] 32.6 pg 25.2 - 33.5 pg [facility] MCHC (RBC) [Mass/Vol] 33.5 g/dL 28.4 - 34.8 g/dL [facility] MCV (RBC) [Entitic vol] 97.3 fL 82.6 - 102.9 fL [facility] Monocytes/100 WBC (Bld) 9 % 3 - 12 % [facility] NRBC Automated 0.0 0.0 per 100 WBC [facility] Platelet distribution width (Bld) [Ratio] 13.3 % 11.8 - 14.4 % [facility] Platelet mean volume (Bld) [Entitic vol] 8.4 fL 8.1 - 13.5 fL [facility] Platelets (Bld) [#/Vol] 278 10*3/uL [facility] RBC (Bld) [#/Vol] 4.39 10*6/uL 3.95 - 5.1 1 m/uL [facility] Segmented neutrophils/100 WBC (Bld) 68 % High 36 - 65 % [facility] Segs Absolute 5.62 [facility] WBC (Bld) [#/Vol] 8.4 10*3/uL [facility] CBC with Diffon 06-20-2022 Abs. Basophil 0.03 k/uL Normal 0.00-0.20 [facility] Comment on above: Performed By: #### C DP, BMP #### [facility] [address] [place] [address] [place] [id number] Scalping Machine Operator: Lanre Santana MD Abs.Imm.Granulocyte 0.03 k/uL Normal 0.00-0.30 [facility] Comment on above: Performed By: #### C DP, BMP #### [facility] [address] [place] [address] Dr. [place], [facility] Scalping Machine Operator: Lanre Santana MD Abs.Neutrophil (Seg) 5.62 k/uL Normal 1.50-8.10 [facility] Comment on above: Performed By: #### C DP, BMP #### [address] [place] [place] [address] Scalping Machine Operator: Lanre Santana MD Basophils/100 WBC (Bld) 0 % Normal 0-2 [facility] Comment on above: Performed By: #### C DP, BMP #### [facility] [address] [place] [address] [place] [address] Scalping Machine Operator: Lanre Santana MD Eosinophils (Bld) [#/Vol] 0.12 10*3/uL Normal 0.00-0.44 [facility] Comment on above: Performed By: #### C DP, BMP #### [facility] [address] [place] [address] [place] [address] Scalping Machine Operator: Lanre Santana MD Eosinophils/100 WBC (Bld) 1 % Normal 1-4 [facility] Comment on above: Performed By: #### C DP, BMP #### [facility] [address] [place], [place] [address] Scalping Machine Operator: Lanre Santana MD Erythrocyte distribution width (RBC) [Ratio] 13.3 % Normal 11.8-14.4 [facility] Comment on above: Performed By: #### C DP, BMP #### [facility] [address] [place], [place] [address] Scalping Machine Operator: Lanre Santana MD Hematocrit (Bld) [Volume fraction] 42.7 % Normal 36.3-47.1 [facility] Comment on above: Performed By: #### C DP, BMP #### [address] [place], [facility] Scalping Machine Operator: Lanre Santana MD Hemoglobin (Bld) [Mass/Vol] 14.3 g/dL Normal 11.9-15.1 [facility] Comment on above: Performed By: #### C DP, BMP #### [address] [place], [place] [address] Scalping Machine Operator: Lanre Santana MD Immature granulocytes/100 WBC (Bld) 0 % Normal 0 [facility] Comment on above: Performed By: #### C DP, BMP #### [facility] [address] [place] [address] Scalping Machine Operator: Lanre Santana MD Lymphocytes (Bld) [#/Vol] 1.85 10*3/uL Normal 1.10-3.70 [facility] Comment on above: Performed By: #### C DP, BMP #### [facility] [address] [place], [place] [address] Scalping Machine Operator: Lanre Santana MD Lymphocytes/100 WBC (Bld) 22 % Low 24-43 [facility] Comment on above: Performed By: #### C DP, BMP #### [facility] [address] [place] [address] Scalping Machine Operator: Lanre Santana MD MCH (RBC) [Entitic mass] 32.6 pg Normal 25.2-33.5 [facility] Comment on above: Performed By: #### C DP, BMP #### [facility] [address] [place], [facility] Scalping Machine Operator: Lanre Santana MD MCHC (RBC) [Mass/Vol] 33.5 g/dL Normal 28.4-34.8 [facility] Comment on above: Performed By: #### C DP, BMP #### [facility] [address] [place] [address] Scalping Machine Operator: Lanre Santana MD MCV (RBC) [Entitic vol] 97.3 fL Normal 82.6-102.9 [facility] Comment on above: Performed By: #### C DP, BMP #### [facility] [address] [place], [place] [address] Scalping Machine Operator: Lanre Santana MD Monocytes (Bld) [#/Vol] 0.71 10*3/uL Normal 0.10-1.20 [facility] Comment on above: Performed By: #### C DP, BMP #### [facility] [address] [place], [place] [address] Scalping Machine Operator: Lanre Santana MD Monocytes/100 WBC (Bld) 9 % Normal 3-12 [facility] Comment on above: Performed By: #### C DP, BMP #### [facility] [address] [place] [address] Scalping Machine Operator: Lanre Santana MD Neutrophil (Seg) 68 % High 36-65 [facility] Comment on above: Performed By: #### C DP, BMP #### [facility] [address] [place] [address] Scalping Machine Operator: Lanre Santana MD NRBC Automated 0.0 per 100 WBC Normal 0.0 [facility] Comment on above: Performed By: #### C DP, BMP #### [facility] [address] [place] [address] Scalping Machine Operator: Lanre Santana MD Platelet mean volume (Bld) [Entitic vol] 8.4 fL Normal 8.1-13.5 [facility] Comment on above: Performed By: #### C DP, BMP #### [facility] [address] [place] [address] Scalping Machine Operator: Lanre Santana MD Platelets (Bld) [#/Vol] 278 10*3/uL Normal 138-453 [facility] Comment on above: Performed By: #### C DP, BMP #### [facility] [address] [place] [address] Scalping Machine Operator: Lanre Santana MD RBC (Bld) [#/Vol] 4.39 10*6/uL Normal 3.95-5.11 [facility] Comment on above: Performed By: #### C DP, BMP #### [facility] [address] [place] [address] Scalping Machine Operator: Lanre Santana MD WBC (Bld) [#/Vol] 8.4 10*3/uL Normal 3.5-11.3 [facility] Comment on above: Performed By: #### C DP, BMP #### [facility] [address] [place] [address] Scalping Machine Operator: Lanre Santana MD EKG 12 LeadOrdered By: César mojica on 06-20-2022 Atrial Rate 65 BPM Possibility [employer] [facility] Work Phone: P [place] 65 degrees [employer]ibility Space [facility] Work Phone: P-R Interval 134 ms [facility] Work Phone: Q-T Interval 432 ms [facility] [employer] Work Phone: QRS Duration 110 ms [facility] [employer] Work Phone: QTc Calculation (Bazett) 449 ms [facility] [employer] Work Phone: R [place] 72 degrees [employer] Work Phone: T [place] 43 degrees [employer] Work Phone: Ventricular Rate 65 BPM [facility] [employer] Work Phone: [facility] [employer] Work Phone: EKG 12 Leadon 06-20-2022 Normal sinus rhythm Incomplete right bundle branch block Cannot rule out Inferior infarct , age undetermined Abnormal ECG No previous ECGs available Confirmed by César Blanco MD ([id number]) on 06/20/2022 10:08:07 PM [facility] César Blacno MD - 06/20/2022 Normal sinus rhythm Incomplete right bundle branch block Cannot rule out Inferior infarct , age undetermined Abnormal ECG No previous ECGs available Confirmed by César Blanco MD ([id number]) on 06/20/2022 10:08:07 PM [employer] Work Phone: Laboratory - Chemistry and C hemistry - challengeon 06-20-2022 GFR/1.73 sq M.predicted MDRD (S/P/Bld) [Vol rate/Area] [employer] Comment on above: Average GFR for 60-6 9 years old: 85 mL/min/1.73sq m Chronic Kidney Disease: <60 mL/min/1.73sq m Kidney failure: <15 mL/min/1.73sq m eGFR calculated using average adult body mass. Additional eGFR calculator available at: http://www.RELEASEIF/multiple_crcl_2012.htm Stage 1: Some kidney damage normal GFR [...] by: CARTER COKER Date: 2022-06-06 15:52 Normal [facility] Vital Signs Date Time Vital Sign Value Performing Clinician Nicholasi haroon 06-27-2022 14:30-0400 Diastolic blood pressure 68 mm[Hg] Carter Torres MD Work Phone: [employer] 06-27-2022 14:30-0400 Heart rate 68 /min Carter Torres MD Work Phone: [employer] 06-27-2022 14:30-0400 Respiratory rate 23 /min Carter Torres MD Work Phone: [employer] [facility] 06-27-2022 14:30-0400 SaO2% (BldA) [Mass fraction] 94 % Carter Torres MD Work Phone: [employer] 06-27-2022 14:30-0400 Systolic blood pressure 117 mm[Hg] Carter Torres MD Work Phone: [employer] 06-27-2022 14:00-0400 Body temperature 97 [degF] Carter Torres MD Work Phone: [facility] [employer] 06-27-2022 11:16-0400 Body height 162.6 cm Carter Torres MD Work Phone: [employer] 06-27-2022 11:16-0400 Body mass index (BMI) [Ratio] 30.04 kg/m2 Carter Torres MD Work Phone: [facility] [employer] 06-27-2022 11:16-0400 Body weight 79.38 kg Carter Torres MD Work Phone: [employer] Encounters Encounter Date Encounter Type Care Provider Facility Start: 04-14-2024 End: 04-14-2024 ambulatory [facility] Start: 11-11-2023 End: 11-11-2023 ambulatory [facility] Start: 10-26-2023 End: 10-26-2023 ambulatory [facility] Start: 09-28-2023 End: 09-28-2023 ambulatory [facility] Start: 06-27-2022 End: 06-27-2022 ambulatory [facility] Start: 06-27-2022 End: 06-27-2022 Subsequent hospital visit by physician Carter Torres MD Work Phone: [facility] Start: 06-20-2022 End: 06-21-2022 ambulatory [facility] Start: 06-20-2022 End: 06-20-2022 Subsequent hospital visit by physician Ron Case MD Work Phone: [facility] EKG Start: 06-05-2022 End: 06-06-[address] RON CASE Facility:H1 Procedures Date Procedure Procedure Detail Performing Clinician Start: 06-20-2022 Ecg routine ecg w/le ast 12 lds w/i&r Carter Torres MD Work Phone: Start: 06-20-2022 Basic metabolic pane l calcium total Carter Torres MD Work Phone: Plan of Treatment Date Care Activity Detail Author Start: 07-31-2022 Influenza vaccination Flu vaccine (# 1) [facility] Start: 06-27-2022 End: 06-27-2022 Arthroscopy knee diagnostic w/wo synovial bx spx KNEE ARTHROSCOPY Acute medial meniscus tear of right knee, initial encounter 06/27/2022 1:07 PM EDT [facility] Start: 2010 Screening for malign ant neoplasm of breast Breast cancer screen [facility] Start: 2010 Shingles vaccine (1 of 2) Shingles vaccine (1 of 2) [facility] Start: 2005 Screening for malign ant neoplasm of colon [facility] Start: 2000 Lipid panel Lipids [facility] Start: 1979 DTaP/Tdap/Td vaccine (1 - Tdap) DTaP/Tdap/Td vaccine (1 - Tdap) [facility] Start: 1978 Hepatitis C screening Hepatitis C sc reen [facility] Start: 1975 HIV screening HIV screen [facility] Start: 1972 Depression Screen Depression Screen [facility] Start: 1966 Pneumococcal 0-64 ye ars Vaccine (1 - PCV) Pneumococcal 0-64 years Vaccine (1 - PCV) [facility] Start: 1960 COVID-19 Vaccine (#1) COVID-19 Vacci ne (#1) [facility] Oxygen therapy [place] Initiate Oxygen Therapy Protocol Respiratory Care Routine As Needed until discontinued starting 06/27/2022 [facility] Work Phone: Comment on above: As Needed until disc ontinued starting 06/27/2022 Payers Date Payer Category Payer Unknown [id number] 2.16.8 [id number] 1960 Unknown [id number] 2.16.8 [id number] 1960 Unknown [id number] 2.16.8 [id number] 1960 Unknown [id number] 2.16.8 [id number] 1960 Unknown [id number] 2.16.84 [id number] 1959 Unknown [id number] 1.2.8 [id number] Social History Date Type Detail Facility Start: 06-21-[address] [facility] Smokes tobacco daily [employer] Phone: History of tobacco use Cigarette Smoker B [employer] Phone: Start: 06-21-2020 Cigarettes smoked current (pack per day) - Reported 0.5 [employer] Phone: Start: 06-21-2020 Tobacco use and exposure Smoke less tobacco non-user [employer] Phone: Start: 12-05-2021 End: 06-27-2022 Alcohol intake Lifetime non-drinker (finding) [employer] Phone: Start: 06-21-2020 History SDOH Alcohol Frequency 1 [employer] Phone: Start: 1960 Sex Assigned At Not on file B ON [employer] Phone: Start: 06-17-2022 End: 06-27-2022 Exposure to SARS-CoV-2 (event) Not sure [employer] Phone: Progress note 04-14-2024 Note Date & [...] All other systems reviewed and are negative. [facility] Progress note 04-14-2024 Note Date & Type Note Facility 04-14-2024 Note Cardiovascular Medic [facility] SUBJECTIVE Chief Complaint Patient [...] breath Acute sinusitis Coronary artery disease involving [place] coronary artery of [place] heart without angina pectoris Past Medical History: Diagnosis Date Hyperlipidemia Lupus (systemic lupus erythematosus) ([facility]) Past Surgical [...] the same time., Disp: , Rfl: HYDROcodone-acetaminophen ([place]) 5-325 mg tablet, take 1 tablet by [...] Rate and R (more content not included)... [facility] Progress note 11-11-2023 Note Date & Type Note Facility 11-11-2023 Note Patient here for [facility] low up heart cath. Isosorbide was [...] All other systems reviewed and are negative. [facility] Progress note 11-11-2023 Note Date & Type Note Facility 11-11-2023 Note Cardiovascular Medic [facility] SUBJECTIVE Chief Complaint Patient presents with [...] breath Acute sinusitis Coronary artery disease involving [place] coronary artery of [place] heart without angina pectoris Past Medical History: Diagnosis Date Hyperlipidemia Lupus (systemic lupus erythematosus) ([facility]) Past Surgical [...] tablet, if needed., Disp: , Rfl: HYDROcodone-acetaminophen ([place]) 5-325 mg tablet, take 1 tablet by [...] No focal de (more content not included)... [facility] Clinical Note 10-26-2023 Note Date & Type Note Facility 10-26-2023 Note Patient: Abi adam Procedure Information Date/Time: 10/26/23 0800 Procedure: Coronary angiography (Left) Location: [facility] COLLECTIONS REP 2 BIPLANE / [facility] (Cath) Providers: Marj Abraham MD Clinical information reviewed: Allergies Meds OB Status Physical Exam Airway Mallampati: III TM distance: >3 FB Neck ROM: full Cardiovascular Rhythm: regular Rate: normal Dental Pulmonary Abdominal Anesthesia Plan ASA 3 other Anesthetic plan and risks discussed with patient. Use of blood products discussed with patient who consented to blood products. Additional Equipment Requests [facility] Progress note 09-28-2023 Note Date & [...] All other systems reviewed and are negative. [facility] Progress note 09-28-2023 Note Date & Type Note Facility 09-28-2023 Note Cardiovascular Medic [facility] SUBJECTIVE No chief complaint [...] tablet, if needed., Disp: , Rfl: HYDROcodone-acetaminophen ([place]) 5-325 mg tablet, take 1 tablet by [...] working slowly t (more content not included)... [facility] History of Present illness Narrative 06-27-2022 [...] require patient to operate motor Vehicle. Yes [facility] Preadmission Testing Name: Abi Boswell : [...] Take [x] Ride Home [x]No Jewelry/Contact Lenses/Nail Citizen Of [place] [] Prep/Lax/Clear Liquids [] Chlorhexidene DOS Patient [...] with patient? Yes documented in this encounter [employer] Phone: Hospital Discharge instructions 06-27-2022 Discharge Instructions [...] feet do not touch the floor, 2. Form Coverer the sides of the surface for support. 3. Raise one foot until your knee is completely straight 4. Slowly return to the starting position and relax. 5. Repeat 20 times ANKLE PUMPS 1. Bend ankles up and down, alternating foot 2. Repeat 25 times Carter Torres M.D. [phone] @ATTPROV@ 06/27/2022 1:01 PM documented in this encounter [facility] Work Phone: Summary Purpose Family History No Family History Records FoundNo Family History Records FoundNo Family History Records FoundNo Family History Records Found Advance Directives No Advanced Directives Records FoundLatest Code Status on File Code Status Date Activated Date Inactivated Comments Full Code 06/27/2022 11:07 AM Additional Source Comments Care Teams (unrecognized sec tion and content) Senior Service Aide Relationship Specialty Start Date End Date Ron Case MD [address] [id number] PCP - General Family Medicine 06/21/20 Senior Service Aide Relationship Specialty Start Date End Date Ron Case MD [address] [place] [address] PCP - General Family Medicine 06/21/20 Senior Service Aide Relationship Specialty Start Date End Date Ron Case MD [address] [place] [address] PCP - General Family Medicine 06/21/20 INFORMATION SOURCE (unrecogn ized section and content) DATE CREATED AUTHOR 06/22/2022 [facility] DATE CREATED AUTHOR AUTHOR'S ORGANIZ ATION 07/01/2022 [facility] DATE CREATED AUTHOR AUTHOR'S ORGANIZ ATION 09/22/2022 [facility] DATE CREATED AUTHOR AUTHOR'S ORGANIZ ATION 04/17/2024 [facility] Reason for Visit (unrecogniz ed section and content) Specialty Diagnoses / Procedures Referred By Herber t Referred To Contact Diagnoses Acute medial meniscus tear of right knee, initial encounter Acute medial meniscus tear of right knee, initial encounter [S83.241A] Procedures W[place] KNEE SCOPE,DIAGNOSTIC [place] ARTHRS KNE SURG W/MENISCECTOMY MED/LAT W/SHVG KNEE ARTHROSCOPY Carter Torres MD [address] [place] [address] [facility] [id number] [place] [address] Referral ID Status Reason Start Date Expiration Date Visits Re quested Visits Authorized [id number] 1 1 Ordered Prescriptions (unrec ognized section [...] mL IVPB (duplex) (COMPLETED) 2,000 mg, IntraVENous, LOADERS TO O.R., 1 dose, On Thu06/27/22 at [...] 06/25/2022 06/26/2022 06/27/2022 bupivacaine-EPINEPHrine PF (MARCAINE-w/EPINEPHRINE) 0.5% -[id number] injection (CANCELED) PRN, Starting on Thu06/27/22 at [...] BE BASED ON THE PRIMARY CLINICAL RECORDS. [employer] provides no warranty or guarantee of the accuracy or completeness of information in this document.
== END 2024-10-18 11:08 | disposition home or self-care (01) ==
LOC: RAD 11:07
PROVIDERS: PCP Family Medicine; Visit Provider Podiatrist Foot & Ankle Surgery
DX: M25.571 Pain in right ankle and joints of right foot (principal)
CPT/HCPCS: 73610

== ENCOUNTER 2024-11-04 10:03 | Outpatient (OUT) | payer OTHER, SELFPAY ==
--- NOTE | 2024-11-04 10:05 | MR_ITS ---
[facility] [place] [id number] Patient Name: KENY YOUNG MRN: [id number] date: 1960 Sex: F Assigned Patient Location: MRI Current Patient Location: MRI Accession/Order Number: [id number] Exam Date: 11/04/2024 10:45 Report Date: 11/08/2024 10:04 At the request of: SEBAS SALVADOR Procedure: MR ankle RT wo con EXAM: MR ankle RT wo con HISTORY: Ankle pain, instability. Ankle pain after injury in March with lateral pain and medial pain. COMPARISON: Right ankle x-rays from 10/18/2024 and right tibia and fibula x-rays from 03/31/2024. TECHNIQUE: Multiplanar and multisequence imaging of the right ankle was performed without contrast. FINDINGS: No acute fracture is identified in the ankle or foot. The distal tibia and fibula are intact. There is a small area of cystic change in the medial talar dome measuring 3 mm in diameter on sagittal STIR image 8 of series 32785 likely reactive in etiology. There is low-grade articular cartilage loss and mild joint space narrowing of the tibiotalar joint. There is no calcaneal stress fracture. The tarsal bones and metatarsal bases appear intact. The tarsometatarsal alignment is anatomic. No focal tear of the Lisfranc ligament is evident as seen on the edge of the [id number] for this study. The Achilles tendon is intact with a normal insertion onto the calcaneus posteriorly. No focal peroneal tendon tear is identified. The flexor and extensor tendons appear intact including the posterior tibialis tendon. A small amount of fluid tracks along the posterior tibialis tendon with a small to moderate amount of fluid tracking along the flexor hallucis longus. There is attenuation with thinning of the anterior talofibular ligament consistent with a prior moderate to high-grade sprain. The calcaneofibular ligament, posterior talofibular ligament and superficial and deep components of the deltoid ligament are intact. There is no cystic or solid mass in the region of the tarsal tunnel. There is no acute abnormality involving the plantar fascia. MR/MR ankle RT wo con IMPRESSION: 1. No acute or healing fracture in the ankle or visualized foot. 2. Mild degenerative change involves the tibiotalar joint with a probable small area of reactive cystic change in the medial talar dome. No loose or unstable osteochondral fragment is evident. 3. Prior moderate to high-grade sprain of the anterior talofibular ligament. Ligaments otherwise appear intact. 4. No focal tendon tear is evident. A small amount of fluid tracks along the posterior tibialis tendon with a small to moderate amount of fluid tracking along the flexor hallucis longus suggesting associated tenosynovitis. Electronically authenticated by: BENJAMÍN BEST Date: 11/08/2024 10:04
== END 2024-11-04 10:04 | disposition home or self-care (01) ==
LOC: MRI 10:03
PROVIDERS: PCP Family Medicine; Visit Provider Podiatrist Foot & Ankle Surgery
DX: S93.491A Sprain of other ligament of right ankle, initial encounter (principal); M25.371 Other instability, right ankle
CPT/HCPCS: 73721

== ENCOUNTER 2024-11-14 12:27 | Outpatient (OUT) | payer OTHER, SELFPAY ==
--- OUTSIDE RECORDS SUMMARY | 2024-11-14 12:33 | XMS_ITS | CCD ---
Author Organization [facility] Care Team Providers Care Icu Tech Name Role Phone Ron Case MD Primary Care Provider [phone] CARTER TORRES Referring Unavailable RON CASE [...] COKER Consulting Unavailable HENRIETTA RODRIGUEZ Attending Unavailable HENRIETTA RODRIGUEZ Attending Unavailable MARJ ABRAHAM Attending Unavailable Allergies Allergy Classification Reported Allergen(s) Allergy Type Date of Onset Reaction(s) Facility (4 sources) Morphine; Translations: [MORPHINE] Drug Allergy 06-21-20 Hives, Palpitations [facility] (1 source) Morphine Drug Allergy [facility] Repository (1 source) Sulfamethoxazole / Trimethoprim; Translations: [SULFAMETHOXAZOLE-TR IMETHOPRIM] Drug Allergy 09-28-20 [facility] Repository Medications Current Medications Medication Drug Class(es) [...] Episodic/Chronic Coronary atherosclerosis and other heart disease (2 sources) 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; Translations: [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] Onset: 11-13-2023 Chronic Disorders of lipid metabolism (2 sources) Mixed hyperlipidemia; Translations: [Mixed hyperlipidemia] Onset: 10-24-2024 Chronic Joint disorders and dislocations; trauma-related (4 sources) Unspecified internal derangement of right knee; Translations: [UNS INTERNAL DERANGEMENT RIGHT KNEE] Onset: 06-05-2022 Chronic Past or Other Problems Problem Classification Problem Date Documented Da te Episodic/Chronic Cardiac dysrhythmias (2 sources) Palpitations; Translations: [Palpitations] Onset: 04-14-2024 Episodic Results Test Name Value Interpretation Reference Range Facil ity Office Visiton 10-24-2024 Follow-up visit [id number] Abi Boswell 1960 Provider Department Center 10/24/2024 MARJ DE LEON Family History Problem Relation Age of Onset Hypertension Maternal Grandmother Transient ischemic attack Maternal Grandmother Heart attack Maternal Grandfather Heart failure Maternal Grandfather Family Status - Relation Status Age at Maternal Grandmother Maternal Grandfather Level of Service:53779 AR OFFICE/OUTPATIENT ESTABLISHED MOD MDM 30 MIN Normal [facility] Office Visiton 04-14-2024 Follow-up visit [id number] Abi Boswell 1960 Provider Department Center 04/14/2024 HENRIETTA FLOREZ Family History Problem Relation Age of Onset Hypertension Maternal Grandmother Transient ischemic attack Maternal Grandmother Heart attack Maternal Grandfather Heart failure Maternal Grandfather Family Status - Relation Status Age at Maternal Grandmother Maternal Grandfather Level of Service:40068 AR OFFICE/OUTPATIENT ESTABLISHED MOD MDM 30 MIN Reason for Visit and Comments: Pre-op Exam [836821] Hypertension [453390] Chest Pain [950586] Normal [facility] 36on 12-25-2023 36 Please let her know her labs showed her kidney function, liver function, blood counts and thyroid function were normal. Her LDL or bad cholesterol was elevated at 118. With patients with known heart disease, we recommend lowering the LDL to <70 to help reduce risk of worsening disease and help reduce risk of stroke, [place], etc. Recommend we switch her simvastatin to atrovastatin 40mg daily. Follow-up lipid panel and LFTs in 3 months. Also, her vit D was low, follow-up with Dr. Case on this. Thanks! Normal [facility] Telephoneon 12-25-2023 Telephone [id number] Abi Boswell 1960 Provider Department Center 12/25/2023 HENRIETTA FLOREZ Family History Problem Relation Age of Onset Hypertension Maternal Grandmother Transient ischemic attack Maternal Grandmother Heart attack Maternal Grandfather Heart failure Maternal Grandfather Family Status - Relation Status Age at Maternal Grandmother Maternal Grandfather Normal [facility] Office Visiton 11-11-2023 Follow-up visit [id number] Abi Boswlel 1960 F Date Provider Department Center 11/11/2023 HENRIETTA FLOREZ CARD Valerie Hos Family History Problem Relation Age of Onset Hypertension Maternal Grandmother Transient ischemic attack Maternal Grandmother Heart attack Maternal Grandfather Heart failure Maternal Grandfather Family Status - Relation Status Age at Maternal Grandmother Maternal Grandfather Level of Service:41800 AR OFFICE/OUTPATIENT ESTABLISHED MOD MDM 30-39 MIN Reason for Visit and Comments: Chest Pain [800087] Coronary Artery Disease [187] Normal [facility] [id number] 06-27-2022 SARS-CoV-2 (COVID-19) RNA CAROLINE+probe Ql (Unsp spec) Not detected Normal [facility] Comment on above: Result Comment: Rapid [...] management decisions. Fact sheet for Healthcare Providers: https://www.fda.gov/media/201986/download Fact sheet for Patients: https://www.fda.gov/media/868223/download Methodology: Isothermal Nucleic Acid Amplification Performed By: #### C OVRB #### [facility] [address] [place] [address] [employer]: Lanre Santana MD Basic Metabolic Panelon 07- Anion gap [Moles/Vol] 8 mmol/L Low 9 - 17 mmol/L [facility] Calcium [Mass/Vol] 9.8 mg/dL 8.6 - 10. 4 mg/dL [facility] Chloride [Moles/Vol] 107 mmol/L 98 - 107 mmol/L [facility] CO2 [Moles/Vol] 30 mmol/L 20 - 31 mmol/L [facility] Creatinine [Mass/Vol] 0.73 mg/dL 0.5 - 0.9 mg/dL [facility] GFR >60 60 - PI NF mL/min [facility] GFR Non- >60 60 - PINF mL/min [facility] Glucose [Mass/Vol] 97 mg/dL 70 - 99 mg/dL [facility] Interpretation and review of laboratory results Abnormal [facility] Potassium [Moles/Vol] 4.4 mmol/L 3.7 - 5.3 mmol/L [facility] Sodium [Moles/Vol] 145 mmol/L High 135 - 144 mmol/L [facility] Urea nitrogen (BldV) [Mass/Vol] 12 mg/dL 8 - 23 mg/dL [facility] Urea nitrogen/Creatinine (Bld) [Mass ratio] 16 9 - 20 [facility] Basic Metabolic Profon 06-20 (cont.) Normal [facility] Comment on above: Result Comment: Aver age GFR for 60-69 years old: 85 mL/min/1.73sq m Chronic Kidney Disease: <60 mL/min/1.73sq m Kidney failure: <15 mL/min/1.73sq m eGFR calculated using average adult body mass. Additional eGFR calculator available at: http://www.[facility].Carlypso/multiple_crcl_2011.htm Performed By: #### C DP, BMP #### [facility] [address] [place] [address] [employer]: Lanre Santana MD Anion gap [Moles/Vol] 8 mmol/L Low 9-17 [facility] Comment on above: Performed By: #### C DP, BMP #### [facility] [address] [place] [address] [employer]: Lanre Santana MD BUN/CRE Ratio 16 Normal 9-20 [facility] Comment on above: Performed By: #### C DP, BMP #### [facility] [address] [place] [address] [employer]: Lanre Santana MD Calcium [Mass/Vol] 9.8 mg/dL Normal 8.6-10.4 [facility] Comment on above: Performed By: #### C DP, BMP #### [facility] [address] [place], [place] [id number] [employer]: Lanre Santana MD Chloride [Moles/Vol] 107 mmol/L Normal 98-107 [facility] Comment on above: Performed By: #### C DP, BMP #### [facility] [address] [place] [address] Dr[place], [place] [id number] [employer]: Lanre Santana MD CO2 [Moles/Vol] 30 mmol/L Normal 20-31 [facility] Comment on above: Performed By: #### C DP, BMP #### [facility] [address] [place] [address] [place] [address] [employer]: Lanre Santana MD Creatinine [Mass/Vol] 0.73 mg/dL Normal 0.50-0.90 [facility] Comment on above: Performed By: #### C DP, BMP #### [facility] [address] [place] [address] [employer]: Lanre Santana MD GFR, Amer >60 Normal >60 [facility] Comment on above: Performed By: #### C DP, BMP #### [facility] [address] [place] [address] [employer]: Lanre Santana MD GFR,non Amer >60 Normal >60 [facility] Comment on above: Performed By: #### C DP, BMP #### [facility] [address] [place] [address] [employer]: Lanre Santana MD Glucose [Mass/Vol] 97 mg/dL Normal 70-99 [facility] Comment on above: Performed By: #### C DP, BMP #### [facility] [address] [place] [address] [employer]: Lanre Santana MD Potassium [Moles/Vol] 4.4 mmol/L Normal 3.7-5.3 [facility] Comment on above: Performed By: #### C DP, BMP #### [facility] [address] [place] [address] [employer]: Lanre Santana MD Sodium [Moles/Vol] 145 mmol/L High 135-144 [facility] Comment on above: Performed By: #### C DP, BMP #### [facility] [address] [place] [address] [employer]: Lanre Santana MD Staging: Normal [facility] Comment on above: Result Comment: Stag e 1: Some kidney damage normal GFR Stage 2: Mild kidney damage GFR 60-89 Stage 3: Moderate kidney damage GFR 30-59 Stage 4: Severe kidney damage GFR 15-29 Stage 5: Severe kidney damage GFR <15 ESRD - chronic treatment by dialysis or transplant Performed By: #### C DP, BMP #### [facility] [address] [place], [place] [id number] [employer]: Lanre Santana MD Urea nitrogen [Mass/Vol] 12 mg/dL Normal 8-23 [facility] Comment on above: Performed By: #### C DP, BMP #### [facility] [address] [place] [address] [employer]: Lanre Santana MD CBC with Auto Differentialon 06-20-2022 Absolute Eos # 0.[address] [facility] Absolute Immature Granulocyte 0.03 [facility] Absolute Lymph # 1.85 [facility] Absolute Cataño # 0.71 [facility] Basophils (Bld) [#/Vol] 0.03 10*3/uL [facility] Basophils/100 WBC (Bld) 0 % 0 - 2 % [facility] Eosinophils/100 WBC (Bld) 1 % 1 - 4 % [facility] Hematocrit (Bld) [Volume fraction] 42.7 % 36.3 - 47.1 % [facility] Hemoglobin (Bld) [Mass/Vol] 14.3 g/dL 11.9 - 15.1 g/dL [facility] Immature granulocytes/100 WBC (Bld) 0 % 0 [facility] Interpretation and review of laboratory results Abnormal [facility] Lymphocytes/100 WBC (Bld) 22 % Low 24 - 43 % [facility] MCH (RBC) [Entitic mass] 32.6 pg 25.2 - 33.5 pg [facility] MCHC (RBC) [Mass/Vol] 33.5 g/dL 28.4 - 34.8 g/dL [facility] MCV (RBC) [Entitic vol] 97.3 fL 82.6 - 102.9 fL [facility] Monocytes/100 WBC (Bld) 9 % 3 - 12 % [facility] NRBC Automated 0.0 0.0 per [address] [facility] Platelet distribution width (Bld) [Ratio] 13.3 % 11.8 - 14.4 % [facility] Platelet mean volume (Bld) [Entitic vol] 8.4 fL 8.1 - 13.5 fL [facility] Platelets (Bld) [#/Vol] 278 10*3/uL [facility] RBC (Bld) [#/Vol] 4.39 10*6/uL 3.95 - 5.1 1 m/uL [facility] Segmented neutrophils/100 WBC (Bld) 68 % High 36 - 65 % [facility] Segs Absolute 5.62 [facility] WBC (Bld) [#/Vol] 8.4 10*3/uL [facility] CBC with Diffon 06-20-2022 Abs. Basophil 0.03 k/uL Normal 0.00-0.20 [facility] Comment on above: Performed By: #### C DP, BMP #### [facility] [address] [place] [address] [employer]: Lanre Santana MD Abs.Imm.Granulocyte 0.03 k/uL Normal 0.00-0.30 [facility] Comment on above: Performed By: #### C DP, BMP #### [address] [place] [address] [employer]: Lanre Santana MD Abs.Neutrophil (Seg) 5.62 k/uL Normal 1.50-8.10 [facility] Comment on above: Performed By: #### C DP, BMP #### [address] [place] [address] [employer]: Lanre Santana MD Basophils/100 WBC (Bld) 0 % Normal 0-2 [facility] Comment on above: Performed By: #### C DP, BMP #### [address] [place], [place] [address] [employer]: Lanre Santana MD Eosinophils (Bld) [#/Vol] 0.12 10*3/uL Normal 0.00-0.44 [facility] Comment on above: Performed By: #### C DP, BMP #### [address] [place] [id number] [employer]: Lanre Santana MD Eosinophils/100 WBC (Bld) 1 % Normal 1-4 [facility] Comment on above: Performed By: #### C DP, BMP #### [address] [place], [place] [address] [employer]: Lanre Santana MD Erythrocyte distribution width (RBC) [Ratio] 13.3 % Normal 11.8-14.4 [facility] Comment on above: Performed By: #### C DP, BMP #### [facility] [address] [address] [employer]: Lanre Santana MD Hematocrit (Bld) [Volume fraction] 42.7 % Normal 36.3-47.1 [facility] Comment on above: Performed By: #### C DP, BMP #### [address] [place] [id number] [employer]: Lanre Santana MD Hemoglobin (Bld) [Mass/Vol] 14.3 g/dL Normal 11.9-15.1 [facility] Comment on above: Performed By: #### C DP, BMP #### [address] [place] [address] [employer]: Lanre Santana MD Immature granulocytes/100 WBC (Bld) 0 % Normal 0 [facility] Comment on above: Performed By: #### C DP, BMP #### [address] [place] [id number] [employer]: Lanre Santana MD Lymphocytes (Bld) [#/Vol] 1.85 10*3/uL Normal 1.10-3.70 [facility] Comment on above: Performed By: #### C DP, BMP #### [facility] [address] [place], [facility] [employer]: Lanre Santana MD Lymphocytes/100 WBC (Bld) 22 % Low 24-43 [facility] Comment on above: Performed By: #### C DP, BMP #### [facility] [address] [place] [id number] [employer]: Lanre Santana MD MCH (RBC) [Entitic mass] 32.6 pg Normal 25.2-33.5 [facility] Comment on above: Performed By: #### C DP, BMP #### [address] [place] [address] [employer]: Lanre Santana MD MCHC (RBC) [Mass/Vol] 33.5 g/dL Normal 28.4-34.8 [facility] Comment on above: Performed By: #### C DP, BMP #### [address] [place] [address] [employer]: Lanre Santana MD MCV (RBC) [Entitic vol] 97.3 fL Normal 82.6-102.9 [facility] Comment on above: Performed By: #### C DP, BMP #### [address] [place] [address] [employer]: Lanre Santana MD Monocytes (Bld) [#/Vol] 0.71 10*3/uL Normal 0.10-1.20 [facility] Comment on above: Performed By: #### C DP, BMP #### [address] [place], [place] [id number] [employer]: Lanre Santana MD Monocytes/100 WBC (Bld) 9 % Normal 3-12 [facility] Comment on above: Performed By: #### C DP, BMP #### [address] [place], [place] [id number] [employer]: Lanre Santana MD Neutrophil (Seg) 68 % High 36-65 [facility] Comment on above: Performed By: #### C DP, BMP #### [address] [place] [address] [employer]: Lanre Santana MD NRBC Automated 0.0 per 100 WBC Normal 0.0 [facility] Comment on above: Performed By: #### C DP, BMP #### [facility] [address] [place], [place] [id number] [employer]: Lanre Santana MD Platelet mean volume (Bld) [Entitic vol] 8.4 fL Normal 8.1-13.5 [facility] Comment on above: Performed By: #### C DP, BMP #### [facility] [address] [place], [place] [id number] [employer]: Lanre Santana MD Platelets (Bld) [#/Vol] 278 10*3/uL Normal 138-453 [facility] Comment on above: Performed By: #### C DP, BMP #### [facility] [address] [place] [address] [employer]: Lanre Santana MD RBC (Bld) [#/Vol] 4.39 10*6/uL Normal 3.95-5.11 [facility] Comment on above: Performed By: #### C DP, BMP #### [facility] [address] [place], [place] [phone] [employer]: Lanre Santana MD WBC (Bld) [#/Vol] 8.4 10*3/uL Normal 3.5-11.3 [facility] Comment on above: Performed By: #### C DP, BMP #### [facility] [address] [place], [place] [phone] [employer]: Lanre Santana MD EKG 12 LeadOrdered By: César mojica on 06-20-2022 Atrial Rate [address] [facility] [employer] [facility] Phone: P [place] 65 degrees [facility] [employer] Phone: P-R Interval 134 ms [facility] Phone: Q-T Interval 432 ms [facility] Phone: QRS Duration 110 ms [facility] [employer] Phone: QTc Calculation (Bazett) 449 ms [email or web address] Work Phone: R [place] 72 degrees [email or web address] Work Phone: T [place] 43 degrees [email or web address] Work Phone: Ventricular Rate 65 BPM [facility] [employer] Work Phone: [email or web address] Work Phone: EKG 12 Leadon 06-20-2022 Normal sinus rhythm Incomplete right bundle branch block Cannot rule out Inferior infarct , age undetermined Abnormal ECG No previous ECGs available Confirmed by César Blanco MD ([id number]) on 06/20/2022 10:08:07 PM [facility] RADIOLOGY César Blanco MD - 06/20/2022 Normal sinus rhythm Incomplete right bundle branch block Cannot rule out Inferior infarct , age undetermined Abnormal ECG No previous ECGs available Confirmed by César Blanco MD ([id number]) on 06/20/2022 10:08:07 PM [email or web address] Work Phone: Laboratory - Chemistry and C hemistry - challengeon 06-20-2022 GFR/1.73 sq M.predicted MDRD (S/P/Bld) [Vol rate/Area] [employer] Comment on above: Average GFR for 60-6 9 years old: 85 mL/min/1.73sq m Chronic Kidney Disease: <60 mL/min/1.73sq m Kidney failure: <15 mL/min/1.73sq m eGFR calculated using average adult body mass. Additional eGFR calculator available at: http://www.[facility].Carlypso/multiple_crcl_2012.htm Stage 1: Some kidney damage normal GFR Stage 2: Mild kidney damage GFR 60-89 Stage 3: Moderate kidney damage GFR 30-59 Stage 4: Severe kidney damage GFR 15-29 Stage 5: Severe kidney damage GFR <15 ESRD - chronic treatment by dialysis or transplant MRI KNEE RT WO CONon 022 MRI KNEE RT WO CON EXAMINATION: MRI KNEE RT WO CON HISTORY: Derangement of right [...] by: CARTER COKER Date: 2022-06-06 15:52 Normal [facility] Vital Signs Date Time Vital Sign Value Performing Clinician Nicholasi haroon 06-27-2022 14:30-0400 Diastolic blood pressure 68 mm[Hg] Carter Torres MD Work Phone: [employer] 06-27-2022 14:30-0400 Heart rate 68 /min Carter Torres MD Work Phone: [employer] 06-27-2022 14:30-0400 Respiratory rate 23 /min Carter Torres MD Work Phone: [employer] 06-27-2022 14:30-0400 SaO2% (BldA) [Mass fraction] 94 % Carter Torres MD Work Phone: [employer] 06-27-2022 14:30-0400 Systolic blood pressure 117 mm[Hg] Carter Torres MD Work Phone: [employer] 06-27-2022 14:00-0400 Body temperature 97 [degF] Carter Torres MD Work Phone: [facility] [email or web address] 06-27-2022 11:16-0400 Body height 162.6 cm Carter Torres MD Work Phone: [facility] [email or web address] 06-27-2022 11:16-0400 Body mass index (BMI) [Ratio] 30.04 kg/m2 Carter Torres MD Work Phone: [facility] [email or web address] 06-27-2022 11:16-0400 Body weight 79.38 kg Carter Torres MD Work Phone: [facility] [employer] [facility] Encounters Encounter Date Encounter Type Care Provider Facility Start: 10-24-2024 End: 10-24-2024 ambulatory [facility] Start: 10-24-2024 End: 10-24-2024 Encounter for preprocedural cardiovascular examination [facility] Start: 04-14-2024 End: 04-14-2024 ambulatory [facility] Start: 11-11-2023 End: 11-11-2023 ambulatory [facility] Start: 06-27-2022 End: 06-27-2022 ambulatory [facility] Start: 06-27-2022 End: 06-27-2022 Subsequent hospital visit by physician Carter Torres MD Work Phone: [facility] Start: 06-20-2022 End: 06-21-2022 ambulatory [facility] Start: 06-20-2022 End: 06-20-2022 Subsequent hospital visit [...] 07-31-2022 Influenza vaccination Flu vaccine (# 1) [facility] Start: 06-27-2022 End: 06-27-2022 Arthroscopy knee diagnostic w/wo synovial bx spx KNEE ARTHROSCOPY Acute medial meniscus tear of right knee, initial encounter 06/27/2022 1:07 PM EDT [facility] Start: 2010 Screening for malign ant neoplasm of breast Breast cancer screen [facility] Start: 2010 Shingles vaccine (1 of 2) Shingles vaccine (1 of 2) [facility] Start: 2005 Screening for malign ant neoplasm of colon [facility] Start: 2000 Lipid panel Lipids [facility] Start: 1979 DTaP/Tdap/Td vaccine (1 - Tdap) DTaP/Tdap/Td vaccine (1 - Tdap) [facility] Start: 1978 Hepatitis C screening Hepatitis C sc reen [facility] Start: 1975 HIV screening HIV screen [facility] Start: 1972 Depression Screen Depression Screen [facility] Start: 1966 Pneumococcal 0-64 ye ars Vaccine (1 - PCV) Pneumococcal 0-64 years Vaccine (1 - PCV) [facility] Start: 1960 COVID-19 Vaccine (#1) COVID-19 Vacci ne (#1) [facility] Oxygen therapy [[facility] Data Set] Initiate Oxygen Therapy Protocol Respiratory Care Routine As Needed until discontinued starting 06/27/2022 [facility] Work Phone: Comment on above: As Needed until disc ontinued starting 06/27/2022 Payers Date Payer Category Payer Unknown [id number] 2.16.8 [id number] 1960 Unknown [id number] [id number] [id number] 1960 Unknown [id number] 2.16.8 [id number] 1960 Unknown [id number] 2.16.8 [id number] 1960 Unknown [id number] 2.16.84 [id number] 1959 Unknown [id number] [id number] Social History Date Type Detail Facility Start: 06-21-2020 Tobacco smoking stat [facility] Smokes tobacco daily [employer] Phone: History of tobacco use Cigarette Smoker B ON [employer] Phone: Start: 06-21-2020 Cigarettes smoked current (pack per day) - Reported 0.5 [employer] Phone: Start: 06-21-2020 Tobacco use and exposure Smoke less tobacco non-user [employer] Phone: Start: 12-05-2021 End: 06-27-2022 Alcohol intake Lifetime non-drinker (finding) [employer] Phone: Start: 06-21-2020 History SDOH Alcohol Frequency 1 [employer] Phone: Start: 1960 Sex Assigned At Not on file B ON [employer] Phone: Start: 06-17-2022 End: 06-27-2022 Exposure to SARS-CoV-2 (event) Not sure [employer] Phone: Progress note 10-24-2024 Note Date & Type Note Facility 10-24-2024 Note [facility] Deana Boswell is a 64 y.o. year old female patient being seen for 6 mo follow up CAD, chest pain, and hyperlipidemia. Still gets intermittent palpitations and periotic chest pain. She states chest pain no longer radiates down her UE. Only taking lasix prn. Patient Active Problem List Diagnosis Other chest pain Shortness of breath Acute sinusitis Coronary artery disease involving atka coronary artery of atka heart without angina pectoris Family History Problem Relation Name Age of Onset Hypertension Maternal Grandmother Transient ischemic attack Maternal Grandmother Heart attack Maternal Grandfather Heart failure Maternal Grandfather Social History Tobacco Use Smoking status: Every Day Current packs/day: 0.25 Types: Cigarettes Smokeless tobacco: Never Substance Use Topics Alcohol use: Not Currently HPI Abi is seen in follow-up. She is a 64-year-old woman who was previously evaluated in our clinic because of recurrent symptoms of typical chest pain. In April 2023 she presented to the emergency room at the [facility] due to chest pain and her cardiac enzymes were negative. She then underwent an echocardiogram and a stress test that were nonrevealing. She was optimized on medical therapy and continues to have recurrent symptoms of angina. Cardiac catheterization on 10/26/2023 showed mild nonobstructive coronary artery disease. She was recommended continued medical therapy. Of note her ventricular function was normal by echocardiography at that time. With medical therapy she continued to improve her chest pain symptoms. Past medical history significant for SLE, restless leg syndrome, hyperlipidemia and GE reflux disease. She is a smoker. Today she reports that she has been doing reasonably well but she still uses sublingual nitroglycerin occasionally for chest pain she has not had to use sublingual nitroglycerin for the past 2 months. She has no significant shortness of breath on exertion. She has mild lower extremity edema for which she takes as needed furosemide. She has palpitations that happen infrequently but around 1-2 times a month. She feels the heart racing and this lasts minutes to longer than that and then subsides spontaneously. She previously sustained an injury to her leg and had to undergo surgery and she might undergo a follow-up surgery again. Review of Systems Cardiovascular: Positive for chest pain (intermittent), leg swelling (intermittent) and palpitations (intermittent). All other systems reviewed and are negative. Objective Visit Vitals BP 122/78 (BP Location: Left arm, Patient Position: Sitting) Pulse 64 Ht 1.651 m (5' 5 ) Wt 84.8 kg (187 lb) SpO2 98% BMI 31.12 kg/m??? OB Status Postmenopausal Smoking Status Every Day BSA 1.97 m??? Physical Exam Constitutional: Appearance: She is well-developed. She is not ill-appearing. HENT: Head: Normocephalic and atraumatic. Nose: Nose normal. Eyes: General: No scleral icterus. Pupils: Pupils are equal, round, and reactive to light. Neck: Thyroid: No thyromegaly. Vascular: No JVD. Cardiovascular: Rate and Rhythm: Normal rate and regular rhythm. Pulses: Radial pulses are 2+ on the right side and 2+ on the left side. Heart sounds: Normal heart sounds. No murmur heard. No friction rub. No gallop. Pulmonary: Effort: Pulmonary effort is normal. No respiratory distress. Breath sounds: Normal breath sounds. No wheezing or rales. Chest: Chest wall: No tenderness. Abdominal: General: Bowel sounds are normal. There is no distension. Palpations: Abdomen is soft. Tenderness: There is no abdominal tenderness. Musculoskeletal: General: No swelling. Cervical back: Neck supple. Skin: General: Skin is warm and dry. Neurological: General: No focal deficit present. Mental Status: She is alert and oriented to person, place, and time. Psychiatric: Mood and Affect: Mood normal. Behavior: Behavior is cooperative. Judgment: Judgment normal. Allergies Allergies Allergen Reactions Morphine Hives, Other and Palpitations Sulfamethoxazole-Trimethoprim Itching Medications Current Outpatient Medications: diclofenac (Voltaren) 75 mg EC tablet, 1 (one) time each day at the same time., Disp: , Rfl: furosemide (Lasix) 20 mg tablet, if needed., Disp: , Rfl: HYDROcodone-acetaminophen (Thayer) 5-325 mg tablet, take 1 tablet by [...] or chew., Disp: 30 tablet, Rfl: 11 pantoprazole (ProtoNix) 40 mg EC tablet, 1 (one) time each day at the same time., Disp: , Rfl: potassium chloride CR (Klor-Con M1 (more content not included)... [facility] Progress note 04-14-2024 Note Date & Type [...] All other systems reviewed and are negative. [facility] Progress note 04-14-2024 Note Date & Type Note Facility 04-14-2024 Note Cardiovascular Medic [facility] SUBJECTIVE Chief Complaint Patient [...] breath Acute sinusitis Coronary artery disease involving atka coronary artery of atka heart without angina pectoris Past Medical History: Diagnosis Date Hyperlipidemia Lupus (systemic lupus erythematosus) ([facility]) Past Surgical History: Procedure Laterality Date [...] the same time., Disp: , Rfl: HYDROcodone-acetaminophen (Thayer) 5-325 mg tablet, take 1 tablet by [...] Rate and R (more content not included)... [facility] Progress note 11-11-2023 Note Date & Type Note Facility 11-11-2023 Note Patient here for [facility] low up heart cath. Isosorbide was [...] All other systems reviewed and are negative. [facility] Progress note 11-11-2023 Note Date & Type Note Facility 11-11-2023 Note Cardiovascular Medic [facility] SUBJECTIVE Chief Complaint Patient [...] breath Acute sinusitis Coronary artery disease involving atka coronary artery of atka heart without angina pectoris Past Medical History: Diagnosis Date Hyperlipidemia Lupus (systemic lupus erythematosus) ([facility]) Past Surgical History: Procedure Laterality Date [...] tablet, if needed., Disp: , Rfl: HYDROcodone-acetaminophen (Thayer) 5-325 mg tablet, take 1 tablet by [...] No focal de (more content not included)... [facility] History of Present illness Narrative 06-27-2022 Selene [...] require patient to operate motor Vehicle. Yes [facility] Preadmission Testing Name: Abi Boswell : 1960 [...] Take [x] Ride Home [x]No Jewelry/Contact Lenses/Nail Malagasy [] Prep/Lax/Clear Liquids [] Chlorhexidene DOS Patient [...] with patient? Yes documented in this encounter [employer] Phone: Hospital Discharge instructions 06-27-2022 Discharge Instructions [...] feet do not touch the floor, 2. Trackless Trolley Driver the sides of the surface for support. 3. Raise one foot until your knee is completely straight 4. Slowly return to the starting position and relax. 5. Repeat 20 times ANKLE PUMPS 1. Bend ankles up and down, alternating foot 2. Repeat 25 times Carter Torres M.D. [phone] @ATTPROV@ 06/27/2022 1:01 PM documented in this encounter VAN WENDI MARTINEZ [employer] Work Phone: Summary Purpose Family History No Family History Records FoundNo Family History Records FoundNo Family History Records FoundNo Family History Records Found Advance Directives No Advanced Directives Records FoundLatest Code Status on File Code Status Date Activated Date Inactivated Comments Full Code 06/27/2022 11:07 AM Additional Source Comments Care Teams (unrecognized sec tion and content) [employer] Tech Relationship Specialty Start Date End Date Ron Case MD [address] [place] [address] PCP - General Family Medicine 06/21/20 [employer] Tech Relationship Specialty Start Date End Date Ron Case MD [address] [place] [id number] PCP - General Family Medicine 06/21/20 Icu Tech Relationship Specialty Start Date End Date Ron Case MD [address] [id number] PCP - General Family Medicine 06/21/20 INFORMATION SOURCE (unrecogn ized section and content) DATE CREATED AUTHOR 06/22/2022 [facility] DATE CREATED AUTHOR AUTHOR'S ORGANIZ ATION 07/01/2022 [facility] DATE CREATED AUTHOR AUTHOR'S ORGANIZ ATION 09/22/2022 [facility] DATE CREATED AUTHOR AUTHOR'S ORGANIZ ATION 11/01/2024 [facility] Reason for Visit (unrecogniz ed section and content) Specialty Diagnoses / Procedures Referred By Herber larios Referred To Contact Diagnoses Acute medial meniscus tear of right knee, initial encounter Acute medial meniscus tear of right knee, initial encounter [S83.343A] Procedures AR KNEE SCOPE,DIAGNOSTIC AR ARTHRS KNE SURG W/MENISCECTOMY MED/LAT W/SHVG KNEE ARTHROSCOPY Carter Torres MD [address] [place] [address] [facility] [address] [place] [address] Referral ID Status Reason Start Date Expiration Date Visits Re quested Visits Authorized [id number] 1 1 Ordered Prescriptions (unrec ognized section [...] mL IVPB (duplex) (COMPLETED) 2,000 mg, IntraVENous, RESEARCH MECHANIC TO O.R., 1 dose, On Thu06/27/22 at [...] 06/25/2022 06/26/2022 06/27/2022 bupivacaine-EPINEPHrine PF (MARCAINE-w/EPINEPHRINE) 0.5% [id number] injection (CANCELED) PRN, Starting on Thu06/27/22 at [...] BE BASED ON THE PRIMARY CLINICAL RECORDS. [facility]. provides no warranty or guarantee of the accuracy or completeness of information in this document.
--- NOTE | 2024-11-14 12:35 | ECG_ITS ---
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: : 1960 Requested By: RON QUESADA Order Number: [id number] Reading MD: RON QUESADA Measurements Intervals [place] Rate: 57 P: 53 [place]: 153 QRS: 53 QRSD: 104 T: 41 QT: 433 QTc: 422 Interpretive Statements SINUS BRADYCARDIA INCOMPLETE RIGHT BUNDLE BRANCH BLOCK [90+ ms QRS DURATION, TERMINAL R IN V1/V2, 40+ ms S IN I/aVL/V4/V5/V6] MODERATE T-WAVE ABNORMALITY, CONSIDER ANTEROLATERAL ISCHEMIA [-0.1+ mV T WAVE IN V3-V6] Compared to ECG 05/11/2023 15:10:40 T-wave abnormality now present Possible ischemia now present Sinus rhythm no longer present Electronically Signed On 11-15-2024 6:58:52 EST by RON QUESADA
[2024-11-14 13:37] LABS: BUN Creatinine Ratio 10.4; Calcium 8.7 mg/dL (8.5-10.1); Carbon Dioxide 27.1 mmol/L (21.0-32.0); Chloride 108 mmol/L (98-107); Estimated GFR (African America >60 (>=60 mL/min/1.73m^2); Estimated GFR (Non-African Ame >60 (>=60 mL/min/1.73m^2); Glucose 96 mg/dL (74-106); Potassium 4.1 mmol/L (3.5-5.1); Sodium 142 mmol/L (136-145)
[2024-11-14 13:43] LABS: Basophils Percent Auto 0.5 % (0.2-2.0); Eosinophils Absolute Auto 0.3 10^3/uL (0.0-0.7); Eosinophils Percent Auto 4.5 % (0.9-7.0); Hematocrit 42.1 % (36.0-48.0); Hemoglobin 14.1 g/dL (12.0-16.0); Immature Granulocytes Abs Auto 0.01 10^3/uL (0.00-0.03); Immature Granulocytes Pct Auto 0.2 % (0.0-0.5); Lymphocytes Absolute Auto 1.6 10^3/uL (1.2-3.8); Lymphocytes Percent Auto 27.3 % (20.5-60.0); Mean Corpuscular HGB Conc 33.5 g/dL (29.9-35.2); Mean Corpuscular Hemoglobin 31.4 pg (26.7-34.0); Mean Corpuscular Volume 93.8 fL (81.0-99.0); Mean Platelet Volume 9.4 fL (9.5-13.5); Monocytes Absolute Auto 0.5 10^3/uL (0.3-0.8); Neutrophils Absolute Auto 3.5 10^3/uL (1.4-6.5); Neutrophils Percent Auto 58.5 % (43.0-75.0); Platelet Count 252 10^3/uL (150-450); Red Blood Count 4.49 10^6/uL (4.20-5.40); Red Cell Distribution Width 13.2 % (11.0-15.0)
[2024-11-14 14:04] LABS: INR 0.96; Partial Thromboplastin Time 26.5 sec (22.3-36.2); Prothrombin Time 10.2 sec (9.0-11.6)
== END 2024-11-14 12:28 | disposition home or self-care (01) ==
LOC: PST 12:28
PROVIDERS: PCP Family Medicine; Visit Provider Podiatrist Foot & Ankle Surgery
DX: Z01.810 Encounter for preprocedural cardiovascular examination (principal); Z01.812 Encounter for preprocedural laboratory examination; M19.071 Primary osteoarthritis, right ankle and foot; M25.371 Other instability, right ankle
CPT/HCPCS: 36415; 80048; 85025; 85610; 85730; 93005

== ENCOUNTER 2024-11-18 07:22 | Day surgery (SDC) | payer OTHER, SELFPAY ==
[2024-11-14 13:05] VITALS: BP 131/83; PULSE 63; TEMP 36.2; O2SAT 98; BMI 30.7
[2024-11-18] VITALS (8 sets, daily range): BP systolic 116–136; BP diastolic 69–80; PULSE 78–105; TEMP 36.3–36.5; O2SAT 96–99; BMI 30.7
--- OUTSIDE RECORDS SUMMARY | 2024-11-18 07:25 | XMS_ITS | CCD ---
Author Organization [facility] ion Partnership [facility] Care Team Providers Care Topographical Field Assistant Name Role Phone Ron Case MD Primary Care Provider [phone] CARTER TORRES Referring Unavailable RON CASE [...] HOSPITAL (1 source) Morphine Drug Allergy [facility] Repository (1 source) Sulfamethoxazole / Trimethoprim; Translations: [SULFAMETHOXAZOLE-TR IMETHOPRIM] Drug Allergy 09-28-20 [facility] Repository Medications Current Medications Medication Drug Class(es) [...] disease (2 sources) Atherosclerotic heart disease of [place] coronary artery without angina pectoris; Translations: [Atherosclerotic heart disease of [place] coronary artery without angina pectoris] Onset: 11-13-2023 [...] Facil ity Office Visiton 10-24-2024 Follow-up visit [id number] Abi Boswell 1960 Provider Department Center 10/24/2024 MARJ DE LEON Family History Problem Relation Age of Onset Hypertension Maternal Grandmother Transient ischemic attack Maternal Grandmother Heart attack Maternal Grandfather Heart failure Maternal Grandfather Family Status - Relation Status Age at Maternal Grandmother Maternal Grandfather Level of Service:38478 [place] OFFICE/OUTPATIENT ESTABLISHED MOD MDM 30 MIN Normal [facility] Office Visiton 04-14-2024 Follow-up visit [id number] Abi Boswell 1960 Provider Department Center 04/14/2024 HENRIETTA FLOREZ Family History Problem Relation Age of Onset Hypertension Maternal Grandmother Transient ischemic attack Maternal Grandmother Heart attack Maternal Grandfather Heart failure Maternal Grandfather Family Status - Relation Status Age at Maternal Grandmother Maternal Grandfather Level of Service:19659 [place] OFFICE/OUTPATIENT ESTABLISHED MOD MDM 30 MIN Reason for Visit and Comments: Pre-op Exam [489636] Hypertension [650265] Chest Pain [775871] Normal [facility] 36on 12-25-2023 36 Please let her know her labs showed her kidney function, liver function, blood counts and thyroid function were normal. Her LDL or bad cholesterol was elevated at 118. With patients with known heart disease, we recommend lowering the LDL to <70 to help reduce risk of worsening disease and help reduce risk of stroke, OR, etc. Recommend we switch her simvastatin to atrovastatin 40mg daily. Follow-up lipid panel and LFTs in 3 months. Also, her vit D was low, follow-up with Dr. Case on this. Thanks! Normal [facility] Telephoneon 12-25-2023 Telephone [id number] Abi Boswell 1960 Provider Department Center 12/25/2023 HENRIETTA FLOREZ Family History Problem Relation Age of Onset Hypertension Maternal Grandmother Transient ischemic attack Maternal Grandmother Heart attack Maternal Grandfather Heart failure Maternal Grandfather Family Status - Relation Status Age at Maternal Grandmother Maternal Grandfather Normal [facility] Office Visiton 11-11-2023 Follow-up visit [id number] Abi Boswell 1960 F Date Provider Department Center 11/11/2023 HENRIETTA FLOREZ CARD Valerie [facility] Family History Problem Relation Age of Onset Hypertension Maternal Grandmother Transient ischemic attack Maternal Grandmother Heart attack Maternal Grandfather Heart failure Maternal Grandfather Family Status - Relation Status Age at Maternal Grandmother Maternal Grandfather Level of Service:47312 [place] OFFICE/OUTPATIENT ESTABLISHED MOD MDM 30-39 MIN Reason for Visit and Comments: Chest Pain [386748] Coronary Artery Disease [187] Normal [facility] [id number] 06-27-2022 SARS-CoV-2 (COVID-19) RNA CAROLINE+probe Ql (Unsp spec) Not detected Normal [facility] Comment on above: Result Comment: [...] management decisions. Fact sheet for Healthcare Providers: https://www.fda.gov/media/131961/download Fact sheet for Patients: https://www.fda.gov/media/871979/download Methodology: Isothermal Nucleic Acid Amplification Performed By: #### C OVRB #### [facility] [address] [place] [address] Admissions Advisor: Lanre Santana MD Basic Metabolic Panelon 07- Anion gap [Moles/Vol] 8 mmol/L Low 9 - 17 mmol/L [facility] Calcium [Mass/Vol] 9.8 mg/dL 8.6 - 10. 4 mg/dL [facility] Chloride [Moles/Vol] 107 mmol/L 98 - 107 mmol/L [facility] CO2 [Moles/Vol] 30 mmol/L 20 - 31 mmol/L [facility] Creatinine [Mass/Vol] 0.73 mg/dL 0.5 [...] [Mass ratio] 16 9 - 20 [facility] Basic Metabolic Profon 06-20 (cont.) Normal [facility] Comment on above: Result Comment: Aver age GFR for 60-69 years old: 85 mL/min/1.73sq m Chronic Kidney Disease: <60 mL/min/1.73sq m Kidney failure: <15 mL/min/1.73sq m eGFR calculated using average adult body mass. Additional eGFR calculator available at: http://www.[employer].SwingShot/multiple_crcl_2011.htm Performed By: #### C DP, BMP #### [facility] [address] [place] [address] Admissions Advisor: Lanre Santana MD Anion gap [Moles/Vol] 8 mmol/L Low 9-17 [facility] Comment on above: Performed By: #### C DP, BMP #### [facility] [address] [place] [address] Admissions Advisor: Lanre Santana MD BUN/CRE Ratio 16 Normal 9-20 [facility] Comment on above: Performed By: #### C DP, BMP #### [facility] [address] [place] [address] Admissions Advisor: Lanre Santana MD Calcium [Mass/Vol] 9.8 mg/dL Normal 8.6-10.4 [facility] Comment on above: Performed By: #### C DP, BMP #### [facility] [address] [place], [place] [id number] Admissions Advisor: Lanre Santana MD Chloride [Moles/Vol] 107 mmol/L Normal 98-107 [facility] Comment on above: Performed By: #### C DP, BMP #### [facility] [address] [place] [address] [place] [place], [place] [id number] Admissions Advisor: Lanre Santana MD CO2 [Moles/Vol] 30 mmol/L Normal 20-31 [facility] Comment on above: Performed By: #### C DP, BMP #### [facility] [address] [place] [address] [place] [address] Admissions Advisor: Lanre Santana MD Creatinine [Mass/Vol] 0.73 mg/dL Normal 0.50-0.90 [facility] Comment on above: Performed By: #### C DP, BMP #### [facility] [address] [place] [address] Admissions Advisor: Lanre Santana MD GFR, Amer >60 Normal >60 [facility] Comment on above: Performed By: #### C DP, BMP #### [facility] [address] [place] [address] Admissions Advisor: Lanre Santana MD GFR,non Amer >60 Normal >60 [facility] Comment on above: Performed By: #### C DP, BMP #### [facility] [address] [place] [address] Admissions Advisor: Lanre Santana MD Glucose [Mass/Vol] 97 mg/dL Normal 70-99 [facility] Comment on above: Performed By: #### C DP, BMP #### [facility] [address] [place] [address] Admissions Advisor: Lanre Santana MD Potassium [Moles/Vol] 4.4 mmol/L Normal 3.7-5.3 [facility] Comment on above: Performed By: #### C DP, BMP #### [facility] [address] [place] [address] Admissions Advisor: Lanre Santana MD Sodium [Moles/Vol] 145 mmol/L High 135-144 [facility] Comment on above: Performed By: #### C DP, BMP #### [facility] [address] [place] [address] Admissions Advisor: Lanre Santana MD Staging: Normal [facility] Comment on above: Result Comment: Stag e 1: Some kidney damage normal GFR Stage 2: Mild kidney damage GFR 60-89 Stage 3: Moderate kidney damage GFR 30-59 Stage 4: Severe kidney damage GFR 15-29 Stage 5: Severe kidney damage GFR <15 ESRD - chronic treatment by dialysis or transplant Performed By: #### C DP, BMP #### [facility] [address] [place], [place] [id number] Admissions Advisor: Lanre Santana MD Urea nitrogen [Mass/Vol] 12 mg/dL Normal 8-23 [facility] Comment on above: Performed By: #### C DP, BMP #### [facility] [address] [place] [address] Admissions Advisor: Lanre Santana MD CBC with Auto Differentialon 06-20-2022 Absolute Eos # 0.12 [facility] Absolute Immature Granulocyte 0.03 [facility] Absolute Lymph # 1.85 [facility] Absolute Lewis # 0.71 [facility] Basophils (Bld) [#/Vol] 0.03 10*3/uL [facility] NRBC Automated 0.0 0.0 per 100 WBC [facility] Platelet distribution width (Bld) [Ratio] 13.3 [...] [facility] WBC (Bld) [#/Vol] 8.4 10*3/uL [facility] CBC with Diffon 06-20-2022 Abs. Basophil 0.03 k/uL Normal 0.00-0.20 [facility] Comment on above: Performed By: #### C DP, BMP #### [facility] [address] [place] [address] Admissions Advisor: Lanre Santana MD Abs.Imm.Granulocyte 0.03 k/uL Normal 0.00-0.30 [facility] Comment on above: Performed By: #### C DP, BMP #### [address] [place] [address] Admissions Advisor: Lanre Santana MD Abs.Neutrophil (Seg) 5.62 k/uL Normal 1.50-8.10 [facility] Comment on above: Performed By: #### C DP, BMP #### [address] [place] [address] Admissions Advisor: Lanre Santana MD Basophils/100 WBC (Bld) 0 % Normal 0-2 [facility] Comment on above: Performed By: #### C DP, BMP #### [address] [place], [place] [address] Admissions Advisor: Lanre Santana MD Eosinophils (Bld) [#/Vol] 0.12 10*3/uL Normal 0.00-0.44 [facility] Comment on above: Performed By: #### C DP, BMP #### [address] [place] [id number] Admissions Advisor: Lanre Santana MD Eosinophils/100 WBC (Bld) 1 % Normal 1-4 [facility] Comment on above: Performed By: #### C DP, BMP #### [address] [place], [place] [address] Admissions Advisor: Lanre Santana MD Erythrocyte distribution width (RBC) [Ratio] 13.3 % Normal 11.8-14.4 [facility] Comment on above: Performed By: #### C DP, BMP #### [facility] [address] [place] [address] Admissions Advisor: Lanre Santana MD Hematocrit (Bld) [Volume fraction] 42.7 % Normal 36.3-47.1 [facility] Comment on above: Performed By: #### C DP, BMP #### [address] [place] [id number] Admissions Advisor: Lanre Santana MD Hemoglobin (Bld) [Mass/Vol] 14.3 g/dL Normal 11.9-15.1 [facility] Comment on above: Performed By: #### C DP, BMP #### [address] [place] [address] Admissions Advisor: Lanre Santana MD Immature granulocytes/100 WBC (Bld) 0 % Normal 0 [facility] Comment on above: Performed By: #### C DP, BMP #### [address] [place] [id number] Admissions Advisor: Lanre Santana MD Lymphocytes (Bld) [#/Vol] 1.85 10*3/uL Normal 1.10-3.70 [facility] Comment on above: Performed By: #### C DP, BMP #### [facility] [address] [place], [facility] Admissions Advisor: Lanre Santana MD Lymphocytes/100 WBC (Bld) 22 % Low 24-43 [facility] Comment on above: Performed By: #### C DP, BMP #### [facility] [address] [place] [id number] Admissions Advisor: Lanre Santana MD MCH (RBC) [Entitic mass] 32.6 pg Normal 25.2-33.5 [facility] Comment on above: Performed By: #### C DP, BMP #### [address] [place] [address] Admissions Advisor: Lanre Santana MD MCHC (RBC) [Mass/Vol] 33.5 g/dL Normal 28.4-34.8 [facility] Comment on above: Performed By: #### C DP, BMP #### [address] [place] [address] Admissions Advisor: Lanre Santana MD MCV (RBC) [Entitic vol] 97.3 fL Normal 82.6-102.9 [facility] Comment on above: Performed By: #### C DP, BMP #### [address] [place] [address] Admissions Advisor: Lanre Santana MD Monocytes (Bld) [#/Vol] 0.71 10*3/uL Normal 0.10-1.20 [facility] Comment on above: Performed By: #### C DP, BMP #### [address] [place], [place] [address] Admissions Advisor: Lanre Santana MD Monocytes/100 WBC (Bld) 9 % Normal 3-12 [facility] Comment on above: Performed By: #### C DP, BMP #### [address] [place], [place] [address] Admissions Advisor: Lanre Santana MD Neutrophil (Seg) 68 % High 36-65 [facility] Comment on above: Performed By: #### C DP, BMP #### [address] [place] [address] Admissions Advisor: Lanre Santana MD NRBC Automated 0.0 per 100 WBC Normal 0.0 [facility] Comment on above: Performed By: #### C DP, BMP #### [facility] [address] [place], [place] [address] Admissions Advisor: Lanre Santana MD Platelet mean volume (Bld) [Entitic vol] 8.4 fL Normal 8.1-13.5 [facility] Comment on above: Performed By: #### C DP, BMP #### [facility] [address] [place], [place] [address] Admissions Advisor: Lanre Santana MD Platelets (Bld) [#/Vol] 278 10*3/uL Normal 138-453 [facility] Comment on above: Performed By: #### C DP, BMP #### [facility] [address] [place] [address] Admissions Advisor: Lanre Santana MD RBC (Bld) [#/Vol] 4.39 10*6/uL Normal 3.95-5.11 [facility] Comment on above: Performed By: #### C DP, BMP #### [facility] [address] [place], [place] [address] Admissions Advisor: Lanre Santana MD WBC (Bld) [#/Vol] 8.4 10*3/uL Normal 3.5-11.3 [facility] Comment on above: Performed By: #### C DP, BMP #### [facility] [address] [place], [place] [address] Admissions Advisor: Lanre Santana MD EKG 12 LeadOrdered By: César mojica on 06-20-2022 Atrial Rate 65 BPM [facility] [employer] [facility] Phone: P [place] 65 degrees [facility] [employer] Phone: P-R Interval 134 ms [facility] Phone: Q-T Interval 432 ms [facility] Phone: QRS Duration 110 ms [facility] [employer] Phone: QTc Calculation (Bazett) 449 ms [facility] Work Phone: R [place] 72 degrees [employer] Work Phone: T [place] 43 degrees [employer] Work Phone: Ventricular Rate 65 BPM [facility] [employer] Work Phone: [facility] [employer] Work Phone: EKG 12 Leadon 06-20-2022 Normal sinus rhythm Incomplete right bundle branch block Cannot rule out Inferior infarct , age undetermined Abnormal ECG No previous ECGs available Confirmed by César Blanco MD ([id number]) on 06/20/2022 10:08:07 PM [facility] César Blanco MD - 06/20/2022 Normal sinus rhythm Incomplete right bundle branch block Cannot rule out Inferior infarct , age undetermined Abnormal ECG No previous ECGs available Confirmed by César Blanco MD ([id number]) on 06/20/2022 10:08:07 PM [facility] [employer] Work Phone: Laboratory - Chemistry and C hemistry - challengeon 06-20-2022 GFR/1.73 sq M.predicted MDRD (S/P/Bld) [Vol rate/Area] [facility] Comment on above: Average GFR for 60-6 9 years old: 85 mL/min/1.73sq m Chronic Kidney Disease: <60 mL/min/1.73sq m Kidney failure: <15 mL/min/1.73sq m eGFR calculated using average adult body mass. Additional eGFR calculator available at: http://www.[employer].SwingShot/multiple_crcl_2012.htm Stage 1: Some kidney damage normal GFR [...] by: CARTER COKER Date: 2022-06-06 15:52 Normal [facility] Vital Signs Date Time Vital Sign Value Performing Clinician Nicholasi haroon 06-27-2022 14:30-0400 Diastolic blood pressure 68 mm[Hg] Carter Torres MD Work Phone: [employer] 06-27-2022 14:30-0400 Heart rate 68 /min Carter Torres MD Work Phone: [employer] 06-27-2022 14:30-0400 Respiratory rate 23 /min Carter Torres MD Work Phone: [employer] 06-27-2022 14:30-0400 SaO2% (BldA) [Mass fraction] 94 % Carter Torres MD Work Phone: [employer] 06-27-2022 14:30-0400 Systolic blood pressure 117 mm[Hg] Carter Torres MD Work Phone: [employer] 06-27-2022 14:00-0400 Body temperature 97 [degF] Carter Torres MD Work Phone: [facility] [employer] 06-27-2022 11:16-0400 Body height 162.6 cm Carter Torres MD Work Phone: [facility] [employer] 06-27-2022 11:16-0400 Body mass index (BMI) [Ratio] 30.04 kg/m2 Carter Torres MD Work Phone: [facility] [employer] 06-27-2022 11:16-0400 Body weight 79.38 kg Carter Torres MD Work Phone: [facility] Encounters Encounter Date Encounter Type Care Provider Facility Start: 10-24-2024 End: 10-24-2024 ambulatory [facility] Start: 10-24-2024 End: 10-24-2024 Encounter for preprocedural cardiovascular examination [facility] Start: 04-14-2024 End: 04-14-2024 ambulatory [facility] Start: 11-11-2023 End: 11-11-2023 ambulatory [facility] Start: 06-27-2022 End: 06-27-2022 ambulatory [facility] Start: 06-27-2022 End: 06-27-2022 Subsequent hospital visit by physician Carter Torres MD Work Phone: [facility] Start: 06-20-2022 End: 06-21-2022 ambulatory CARTER C [facility] Start: 06-20-2022 End: 06-20-2022 Subsequent hospital visit [...] knee, initial encounter 06/27/2022 1:07 PM EDT [facility] Start: 2010 Screening for malign ant neoplasm of breast Breast cancer screen [facility] Start: 2010 Shingles vaccine (1 of 2) Shingles vaccine (1 of 2) [facility] Start: 2005 Screening for malign ant neoplasm of colon [facility] Start: 2000 Lipid panel Lipids [facility] Start: 1979 DTaP/Tdap/Td vaccine (1 - Tdap) DTaP/Tdap/Td vaccine (1 - Tdap) [facility] Start: 1978 Hepatitis C screening Hepatitis C sc reen [facility] Start: 1975 HIV screening HIV screen [facility] Start: 1972 Depression Screen Depression Screen [facility] Start: 1966 Pneumococcal 0-64 ye ars Vaccine (1 - PCV) Pneumococcal 0-64 years Vaccine (1 - PCV) [facility] Start: 1960 COVID-19 Vaccine (#1) COVID-19 Vacci ne (#1) [facility] Oxygen therapy [[facility] Data Set] Initiate Oxygen Therapy Protocol Respiratory Care Routine As Needed until discontinued starting 06/27/2022 [facility] Work Phone: Comment on above: As Needed until disc ontinued starting 06/27/2022 Payers Date Payer Category Payer Unknown [id number] 2.16.8 [id number] 1960 Unknown [id number] [id number] [id number] 1960 Unknown [id number] 2.16.8 [id number] 1960 Unknown [id number] 2.16.8 [id number] 1960 Unknown [id number] 2.16.84 [id number] 1959 Unknown [id number] [id number] [id number] Social History Date Type Detail Facility Start: 06-21-2020 Tobacco smoking stat [facility] Smokes tobacco daily [employer] Phone: History of tobacco use Cigarette Smoker B [employer] Phone: Start: 06-21-2020 Cigarettes smoked current (pack per day) - Reported 0.5 [employer] Phone: Start: 06-21-2020 Tobacco use and exposure Smoke less tobacco non-user [employer] Phone: Start: 12-05-2021 End: 06-27-2022 Alcohol intake Lifetime non-drinker (finding) [employer] Phone: Start: 06-21-2020 History SDOH Alcohol Frequency 1 [employer] Phone: Start: 1960 Sex Assigned At Not on file B ON [employer] Phone: Start: 06-17-2022 End: 06-27-2022 Exposure to SARS-CoV-2 (event) Not sure [employer] Phone: Progress note 10-24-2024 Note Date & Type Note Facility 10-24-2024 Note [place] Cardiology - [facility] Deana Boswell is a 64 y.o. year old female patient being seen for 6 mo follow up CAD, chest pain, and hyperlipidemia. Still gets intermittent palpitations and periotic chest pain. She states chest pain no longer radiates down her UE. Only taking lasix prn. Patient Active Problem List Diagnosis Other chest pain Shortness of breath Acute sinusitis Coronary artery disease involving [place] coronary artery of [place] heart without angina pectoris Family History Problem [...] presented to the emergency room at the [facility] due to chest pain and her cardiac [...] tablet, if needed., Disp: , Rfl: HYDROcodone-acetaminophen ([place]) 5-325 mg tablet, take 1 tablet by [...] CR (Klor-Con M1 (more content not included)... [facility] Progress note 04-14-2024 Note Date & Type [...] other systems reviewed and are negative. [facility] Progress note 04-14-2024 Note Date & Type Note Facility 04-14-[address] [facility] SUBJECTIVE Chief Complaint Patient presents [...] breath Acute sinusitis Coronary artery disease involving [place] coronary artery of [place] heart without angina pectoris Past Medical History: Diagnosis Date Hyperlipidemia Lupus (systemic lupus erythematosus) ([facility]) Past Surgical History: Procedure Laterality [...] the same time., Disp: , Rfl: HYDROcodone-acetaminophen ([place]) 5-325 mg tablet, take 1 tablet by [...] and R (more content not included)... [facility] Progress note 11-11-2023 Note Date & Type Note Facility 11-11-2023 Note Patient here for [facility] low up heart cath. Isosorbide was increased [...] other systems reviewed and are negative. [facility] Progress note 11-11-2023 Note Date & Type Note Facility 11-11-[address] [facility] SUBJECTIVE Chief Complaint Patient presents [...] breath Acute sinusitis Coronary artery disease involving [place] coronary artery of [place] heart without angina pectoris Past Medical History: Diagnosis Date Hyperlipidemia Lupus (systemic lupus erythematosus) ([facility]) Past Surgical History: Procedure Laterality [...] tablet, if needed., Disp: , Rfl: HYDROcodone-acetaminophen ([place]) 5-325 mg tablet, take 1 tablet by [...] focal de (more content not included)... [facility] History of Present illness Narrative 06-27-2022 Selene [...] require patient to operate motor Vehicle. Yes [facility] Preadmission Testing Name: Abi Boswell [...] Take [x] Ride Home [x]No Jewelry/Contact Lenses/Nail Jamaican [] Prep/Lax/Clear Liquids [] Chlorhexidene DOS Patient [...] with patient? Yes documented in this encounter [employer] Phone: Hospital Discharge instructions 06-27-2022 Discharge Instructions [...] feet do not touch the floor, 2. Knowledge Management Advisor the sides of the surface for support. 3. Raise one foot until your knee is completely straight 4. Slowly return to the starting position and relax. 5. Repeat 20 times ANKLE PUMPS 1. Bend ankles up and down, alternating foot 2. Repeat 25 times Carter Torres M.D. [phone] @ATTPROV@ 06/27/2022 1:01 PM documented in this encounter [facility] Work Phone: Summary Purpose Family History No Family History Records FoundNo Family History Records FoundNo Family History Records FoundNo Family History Records Found Advance Directives No Advanced Directives Records FoundLatest Code Status on File Code Status Date Activated Date Inactivated Comments Full Code 06/27/2022 11:07 AM Additional Source Comments Care Teams (unrecognized sec tion and content) Topographical Field Assistant Relationship Specialty Start Date End Date Ron Case MD [address] [place] [address] PCP - General Family Medicine 06/21/20 Topographical Field Assistant Relationship Specialty Start Date End Date Ron Case MD [address] [place] [id number] PCP - General Family Medicine 06/21/20 Topographical Field Assistant Relationship Specialty Start Date End Date Ron Case MD [address] [place] [id number] PCP - General Family Medicine 06/21/20 INFORMATION SOURCE (unrecogn ized section and content) DATE CREATED AUTHOR 06/22/2022 [facility] DATE CREATED AUTHOR AUTHOR'S ORGANIZ ATION 07/01/2022 [facility] DATE CREATED AUTHOR AUTHOR'S ORGANIZ ATION 09/22/2022 [facility] DATE CREATED AUTHOR AUTHOR'S ORGANIZ ATION 11/01/2024 [facility] Reason for Visit (unrecogniz ed section and content) Specialty Diagnoses / Procedures Referred By Herber larios Referred To Contact Diagnoses Acute medial meniscus tear of right knee, initial encounter Acute medial meniscus tear of right knee, initial encounter [S83.365A] Procedures NV KNEE SCOPE,DIAGNOSTIC NV ARTHRS KNE SURG W/MENISCECTOMY MED/LAT W/SHVG KNEE ARTHROSCOPY Carter Torres MD [address] [place] [address] [facility] [address] [place] [address] Referral ID Status Reason Start Date Expiration Date Visits Re quested Visits Authorized [id number] 1 1 Ordered Prescriptions (unrec ognized section [...] mL IVPB (duplex) (COMPLETED) 2,000 mg, IntraVENous, TRIAGE NURSE TO O.R., 1 dose, On Thu06/27/22 at [...] 06/25/2022 06/26/2022 06/27/2022 bupivacaine-EPINEPHrine PF (MARCAINE-w/EPINEPHRINE) 0.5% -1:[id number] injection (CANCELED) PRN, Starting on Thu06/27/22 at [...] BE BASED ON THE PRIMARY CLINICAL RECORDS. [facility]. provides no warranty or guarantee of the accuracy or completeness of information in this document.
[2024-11-18 07:34] LABS: Basophils Percent Auto 0.6 % (0.2-2.0); Eosinophils Absolute Auto 0.3 10^3/uL (0.0-0.7); Eosinophils Percent Auto 3.9 % (0.9-7.0); Hematocrit 42.4 % (36.0-48.0); Hemoglobin 14.4 g/dL (12.0-16.0); Immature Granulocytes Abs Auto 0.01 10^3/uL (0.00-0.03); Immature Granulocytes Pct Auto 0.2 % (0.0-0.5); Lymphocytes Absolute Auto 1.9 10^3/uL (1.2-3.8); Lymphocytes Percent Auto 27.9 % (20.5-60.0); Mean Corpuscular Hemoglobin 32.1 pg (26.7-34.0); Mean Corpuscular Volume 94.6 fL (81.0-99.0); Mean Platelet Volume 9.1 fL (9.5-13.5); Monocytes Absolute Auto 0.6 10^3/uL (0.3-0.8); Monocytes Percent Auto 9.4 % (1.7-12.0); Neutrophils Absolute Auto 3.9 10^3/uL (1.4-6.5); Platelet Count 262 10^3/uL (150-450); Red Blood Count 4.48 10^6/uL (4.20-5.40); Red Cell Distribution Width 13.1 % (11.0-15.0); White Blood Count 6.6 10^3/uL (4.0-11.0)
[2024-11-18 07:56] LABS: Glucometer 109 mg/dL (74-106)
[2024-11-18] MEDS: LACTATED RINGER'S SOLUTION 1,000 ML 50 ML IV (08:01)
--- NOTE | 2024-11-18 08:57 | PC.NURSE ---
0850: time out completed as charted. pt positioned per anesthesia and 2L O2 applied per policy. femoral block began at 0830,pt tolerated well without complaints. popliteal block began at 0843 and was completed at 0849, pt tolerated well without complaints. pt bed to lowest position with siderails up and call light within reach. pt will be monitored until taken back to the OR.
[2024-11-18] MEDS: CEFAZOLIN SODIUM 2 GM/50 ML D5W PREMIX IV (09:06)
[2024-11-18] MEDS: BUPIVACAINE HCL 0.5% PF 50 MG/10 ML VIAL 20 ML INJ (09:56)
--- NOTE | 2024-11-18 10:31 | P.ORON_ITS ---
Brief Operative Note Date of procedure: 11/18/24 Pre-op diagnosis general: Right ankle sprain sequela, ankle arthritis, ankle i nstability and peroneal tendinitis Post-op diagnosis: same as pre-op Procedure: Procedure performed: Right ankle arthroscopy, modified Brostr?m Dasilva lateral ankle stabilization, peroneal tenolysis and application of short leg splint Indications for procedure: Patient is a 64-year-old female with lupus and long- term corticosteroid use who suffered right ankle injury in March 2024 which resulted in a nonhealing ulceration on her anterior lateral distal leg. Local wound care and alginate skin substitute ultimately aided in healing of her ulcer however she continued to have pain, instability and dysfunction associated with her right ankle. After her wound was healed she was treated with formal physical therapy, ASO ankle bracing, shoe and activity modification however did not respond. MRI was then obtained which demonstrated evidence of prior ATFL sprain, intact peroneal tendons with associated low-lying muscle belly and infla mmatory changes. The tibiotalar joint on MRI was consistent with reactive arthritis consistent with lupus history. Examination revealed positive and painful anterior drawer as well as pain over the peroneal tendons. Due to alterations in her gait pattern she also developed pain over the posterior tibial tendon which the MRI revealed as intact but did have evidence of tenosynovitis. Given her failure to respond to nonsurgical care patient wished to proceed with surgery and I educated her on potential risks and benefits as well as the postoperative course. Intraoperative findings: Ankle arthroscopy revealed chronic synovitis resulting in soft tissue impingement. No osteochondral defect was noted however there was mild degenerative changes of the tibiotalar joint. Anterior talofibular l igament was intact but thickened and lax. Peroneal tendons with low-lying muscle belly but no evidence of peroneal tendon dislocation or tendon tear. Procedure in detail: Patient was identified preoperatively by myself which time correct side and site were marked and consent was obtained. Regional anesthesia was performed by the anesthesia team. Patient is brought back to the operating theater placed on table in supine position with a thigh tourniquet. Preoperative antibiotics were started. General anesthesia seizure was administered and the right lower extremity was prepped and draped in usual sterile fashion. Formal timeout was performed and the right lower extremity was exsanguinated and tourniquet was inflated. A 15 blade was used to create anterior medial ankle portal followed by use of hemostat and trochar then the arthroscopic camera was inserted. Anterior lateral portal was similarly created in standard safe location after identifying intermediate dorsal cutaneous nerve. A significant amount of chronic synovitic tissue was removed using a 3.5 mm aggressive shaver. All impingement tissue was likewise excised. No cartilage defect was noted however there was mild degene rative changes of the tibiotalar joint. Arthroscopic instrumention was then removed. The portals were then closed with nylon suture. An incision was made over the anterior lateral ankle and extended to the inferior tip of the lateral malleolus. Meticulous blunt dissection was used to expose the ATFL which was thick and lax. The ATFL was incised and arthrotomy was performed. The periosteum off of the distal lateral fibula was released approximately 2 cm from the fibular tip. A rongeur was used on the distal anterior fibular malleolus to create a trough. Two drill holes were created in the trough created on distal fibula. Two 3.3 mm suture anchors were inserted into the drill holes created according to manufacture's directions. All eight sutures (4 from each anchor) in all were passed through the ATFL then passed through the extensor retinaculum. Then all sutures were brought through the periosteum from the lateral malleolus. The ankle was then held in maximum eversion and dorsiflexion and the sutures were tied and cut. Anterior drawer was negative and ankle had good ROM. The incision was then extended distally exposing the peroneal tendons distal to the fibular groove. Low-lying muscle belly was removed as was visible synovitis and inflammatory tissue. Then a Metzenbaum scissor was used to release adhesions from the peroneal tendons. The ankle is placed to range of motion and there was smooth normal gliding of the peroneal tendons. The tourniquet was then deflated with a prompt hyperemic response. The lateral incision was then closed in layers and a dry sterile dres sing was applied. A multilayer modified Mcgill compression splint was placed and allowed to dry with the ankle and eversion. Patient tolerated the procedure and anesthesia well and was transferred to the recovery room with vital signs stable and brisk capillary refill to the right toes. Postoperative plan: Discharge home under daughter's care Nonweightbearing right ankle but patient may use the right heel for balance and transfers. Prescriptions were sent to her pharmacy using my office EMR Patient is to follow-up in a week for dressing change and should keep the splint clean dry and intact until follow-up Implants: Medline 3.3 mm suture anchors Anesthesia: regional and General-LMA Surgeon: Fidel Pineda Estimated blood loss (mL): 10 Pathology: none sent Condition: stable Disposition: PACU
[2024-11-18] MEDS: ONDANSETRON 4 MG RAPDIS TABLET SL (11:06)
[2024-11-18 11:38] LABS: Glucometer 115 mg/dL (74-106)
== END 2024-11-18 12:06 | disposition home or self-care (01) ==
PROVIDERS: Anesthesiology; PCP Family Medicine; Visit Provider Podiatrist Foot & Ankle Surgery
PROC: (CPT 1464; principal; 2024-11-18 09:00)
DX: M19.071 Primary osteoarthritis, right ankle and foot (principal); M25.371 Other instability, right ankle; S93.401S Sprain of unspecified ligament of right ankle, sequela; M76.71 Peroneal tendinitis, right leg; Z90.710 Acquired absence of both cervix and uterus; F17.210 Nicotine dependence, cigarettes, uncomplicated; M76.821 Posterior tibial tendinitis, right leg; I25.10 Atherosclerotic heart disease of native coronary artery without angina pectoris; J44.9 Chronic obstructive pulmonary disease, unspecified; R06.09 Other forms of dyspnea; E78.5 Hyperlipidemia, unspecified; I10 Essential (primary) hypertension; K21.9 Gastro-esophageal reflux disease without esophagitis; M79.7 Fibromyalgia
CPT/HCPCS: 27680; 27698; 29898; 36415; 64445; 64447; 82948; 85025; C1713; J0665; J0690; J1100; J1885; J2250; J2371; J2405; J2704; J3010; Q0162

== ENCOUNTER 2025-01-20 08:03 | Outpatient (RCR) | payer BC, SELFPAY | END 2025-04-29 08:14 | disposition home or self-care (01) | LOC: PT 08:03 | PROVIDERS: PCP Family Medicine; Visit Provider Podiatrist Foot & Ankle Surgery | DX: M25.371 Other instability, right ankle (principal) | CPT/HCPCS: 97010; 97014; 97026; 97035; 97110; 97112; 97140; 97162; 97530 ==

== ENCOUNTER 2025-05-01 08:15 | Outpatient (RCR) | payer MEDICARE, SELFPAY | END 2025-08-17 09:31 | disposition home or self-care (01) | LOC: PT 08:15 | PROVIDERS: PCP Family Medicine; Visit Provider Podiatrist Foot & Ankle Surgery | DX: M25.371 Other instability, right ankle (principal) | CPT/HCPCS: 97010; 97110; 97112; 97113; 97140; 97161; 97164; G0283 ==

== ENCOUNTER 2025-10-03 10:11 | Outpatient (OUT) | payer MEDICARE, SELFPAY ==
--- NOTE | 2025-10-03 10:14 | US_ITS ---
The [address] [address] Patient Name: KENY YOUNG MRN: [id number] date: 1960 Sex: F Assigned Patient Location: [place] Current Patient Location: [place] Accession/Order Number: [id number] Exam Date: 10/03/2025 10:15 Report Date: 10/03/2025 14:25 At the request of: RON QUESADA MD Procedure: US renal bladder US renal bladder 10/03/2025 11:16 AM SIGNS AND SYMPTOMS: ^Flank Pain COMPARISON: None. FINDINGS: Right kidney measures 10.5 x 4.4 x 5.4 cm . No hydronephrosis or mass. There is an echogenic stone measuring up to 6 mm in greatest dimension. Left kidney measures 10.2 x 4.3 x 520 10 cm . No hydronephrosis, mass, or echogenic stone. The urinary bladder is morphologically normal. No free fluid is seen in the pelvis. The bladder has an estimated volume of 318 mL. A post void volume is measured at 2 mL. US/US renal bladder IMPRESSION: No hydronephrosis or mass. There is an echogenic right renal stone measuring up to 6 mm in greatest dimension. Impression dictated by: Jose Bar M.D. 10/03/2025 2:25 PM Dictation Location: [place] [address] Electronically authenticated by: [id number] Y Date: 10/03/2025 14:25
--- OUTSIDE RECORDS SUMMARY | 2025-10-03 10:14 | XMS_ITS | Clinical Summary ---
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
--- OUTSIDE RECORDS SUMMARY | 2025-10-03 10:14 | XMS_ITS | Clinical Summary ---
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 Name Role Phone Eliud Case MD Primary Care Provider [phone] Allergies Active AllergyReactionsCriticalityNoted DateCommentsMorphineHives,Other, LycpterapggiAwlgia17/23/2020Sulfamethoxazole-YccgglyeyebpMuwpbse85/30/2023 Medications MedicationSigDispense QuantityRefillsLast FilledStart DateEnd DateStatus diclofenac (Voltaren) 75 mg EC tablet 1 (one) time each day at the same time.08/15/2022ctive pantoprazole (ProtoNix) 40 mg EC tablet 1 (one) time each day at the same time.Active HYDROcodone-acetaminophen (Taswell) 5-325 mg tablet take 1 tablet by mouth every 6 hours if needed for ctive predniSONE (Deltasone) 10 mg tablet Take 10 mg by mouth if needed.08/28/2023ctive pregabalin (Lyrica) 25 mg capsule 1 capsule 1 (one) time each day at the same time.Active pramipexole (Mirapex) 0.5 mg tablet Take 0.5 mg by mouth in the morning.04/29/2023ctive furosemide (Lasix) 20 mg tablet if needed.Active potassium chloride CR (Klor-Con M10) 10 mEq ER tablet if needed.Active nitroglycerin (Nitrostat) 0.4 mg SL tablet Indications:Coronary artery disease involving yocha dehe coronary artery of yocha dehe heart without angina pectorisPlace 1 tablet (0.4 mg) under the tongue every 5 (five) minutes if needed for chest pain. 25 tablet ctive atorvastatin (Lipitor) 40 mg tablet Indications:Mixed hyperlipidemiaTake 1 tablet (40 mg) by mouth in the morning. 90 tablet 5Active aspirin 81 mg EC tablet Indications:Coronary artery disease involving yocha dehe coronary artery of yocha dehe heart without angina pectorisTake 1 tablet (81 mg) by mouth once daily as directed. 90 tablet 5Active metoprolol succinate XL (Toprol-XL) 25 mg 24 hr tablet Indications:Coronary artery disease involving yocha dehe coronary artery of yocha dehe heart without angina pectorisTake 1 tablet (25 mg) by mouth once daily as directed. Do not crush or chew. 90 tablet 6Active isosorbide mononitrate ER (Imdur) 60 mg 24 hr tablet Indications:Other chest pain,Shortness of breath,Coronary artery disease involving yocha dehe coronary artery of yocha dehe heart with other form of angina p ectorisTake 1 tablet (60 mg) by mouth once daily as directed. 90 tablet 6Active Active Problems ProblemNoted DateDiagnosed DateCoronary artery disease involving yocha dehe coronary artery of yocha dehe heart without angina wukgvwxk34/15/2023cute sinusitis Other chest pain10/01/2023Shortness of nlkskl6410/01/2023 Family History Medical HistoryRelationNameCommentsHeart attackMaternal GrandfatherHeart failure Maternal GrandfatherHypertensionMaternal GrandmotherTransient ischemic attack Maternal GrandmotherRelationNameStatusCommentsMaternal GrandfatherMaternal Grandmother Social History Tobacco UseTypesPacks/DayYears UsedDateSmoking Tobacco: Every DayCigarettes Smokeless Tobacco: Never Tobacco Cessation:Ready to Q uit: Not Asked; Counseling Given: Not Answered Alcohol UseStandard Drinks/WeekCommentsNot Currently0 (1 standard drink = 0.6 oz pure alcohol)MT Safety & EnvironmentAnswerDate RecordedFear of Current or Ex-PartnerNot on file01/22/2024Emotionally AbusedNot on file01/22/2024hysically AbusedNot on file01/22/2024Sexually AbusedNot on file02/23/2024Physically or Sexually AbusedNot on file4CommentsNoSex and Gender Information ValueDate RecordedSex Assigned at CievgPyskyf38/27/2023 6:51 AM ESTLegal Sex Ovtwzx8106/15/2023 12:39 PM EDTGender CustmzarPdgmup98/27/2023 6:51 AM ESTSexual OrientationHeterosexual or Wxjdqnmu27/27/2023 6:51 AM EST Last Filed Vital Signs Vital SignReadingTime TakenCommentsBlood Drkuhusa600/7810/24/2024 10:20 AM EST Pjyjn592310/24/2024 10:20 AM ESTTemperature--Respiratory Lgeb295212/26/2022 2:51 PM ESTOxygen Ccyvekcvxh33%10/24/2024 10:20 AM ESTInhaled Oxygen Concentration-- Zjqtkr79.8 kg (187 lb)10/24/2024 10:20 AM IKIBecrjs415.1 cm (5' 5 )10/24/2024 10:20 AM ESTBody Mass Index31.12112/24/2023 10:20 AM EST Plan of Treatment Health MaintenanceDue DateLast DoneCommentsCT Rcawlzrnidus1960Colonoscopy 1960Colorectal Cancer Aqjhhrhmq1960FIT-DNA1960FIT1960 FOBT1960Medicare Initial Physical (IPPE)1960 9446Jvssabslwfahp1960 Depression Gholdkbff69/21/1972Pneumococcal Vaccine: 50+ Years (1 of 2 - PCV) 1979Pap Smear1981Adult Toqnsgj4005/20/1982Cervical Cancer Screening 1990HPV/Kxxwao0505/20/19902176Cfpmzlbmo76/21/2000Zoster Vaccines (1 of 2) 2010Fall Risk Rxvtfsopl72/21/2025COVID-19 Vaccine (1 - 2024- season) 2025Influenza Vaccine (#1)5112/14/2016HIB VaccinesAged OutNo longer eligible based on patient's age to complete this topicHPV VaccinesAged OutNo longer eligible based on patient's age to complete this topicIPV Vaccines Aged OutNo longer eligible based on patient's age to complete this topic Meningococcal B VaccineAged OutNo longer eligible based on patient's age to complete this topicMeningococcal VaccineAged OutNo longer eligible based on patient's age to complete this topicRotavirus VaccinesAged OutNo longer eligible based on patient's age to complete this topic Insurance * Guarantor: Abi Boswell FAc TypeRelation to PatientDate of PhoneBilling AddressPersonal/PzbtetOmpn1960 [address] [address] Care Teams Team MemberRelationshipSpecialtyStart DateEnd Eliud Case MD [address] [facility] [address] [address] [facility] - Cmyeras34/30/23
--- OUTSIDE RECORDS SUMMARY | 2025-10-03 10:15 | XMS_ITS | CCD ---
Author Organization [facility] Care Team Providers Care Information Security Engineer Name Role Phone Ron Case MD Primary Care Provider [phone] CARTER TORRES Referring Unavailable RON CASE Primary [...] Ayala Consulting Unavailable HENRIETTA RODRIGUEZ Attending Unavailable HENRIETTA RODRIGUEZ Attending Unavailable MARJ ABRAHAM Attending Unavailable Carter Fowler Attending Unavailable Carter Fowler Admitting Unavailable Fidel Pineda Primary Care Unavailable Allergies Allergy ClassificationReported Allergen(s)Allergy TypeDate of OnsetReaction(s) Facility (5 sources)Morphine; Translations: [MORPHINE]Drug Sbvtzrw79-09-8794Woqnz, PalpitationsBON [facility] (1 source)MorphineDrug AllergyThe [place] [facility] (1 source)Sulfamethoxazole / Trimethoprim; Translations: [SULFAMETHOXAZOLE-TRIMETHOPRIM]Drug Ugcuvha26-71-9637QhnanfjhqiUC [facility] (1 source)Sulfonamides (Antibiotic); Translations: [sulfa drugs]Propensity to adverse reactions to drug (disorder)[facility] Repository Medications Current Medications MedicationDrug Class(es)DatesSig (Normalized)Sig (Original)calcium chloride 0.0014 meq/ml / potassium chloride 0.004 meq/ml / sodium chloride 0.103 meq/ml / sodium lactate 0.028 meq/ml injectable solution (1 source)Start: 76-24-9487fvuywpzl ringers infusionfurosemide 20 mg oral tablet (3 sources)Loop Diureticfurosemide (LASIX) 20 MG tablet Take 20 mg by mouth as needed 0 Activeketorolac tromethamine 10 mg oral tablet (1 source)Nonsteroidal Anti-inflammatory Drug, Cyclooxygenase InhibitorStart: 06-27-2022 End: 08-27-9850xwrvymsky (TORADOL) 10 MG tablet Take 1 tablet by mouth in the morning and 1 tablet at noon and 1 tablet before bedtime. Do all this for 5 days. 1 tab by mouth 3 times daily. 15 tablet 0 06/27/2022 07/02/2022 Active pantoprazole 40 mg delayed release oral tablet (1 source)Proton Pump Inhibitortake 1 tablet by mouth once daily as needed pantoprazole (PROTONIX) 40 MG tablet Take 40 mg by mouth daily as needed 0 Active Completed/Discontinued Medications MedicationDrug Class(es)DatesSig (Normalized)Sig (Original)ceFAZolin 2000 mg injection (1 source)Cephalosporin AntibacterialStart: 06-27-2022 End: 06-85-3658zdMJJubav (ANCEF) 2000 mg in dextrose 3 % 50 mL IVPB (duplex) ibuprofen 800 mg oral tablet (3 sources)Nonsteroidal Anti-inflammatory DrugStart: 04-30-2020 End: 63-38-4615vdkr 1 tablet by mouth four times daily for painibuprofen (ADVIL;MOTRIN) 800 MG tablet take 1 tablet by mouth four times a day if needed for pain 06/27/2022 Discontinued (Stop Taking at Discharge) levoFLOXacin 750 mg oral tablet (3 sources)Quinolone AntimicrobialStart: 08-10-2020 End: 58-81-6943vsrg 1 tablet by mouth once dailylevoFLOXacin (LEVAQUIN) 750 MG tablet take 1 tablet by mouth once daily 0 08/10/2020 06/27/2022 Discontinued (Therapy completed) Problems Active Problems Problem ClassificationProblemDateDocumented DateEpisodic/ChronicCoronary atherosclerosis and other heart disease (2 sources)Atherosclerotic heart disease of [place] coronary artery without angina pectoris; Translations: [Atherosclerotic heart disease of [place] coronary artery without angina pectoris]Onset: 74-65-5544KcidaaeMcvgnjvvz of lipid metabolism (3 sources)Mixed hyperlipidemia; Translations: [Hyperlipidemia, unspecified] Onset: 97-18-9200HzirityUtuuqyiav hypertension (1 source)Essential (primary) hypertension; Translations: [Essential (primary) hypertension]Onset: 85-79-4919DmtxvhyTebnj disorders and dislocations; trauma-related (4 sources)Unspecified internal derangement of right knee; Translations: [UNS INTERNAL DERANGEMENT RIGHT KNEE]Onset: 22-29-2565LzwagpkOzccpwdlpkxtpw (1 source)Unspecified osteoarthritis, unspecified site; Translations: [Unspecified osteoarthritis, unspecified site]Onset: 24-48-3963MproukkWqukr and ill-defined heart disease (1 source)Heart disease, unspecified; Translations: [Heart disease, unspecified] Onset: 40-05-8398VzwwljvUsejdtna veins of lower extremity (3 sources)Varicose veins of bilateral lower extremities with pain; Translations: [Varicose veins of bilaterallower extremities with pain]Onset: 15-81-9349Tybhdbku Past or Other Problems Problem ClassificationProblemDateDocumented DateEpisodic/ChronicCardiac dysrhythmias (2 sources)Palpitations; Translations: [Palpitations]Onset: 27-23-2393Eotbxakt Results Test NameValueInterpretationReference RangeFacilityOutside Recordson 07-18-2025 Outside [id number]#1.00OTGTIFFMemorial HospitalCoding Summaryon 05-99-3071Ndusei SummaryHTMLBase 64 CgopccheRUc3lEp+PGhlYWQ+FL0WBXEuT56lxPBpmM2vL7UATWvVSifpWPUHDBjOYsMzekHlEP4uxSSx ZXJu [file] c2U (more content not included)...NormalMagruder HospitalConsent Forms - Physicianon 00-21-5141Qzndbyv Forms - Physician [id number]#1.00OTGTIFFNormalMagruder HospitalUS Venous Insufficiency Bilaton 64-46-4431YI Venous Insufficiency BilatEXAMINATION: US Venous Insufficiency Bilat HISTORY: Varicose veins of bilateral lower extremities with pain COMPARISON: No relevant comparison available. TECHNIQUE: Duplex imaging of the lower extremity/extremities to assess the deep and superficial venous system for the presence of deep or superficial venous incompetence and to document the location and severity of disease. The study includes evaluation of the great saphenous vein (GSV), anterior accessory saphenous vein (AASV), and small saphenous vein (SSV). Patient scanned in reverse Trendelenburg And standing positions. FINDINGS: RIGHT LOWER EXTREMITY: GSV: Diam (mm) Reflux Time (sec) Saph fem jctn: 9.70 mm 0.50 s Proximal thigh: 6.50 mm 0.70 s Mid thigh: 6.50 mm 0.60 s Distal thigh: 6.90 mm 1.60 s Prox calf: 5.50 mm 0.00 Mid calf: 2.60 mm 2.60 s SSV: Saph pop jctn: 3.10 mm 0.40 s Prox calf: 2.50 mm 0.00 Mid calf: 2.80 mm 0.00 AASV: Prox thigh: 4.20 mm 0.00 Mid thigh: Distal thigh: Thrombi: No acute or chronic thrombus visualized. Compressibility:Normal. Flow: Mild deep venous reflux. Perforators: Distal medial lower leg 2.5 mm without reflux. Tech note: Varicose veins: Proximal medial lower leg 4.4 mm with 2.6 seconds reflux. LEFT LOWER EXTREMITY: GSV: Diam (mm) Reflux Time (sec) Saph fem jctn: 10.40 mm 2.90 s Proximal thigh: 6.30 mm 0.80 s Mid thigh: 5.90 mm 2.10 s Distal thigh: 5.40 mm 0.80 s Prox calf: 4 mm 0.00 Mid calf: 2.80 mm 3.90 s SSV: Saph pop jctn: 2.20 mm 0.00 Prox calf: 3.20 mm 0.40 s Mid calf: 2.80 mm 3.80 s AASV: Prox thigh: Mid thigh: Distal thigh: Thrombi: No acute or chronic thrombus visualized. Compressibility:Normal. Flow: Mild deep venous reflux and femoral vein. Perforators: Proximal medial lower leg 4.5 mm with 0.5 seconds reflux. Tech note: Varicose veins: Distal medial thigh 5.0 mm with 3.7 seconds reflux; proximal medial lower leg 4.0 mm with 0.6 seconds reflux. CONCLUSION: 1. Abnormally dilated and incompetent great saphenous veins bilaterally with a few associated incompetent branch saphenous varicosities. Final Dictated by: Carter Fowler MD Dictated DT/TM: 07/13/25 4:07 Signed (Electronic Signature): Carter Fowler MD 07/13/25 4:10 pm Technologist: [facility] HealthPatient Handouton 11-66-3627Xycegad HandoutCardiovascular Varicose Veins Varicose veins are veins that have become enlarged, bulged, and twisted. They most often appear in the legs. What are the causes? This condition is caused by damage to the valves in the vein. These valves help blood return to your heart. When they are damaged and they stop working properly, blood may flow backward and back up in the veins near the skin, causing the veins to get larger and appear twisted. The condition can result from any issue that causes blood to back up, like , prolonged standing, or obesity. What increases the risk? The following factors may make you more likely to develop this condition: ? Being on your feet a lot. ? Being . ? Being overweight. ? Smoking. ? Having had a previous deep vein thrombosis or having a thrombotic disorder. ? Aging. The risk increases with age. ? Having a condition called Klippel?Trenaunay syndrome. What are the signs or symptoms? Symptoms of this condition include: ? Bulging, twisted, and bluish veins. ? A feeling of heaviness in your legs. This may be worse at the end of the day. ? Leg pain. This may be worse at the end of the day. ? Swelling in the leg. ? Changes in skin color over the veins. Swelling or pain in the legs can limit your activities. Your symptoms may get worse when you sit orstand for long periods of time. How is this diagnosed? This condition may be diagnosed based on: ? Your symptoms, family history, activity levels, and lifestyle. ? A physical exam. You may also have tests, including an ultrasound or X-ray. How is this treated? Treatment for this condition may involve: ? Avoiding sitting or standing in one position for long periods of time. ? Wearing compression stockings. These stockings help to prevent blood clots and reduce swelling inthe legs. ? Raising (elevating) the legs when resting. ? Losing weight. ? Exercising regularly. If you have persistent symptoms or want to improve the way your varicose veins look, you may chooseto have a procedure to close the varicose veins off or to remove them. Nonsurgical treatments to close off the veins include: ? Sclerotherapy. In this treatment, a solution is injected into a vein to close it off. ? Laser treatment. The vein is heated with a laser to close it off. ? Radiofrequency vein ablation. An electrical current produced by radio waves is used to close off the vein. Surgical treatments to remove the veins include: ? Phlebectomy. In this procedure, the veins are removed through small incisions made over the veins. ? Vein ligation and stripping. In this procedure, incisions are made over the veins. The veins are then removed after being tied (ligated) with stitches (sutures). Follow these instructions at home: Medicines ? Take zprc-xoa-dapaccm and prescription medicines only as told by your health care provider. ? If you were prescribed an antibiotic medicine, use it as told by your health care provider. Do not stop using the antibiotic even if you start to feel better. Activity ? Walk as much as possible. Walking increases blood flow. This helps blood return to the heart and takes pressure off your veins. ? Do not stand or sit in one position for a long period of time. ? Do not sit with your legs crossed. ? Avoid sitting for a long time without moving. Get up to take short walks every 1?2 hours. This isimportant to improve blood flow and breathing. Ask for help if you feel weak or unsteady. ? Return to your normal activities as told by your health care provider. Ask your health care provider what activities are safe for you. ? Do exercises as told by your health care provider. General instructions ? Follow any diet instructions given to you by your health care provider. ? Elevate your legs at night to above the level of your heart. ? If you get a cut in the skin over the varicose vein and the vein bleeds: ? Lie down with your leg raised. ? Apply firm pressure to the cut with a clean cloth until the bleeding stops. ? Place a bandage (dressing) on the cut. ? Drink enough fluid to keep your urine pale yellow. ? Do not use any products that contain nicotine or tobacco. These products include cigarettes, chewing tobacco, and vaping devices, such as e-cigarettes. If you need help quitting, ask your health care provider. ? Wear compression stockings as told by your health care provider. Do not wear other kinds of tightclothing around your legs, pelvis, or waist. ? Keep all follow-up visits. This is important. Contact a health care provider if: ? The skin around your varicose veins starts to break down. ? You have more pain, redness, tenderness, or hard swelling over a vein. ? You are uncomfortable because of pain. ? You get a cut in the skin over a varicose vein and it will not stop bleeding. Get help right away if: ? You have chest pain. ? You have trouble breathing. ? Y (more content not included)...[facility] HospitalOffice Visiton 31-25-5354Zvdirn-up [id number] Abi Boswell 1960 [facility] Provider Department Center 10/24/2024 MARJ DE LEON BILL [place] Family History Problem Relation Age of Onset Hypertension Maternal Grandmother Transient ischemic attack Maternal Grandmother Heart attack Maternal Grandfather Heart failure Maternal Grandfather Family Status - Relation Status Age at Maternal Grandmother Maternal Grandfather Level of Service:55742 [place] OFFICE/OUTPATIENT ESTABLISHED MOD MDM 30 [facility] 96-31-9160Ozxwcs-up visit [id number] Abi Boswell 1960 [facility] Provider Department Center 04/14/2024 HENRIETTA FLOREZ BILL [place] Family History Problem Relation Age of Onset Hypertension Maternal Grandmother Transient ischemic attack Maternal Grandmother Heart attack Maternal Grandfather Heart failure Maternal Grandfather Family Status - Relation Status Age at Maternal Grandmother Maternal Grandfather Level of Service:27584 [place] OFFICE/OUTPATIENT ESTABLISHED MOD MDM 30 MIN Reason for Visit and Comments: Pre-op Exam [229493] Hypertension [464295] Chest Pain [236653][facility]36on Please let her know her labs showed her kidney function, liver function, blood counts and thyroid function were normal. Her LDL or bad cholesterol was elevated at 118. With patients with known heart disease, we recommend lowering the LDL to <70 to help reduce risk of worsening disease and help reduce risk of stroke, MA, etc. Recommend we switch her simvastatin to atrovastatin 40mg daily. Follow-up lipid panel and LFTs in 3 months. Also, her vit D was low, follow-up with Dr. Case on this. Thanks![facility] HospitalTelephoneon [id number] [id number] Abi Boswell F 1960 F Date Provider Department Center 12/25/2023 HENRIETTA FLOREZ Family History Problem Relation Age of Onset Hypertension Maternal Grandmother Transient ischemic attack Maternal Grandmother Heart attack Maternal Grandfather Heart failure Maternal Grandfather Family Status - Relation Status Age at Maternal Grandmother Maternal GrandfatherNormalUC [facility] HospitalOffice Visiton 32-16-6933Wxdzdn-up [id number] Or[place] Boswellice Maxine 1960 Provider Department Center 11/11/2023 HENRIETTA FLOREZ Family History Problem Relation Age of Onset Hypertension Maternal Grandmother Transient ischemic attack Maternal Grandmother Heart attack Maternal Grandfather Heart failure Maternal Grandfather Family Status - Relation Status Age at Maternal Grandmother Maternal Grandfather Level of Service:35439 [place] OFFICE/OUTPATIENT ESTABLISHED MOD MDM 30-39 MIN Reason for Visit and Comments: Chest Pain [215034] Coronary Artery Disease [187][facility] HospitalARS-CoV-2 on 22-42-3302DCIR-CoV-2 (COVID-19) RNA CAROLINE+probe Ql (Unsp spec)Not detected NormalNOTDEMiddletown Hospitalment on above:Result Comment: Rapid NAAT: The specimen is NEGATIVE [...] management decisions. Fact sheet for Healthcare Providers: https://www.fda.gov/media/742921/download Fact sheet for Patients: https://www.fda.gov/media/890682/download Methodology: Isothermal Nucleic Acid AmplificationPerformed By: #### COVRB #### [facility] [address] [place] [address] Sample Patternmaker: Tejas Melchorulysses Metabolic Panelon 23-73-2353Qsrdw gap [Moles/Vol]8 mmol/LLow9 - 17 mmol/LBON SECOURS MERCY HEALTHCalcium [Mass/Vol]9.8 mg/dL8.6 - 10.4 mg/dLBON SECOURS MERCY HEALTHChloride [Moles/Vol]107 mmol/L98 - 107 mmol/LBON SECOURS MERCY HEALTHCO2 [Moles/Vol]30 mmol/L20 - 31 mmol/LBON [facility]RS MERCY HEALTHCreatinine [Mass/Vol]0.73 mg/dL0.5 - 0.9 mg/dLBON SECOURS MERCY HEALTHGFR >6060 - PINF mL/minBON SECOURS MERCY HEALTHGFR Non->6060 - PINF mL/minBON [facility]OURS MERCY HEALTHGlucose [Mass/Vol]97 mg/dL70 - 99 mg/dLBON [facility]OURS MERCY HEALTHInterpretation and review of laboratory resultsAbnormalBON [facility]OURS MERCY HEALTHPotassium [Moles/Vol]4.4 mmol/L3.7 - 5.3 mmol/LBON SECOURS MERCY HEALTHSodium [Moles/Vol]145 mmol/LHigh 135 - 144 mmol/LBON SECOURS MERCY HEALTHUrea nitrogen (BldV) [Mass/Vol]12 mg/dL8 - 23 mg/dLBON SECOURS MERCY HEALTHUrea nitrogen/Creatinine (Bld) [Mass ratio]16 9 - 20B[facility]ULLB[facility]ULLBasic Metabolic Profon 06-20-2022(cont.)NormalSelect Medical Cleveland Clinic Rehabilitation Hospital, Edwin ShawComment on above:Result Comment: Average GFR for 60-69 years old: 85 mL/min/1.73sq m Chronic Kidney Disease: <60 mL/min/1.73sq m Kidney failure: <15 mL/min/1.73sq m eGFR calculated using average adult body mass. Additional eGFR calculator available at: http://www.[employer]/multiple_crcl_2012.htmPerformed By: #### CDP, BMP #### [address] [place] [address] Sample Patternmaker: aLnre Santana MDAnion gap [Moles/Vol]8 mmol/LLow9-17[facility], Edwin ShawComment on above:Performed By: #### CDP, BMP #### [address] [place], [place] [id number] Sample Patternmaker: Lanre Santana MDBUN/CRE Xlits62Zapejx1-28Rjart [facility] Comment on above:Performed By: #### CDP, BMP #### [address] [place], [place] [id number] Sample Patternmaker: SYLVIA Melchoralcium [Mass/Vol]9.8 mg/dLNormal8.6-10.4[facility] ShawComment on above:Performed By: #### CDP, BMP #### [facility] [address] [place] [address] Dr[address] [place], [place] [id number] Sample Patternmaker: SYLVIA Melchorhloride [Moles/Vol]107 mmol/OGqpdhz87-403KoydrSelect Medical Cleveland Clinic Rehabilitation Hospital, Edwin ShawComment on above:Performed By: #### CDP, BMP #### [facility] [address] [place] [address] [place] [address] Sample Patternmaker: Lanre Santana MDCO2 [Moles/Vol]30 mmol/PCrcoli24-18Uezdj [facility] HospitalComment on above:Performed By: #### CDP, BMP #### [address] [place], [place] [address] Sample Patternmaker: Lanre Santana MDCreatinine [Mass/Vol]0.73 mg/dLNormal0.50-0.90 [facility] HospitalComment on above:Performed By: #### CDP, BMP #### [address] [place], [place] [address] Sample Patternmaker: Lanre Santana MDGFR, Amer>60Normal>60[facility] Comment on above:Performed By: #### CDP, BMP #### [address] [place], [place] [address] Sample Patternmaker: YANET Melchor,non Amer>60Normal>60[facility] HospitalComment on above:Performed By: #### CDP, BMP #### [address] [place], [place] [address] Sample Patternmaker: Lanre Santana MDGlucose [Mass/Vol]97 mg/iLHxoswc48-98Egrzl Neche HospitalComment on above:Performed By: #### CDP, BMP #### [address] [place] [address] Sample Patternmaker: Lanre Santana MDPotassium [Moles/Vol]4.4 mmol/LNormal3.7-5.3Mthe bellevue hospitaly Neche HospitalComment on above:Performed By: #### CDP, BMP #### [address] [place] [address] Sample Patternmaker: Lanre Santana MDSodium [Moles/Vol]145 mmol/JVmhe526-618Wrmtf [facility] HospitalComment on above:Performed By: #### CDP, BMP #### [address] [place] [address] Sample Patternmaker: MARILIA Melchortaging:[facility] South CampusComment on above:Result Comment: Stage 1: Some kidney damage normal GFR Stage 2: Mild kidney damage GFR 60-89 Stage 3: Moderate kidney damage GFR 30-59 Stage 4: Severe kidney damage GFR 15-29 Stage 5: Severe kidney damage GFR <15 ESRD - chronic treatment by dialysis or transplantPerformed By: #### CDP, BMP #### [address] [place], [place] [address] Sample Patternmaker: Lanre Santana MDUrea nitrogen [Mass/Vol]12 mg/dLNormal8-[facility] ShawComment on above:Performed By: #### CDP, BMP #### [address] [place] [place] [address] Sample Patternmaker: Lanre Santana [facility] – SHAWNEEBC with Auto Differentialon [id number] Eos #0.12[facility] HEALTHAbsolute Immature Granulocyte0.03B[facility] HEALTHAbsolute Lymph #1.85[facility] HEALTHAbsolute [place] #0.71[facility] HEALTHBasophils (Bld) [#/Vol]0.03 10*3/uLBON SECOURS MERCY HEALTH Basophils/100 WBC (Bld)0 %0 - 2 %[facility] HEALTHEosinophils/100 WBC (Bld)1 %1 - 4 %[facility] HEALTHHematocrit (Bld) [Volume fraction]42.7 % 36.3 - 47.1 %[facility] HEALTHHemoglobin (Bld) [Mass/Vol]14.3 g/dL11.9 - 15.1 g/dLBON SECOURS MERCY HEALTHImmature granulocytes/100 WBC (Bld)0 %0B[facility]CY HEALTHInterpretation and review of laboratory resultsAbnormalBON SECOURS MERCY HEALTHLymphocytes/100 WBC (Bld)22 %Low24 - 43 %[facility] HEALTHMCH (RBC) [Entitic mass]32.6 pg25.2 - 33.5 pgBON MARTIN MEMORIAL HOSPITALHC (RBC) [Mass/Vol]33.5 g/dL28.4 - 34.8 g/dLBON MARTIN MEMORIAL HOSPITALV (RBC) [Entitic vol]97.3 fL82.6 - 102.9 fLINOVA FAIRFAX HOSPITALMonocytes/100 WBC (Bld)9 %3 - 12 %INOVA FAIRFAX HOSPITALNRBC Automated0.00.0 per 100 WBCINOVA FAIRFAX HOSPITALPlatelet distribution width (Bld) [Ratio]13.3 %11.8 - 14.4 % B[facility] - TRUMBULLPlatelet mean volume (Bld) [Entitic vol]8.4 fL8.1 - 13.5 fLINOVA FAIRFAX HOSPITALPlatelets (Bld) [#/Vol]278 10*3/uLINOVA FAIRFAX HOSPITALRBC (Bld) [#/Vol]4.39 10*6/uL3.95 - 5.11 m/uLINOVA FAIRFAX HOSPITAL Segmented neutrophils/100 WBC (Bld)68 %High36 - 65 %[facility]OS[facility] - TRUMBULLSegs Absolute5.62B[facility]OS[facility]ITAL - TRUMBULLWBC (Bld) [#/Vol]8.4 10*3/uLBON MARSHALL COUNTY HEALTHCARE CENTERCBC with Diffon [id number]. Basophil0.03 k/uLNormal0.00-0.20MerACMC Healthcare System HospitalComment on above:Performed By: #### JD, BMP #### [address] [place] [id number] Sample Patternmaker: Chris Melchor.Imm.Granulocyte0.03 k/uLNormal0.00-0.30MerNew Milford HospitalComment on above:Performed By: #### JD, BMP #### [address] [place] [place] [address] Sample Patternmaker: Chris Melchor.Neutrophil (Seg)5.62 k/uLNormal1.50-8.10[facility], [facility] ShawComment on above:Performed By: #### JD, BMP #### [address] [place] [place] [address] Sample Patternmaker: Lanre Santana MDBasophils/100 WBC (Bld)0 %Normal0-2[facility]eche HospitalComment on above:Performed By: #### CDP, BMP #### [address] [place] [place] [address] Sample Patternmaker: Lanre Santana MDEosinophils (Bld) [#/Vol]0.12 10*3/uLNormal 0.00-0.44Mercy Neche HospitalComment on above:Performed By: #### CDP, BMP #### [address] [place] [address] Sample Patternmaker: NICOLE Melchorosinophils/100 WBC (Bld)1 %Normal1-4MerACMC Healthcare System HospitalComment on above:Performed By: #### CDP, BMP #### [address] [place] [place] [address] Sample Patternmaker: Lanre Santana MDErythrocyte distribution width (RBC) [Ratio]13.3 % Qojnna92.8-14.4MerACMC Healthcare System HospitalComment on above:Performed By: #### CDP, BMP #### [address] [place] [place] [address] Sample Patternmaker: Lanre Santana MDHematocrit (Bld) [Volume fraction]42.7 %Normal 36.3-47.1Mer[facility]eche HospitalComment on above:Performed By: #### CDP, BMP #### [address] [place] [id number] Sample Patternmaker: Lanre Santana MDHemoglobin (Bld) [Mass/Vol]14.3 g/dLNormal 11.9-15.1Mercy Neche HospitalComment on above:Performed By: #### CDP, BMP #### [address] [place], [place] [address] Sample Patternmaker: Serenity Melchorture granulocytes/100 WBC (Bld)0 %Bsufrq6XsopgSelect Medical Cleveland Clinic Rehabilitation Hospital, Edwin ShawComment on above:Performed By: #### CDP, BMP #### [address] [place], [place] 4395183 Sample Patternmaker: Lanre Santana MDLymphocytes (Bld) [#/Vol]1.85 10*3/uLNormal 1.10-3.70[facility], Edwin ShawComment on above:Performed By: #### JD, BMP #### [address] [place], [place] [address] Sample Patternmaker: Bhavesh Melchormphocytes/100 WBC (Bld)22 %Idq31-24Xuqdn [facility]iffin HospitalComment on above:Performed By: #### JD, BMP #### [address] [place], [place] [address]83 Sample Patternmaker: EVELYN Melchor (RBC) [Entitic mass]32.6 inAqqnkn65.2-33.5 [facility] HospitalComment on above:Performed By: #### JD, BMP #### [address] [place], [place] [id number] Sample Patternmaker: EVELYN MelchorC (RBC) [Mass/Vol]33.5 g/lPSfcpsl15.4-34.8[facility] HospitalComment on above:Performed By: #### CDP, BMP #### [address] [place] [address] Sample Patternmaker: TAMIKO MelchorCV (RBC) [Entitic vol]97.3 nKQmluwh51.6-102.9 [facility] HospitalComment on above:Performed By: #### CDP, BMP #### [address] [place] [address] Sample Patternmaker: TAMIKO Melchoronocytes (Bld) [#/Vol]0.71 10*3/uLNormal0.10-1.20 [facility] ShawComment on above:Performed By: #### CDP, BMP #### [address] [place] [address] Sample Patternmaker: TAMIKO Melchoronocytes/100 WBC (Bld)9 %Normal3-12[facility] ShawComment on above:Performed By: #### CDP, BMP #### [address] [place] [address] Sample Patternmaker: Oren Melchorophil (Seg)68 %Awfr49-11CdxujSelect [facility] Comment on above:Performed By: #### CDP, BMP #### [address] [place] [address] Sample Patternmaker: NEHA Melchor Automated0.0 per 100 WBCNormal0.0[facility] ShawComment on above:Performed By: #### CDP, BMP #### [address] [place] [address] Sample Patternmaker: Minh Melchortepinky mean volume (Bld) [Entitic vol]8.4 fL Normal8.1-13.5[facility] ShawComment on above:Performed By: #### CDP, BMP #### [address] [place] [address] Sample Patternmaker: ANABEL Melchorlatelets (Bld) [#/Vol]278 10*3/nVYactbb249-471 [facility] ShawComment on above:Performed By: #### CDP, BMP #### [address] [place], [place] [address] Sample Patternmaker: ERIN Melchor ([facility]) [#/Vol]4.39 10*6/uLNormal3.95-5.11[facility] HospitalComment on above:Performed By: #### CDP, BMP #### [facility] [address] [place] [address] Sample Patternmaker: DEE Melchor ([facility]) [#/Vol]8.4 10*3/uLNormal3.5-11.3[facility] HospitalComment on above:Performed By: #### CDP, BMP #### [facility] [address] [place] [address] Sample Patternmaker: DANII Melchor 12 LeadOrdered By: César Blanco on 06-20-2022 Atrial Flzb92XRXTAX Boqii Work Phone: P Ektq16csmzbosCNCGrupanya Work Phone: P-R Agjnbggn379 [employer] [place] Phone: Q-T Wzwzsdek706 [employer] [place] Phone: QRS Faqogdtt638 msYoQueVos Work Phone: QTc Calculation (Bazett)449 msBON N[employer] Phone: R Shwp36refnasxIFBYoQueVos Work Phone: T Qxqx11gjatzuvDTTWeGreek Phone: Ventricular Udjf69WRBWOO Boqii Work Phone: BON N[employer] Phone: EKG 12 Leadon 29-57-3135Kzsooj sinus rhythm Incomplete right bundle branch block Cannot rule out Inferior infarct , age undetermined Abnormal ECG No previous ECGs available Confirmed by César Blanco MD ([id number]) on 06/20/2022 10:08:07 [facility] César Blanco MD - 06/20/2022 Normal sinus rhythm Incomplete right bundle branch block Cannot rule out Inferior infarct , age undetermined Abnormal ECG No previous ECGs available Confirmed by César Blanco MD ([id number]) on 06/20/2022 10:08:07 PM [facility] [employer] [facility] Work Phone: laboratory - Chemistry and Chemistry - challengeon 77-70-9092FMZ/1.73 sq M.predicted MDRD (S/P/Bld) [Vol rate/Area][facility]OSPITALFunambolScotland County Memorial Hospitalment on above:Average GFR for 60-69 years old: 85 mL/min/1.73sq m Chronic Kidney Disease: <60 mL/min/1.73sq m Kidney failure: <15 mL/min/1.73sq m eGFR calculated using average adult body mass. Additional eGFR calculator available at: http://www.[employer]/Fitcline_crcl_2012.htm Stage 1: Some kidney damage normal GFR Stage 2: Mild kidney damage GFR 60-89 Stage 3: Moderate kidney damage GFR 30-59 Stage 4: Severe kidney damage GFR 15-29 Stage 5: Severe kidney damage GFR <15 ESRD - chronic treatment by dialysis or transplant MRI KNEE RT WO CONon 48-55-1082GNI KNEE RT WO CONEXAMINATION: MRI KNEE RT WO CON HISTORY: Derangement [...] posterior cruciate ligament. Electronically authenticated by: CARTER FOWLER Date: 2022-06-06 15:52[facility] Vital Signs Date TimeVital SignValuePerforming IfyxwkdgnBhxyobwc01-43-9480 14:30-0400 Diastolic blood cgnivnyx30 mm[Hg]Carter Torres MD Work Phone: bon Boqii07-29-2022 14:30-0400Heart rate68 /Libby Torres MD Work Phone: bon Boqii07-29-2022 14:30-0400 Respiratory rate23 /Libby Torres MD Work Phone: bon Boqii07-29-2022 14:30-3920BcA7% (BldA) [Mass fraction]94 %Carter Torres MD Work Phone: bon Boqii07-29-2022 14:30-0400Systolic blood kxyqrvig790 mm[Hg]Carter Torres MD Work Phone: bon Boqii07-29-2022 14:00-0400Body myaxjnumice18 [degF]Carter Torres MD Work Phone: bon Boqii07-29-2022 11:16-0400Body qnwsii101.6 Fawn Torres MD Work Phone: bon Boqii07-29-2022 11:16-0400Body mass index (BMI) [Ratio]30.04 kg/p2NseoarCarter Torres MD Work Phone: bon Boqii07-29-2022 11:16-0400Body nphezb35.38 kgStmercy Torres MD Work Phone: bon Boqii Encounters Encounter DateEncounter TypeCare ProviderFacilityStart: 07-13-2025 End: 66-87-7996wuebjpuiloDmzioh R. ZieberFacility:[facility] HospitalStart: 10-24-2024 End: 07-85-6677xnesgrrwzjDNMRCCOhioHealth Southeastern Medical Center Start: 10-24-2024 End: 24-07-8874Qwexrxkyz for preprocedural cardiovascular examinationGEORMartin Memorial Hospitaltart: 04-14-2024 End: 22-04-1434ejvpfksijiIZADNYKOhioHealth Van Wert Hospitaltart: 11-11-2023 End: 99-55-3488fefepsygqcITTFWFKOhioHealth Van Wert Hospitaltart: 06-27-2022 End: 16-33-8418sqfvawpousDVOLWT C COPELANDMount St. Mary Hospitalguanakito Zullinger HospitalStart: 06-27-2022 End: 72-45-7045Yqzdczlwbk hospital visit by Rolando Torres MD Work Phone: mWHZ ORStart: 06-20-2022 End: 16-64-2527zpfchpxqibLOUVZVPricila [facility] Neche HospitalStart: 06-20-2022 End: 83-48-6326Ziagceosra hospital visit by Jose Case MD Work Phone: mthz EKGStart: 06-05-2022 End: 89-21-6442lqlzuyhhdcYO DOUGLAS HOYFacility:H1 Procedures DateProcedureProcedure DetailPerforming ClinicianStart: 88-45-3177Fny routine ecg w/least 12 lds w/i&rSdarryl Torres MD Work Phone: Start: 70-08-4043Oyemv metabolic panel calcium total Carter Torres MD Work Phone: Plan of Treatment DateCare ActivityDetailAuthorStart: 18-41-6885Snimndrjn vaccinationFlu vaccine (#1)VAN ADAME [facility]ITALStart: 06-27-2022 End: 83-27-7528Abnxyulrgpg knee diagnostic w/wo synovial bx spxKNEE ARTHROSCOPY Acute medial meniscus tear of right knee, initial encounter 06/27/2022 1:07 PM [facility] Centertart: 33-03-5069Dowrvegim for malignant neoplasm of breastBreast cancer screenBON [facility] Centerart: 2010 Shingles vaccine (1 of 2)Shingles vaccine (1 of 2)[facility]ITALStart: 00-48-7206Oqqwxbijz for malignant neoplasm of colonBON [facility] Start: 67-15-2239Lxvts panelLipidsBon Secours Mary Immaculate Hospitalart: 1979 DTaP/Tdap/Td vaccine (1 - Tdap)DTaP/Tdap/Td vaccine (1 - Tdap)[facility] Hospitalart: 31-43-9771Qwopgvlsv C screeningHepatitis C screenBon Secours Mary Immaculate Hospitalart: 73-75-4920TMK screeningHIV [facility] Hospitalart: 57-69-8910Vwxnuhbupu ScreenDepression [facility] Centerart: 84-53-9103Hknyedumgbwe 0-64 years Vaccine (1 - PCV)Pneumococcal 0-64 years Vaccine (1 - PCV)[facility] Hospitalart: 53-42-9483NNCCB-19 Vaccine (#1) COVID-19 Vaccine (#1)[facility] HOSPITALOxygen therapy [Minimum Data Set] Initiate Oxygen Therapy Protocol Respiratory Care Routine As Needed until discontinued starting 06/27/2022[facility] Work Phone: comment on above:As Needed until discontinued starting 06/27/2022 Payers DatePayer CategoryPayerPolicy [id number] Health [id number] [id number] 2..[id number] [id number] 2.16.840.1.197691.3.57[id number] 2.16.840.1.349017.3.57[id number] 2.16.840.1.615972.3.57[id number] [id number] Social History DateTypeDetailFacilityStart: 20-95-7881Mckqzxm smoking status NHISSmokes tobacco dailyDIGN[facility] Navegg Phone: History of tobacco useCigarette SmokerDIGNITY [facility] Navegg Phone: start: 98-03-7715Gxgwkhnaky smoked current (pack per day) - Reported0.5BON Nave[employer] Phone: start: 49-23-2171Xtsidrz use and exposureSmokeless tobacco non-userDIGNITY [facility]ALTH [facility]ITAL Navegg Phone: start: 12-05-2021 End: 30-94-1685Edfeutc intakeLifetime non-drinker (finding)[facility] Navegg Phone: start: 68-96-2476Eyxbglo SDOH Alcohol Zpolreaiu8GDS Navegg Phone: start: 80-80-0377Vup Assigned At BirthNot on fileDIGN[facility] Navegg Phone: start: 06-17-2022 End: 08-57-2441Tblgdxgu to SARS-CoV-2 (event)Not sureDIGNITY [facility] Navegg Phone: Progress note 10-24-2024 Note Date & VsjaFxygFwkgivmj36-34-4917 NoteUT Cardiology - [facility] Subjective Abi Boswell is a 64 y.o. year old female patient being seen for 6 mo follow up CAD, chest pain, and hyperlipidemia. Still gets intermittent palpitations and periotic chest pain. She states chest pain no longer radiates down her UE. Only taking lasix prn. Patient Active Problem List Diagnosis Other chest pain Shortness of breath Acute sinusitis Coronary artery disease involving [place] coronary artery of sp[place]ane heart without angina pectoris Family History Problem [...] presented to the emergency room at the [facility] due to chest pain and her cardiac [...] tablet, if needed., Disp: , Rfl: HYDROcodone-acetaminophen ([place]) 5-325 mg tablet, take 1 tablet by [...] chloride CR (Klor-Con M1 (more content not included)...[facility] Progress note 04-14-2024 Note Date & TmaaGdgfIjvxvaay56-42-9404 NotePatient here for 6 mo follow up CAD, chest pain, and fatigue. [...] light-headedness. All other systems reviewed and are negative.[facility] Progress note 04-14-2024 Note Date & BfkrPklsHixrvuoh22-69-5242 NoteCardiovascular Medicine [facility] SUBJECTIVE Chief Complaint Patient presents with [...] breath Acute sinusitis Coronary artery disease involving sp[place] coronary artery of sp[place] heart without angina pectoris Past Medical History: Diagnosis Date Hyperlipidemia Lupus (systemic lupus erythematosus) ([facility]) Past Surgical History: Procedure Laterality [...] the same time., Disp: , Rfl: HYDROcodone-acetaminophen ([place]) 5-325 mg tablet, take 1 tablet by [...] Cardiovascular: Rate and R (more content not included)...[facility] Progress note 11-11-2023 Note Date & XcjkNyaeXzyhzjls94-21-2634 NotePatient here for follow up heart cath. Isosorbide was increased to [...] light-headedness. All other systems reviewed and are negative.[facility] Progress note 11-11-2023 Note Date & WwneSezbFsdscjsi85-18-1868 NoteCardiovascular Medicine [facility] SUBJECTIVE Chief Complaint Patient presents with [...] breath Acute sinusitis Coronary artery disease involving [place] coronary artery of sp[place] heart without angina pectoris Past Medical History: Diagnosis Date Hyperlipidemia Lupus (systemic lupus erythematosus) ([facility]) Past Surgical History: Procedure Laterality [...] tablet, if needed., Disp: , Rfl: HYDROcodone-acetaminophen ([place]) 5-325 mg tablet, take 1 tablet by [...] General: No focal de (more content not included)...[facility] History of Present illness Narrative 06-27-2022 Note Date & NowtSiskDwxbautw68-52-1961 History of Present illness Narrative* Selene Blake RN - 06/27/2022 3:22 PM EDT Discharge Criteria Outpatients must meet criteria 1 [...] require patient to operate motor Vehicle. Yes * Selene Blake RN - 06/25/2022 3:12 PM EDT [facility] Preadmission Testing Name: Abi Boswell : [...] Take [x] Ride Home [x]No Jewelry/Contact Lenses/Nail Thai [] Prep/Lax/Clear Liquids [] Chlorhexidene DOS Patient [...] reviewed with patient? Yes documented in this encounterBON Boqii Work Phone: Hospital Discharge instructions 06-27-2022 Note Date & JfxjVwceCgleqmrd84-69-6572 Hospital Discharge instructions* Discharge Instructions* Carter Torres MD - 06/27/2022 1:03 PM [...] feet do not touch the floor, 2. Spring Coverer the sides of the surface for support. 3. Raise one foot until your knee is completely straight 4. Slowly return to the starting position and relax. 5. Repeat 20 times ANKLE PUMPS 1. Bend ankles up and down, alternating foot 2. Repeat 25 times Carter Torres M.D. [phone] @ATTPROV@ 06/27/2022 1:01 PM documented in this encounterBON [facility] [employer] Work Phone: Summary Purpose Family History No Family History Records FoundNo Family History Records FoundNo Family History Records FoundNo Family History Records FoundNo Family History Records Found Advance Directives No Advanced Directives Records FoundLatest Code Status on File Code StatusDate ActivatedDate InactivatedCommentsFull Code06/27/2022 11:07 AM Additional Source Comments Care Teams (unrecognized sec tion and content) Team MemberRelationshipSpecialtyStart DateEnd Date Ron Case MD [address] [place], [place] [id number] PCP - GeneralFamily Medicine06/21/20Team MemberRelationshipSpecialtyStart DateEnd Date Ron Case MD [address] [place], [place] [id number] PCP - GeneralFamily Medicine06/21/20Team MemberRelationshipSpecialtyStart DateEnd Date Ron Case MD [address] [place] [id number] PCP - GeneralFamily Medicine06/21/20 INFORMATION SOURCE (unrecogn ized section and content) DATE CREATED AUTHOR 06/22/2022 [facility] DATE CREATED AUTHOR AUTHOR'S ORGANIZ ATION 07/01/2022 [facility] DATE CREATED AUTHOR AUTHOR'S ORGANIZ ATION 09/22/2022 [facility] DATE CREATED AUTHOR AUTHOR'S ORGANIZ ATION 11/01/2024 [facility] DATE CREATED AUTHOR AUTHOR'S ORGANIZ ATION 09/04/2025 [facility] Reason for Visit (unrecogniz ed section and content) SpecialtyDiagnoses / ProceduresReferred By ContactReferred To Contact Diagnoses Acute medial meniscus tear of right knee, initial encounter Acute medial meniscus tear of right knee, initial encounter [S83.241A] Procedures MN KNEE SCOPE,DIAGNOSTIC MN ARTHRS KNE SURG W/MENISCECTOMY MED/LAT W/SHVG KNEE ARTHROSCOPY Carter Torres MD [address] [place] [address] [facility] [id number] [place] [address] Referral IDStatusReasonStart DateExpiration DateVisits RequestedVisits [id number] Ordered Prescriptions (unrec ognized section and content) PrescriptionSigDispensedRefillsStart DateEnd Date ketorolac (TORADOL) 10 MG tablet Take 1 tablet by mouth in the morning and 1 tablet at noon and 1 tablet before bedtime. Do all thisfor 5 days. 1 tab by mouth 3 times daily. 15 tablet /01/2022 Scheduled Active and Recently Administ ered Medications (unrecognized section and content) Medication Order// ceFAZolin (ANCEF) 2000 mg in dextrose 3 % 50 mL IVPB (duplex) (COMPLETED) 2,000 mg, IntraVENous, LODE MINER TO O.R., 1 dose, On Thu06/27/22 at 1130, Antimicrobial Indications: Surgical Prophylaxis, Administer within 1 hour prior to incision. Recommend to repeat in 3-4 hours after initial dose if still intra- op., Pre-op (day of surgery) * 1242 (New Bag - Provider: Clay Vasquez RN) * 1312 (Due: Stopped - Provider: Clay Vasquez RN) Medication Order// lactated ringers infusion IntraVENous, at 125 mL/hr, CONTINUOUS, Starting on Thu06/27/22 at 1130, Pre-op (day of surgery) * 1122 (New Bag - Provider: Vanessa Hough RN) * 1309 (NoRateChange - Provider: Kenn Quick APRN - THAO) * 1351 (Anesthesia Volume Adjustment - Provider: KARINE Luna CRNA) Medication Order06/25//// bupivacaine-EPINEPHrine PF (MARCAINE-w/EPINEPHRINE) 0.5% -1:126836 injection (CANCELED) PRN, Starting on Thu06/27/22 at 1348, Until Thu06/27/22 at 1356, Intra-op * 1348 (Given - Provider: Carter Torres MD) sodium chloride 0.9 % 3,000 mL with EPINEPHrine (EPINEPHrine HCL) 1 mg (CANCELED) PRN, Starting on Thu06/27/22 at 1336, Intra-op * 1336 (Given - Provider: Carter Torres MD) FOR RECORDS PERTAINING TO [...] BE BASED ON THE PRIMARY CLINICAL RECORDS. [employer] provides no warranty or guarantee of the accuracy or completeness of information in this document.
== END 2025-10-03 10:12 | disposition home or self-care (01) ==
LOC: US 10:11
PROVIDERS: PCP Family Medicine; Visit Provider Family Medicine
DX: R10.9 Unspecified abdominal pain (principal); N20.0 Calculus of kidney
CPT/HCPCS: 76770